=== PATIENT | male | born 1960 | race Caucasian/White ===

== ENCOUNTER 2020-12-26 07:28 | Inpatient (IN) | payer OTHER, MEDICARE, SELFPAY ==
[2020-12-26] VITALS (16 sets, daily range): BP systolic 101–150; BP diastolic 66–86; PULSE 72–196; RESP 14–20; TEMP 37; O2SAT 92–98; BMI 34.2
--- NOTE | 2020-12-26 | ECG_ITS ---
Test Reason : CHEST PAIN Blood Pressure : / mmHG Vent. Rate : 193 BPM Atrial Rate : 193 BPM P-R Int : 094 ms QRS Dur : 102 ms QT Int : 236 ms P-R-T Axes : 061 -44 217 degrees QTc Int : 423 ms Supraventricular tachycardia vs atrial flutter Left axis deviation Left ventricular hypertrophy with repolarization abnormality Marked ST abnormality, possible anterior subendocardial injury Abnormal ECG When compared with ECG of 24-FEB-2019 17:51, SVT vs atrial flutter present ischemic changes present Referred By: Generic ED Physician Electronically Signed By:Akira Tran
--- NOTE | ~2020-12-26 | XR_ITS ---
EXAMINATION: XR CHEST CLINICAL INFORMATION: Chest pain COMPARISON: 02/10/2019 TECHNIQUE: Frontal view of the chest was obtained. FINDINGS: The lungs are well expanded. There is increased patchy airspace opacity at the left lung base. No pleural effusion or pneumothorax. The cardiomediastinal silhouette is unchanged. Cervical fusion hardware noted. XR/XR chest 1V IMPRESSION: Patchy airspace opacity of the left lung base is concerning for pneumonia or aspiration. Follow-up to resolution.
--- NOTE | 2020-12-26 07:55 | PC.NURSE ---
pt in from the waiting room, alert oriented, skin pwd, respirations even and unlabored. pt reports having left sided chest pain and feeling sob, also some tingling in the left hand. hr in the 190's on the monitor, pt also feeling slightly dizzy. dr Zapata at bedside attempted the 6mg of adenosine iv no change hr still in the 190's bp stable . attempted the 12mg of adenosine still no change, second dose of 12mg of adenosine given and no change. pacer pads on the pt prior to giving the adenosine.
--- NOTE | 2020-12-26 08:11 | ECG_ITS ---
Test Reason : CHEST PAIN Blood Pressure : / mmHG Vent. Rate : 081 BPM Atrial Rate : 081 BPM P-R Int : 204 ms QRS Dur : 114 ms QT Int : 418 ms P-R-T Axes : 011 -40 024 degrees QTc Int : 485 ms Sinus rhythm with occasional Premature ventricular complexes and Premature atrial complexes Left axis deviation Minimal voltage criteria for LVH, may be normal variant Nonspecific ST abnormality Prolonged QT Abnormal ECG When compared with ECG of 26-DEC-2020 07:44, SVT vs atrial flutter not present anymore Referred By: Amado Lopez Electronically Signed By:Akira Tran
[2020-12-26] MEDS: dilTIAZem HCL 50 MG/10 ML VIAL 30 MG IVPUSH (08:13)
[2020-12-26] MEDS: 0.9 % Sodium Chloride 1,000 ML 999 ML IV (08:15)
--- NOTE | 2020-12-26 08:15 | PC.NURSE ---
Cardizem 30mg given really slow, hr started in the 190's pt continuos on being stable, alert and oriented, skin pwd, respirations even, bp stable, hr slowing down to the 130 s, and into the 90's at this time.
[2020-12-26] MEDS: dilTIAZem HCL 125 MG in 0.9 % Sodium Chloride 100 ML 10 MG IVCONT (08:31)
[2020-12-26 08:44] LABS: MANUAL DIFF FLAG NO
[2020-12-26 08:53] LABS: Prothrombin Time 11.4 SEC (10.8-13.0)
[2020-12-26 08:55] LABS: D Dimer 271 NG/ML; Partial Thromboplastin Time 32.8 SEC (24.1-38.0)
[2020-12-26 09:03] LABS: Basophils Percent Auto 0.8 % (0-2); Eosinophils Absolute Auto 0.2 X10*3/uL (0.0-0.4); Eosinophils Percent Auto 4.5 % (0-4); Hematocrit 40.8 % (42-52); Hemoglobin 14.1 g/dl (14.0-18.0); Imm Gran Abs Auto 0.01 X10*3/uL (0.00-0.03); Imm Gran Pct Auto 0.2 % (0.0-0.4); Lymphocytes Absolute Auto 2.2 X10*3/uL (1.2-4.9); Lymphocytes Percent Auto 42.8 % (20-40); Mean Corpuscular HGB Conc 34.6 g/dl (31.0-36.0); Mean Corpuscular Hemoglobin 32.9 pg (27.0-33.0); Mean Corpuscular Volume 95.3 fL (80-98); Mean Platelet Volume 10.3 fL (9.4-12.4); Monocytes Absolute Auto 0.4 X10*3/uL (0.1-1.2); Neutrophils Absolute Auto 2.3 X10*3/uL (2.0-8.3); Neutrophils Percent Auto 43.7 % (45-73); Platelet Count 119 X10*3/uL (160-400); Red Blood Count 4.28 X10*6/uL (4.60-5.80); Red Cell Distribution Width 12.6 % (11.0-16.0); White Blood Count 5.1 X10*3/uL (4.8-10.8)
[2020-12-26 09:44] LABS: COVID-19 Test Negative (Negative)
[2020-12-26 10:01] LABS: Alanine Aminotransferase 25 U/L (0-40); Albumin Level 4.3 g/dL (3.5-5.0); Alkaline Phosphatase 85 U/L (39-117); Anion Gap 16 (12-20); Aspartate Amino Transferase 36 U/L (5-37); Bilirubin Total 0.5 mg/dL (0.0-1.0); Blood Urea Nitrogen 10 mg/dL (9-16); Calcium 8.6 mg/dL (8.4-10.2); Carbon Dioxide 24 mmol/L (22-29); Chloride 104 mmol/L (96-108); Creatinine Clr Calc Pharmacy 115.7; Estimated Glomerular Filt Rate > 60; Glucose Random 147 mg/dL (60-115); Lipase 21 U/L (8-78); Potassium 3.7 mmol/L (3.3-5.1); Salicylate < 5.0 mg/dL (15-30); Sodium 140 mmol/L (135-145); Total Protein 6.7 g/dL (6.5-8.0); Troponin-I High Sensitivity 52.6 ng/L (<3.5-35.0)
[2020-12-26 10:02] LABS: TSH reflex Free T4 5.66 uIU/mL (0.32-4.0)
[2020-12-26 10:28] LABS: Ethanol < 10 mg/dL
--- NOTE | 2020-12-26 10:35 | ED.GENADULT ---
HPI - General Adult General Chief complaint: Arrhythmia/Palpitations Stated complaint: chest pain Time Seen by Provider: 12/26/20 08:08 Source: patient Mode of arrival: ambulatory Limitations: no limitations History of Present Illness HPI narrative: 60-year-old male who presents emergency department for evaluation of chest pain and shortness of breath. Patient states that he woke up at 0630 hours and felt short of breath. He also had a left-sided chest pain which he describes as sharp and he points to his left anterior chest when asked to localize the pain. He states the pain has been constant since he woke up. The pain is 6/10 at its worst. He states that his has a pulse oximeter at home and his O2 saturation was normal but his pulse was greater than 200. On presentation to the emergency department he was found to be in an SVT with a rate of 190. The patient states that he may have had a fast heart rate in the past but it has never been this prolonged. He can not remember want her to events but has never been seen for these events. He denied fever, chills, cough, nausea, vomiting, pain radiating to his neck, jaw, arms or back. He denied abdominal pain, change in bowel movements, change in his urine. Related Data Previous Rx's Medication Instructions Recorded venlafaxine 225 mg tablet,extended 225 mg PO DAILY #90 tab 08/05/20 release 24 hr hydroxyzine HCl 25 mg tablet 25 mg PO BID PRN #40 tab 08/20/20 levothyroxine 50 mcg tablet 50 mcg PO QAM #30 tab 10/01/20 rosuvastatin 5 mg tablet 5 mg PO .Every other day 90 Days 12/02/20 #45 tab Allergies Allergy/AdvReac Type Severity Reaction Status Date / Time lisinopril [Lisinopril] Allergy Mild RASH Unverified 06/13/20 14:57 Environmental Allergy Unknown UNKNOWN Uncoded 06/13/20 14:57 Review of Systems Review of Systems: Yes all other systems are reviewed and are negative [facility] Past Medical History [facility] Narrative: Patient has a history of hypertension, he denied diabetes, hyperlipidemia, coronary artery disease. The patient does not smoke cigarettes, he drinks wine 1 to 2 times a week, he denies drug use, he is and his is here in the emergency department with him. Medical History (Updated 12/26/20 @ 08:10 by Colleen Molina) HTN (hypertension) Surgical History (Updated 12/26/20 @ 08:10 by Colleen Molina) Hx of hand surgery Hx of hernia repair Social History Social History Smoking Status: Never smoker Use of substances other than those prescribed or required for medical reasons: No Advance Directives: Yes Advance Directives Information Provided: Yes Advance Directives on File: No Physical Exam Vital Signs: Vital Signs: Last Vital Signs Pulse 75 12/26/20 12:00 Resp 17 12/26/20 12:00 BP 125/66 12/26/20 12:00 Pulse Ox 97 12/26/20 12:00 Body Mass Index 34.2 Const: General: cooperative and other (Anxious) Orientation/consciousness: oriented to person and oriented to place Limitations: no limitations HENMT: Head: Yes normal to inspection, Yes normocephalic and Yes atraumatic Ears: external ears normal General nose exam: Normal external nose present Face and sinus: Yes normal facial exam Mouth: Normal oral and palatal mucosa present Throat: Yes posterior oropharynx normal Eyes: Periorbital: periorbital findings normal Eyelids: Yes eyelids normal Conjunctivae: conjunctivae normal Sclerae: sclerae normal Corneas: corneas normal Pupils: Equal, round and reactive pupils present Direct Ophthalmoscopy: normal light reflex Neck: Neck: Yes full ROM, Yes no lymphadenopathy, Yes no meningeal signs, Yes trachea midline and Yes supple Chest: Chest palpation & inspection: normal inspection of the chest and normal palpation of entire chest wall Resp: Effort & Inspection: normal respiratory effort and able to speak in complete sentences Auscultation: clear to auscultation bilaterally Cardio: Rate: tachycardic Rhythm: regular rhythm Heart sounds: S1 normal heart sound present, S2 normal heart sound present and no murmurs GI: Inspection: Yes normal to inspection Palpation (GI): Soft to palpation, nontender, no guarding, not rigid and No hepatosplenomegaly present : General: Yes no CVA tenderness Back/Spine/Pelvis: Back: no CVA tenderness Cervical Spine: normal cervical lordosis Thoracic/Lumbar Spine: thoracic and lumbar spine normal to inspection Skin: Lesions: no lesions Rashes: no rashes Wounds: no wounds Neuro: General: oriented to person, oriented to place and no meningeal signs Cranial nerves: Yes CN's II-XII intact bilaterally and Yes Equal, round and reactive pupils present Cognition (Neuro): normal cognition Motor exam (neuro): 5/5 motor strength present throughout Extrem: General: Yes normal to inspection and Yes full ROM Psych: Appearance: well kempt Mental Status: mental status grossly normal Speech and movement: Normal speech and movement present Affect: normal affect Attitude: cooperative Thought process: Normal thought process present Thought content: Normal thought content present Course Course Course Narrative: 60-year-old male who presents emergency department for evaluation of left-sided chest pain and shortness of breath which began this morning at 6:30 a.m.. A presentation to the emergency department the patient was found to have a rapid pulse and his 12 EKG revealed an SVT of 193 beats per minute with 1-[address] segment depression in leads 2, AVF, V4 through V6. The patient was initially treated with adenosine IV push. He received 3 doses (6 mg, 6 mg and 12 mg) with no change in his rhythm or rate. He was then given a diltiazem bolus 0.25 milligrams/kilogram (30 mg) IV push and started on a diltiazem drip the patient then converted to a sinus rhythm with PVCs and PACs. I did order a CBC, CMP, troponin, TSH. 1042: Patient's laboratory evaluation revealed a low platelet count of a 815090, he has had similar low platelet counts in the past. Glucose was elevated at 147. The patient's age adjusted D-dimer is not elevated at 271. TSH is elevated at 5.66, T4 is pending. The patient's high sensitivity troponin was elevated at 52. I did order repeat troponin at 11:40 a.m.. Given his chest pain is elevated troponin, I will discuss his presentation with the lace finisher for admission and further evaluation for possible coronary artery disease. He was given 4 baby aspirin to chew. 1105: I did discuss the patient's presentation with our lace finisher, Dr. Stephens. He recommended stopping the diltiazem drip and giving the patient Cardizem CD 120 mg orally. He recommended that the patient be treated with aspirin only and not be heparinized at this time. Recommended that the patient be admitted for further evaluation of his SVT and elevated troponin. I will discuss the patient's presentation with the covering hospitalist. 1346: The patient's repeat 3 hour troponin was elevated at 375.4 which is a significant elevation compared to the previous troponin. I did discuss this with the covering hospitalist and he felt that this was consistent with a type 2 myocardial injury secondary to the patient's prolonged tachycardia. His recommendations did not change and he felt that heparinization is not indicated at the patient could be hospitalized at our facility for further evaluation. I did discuss the patient's presentation with the covering hospitalist the patient will be admitted for further management. Medical Decision Making Lab Data Result diagrams: 12/26/20 08:39 12/26/20 08:39 Labs: Lab Results 12/26/20 12/26/20 12/26/20 Range/Units 08:39 08:39 08:39 WBC 5.1 (4.8-10.8) X10*3/uL RBC 4.28 L (4.60-5.80) X10*6/uL Hgb 14.1 (14.0-18.0) g/dl Hct 40.8 L (42-52) % MCV 95.3 (80-98) fL MCH 32.9 (27.0-33.0) pg MCHC 34.6 (31.0-36.0) g/dl RDW 12.6 (11.0-16.0) % Plt Count 119 L (160-400) X10*3/uL MPV 10.3 (9.4-12.4) fL Immature Gran % (Auto) 0.2 (0.0-0.4) % Neut % (Auto) 43.7 L (45-73) % Lymph % (Auto) 42.8 H (20-40) % [place] % (Auto) 8.0 (2-11) % Eos % (Auto) 4.5 H (0-4) % Baso % (Auto) 0.8 (0-2) % Lymph # (Auto) 2.2 (1.2-4.9) X10*3/uL [place] # (Auto) 0.4 (0.1-1.2) X10*3/uL Eos # (Auto) 0.2 (0.0-0.4) X10*3/uL Baso # (Auto) 0.0 (0.0-0.2) X10*3/uL Abs Immat Gran (auto) 0.01 (0.00-0.03) X10*3/uL Absolute Neuts (auto) 2.3 (2.0-8.3) X10*3/uL Absolute Nucleated RBC 0.000 (0.0-0.012) X10*3/uL Nucleated RBC % (auto) 0.0 (0.0-0.2) /100WBC PT 11.4 (10.8-13.0) SEC INR 1.0 (0.9-1.1) APTT 32.8 (24.1-38.0) SEC D-Dimer 271 NG/ML Sodium (135-145) mmol/L Potassium (3.3-5.1) mmol/L Chloride (96-108) mmol/L Carbon Dioxide (22-29) mmol/L Anion Gap (12-20) BUN (9-16) mg/dL Creatinine (0.5-1.4) mg/dL Estim Creat Clear Calc Estimated GFR Random Glucose (60-115) mg/dL Calcium (8.4-10.2) mg/dL Total Bilirubin (0.0-1.0) mg/dL AST (5-37) U/L ALT (0-40) U/L Alkaline Phosphatase (39-117) U/L Troponin I High Sens 52.6 H (<3.5-35.0) ng/L Total Protein (6.5-8.0) g/dL Albumin (3.5-5.0) g/dL Lipase (8-78) U/L TSH (0.32-4.0) uIU/mL Free T4 (0.71-1.85) ng/dL Salicylates (15-30) mg/dL Ethyl Alcohol mg/dL COVID-19 (DAVE) (Negative) COVID-19 Clin Com 12/26/20 12/26/20 12/26/20 Range/Units 08:39 09:25 09:25 WBC (4.8-10.8) X10*3/uL RBC (4.60-5.80) X10*6/uL Hgb (14.0-18.0) g/dl Hct (42-52) % MCV (80-98) fL MCH (27.0-33.0) pg MCHC (31.0-36.0) g/dl RDW (11.0-16.0) % Plt Count (160-400) X10*3/uL MPV (9.4-12.4) fL Immature Gran % (Auto) (0.0-0.4) % Neut % (Auto) (45-73) % Lymph % (Auto) (20-40) % [place] % (Auto) (2-11) % Eos % (Auto) (0-4) % Baso % (Auto) (0-2) % Lymph # (Auto) (1.2-4.9) X10*3/uL [place] # (Auto) (0.1-1.2) X10*3/uL Eos # (Auto) (0.0-0.4) X10*3/uL Baso # (Auto) (0.0-0.2) X10*3/uL Abs Immat Gran (auto) (0.00-0.03) X10*3/uL Absolute Neuts (auto) (2.0-8.3) X10*3/uL Absolute Nucleated RBC (0.0-0.012) X10*3/uL Nucleated RBC % (auto) (0.0-0.2) /100WBC PT (10.8-13.0) SEC INR (0.9-1.1) APTT (24.1-38.0) SEC D-Dimer NG/ML Sodium 140 (135-145) mmol/L Potassium 3.7 (3.3-5.1) mmol/L Chloride 104 (96-108) mmol/L Carbon Dioxide 24 (22-29) mmol/L Anion Gap 16 (12-20) BUN 10 (9-16) mg/dL Creatinine 0.95 (0.5-1.4) mg/dL Estim Creat Clear Calc 115.7 Estimated GFR > 60 Random Glucose 147 H (60-115) mg/dL Calcium 8.6 (8.4-10.2) mg/dL Total Bilirubin 0.5 (0.0-1.0) mg/dL AST 36 (5-37) U/L ALT 25 (0-40) U/L Alkaline Phosphatase 85 (39-117) U/L Troponin I High Sens (<3.5-35.0) ng/L Total Protein 6.7 (6.5-8.0) g/dL Albumin 4.3 (3.5-5.0) g/dL Lipase 21 (8-78) U/L TSH 5.66 H (0.32-4.0) uIU/mL Free T4 0.76 (0.71-1.85) ng/dL Salicylates < 5.0 L (15-30) mg/dL Ethyl Alcohol < 10 mg/dL COVID-19 (DAVE) Negative (Negative) COVID-19 Clin Com See Note 12/26/20 Range/Units 12:32 WBC (4.8-10.8) X10*3/uL RBC (4.60-5.80) X10*6/uL Hgb (14.0-18.0) g/dl Hct (42-52) % MCV (80-98) fL MCH (27.0-33.0) pg MCHC (31.0-36.0) g/dl RDW (11.0-16.0) % Plt Count (160-400) X10*3/uL MPV (9.4-12.4) fL Immature Gran % (Auto) (0.0-0.4) % Neut % (Auto) (45-73) % Lymph % (Auto) (20-40) % [place] % (Auto) (2-11) % Eos % (Auto) (0-4) % Baso % (Auto) (0-2) % Lymph # (Auto) (1.2-4.9) X10*3/uL [place] # (Auto) (0.1-1.2) X10*3/uL Eos # (Auto) (0.0-0.4) X10*3/uL Baso # (Auto) (0.0-0.2) X10*3/uL Abs Immat Gran (auto) (0.00-0.03) X10*3/uL Absolute Neuts (auto) (2.0-8.3) X10*3/uL Absolute Nucleated RBC (0.0-0.012) X10*3/uL Nucleated RBC % (auto) (0.0-0.2) /100WBC PT (10.8-13.0) SEC INR (0.9-1.1) APTT (24.1-38.0) SEC D-Dimer NG/ML Sodium (135-145) mmol/L Potassium (3.3-5.1) mmol/L Chloride (96-108) mmol/L Carbon Dioxide (22-29) mmol/L Anion Gap (12-20) BUN (9-16) mg/dL Creatinine (0.5-1.4) mg/dL Estim Creat Clear Calc Estimated GFR Random Glucose (60-115) mg/dL Calcium (8.4-10.2) mg/dL Total Bilirubin (0.0-1.0) mg/dL AST (5-37) U/L ALT (0-40) U/L Alkaline Phosphatase (39-117) U/L Troponin I High Sens 375.4 H D (<3.5-35.0) ng/L Total Protein (6.5-8.0) g/dL Albumin (3.5-5.0) g/dL Lipase (8-78) U/L TSH (0.32-4.0) uIU/mL Free T4 (0.71-1.85) ng/dL Salicylates (15-30) mg/dL Ethyl Alcohol mg/dL COVID-19 (DAVE) (Negative) COVID-19 Clin Com ECG Data Interpretation: #1) 0744: Sinus tachycardia with a rate of 193, prolonged QRS of 102, normal QTC of 423, the ST segment depression in leads 2 and AVF and V4 through V6 approximately 1-2 mL. No old EKG for comparison. #2) 0819: Sinus rhythm rate of 81, first-degree AV block with a prolonged NV of 204, prolonged QRS of 114, phone QTC of 485, frequent PVCs and occasional PAC, nonspecific conduction delay, no ST segment elevation or depression #3) 0820 sinus rhythm with a rate of 79, normal NV of 196, prolonged QRS of 144, prolonged QTC of 513, occasional PVCs noted, nonspecific interventricular conduction delay, no ST segment elevation or depression Critical Care Time Critical Care Time Critical Care Time: Yes Total Critical Care Time: 35 Attestation: Critical Care: The patient was critically ill with a high probability of imminent or life threatening deterioration. I spent greater than 30 minutes of discontinuous time evaluating the patient,delivering critical care at the bedside, discussing and evaluating pertinent data with consultants. Critical care time does not include time spent performing separately billable procedures or teaching. Total time spent performing critical care was 35 minutes. Discharge Plan Discharge Prescriptions: No Action venlafaxine 225 mg tablet extended release 24hr 225 mg PO DAILY Qty: 90 RF: 2 hydroxyzine HCl 25 mg tablet 25 mg PO BID PRN (Reason: for anxiety attack) Qty: 40 RF: 1 levothyroxine 50 mcg tablet 50 mcg PO QAM Qty: 30 RF: 5 rosuvastatin 5 mg tablet 5 mg PO .Every other day 90 Days Qty: 45 RF: 1
--- NOTE | 2020-12-26 10:38 | PC.NURSE ---
pt resting comfortably at this time, denies feeling dizzy at this time/hr is at 75 at this time.
[2020-12-26] MEDS: Aspirin 81 MG TAB.CHEW 324 MG PO (11:03)
[2020-12-26] MEDS: dilTIAZem HCL CD 120 MG CAP.ER.DEG PO (11:13)
[2020-12-26 11:45] LABS: Free T4 (Free Thyroxine) 0.76 ng/dL (0.71-1.85)
[2020-12-26 13:16] LABS: Troponin-I High Sensitivity 375.4 ng/L (<3.5-35.0)
--- NOTE | 2020-12-26 14:53 | P.HPHOSP_ITS ---
History of Present Illness Date of Service: 12/26/20 Chief Complaint: Shortness of breath, palpitation, chest pain. 60-year-old male with history of hypertension he says he has of medications for 1 year due to his blood pressure was acceptable range as per PCP. Patient says that he this morning started to have palpitation and then shortness of breath and chest tightness. He felt like his heart is racing very falls to and was very anxious, in addition he said he had left-sided chest pain intensity fung for over 10, stabbing, started at around 6 a.m. did not radiate. Not reproducible. Patient was also feeling short of breath on the same time and sweaty. Afterwards he to could baby aspirin and he said it did not help and decided to come to the hospital his drove him to the hospital. In the emergency room on presentation as per ED physician had SVT with a rate of 190 range. Patient said that he may had this episode before but was never had been this long. Initially also had abnormal EKG with question of ST segment depression in V4 to V6 and lead 2, but after he broke to EKG seems to be nsr, repeat ekg does nt show st depression. For SVT patient received an enema seen but did not respond, subsequently was given IV diltiazem which helped him to go back to NSR. In addition found to have troponin elevated. Has mild thrombocytopenia, Also slightly elevated TSH range of 5.6. ddimer 271 seems within the range. Patient says after receiving diltiazem and heart rate control is palpitations shortness of breath and chest tightness seems significantly improved. Case discussed by ED physician with cardio : Monitor patient on tele, troponin thought to be related to SVT. Recommended to switch him to p.o. Cardizem and baby aspirin. cxr shows left lower lobe opacity. Patient denies any cough or phlegm. Past medical history: htn As above in addition, anxiety/panic, asthma, hypothyroidism. ALLERGIES: She had had reactions to lisinopril. PAST SURGICAL HISTORY: Right inguinal hernia repair; left inguinal hernia repair; umbilical hernia repair. FAMILY HISTORY: Father has history of AFib, mother had history of hypertension. Colon cancer in a sister who at age 39. SOCIAL HISTORY: Denies significant alcohol or smoking. He drinks 1-2 glasses of wine every other day. Review of Systems Review of Systems: Constitutional: Not in acute distress seems slightly anxious. Respiratory: Currently not in short of breath or cough. Cardiovascular: Palpitations seems to be resolved, chest pain also improved Abdominal: No nausea or vomiting or abdominal pain . Neuro fung: No weakness or numbness No fever or chills No sweating Skin-no rash or erythema HEENT: No vision changes or any eye pain or discharge. [facility] Medical History HTN (hypertension) Hypothyroid Panic Functional capacity: independent ambulation Pertinent family history: as above in HPI. Surgical History Hx of hand surgery Hx of hernia repair Social History Household Members: Spouse Housing: House Smoking Status: Never smoker Advance Directives Date on File: 12/26/20 service: No Current occupational status: disabled Meds Allergies Allergy/AdvReac Type Severity Reaction Status Date / Time lisinopril [Lisinopril] Allergy Mild RASH Verified 12/29/20 04:52 Environmental Allergy Unknown Shortness Uncoded 12/29/20 04:52 of Breath Active Medications: Current Medications Generic Name Dose Route Start Last Admin Trade Name Freq PRN Reason Stop Dose Admin Pharmacy Consult 1 each 12/26/20 13:37 Consult Rx Perform Med Rec MISCELLANE ONCE PRN Consult order Home Medications Medication Instructions Recorded Confirmed Last Taken Type albuterol sulfate 2 puff INHALATION Q4H PRN 12/26/20 12/26/20 Unknown History levothyroxine 50 mcg PO DAILY@0630 12/26/20 12/26/20 12/25/20 History mycophenolate mofetil 1,000 mg PO BID 12/26/20 12/26/20 12/25/20 History Physical Exam 2 Vital Signs and Narrative: Vital Signs: Last Vital Signs Pulse 75 12/26/20 12:00 Resp 17 12/26/20 12:00 BP 125/66 12/26/20 12:00 Pulse Ox 97 12/26/20 12:00 Body Mass Index 34.2 Physical exam: Constitutional: Not in acute distress, somewhat anxious. HEENT: Eyes: Anicteric, no discharge Throat: Mucosa Moist. Cvs: rrr, [id number] , no murmur res: clear to auscultation ,no rhonchii or wheezing abd: no rebound or guarding ,nt, bs present. ext pulses present , no cyanosis neuro: axo3 , nonfocal. Results Labs CBC and Chem 7: 12/27/20 06:57 12/27/20 06:57 Labs: Laboratory Results - last 24 hr 12/26/20 12/26/20 12/26/20 08:39 08:39 08:39 MCV 95.3 MCH 32.9 MCHC 34.6 RDW 12.6 Plt Count 119 L MPV 10.3 Immature Gran % (Auto) 0.2 Neut % (Auto) 43.7 L Lymph % (Auto) 42.8 H Frio % (Auto) 8.0 Eos % (Auto) 4.5 H Baso % (Auto) 0.8 Lymph # (Auto) 2.2 Frio # (Auto) 0.4 Eos # (Auto) 0.2 Baso # (Auto) 0.0 Abs Immat Gran (auto) 0.01 Absolute Neuts (auto) 2.3 Absolute Nucleated RBC 0.000 Nucleated RBC % (auto) 0.0 PT 11.4 INR 1.0 APTT 32.8 D-Dimer 271 Anion Gap Estim Creat Clear Calc Estimated GFR Random Glucose Calcium Total Bilirubin AST ALT Alkaline Phosphatase Troponin I High Sens 52.6 H Total Protein Albumin Lipase TSH Free T4 Salicylates Ethyl Alcohol COVID-19 (DAVE) COVID-19 Clin Com 12/26/20 12/26/20 12/26/20 08:39 09:25 09:25 MCV MCH MCHC RDW Plt Count MPV Immature Gran % (Auto) Neut % (Auto) Lymph % (Auto) Frio % (Auto) Eos % (Auto) Baso % (Auto) Lymph # (Auto) Frio # (Auto) Eos # (Auto) Baso # (Auto) Abs Immat Gran (auto) Absolute Neuts (auto) Absolute Nucleated RBC Nucleated RBC % (auto) PT INR APTT D-Dimer Anion Gap 16 Estim Creat Clear Calc 115.7 Estimated GFR > 60 Random Glucose 147 H Calcium 8.6 Total Bilirubin 0.5 AST 36 ALT 25 Alkaline Phosphatase 85 Troponin I High Sens Total Protein 6.7 Albumin 4.3 Lipase 21 TSH 5.66 H Free T4 0.76 Salicylates < 5.0 L Ethyl Alcohol < 10 COVID-19 (DAVE) Negative COVID-19 Clin Com See Note 12/26/20 12:32 MCV MCH MCHC RDW Plt Count MPV Immature Gran % (Auto) Neut % (Auto) Lymph % (Auto) Frio % (Auto) Eos % (Auto) Baso % (Auto) Lymph # (Auto) Frio # (Auto) Eos # (Auto) Baso # (Auto) Abs Immat Gran (auto) Absolute Neuts (auto) Absolute Nucleated RBC Nucleated RBC % (auto) PT INR APTT D-Dimer Anion Gap Estim Creat Clear Calc Estimated GFR Random Glucose Calcium Total Bilirubin AST ALT Alkaline Phosphatase Troponin I High Sens 375.4 H D Total Protein Albumin Lipase TSH Free T4 Salicylates Ethyl Alcohol COVID-19 (DAVE) COVID-19 Clin Com Imaging Radiologist's Impressions: Impressions Chest X-Ray 12/26/20 08:12 IMPRESSION: Patchy airspace opacity of the left lung base is concerning for pneumonia or aspiration. Follow-up to resolution. Assessment and Plan (1) SOB (shortness of breath): Status: Acute (2) Elevated troponin: Status: Acute (3) SVT (supraventricular tachycardia): Status: Acute 1. SVt Vs arterial flutter intial ekg: Shortness and palpitations improved significantly probably related to SVT. Patient received IV diltiazem and stenosis in subsequently patient SVT broke to start sinus rhythm Will add Cardizem p.o., and baby aspirin as per cardio. chads score ?1. 2. Elevated troponin: Seems to be related to palpitations and SVT. Tele monitoring Will check 1 more time troponin Continue aspirin, statin. Echo Cardio consult. 3. Left lower lung opacity? Patient does not have any fever or leukocytosis or any cough or phlegm Will check blood procalcitonin level If new symptom develops cough or fever may need to start antibiotic 4. Hypothyroidism: Will continue home levothyroxine dose History tsh is slightly elevated but T4 recently is fine Monitor TSH outpatient in a week or so and further management as per PCP. 5. Mild thrombocytopenia : Monitor CBC closely, if continue to drop platelet fung then will consider Hematology. 6. Ezema: on mycopheolate as per patient. 6. DVT prophylaxis: SubQ Lovenox Code status as per patient and patient's - full code
[2020-12-26 15:31] LABS: Magnesium 1.7 mg/dL (1.6-2.6)
[2020-12-26 15:47] LABS: Bilirubin Direct 0.2 mg/dL (0.0-0.5)
[2020-12-26] MEDS: Enoxaparin Sodium 40 MG/0.4 ML SYRINGE SUBCUT (16:06)
[2020-12-26] MEDS: Potassium Chloride Packet 20 MEQ PACKET PO (16:06)
[2020-12-26 16:19] LABS: Procalcitonin 0.03 ng/mL
--- NOTE | 2020-12-26 21:29 | PC.NURSE ---
PT HAS BEEN OFF CARDIZEM DRIP, HR REMAINS IN 70'S.
--- NOTE | 2020-12-26 21:44 | MHC.CM.ED ---
CM met with very pleasant and alert gentleman. IMM reviewed and signed. Lives with his . Is disabled and receives no services. Has no medical equipment in home. Reviewed HCP. Completed, signed and uploaded into [employer] and placed in chart. Copies given to pt. HCP/ Migdalia Martinez ([phone]). D/C plan is home without services. to provide transportation. CM to follow for d/c needs
[2020-12-27] VITALS (8 sets, daily range): BP systolic 133–162; BP diastolic 62–83; PULSE 62–81; RESP 18–20; TEMP 35.9–36.6; O2SAT 92–97
[2020-12-27] MEDS: 0.9 % Sodium Chloride Flush 3 ML SYRINGE IVFLUSH ×3 (01:40→16:41)
--- NOTE | 2020-12-27 05:06 | PC.NURSE ---
Pt had 3 beat VTACH at 0500. pt is asymptomatic at this time. notified.
[2020-12-27] MEDS: Levothyroxine Sodium 50 MCG TABLET PO (05:52)
[2020-12-27 08:06] LABS: Imm Gran Abs Auto 0.01 X10*3/uL (0.00-0.03); Imm Gran Pct Auto 0.2 % (0.0-0.4)
[2020-12-27 08:08] LABS: Basophils Absolute Auto 0.1 X10*3/uL (0.0-0.2); Basophils Percent Auto 1.1 % (0-2); Eosinophils Absolute Auto 0.2 X10*3/uL (0.0-0.4); Hematocrit 39.2 % (42-52); Hemoglobin 13.3 g/dl (14.0-18.0); Lymphocytes Absolute Auto 1.6 X10*3/uL (1.2-4.9); Lymphocytes Percent Auto 29.5 % (20-40); Mean Corpuscular HGB Conc 33.9 g/dl (31.0-36.0); Mean Corpuscular Hemoglobin 32.7 pg (27.0-33.0); Mean Corpuscular Volume 96.3 fL (80-98); Mean Platelet Volume 10.3 fL (9.4-12.4); Monocytes Absolute Auto 0.6 X10*3/uL (0.1-1.2); Monocytes Percent Auto 10.3 % (2-11); Neutrophils Absolute Auto 3.1 X10*3/uL (2.0-8.3); Neutrophils Percent Auto 54.9 % (45-73); Red Blood Count 4.07 X10*6/uL (4.60-5.80); Red Cell Distribution Width 12.6 % (11.0-16.0)
[2020-12-27 08:10] LABS: White Blood Count 5.6 X10*3/uL (4.8-10.8)
[2020-12-27 08:11] LABS: MANUAL DIFF FLAG NO; Platelet Count 116 X10*3/uL (160-400)
[2020-12-27 08:35] LABS: Anion Gap 11 (12-20); Blood Urea Nitrogen 10 mg/dL (9-16); Calcium 9.2 mg/dL (8.4-10.2); Carbon Dioxide 30 mmol/L (22-29); Chloride 106 mmol/L (96-108); Creatinine Clr Calc Pharmacy 123.5; Estimated Glomerular Filt Rate > 60; Glucose Random 111 mg/dL (60-115); Potassium 4.1 mmol/L (3.3-5.1); Sodium 143 mmol/L (135-145)
[2020-12-27 10:14] LABS: Cholesterol 184 mg/dL; HDL Cholesterol 46 mg/dL; LDL Cholesterol Calculated 97 mg/dl; Triglycerides 209 mg/dL
[2020-12-27 10:35] LABS: Troponin-I High Sensitivity 196.8 ng/L (<3.5-35.0)
[2020-12-27] MEDS: dilTIAZem HCL 60 MG TABLET 120 MG PO (11:59)
[2020-12-27] MEDS: Venlafaxine HCl ER 75 MG CAP.ER.24H 225 MG PO (11:59)
[2020-12-27] MEDS: Atorvastatin Calcium 20 MG TABLET PO (11:59)
[2020-12-27] MEDS: Aspirin 81 MG TAB.CHEW PO (12:00)
--- NOTE | 2020-12-27 12:15 | HO.PM.IMPN ---
Subjective Subjective Date of Service: 12/28/20 Interval History: Patient resting in bed comfortably denies chest pain, no palpitation, had similar episode of palpitation last Wednesday he took left over metoprolol and should couple aspirin and symptoms improved but since yesterday symptoms of palpitations, shortness of breath and chest pain persisted he came to the emergency room, no acute issues overnight no arrhythmia on tele monitor. ROS General no headache, no dizziness no fever chills. CVS no chest pain, no palpitation. Respiratory no cough, no sob. Gastrointestinal no nausea, no vomiting, no abdominal pain Physical Exam Vital Signs: Vital Signs: Last Vital Signs Temp 96.6 F L 12/27/20 08:00 Pulse 81 12/27/20 08:00 Resp 20 12/27/20 08:00 BP 139/83 12/27/20 08:00 Pulse Ox 96 12/27/20 08:00 Body Mass Index 34.2 General no acute distress. Neck supple, no JVD. CVS regular rate rhythm Respiratory lungs clear to auscultation, no respiratory distress, no wheeze, no rhonchi. Gastrointestinal abdomen soft, nontender, bowel sounds audible, no guarding , no rigidity. Extremities no clubbing cyanosis or edema. Neuro nonfocal , speech clear. Skin no rash Objective Data Current Medications Generic Name Dose Route Start Last Admin Trade Name Freq PRN Reason Stop Dose Admin Albuterol Sulfate 1 puff 12/26/20 16:46 Albuterol Sulfate 90 Mcg 8 Gm Inhaler INHALE RQ6H PRN asthma Aspirin 81 mg 12/27/20 09:00 12/27/20 12:00 Aspirin 81 Mg Tab.Chew PO 81 mg DAILY [facility] Administration Atorvastatin Calcium 20 mg 12/27/20 10:00 12/27/20 11:59 Atorvastatin Calcium 20 Mg Tablet PO 20 mg MOWEFR@1000 [facility] Administration Diltiazem HCl 120 mg 12/27/20 09:00 12/27/20 11:59 Diltiazem Hcl 60 Mg Tablet PO 120 mg DAILY [facility] Administration Protocol Enoxaparin Sodium 40 mg 12/26/20 15:00 12/26/20 16:06 Enoxaparin Sodium 40 Mg/0.4 Ml Syringe SUBCUT 40 mg Q24H [facility] Administration Hydroxyzine HCl 25 mg 12/26/20 14:52 Hydroxyzine Hcl 25 Mg Tablet PO BID PRN for anxiety attack Levothyroxine Sodium 50 mcg 12/27/20 06:30 12/27/20 05:52 Levothyroxine Sodium 50 Mcg Tablet PO 50 mcg DAILY@0630 [facility] Administration Non-Formulary Medication 1,000 mg 12/26/20 21:00 Mycophenolate Mofetil PO BID [facility] Omeprazole 20 mg 12/27/20 12:15 Omeprazole 20 Mg Capsule. PO DAILY@0630 [facility] Pharmacy Consult 1 each 12/26/20 13:37 Consult Rx Perform Med Rec MISCELLANE ONCE PRN Consult order Sodium Chloride 3 ml 12/26/20 16:00 12/27/20 12:00 0.9 % Sodium Chloride Flush 3 Ml Syringe IVFLUSH 3 ml QSHIFT [facility] Administration Venlafaxine HCl 225 mg 12/27/20 09:00 12/27/20 11:59 Venlafaxine Hcl Er 75 Mg Cap.Er.24h PO 225 mg DAILY [facility] Administration Labs CBC & Chem 7: 12/27/20 06:57 12/27/20 06:57 Assessment and Plan (1) SVT (supraventricular tachycardia): Status: Acute (2) Elevated troponin: Status: Acute Assessment and Plan: 1. SVt Vs arterial flutter intial ekg: Shortness of breath and palpitations resolved, no recurrent symptoms overnight,Patient received IV diltiazem and adenosine subsequently SVT broke now in sinus rhythm, patient seen by Cardiology and they felt underlying rhythm was atrial flutter therefore patient started on metoprolol and Eliquis continue tele monitor and follow echocardiogram. 2. Elevated troponin: Likely related to SVT, repeat troponin is trending down, lipid profile showed an LDL less than, EKG showed ischemic change therefore will obtain echo continue asa Lipitor and Cardizem and will discuss further treatment plan with Cardiology 3. Left lower lung opacity noted on chest x-ray with no pleural effusion or pneumothorax patient asymptomatic with no fevers no leukocytosis or cough, low procalcitonin will hold antibiotics 4. Hypothyroidism: Continue levothyroxine mildly elevated TSH with normal T4 5. Mild thrombocytopenia : Seems Chronic , follow CBC 6. DVT prophylaxis: SubQ Lovenox 7. History of eczema being followed by rn baby in [place] continue CellCept Code status full code
--- NOTE | 2020-12-27 13:29 | MHC.CM.PN ---
per rounds dc plan remanins home no servceis
--- NOTE | 2020-12-27 15:18 | CA_ITS ---
Transthoracic Echocardiogram Patient (Last, First, Middle): Gustavo Martinez P Gender: Male Date of : 1960 Age: 60 Procedure Date: 12/27/2020 Procedure Type: Transthoracic Echocardiogram Location: [facility] [place] Height: 187.96 cm Weight: 120.66 kg BSA: 2.45 m2 Heart Rate: bpm BP: 148 / 62 [address] Design Engineer: Referring MD: Hany Reaves MD Symptoms: svt Study Quality: Fair, good images on Apical views ECG Rhythm: Patient has runs of supranetricular tachycardia Conclusions: - Normal left ventricular size and systolic function. - There is severely increased left ventricular wall thickness. - E/E prime ratio is <8, consistent with normal filling pressures. - Normal right ventricular cavity size and systolic function. - The left atrium is moderately dilated - There is mild aortic valve regurgitation. - There is mild dilatation of the ascending aorta. Findings Left Ventricle Normal left ventricular size and systolic function. There is severely increased left ventricular wall thickness. The visually estimated ejection fraction is between 55-60%. There is no evidence of regional wall motion abnormalities. Abnormal diastolic function is noted. Spectral Doppler is indicative of an impaired relaxation filling pattern. E/E prime ratio is <8, consistent with normal filling pressures. Right Ventricle Normal right ventricular cavity size and systolic function. Atria The left atrium is moderately dilated. Aortic Valve There is a normal trileaflet aortic valve. There is no evidence of thickening of the aortic valve. There is no aortic valve stenosis. There is mild aortic valve regurgitation. Mitral Valve Normal mitral valve structure and function. There is trace mitral valve regurgitation. There is no mitral valve stenosis. Pulmonic Valve The pulmonic valve is likely normal. Tricuspid Valve Normal tricuspid valve structure and function. There is trace tricuspid valve regurgitation. Normal right atrial pressure. There is no evidence of pulmonary hypertension. Great Vessels The pulmonary artery was not well visualized. There is mild dilatation of the ascending aorta. Venous The inferior vena cava is normal in size and collapses greater than 50% with inspiration. Pericardium/Pleural There is no evidence of pericardial effusion. Prior Study Comparison No prior study available for comparison. Measurements 2D Linear Measurements IVSd: 1.52 0.6-0.9/0.6-1.0 cm LVIDd: 5.61 3.9-5.3/4.2-5.9 cm LVIDd Index: 2.29 2.4-3.2/2.2-3.1 cm/m2 LVIDs: 3.22 2.0-3.6 cm LVPWd: 1.53 0.7-1.1 cm Ao Root: 4.10 2.1-3.5 cm LA Diam: 5.40 2.7-3.8/3.0-4.0 cm LAIDs Index: 2.20 1.5-2.3 cm/m2 LV Mass: 491.82 67-162/88-224 g LV Mass Index: 200.74 43-95/49-115 g/m2 LVOT Diam: 3.00 3.0+(-)1.3 cm 2D Systolic Function EF 4C: 51.60 >55% EF 2C: 47.00 >55% Mitral Valve MV Pk E: 0.47 MV PK A: 0.57 MV Decel Time: 197.00 E/A: 0.80 E'Lateral: 10.30 E'Medial: 5.32 E/E' Med: 8.80 E/E' Lat: 4.50 PHT: 58.00 MVA PHT: 3.79 Decel [place]: 2.36 Aortic Valve AoV Pk Oliver: 1.36 AoV Mn Oliver: 0.97 AoV VTI: 0.30 AoV Pk Grad: 7.00 Aov Mn Grad: 4.00 DUNG Cont.VTI: 5.13 LVOT LVOT Pk Oliver: 0.98 LVOT Mn Oliver: 0.73 LVOT VTI: 0.22 LVOT Pk Grad: 4.00 LVOT Mn Grad: 2.00 LVOT Diam: 3.00 LVOT Area: 7.07 Diastolic Function MV Pk E: 0.47 MV Pk A: 0.57 E/A: 0.80 E'Medial: 5.32 E/E' Med: 8.80 E' Laterial: 10.30 E/E' Lat: 4.50 Tricuspid Valve TR Pk Oliver: 2.05 TR Pk Grad: 17.00 RA Press: 3.00 RVSP: 20.00 Great Vessels Aorta Ao Root-2D: 4.10 2.0-3.7 cm Ao Asc: 4.20 2.1-3.4 cm Pulmonary Valve PV Pk Oliver: 0.86 Peak PV Grad: 3.00 Updated in Other Vendor System with Status of Final Akira Tran MD electronically signed on 12/28/2020 1:46:17 PM with status of Final
[2020-12-27] MEDS: Omeprazole 20 MG CAPSULE.DR PO (16:39)
[2020-12-27] MEDS: Enoxaparin Sodium 40 MG/0.4 ML SYRINGE SUBCUT (16:39)
--- NOTE | 2020-12-27 19:07 | PM.CNCAR ---
History of Present Illness History of Present Illness Date of Service: 12/27/20 Requesting physician: Michelet Man Chief complaint: Narrow complex tachycardia Narrative: 60-year-old gentleman with background of hypertension and palpitations for which he was on metoprolol in the past who is presenting with sudden onset palpitation, shortness of breath and left-sided chest pain. He describes the chest pain is a sharp sensation on the left side of his chest. He also noticed significant racing of his heart. With these symptoms he presented to [facility] was found to have in narrow complex tachycardia with heart rate of 190 beats per minute. This was thought to be supraventricular tachycardia and was treated accordingly with adenosine without any change in rhythm. Subsequent to that he was given IV diltiazem which reverted him to sinus rhythm. He had ischemic changes when he was in is narrow complex tachycardia. His troponin levels were mildly elevated. He since then has been doing well. Reviewing his ECG rhythm it looks like he was potentially in atrial flutter. He also has a background of transient ischemic attack few years back. He said he has been experiencing some palpitations off and on but nothing persistent has happened like this. She PMFSH Past Medical History Medical History (Updated 12/27/20 @ 19:09 by Akira Tran MD) HTN (hypertension) Hypothyroid Panic Functional capacity: independent ambulation Surgical History Surgical History Hx of hand surgery Hx of hernia repair Social History Social History Household Members: Spouse Housing: House Do you presently have visiting nurse or other home services: No Smoking Status: Never smoker Use of substances other than those prescribed or required for medical reasons: No Currently Displaying Signs/Symptoms of Drug Intoxication Withdrawal: No Have you been hit, kicked, punched, or otherwise hurt by someone within the past year? If so, by whom?: No Do you feel safe in your current relationship?: Yes Is there a partner from a previous relationship who is making you feel unsafe now?: No Are you made to feel afraid or neglected: No Advance Directives: Yes Advance Directives Information Provided: Yes Advance Directives on File: No Advance Directives Date on File: 12/26/20 Do you have thoughts of harming others: None Do you have a plan to hurt others: No Plan Recently lost weight without trying: No service: No Current occupational status: disabled Meds Allergies Allergy/AdvReac Type Severity Reaction Status Date / Time lisinopril [Lisinopril] Allergy Mild RASH Unverified 06/13/20 14:57 Environmental Allergy Unknown Shortness Uncoded 12/27/20 11:55 of Breath Active Medications: Current Medications Generic Name Dose Route Start Last Admin Trade Name Freq PRN Reason Stop Dose Admin Albuterol Sulfate 1 puff 12/26/20 16:46 Albuterol Sulfate 90 Mcg 8 Gm Inhaler INHALE RQ6H PRN asthma Apixaban 5 mg 12/27/20 21:00 Apixaban 5 Mg Tablet PO BID [facility] Aspirin 81 mg 12/27/20 09:00 12/27/20 12:00 Aspirin 81 Mg Tab.Chew PO 81 mg DAILY [facility] Administration Atorvastatin Calcium 20 mg 12/27/20 10:00 12/27/20 11:59 Atorvastatin Calcium 20 Mg Tablet PO 20 mg MOWEFR@1000 [facility] Administration Diltiazem HCl 120 mg 12/27/20 09:00 12/27/20 11:59 Diltiazem Hcl 60 Mg Tablet PO 120 mg DAILY [facility] Administration Protocol Enoxaparin Sodium 40 mg 12/26/20 15:00 12/27/20 16:39 Enoxaparin Sodium 40 Mg/0.4 Ml Syringe SUBCUT 40 mg Q24H [facility] Administration Hydroxyzine HCl 25 mg 12/26/20 14:52 Hydroxyzine Hcl 25 Mg Tablet PO BID PRN for anxiety attack Levothyroxine Sodium 50 mcg 12/27/20 06:30 12/27/20 05:52 Levothyroxine Sodium 50 Mcg Tablet PO 50 mcg DAILY@0630 [facility] Administration Metoprolol Tartrate 25 mg 12/27/20 21:00 Metoprolol Tartrate 25 Mg Tablet PO TID [facility] Protocol Mycophenolate Mofetil 1,000 mg 12/27/20 21:00 Mycophenolate Mofetil 250 Mg Capsule PO BID [facility] Omeprazole 20 mg 12/27/20 12:15 12/27/20 16:39 Omeprazole 20 Mg Capsule. PO 20 mg DAILY@0630 [facility] Administration Pharmacy Consult 1 each 12/26/20 13:37 Consult Rx Perform Med Rec MISCELLANE ONCE PRN Consult order Sodium Chloride 3 ml 12/26/20 16:00 12/27/20 16:41 0.9 % Sodium Chloride Flush 3 Ml Syringe IVFLUSH 3 ml QSHIFT [facility] Administration Venlafaxine HCl 225 mg 12/27/20 09:00 12/27/20 11:59 Venlafaxine Hcl Er 75 Mg Cap.Er.24h PO 225 mg DAILY [facility] Administration Home Medications Medication Instructions Recorded Confirmed Last Taken Type albuterol sulfate 2 puff INHALATION Q4H PRN 12/26/20 12/26/20 Unknown History levothyroxine 50 mcg PO DAILY@0630 12/26/20 12/26/20 12/25/20 History mycophenolate mofetil 1,000 mg PO BID 12/26/20 12/26/20 12/25/20 History rosuvastatin 5 mg PO MOWEFR@1000 12/26/20 12/26/20 12/25/20 History Physical Exam Vital Signs: Vital Signs: Last Vital Signs Temp 97.1 F 12/27/20 15:31 Pulse 70 12/27/20 15:31 Resp 19 12/27/20 15:31 BP 156/82 H 12/27/20 15:31 Pulse Ox 97 12/27/20 15:31 Body Mass Index 34.2 GENERAL APPEARANCE: in no acute distress, well developed, well nourished. HEENT: unremarkable. HEAD: normocephalic, atraumatic. NECK/THYROID: no carotid bruit, no jugular venous distention. SKIN: no suspicious lesions, warm and dry. HEART: no murmurs, regular rate and rhythm, S1, S2 normal. LUNGS: clear to auscultation bilaterally. ABDOMEN: normal, bowel sounds present, soft, nontender, nondistended. EXTREMITIES: no clubbing, cyanosis, or edema. PERIPHERAL PULSES: equal. NEUROLOGIC: nonfocal, alert and oriented. PSYCH: mood/affect full range. Results Labs and Meds Result diagrams: 12/27/20 06:57 12/27/20 06:57 Lab results: Laboratory Results - last 24 hr 12/27/20 12/27/20 12/27/20 06:57 06:57 09:30 WBC 5.6 RBC 4.07 L Hgb 13.3 L Hct 39.2 L MCV 96.3 MCH 32.7 MCHC 33.9 RDW 12.6 Plt Count 116 L MPV 10.3 Immature Gran % (Auto) 0.2 Neut % (Auto) 54.9 Lymph % (Auto) 29.5 [place] % (Auto) 10.3 Eos % (Auto) 4.0 Baso % (Auto) 1.1 Lymph # (Auto) 1.6 [place] # (Auto) 0.6 Eos # (Auto) 0.2 Baso # (Auto) 0.1 Abs Immat Gran (auto) 0.01 Absolute Neuts (auto) 3.1 Absolute Nucleated RBC 0.000 Nucleated RBC % (auto) 0.0 Sodium 143 Potassium 4.1 Chloride 106 Carbon Dioxide 30 H Anion Gap 11 L BUN 10 Creatinine 0.89 Estim Creat Clear Calc 123.5 Estimated GFR > 60 Random Glucose 111 Calcium 9.2 D Troponin I High Sens Triglycerides 209 Cholesterol 184 LDL Cholesterol, Calc 97 HDL Cholesterol 46 12/27/20 09:30 WBC RBC Hgb Hct MCV MCH MCHC RDW Plt Count MPV Immature Gran % (Auto) Neut % (Auto) Lymph % (Auto) [place] % (Auto) Eos % (Auto) Baso % (Auto) Lymph # (Auto) [place] # (Auto) Eos # (Auto) Baso # (Auto) Abs Immat Gran (auto) Absolute Neuts (auto) Absolute Nucleated RBC Nucleated RBC % (auto) Sodium Potassium Chloride Carbon Dioxide Anion Gap BUN Creatinine Estim Creat Clear Calc Estimated GFR Random Glucose Calcium Troponin I High Sens 196.8 H Triglycerides Cholesterol LDL Cholesterol, Calc HDL Cholesterol Assessment and Plan (1) Elevated troponin: Status: Acute (2) Atrial flutter: Status: Acute Pleasant 60-year-old gentleman who presented with shortness of breath, chest discomfort and palpitations. He was noticed to be in narrow complex tachycardia at 190 beats per minute. I think he was in atrial flutter based on the strips which are available. He since then has been doing well. He has background history of hypertension as well as palpitations. He also has history of transient ischemic attack few years back. I think he should be anticoagulated and I am starting him on Eliquis. We are also starting 25 mg 3 times a day of metoprolol tartrate. We will control his blood pressure and monitor on telemetry till tomorrow. If he does okay any can go home metoprolol and Eliquis. In terms of his troponin elevation and EKG changes during the narrow complex tachycardia, he will require stress testing which we can be arranged as outpatient. We will follow along with you. Thank you for allowing me to participate in the care of your patient. Please feel free to contact me if you have any questions.
--- NOTE | 2020-12-27 19:40 | PC.NURSE ---
Pt ablt to tollerte room air today with sats maintained in the high 90s and pt denying SOB. Lungs CTA.
[2020-12-27] MEDS: Apixaban 5 MG TABLET PO (19:52)
[2020-12-27] MEDS: Metoprolol Tartrate 25 MG TABLET PO (19:52)
[2020-12-27] MEDS: mycophenolate mofetiL 250 MG CAPSULE 1000 MG PO (19:52)
[2020-12-28] MEDS: 0.9 % Sodium Chloride Flush 3 ML SYRINGE IVFLUSH ×2 (00:16→11:01)
[2020-12-28 03:04] VITALS: BP 138/91; PULSE 72; RESP 18; TEMP 36.6; O2SAT 98
[2020-12-28] MEDS: Levothyroxine Sodium 50 MCG TABLET PO (06:17)
[2020-12-28] MEDS: Omeprazole 20 MG CAPSULE.DR PO (06:17)
[2020-12-28 07:21] VITALS: BP 145/68; PULSE 75; RESP 18; TEMP 36.8; O2SAT 98
[2020-12-28] MEDS: Aspirin 81 MG TAB.CHEW PO (10:59)
[2020-12-28] MEDS: Apixaban 5 MG TABLET PO (11:00)
[2020-12-28] MEDS: mycophenolate mofetiL 250 MG CAPSULE 1000 MG PO (11:00)
[2020-12-28] MEDS: Venlafaxine HCl ER 75 MG CAP.ER.24H 225 MG PO (11:00)
[2020-12-28 11:02] VITALS: BP 140/62; PULSE 70
[2020-12-28] MEDS: Metoprolol Tartrate 25 MG TABLET PO (11:02)
[2020-12-28] MEDS: dilTIAZem HCL 60 MG TABLET 120 MG PO (11:02)
[2020-12-28 11:53] VITALS: BP 143/88; PULSE 88; RESP 20; TEMP 36.4; O2SAT 94
--- NOTE | 2020-12-28 12:01 | P.PNCA_ITS ---
Subjective Subjective Date of Service: 12/28/20 Interval history: Feeling better No arrhythmia Review of Systems Review of Systems Yes all other systems are reviewed and are negative Physical Exam Vital Signs: Last Vital Signs Temp 97.6 F 12/28/20 11:53 Pulse 88 12/28/20 11:53 Resp 20 12/28/20 11:53 BP 143/88 H 12/28/20 11:53 Pulse Ox 94 12/28/20 11:53 Body Mass Index 34.2 GENERAL APPEARANCE: in no acute distress, well developed, well nourished. HEENT: unremarkable. HEAD: normocephalic, atraumatic. NECK/THYROID: no carotid bruit, no jugular venous distention. SKIN: no suspicious lesions, warm and dry. HEART: no murmurs, regular rate and rhythm, S1, S2 normal. LUNGS: clear to auscultation bilaterally. ABDOMEN: normal, bowel sounds present, soft, nontender, nondistended. EXTREMITIES: no clubbing, cyanosis, or edema. PERIPHERAL PULSES: equal. NEUROLOGIC: nonfocal, alert and oriented. PSYCH: mood/affect full range. Results Labs and Meds Result diagrams: 12/27/20 06:57 12/27/20 06:57 Progress Note: A&P Assessment and plan (1) Atrial flutter: Status: Acute (2) Elevated troponin: Status: Acute Assessment and Plan: 60 year old male with narrow complex tachycardia and ischemic ECG changes. I think the rhythm was atrial flutter. He had CVA before. Started on eliquis and metoprolol. Will review echo. PAYAL and stress test as outpatient. Can be discharged home once echo read. Fall Risk Details Current Medications: Current Medications Generic Name Dose Route Start Last Admin Trade Name Freq PRN Reason Stop Dose Admin Albuterol Sulfate 1 puff 12/26/20 16:46 Albuterol Sulfate 90 Mcg 8 Gm Inhaler INHALE RQ6H PRN asthma Apixaban 5 mg 12/27/20 21:00 12/28/20 11:00 Apixaban 5 Mg Tablet PO 5 mg BID [facility] Administration Aspirin 81 mg 12/27/20 09:00 12/28/20 10:59 Aspirin 81 Mg Tab.Chew PO 81 mg DAILY [facility] Administration Atorvastatin Calcium 20 mg 12/27/20 10:00 12/27/20 11:59 Atorvastatin Calcium 20 Mg Tablet PO 20 mg MOWEFR@1000 [facility] Administration Diltiazem HCl 120 mg 12/27/20 09:00 12/28/20 11:02 Diltiazem Hcl 60 Mg Tablet PO 120 mg DAILY [facility] Administration Protocol Hydroxyzine HCl 25 mg 12/26/20 14:52 Hydroxyzine Hcl 25 Mg Tablet PO BID PRN for anxiety attack Levothyroxine Sodium 50 mcg 12/27/20 06:30 12/28/20 06:17 Levothyroxine Sodium 50 Mcg Tablet PO 50 mcg DAILY@0630 [facility] Administration Metoprolol Tartrate 50 mg 12/28/20 21:00 Metoprolol Tartrate 25 Mg Tablet PO BID [facility] Protocol Mycophenolate Mofetil 1,000 mg 12/27/20 21:00 12/28/20 11:00 Mycophenolate Mofetil 250 Mg Capsule PO 1,000 mg BID [facility] Administration Omeprazole 20 mg 12/27/20 12:15 12/28/20 06:17 Omeprazole 20 Mg Capsule. PO 20 mg DAILY@0630 [facility] Administration Pharmacy Consult 1 each 12/26/20 13:37 Consult Rx Perform Med Rec MISCELLANE ONCE PRN Consult order Sodium Chloride 3 ml 12/26/20 16:00 12/28/20 11:01 0.9 % Sodium Chloride Flush 3 Ml Syringe IVFLUSH 3 ml QSHIFT [facility] Administration Venlafaxine HCl 225 mg 12/27/20 09:00 12/28/20 11:00 Venlafaxine Hcl Er 75 Mg Cap.Er.24h PO 225 mg DAILY [facility] Administration Time Spent With Patient Time: Total time spent is greater than 50% in coordination of care (as documented) at patient's floor/unit and/or counseling patient: Time with patient: less than 15 minutes
--- NOTE | 2020-12-28 14:05 | PM.DS ---
DS: Providers Provider Date of Service: 12/28/20 Date of admission: 12/26/20 14:52 Primary care physician: Yancy Giles MD Consults: 12/26/20 15:18 Consult to Cardiology Routine Consulting Provider: Akira Tran Reason for consultation: svt /chest pain, palpitation, shortness of breath. Has provider been notified: No DS: Diagnosis Discharge Diagnosis (1) SVT (supraventricular tachycardia): Status: Acute (2) Elevated troponin: Status: Acute DS: Medications Discharge Medications Home Medications: Home Medications Medication Instructions Recorded Confirmed albuterol sulfate 2 puff INHALATION Q4H PRN 12/26/20 12/26/20 levothyroxine 50 mcg PO DAILY@0630 12/26/20 12/26/20 mycophenolate mofetil 1,000 mg PO BID 12/26/20 12/26/20 rosuvastatin 5 mg PO MOWEFR@1000 12/26/20 12/26/20 Previous Rx's Medication Instructions Recorded venlafaxine 225 mg tablet,extended 225 mg PO DAILY #90 tab 08/05/20 release 24 hr hydroxyzine HCl 25 mg tablet 25 mg PO BID PRN #40 tab 08/20/20 apixaban [Eliquis] 5 mg PO BID #60 tab 12/28/20 diltiazem HCl [Cardizem CD] 180 mg PO DAILY #30 cap 12/28/20 DS: Summary Hospital Course Hospital Course: History of presenting illness Chief Complaint: Shortness of breath, palpitation, chest pain. 60-year-old male with history of hypertension he says he has of medications for 1 year due to his blood pressure was acceptable range as per PCP. Patient says that he this morning started to have palpitation and then shortness of breath and chest tightness. He felt like his heart is racing very falls to and was very anxious, in addition he said he had left-sided chest pain intensity fung for over 10, stabbing, started at around 6 a.m. did not radiate. Not reproducible. Patient was also feeling short of breath on the same time and sweaty. Afterwards he to could baby aspirin and he said it did not help and decided to come to the hospital his drove him to the hospital. In the emergency room on presentation as per ED physician had SVT with a rate of 190 range. Patient said that he may had this episode before but was never had been this long. Initially also had abnormal EKG with question of ST segment depression in V4 to V6 and lead 2, but after he broke to EKG seems to be nsr, repeat ekg does nt show st depression. For SVT patient received an enema seen but did not respond, subsequently was given IV diltiazem which helped him to go back to NSR. In addition found to have troponin elevated. Has mild thrombocytopenia, Also slightly elevated TSH range of 5.6. ddimer 271 seems within the range. Patient says after receiving diltiazem and heart rate control is palpitations shortness of breath and chest tightness seems significantly improved. Case discussed by ED physician with cardio : Monitor patient on tele, troponin thought to be related to SVT. Recommended to switch him to p.o. Cardizem and baby aspirin. cxr shows left lower lobe opacity. Patient denies any cough or phlegm. Past medical history anxiety/panic, asthma, hypothyroidism, history of TIA, hypertension. Hospital course 1. Narrow complex tachycardia patient presented with sudden onset of palpitation, shortness of breath and left-sided chest pain EKG showed narrow complex tachycardia with heart rate of 190 patient initially treated with adenosine without any change in rhythm subsequently treated with IV diltiazem and reverted back to sinus rhythm, patient noted to have ischemic changes on EKG and also noted to have elevated troponin with subsequently trended down, patient had no further bout of chest pain, he remains in normal sinus rhythm he was evaluated by Dr. Trna from Cardiology who felt that underlying rhythm was atrial flutter therefore patient has been started on Eliquis and placed on diltiazem 180 mg daily due to elevated troponin and EKG changes patient will undergo ischemic workup as outpatient an echocardiogram showed left ventricular hypertrophy likely due to uncontrolled blood pressure, EF of 55-60% no evidence of wall motion abnormality. 2. Elevated troponin and ischemic EKG changes will have outpatient workup by Cardiology, recommend to continue aspirin statins and Cardizem. 3. Left lower lung opacity noted on chest x-ray with no pleural effusion or pneumothorax patient asymptomatic with no fevers no leukocytosis or cough, low procalcitonin will hold antibiotics Recommend follow-up chest x-ray in next 1-2 months. 4. Hypothyroidism: Continue levothyroxine. 5. 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 Time Spent with Patient Time attestation: Total time spent providing and/or coordinating discharge services: Discharge coordination time: Greater than 30 minutes Physical Exam Vital Signs: Vital Signs: Last Vital Signs Temp 97.6 F 12/28/20 11:53 Pulse 88 12/28/20 11:53 Resp 20 12/28/20 11:53 BP 143/88 H 12/28/20 11:53 Pulse Ox 94 12/28/20 11:53 Body Mass Index 34.2 General no acute distress. Neck supple, no JVD. CVS regular rate rhythm Respiratory lungs clear to auscultation, no respiratory distress, no wheeze, no rhonchi. Gastrointestinal abdomen soft, nontender, bowel sounds audible, no guarding , no rigidity. Extremities no clubbing cyanosis or edema, discoloration of both feet due to chronic eczema Neuro nonfocal , speech clear. Discharge Plan Discharge Patient Disposition: Home, Self-Care Referrals: Yancy Giles MD [Primary Care Provider] - Discharge Medications: New Eliquis 5 mg Tablet 5 mg PO BID Qty: 60 RF: 0 diltiazem HCl [Cardizem CD] 180 mg capsule,extended release 24hr 180 mg PO DAILY Qty: 30 RF: 0 Continued venlafaxine 225 mg tablet extended release 24hr 225 mg PO DAILY Qty: 90 RF: 2 hydroxyzine HCl 25 mg tablet 25 mg PO BID PRN (Reason: for anxiety attack) Qty: 40 RF: 1 rosuvastatin 5 mg tablet 5 mg PO MOWEFR@1000 RF: 0 levothyroxine 50 mcg tablet 50 mcg PO DAILY@0630 RF: 0 mycophenolate mofetil 500 mg Tablet 1,000 mg PO BID RF: 0 albuterol sulfate 90 mcg/actuation Hfa Aerosol Inhaler 2 puff INHALATION Q4H PRN (Reason: Respiratory Distress) RF: 0 Discharge Orders: Discharge Order (Routine); Ordered 12/28/20 Ordered By: Michelet Man Diet: low fat, low cholesterol Activity on Discharge: As tolerated Stand Alone Forms: Patient Portal Discharge page Care Plan Goals: As above Health Concerns: Atrial flutter/hypertension outpatient follow-up with Cardiology for stress test Plan of Treatment: Outpatient follow-up with primary care physician and cardiology Dr. Tran for outpatient cardiac workup
[2020-12-28 15:04] VITALS: BP 126/73; PULSE 66; RESP 18; TEMP 36.6; O2SAT 93
--- NOTE | 2020-12-28 15:06 | MHC.CM.PN ---
Pt being discharged home today with no services. Family to transport
== END 2020-12-28 15:45 | disposition home or self-care (01) | DRG 310 ==
LOC: HO.ED 08:14 → HO.EDOVER 15:01 → HO.IMC 18:20
PROVIDERS: Admitting Provider Internal Medicine; Emergency Provider Emergency Medicine Emergency Medical Services; PCP Internal Medicine; Visit Provider Hospitalist
DX: I47.1 Supraventricular tachycardia (principal); I48.92 Unspecified atrial flutter; E03.9 Hypothyroidism, unspecified; D69.6 Thrombocytopenia, unspecified; I10 Essential (primary) hypertension; L30.9 Dermatitis, unspecified; Z86.73 Personal history of transient ischemic attack (TIA), and cerebral infarction without residual deficits; Z20.822 Contact with and (suspected) exposure to COVID-19; Z79.01 Long term (current) use of anticoagulants; Z79.890 Hormone replacement therapy; Z79.899 Other long term (current) drug therapy
CPT/HCPCS: 36415; 71045; 80048; 80053; 80061; 80076; 80179; 80320; 83690; 83735; 84145; 84439; 84443; 84484; 85025; 85379; 85610; 85730; 87635; 93005; 93306; 96374; 96375; 99285; 99291; J0153; J1650

== ENCOUNTER 2020-12-29 04:24 | Emergency (ER) | payer OTHER, MEDICARE, SELFPAY ==
--- NOTE | 2020-12-29 | ECG_ITS ---
Test Reason : SUBSTANCE USE Blood Pressure : / mmHG Vent. Rate : 191 BPM Atrial Rate : 191 BPM P-R Int : 000 ms QRS Dur : 102 ms QT Int : 238 ms P-R-T Axes : 000 -46 213 degrees QTc Int : 424 ms Supraventricular tachycardia Left anterior fascicular block Marked ST abnormality, possible lateral subendocardial injury Abnormal ECG When compared with ECG of 26-DEC-2020 08:19, Supraventricular tachycardia has replaced Normal sinus rhythm Referred By: Bob Moon Electronically Signed By:JOI MOORE MD
--- NOTE | 2020-12-29 | ECG_ITS ---
Test Reason : TCHYCARDIA Blood Pressure : / mmHG Vent. Rate : 085 BPM Atrial Rate : 085 BPM P-R Int : 190 ms QRS Dur : 112 ms QT Int : 430 ms P-R-T Axes : 025 -49 025 degrees QTc Int : 511 ms Sinus rhythm with Premature atrial complexes with Aberrant conduction Left anterior fascicular block Moderate voltage criteria for LVH, may be normal variant Nonspecific ST abnormality Prolonged QT Abnormal ECG When compared with ECG of 29-DEC-2020 04:34, Normal sinus rhythm has replaced Supraventricular tachycardia Referred By: Bob Moon Electronically Signed By:JOI MOORE MD
--- NOTE | ~2020-12-29 | XR_ITS ---
EXAMINATION: CHEST 1 VIEW CLINICAL INFORMATION: Shortness of breath. Tachycardia. COMPARISON: 12/26/2020. TECHNIQUE: An AP view of the chest is provided. FINDINGS: The cardiac silhouette is not enlarged. The mediastinal and hilar contours are unremarkable. There are neither pleural effusions nor pneumothoraces. There is persistent airspace disease within the left lung base. The osseous structures are stable. XR/XR chest 1V IMPRESSION: Persistent airspace disease within the left lung base. Recommendation is for a followup chest series to be obtained following treatment and/or resolution of symptoms to assure resolution of this appearance.
[2020-12-29 04:49] VITALS: BP 122/62; PULSE 182; RESP 18; TEMP 36.9; O2SAT 95; BMI 32.1
[2020-12-29 04:52] VITALS: BP 122/62; PULSE 184
[2020-12-29] MEDS: dilTIAZem HCL 50 MG/10 ML VIAL 20 MG IVPUSH (04:52)
--- NOTE | 2020-12-29 04:53 | ED_ITS ---
HPI - Arrhythmia/Palpitations General Chief Complaint: Arrhythmia/Palpitations Stated Complaint: Palpitations/Sob Time Seen by Provider: 12/29/20 04:39 Source: patient and family (Spouse.) Mode of arrival: ambulatory Limitations: no limitations History of Present Illness HPI narrative: 60-year-old male woke up from sleep at 04:00 with palpitation, chest pain, shortness of breath. Patient found to have a rapid heart beat of 190s, patient had similar presentation 2 nights ago that adenosine did not work for him only broke with a Cardizem. Patient was given Cardizem 20 mg IV instantly and heart rate slowed down in the 80s with relief of other symptoms of chest pain and shortness of breath. Patient was discharged today from the hospital on Eliquis/diltiazem stated that she was not able to fill up the prescription. Related Data Home Medications Medication Instructions Recorded Confirmed albuterol sulfate 2 puff INHALATION Q4H PRN 12/26/20 12/26/20 levothyroxine 50 mcg PO DAILY@0630 12/26/20 12/26/20 mycophenolate mofetil 1,000 mg PO BID 12/26/20 12/26/20 rosuvastatin 5 mg PO MOWEFR@1000 12/26/20 12/26/20 Previous Rx's Medication Instructions Recorded venlafaxine 225 mg tablet,extended 225 mg PO DAILY #90 tab 08/05/20 release 24 hr hydroxyzine HCl 25 mg tablet 25 mg PO BID PRN #40 tab 08/20/20 apixaban [Eliquis] 5 mg PO BID #60 tab 12/28/20 diltiazem HCl [Cardizem CD] 180 mg PO DAILY #30 cap 12/28/20 Allergies Allergy/AdvReac Type Severity Reaction Status Date / Time lisinopril [Lisinopril] Allergy Mild RASH Verified 12/29/20 04:52 Environmental Allergy Unknown Shortness Uncoded 12/29/20 04:52 of Breath Review of Systems Review of Systems: All other systems are reviewed and are negative Constitutional: Reports as per HPI and Reports no additional constitutional complaints Eyes: Reports as per HPI and Reports no additional eye complaints Reports system reviewed and no additional complaints, except as documented Cardiovascular: Reports as per HPI and Reports no additional cardiovascular complaints Respiratory: Reports as per HPI and Reports no additional respiratory complaints Gastrointestinal: Reports as per HPI and Reports no additional gastrointestinal complaints Genitourinary: Reports no additional female genitourinary complaints Musculoskeletal: Reports no additional musculoskeletal complaints Skin/Breast: Reports system reviewed and no additional complaints, except as docu Psychiatric: Reports no additional psychiatric complaints Endocrine: Reports no additional endocrine complaints Hematologic/Lymphatic: Reports no additional hematologic/lymphatic complaints Allergic/Immunologic: Reports no additional allergic/immunologic complaints Reports system reviewed and no additional complaints, except as documented and Reports Abnormal speech present [facility] Past Medical History Medical History HTN (hypertension) Hypothyroid Panic Surgical History Hx of hand surgery Hx of hernia repair Social History Social History Household Members: Spouse Housing: House Smoking Status: Never smoker Advance Directives: No Advance Directives Information Provided: No Advance Directives Date on File: 12/26/20 service: No Current occupational status: disabled Physical Exam Vital Signs: Vital Signs: Last Vital Signs Temp 98.4 F 12/29/20 04:49 Pulse 80 12/29/20 05:22 Resp 18 12/29/20 04:49 BP 104/77 12/29/20 05:22 Pulse Ox 95 12/29/20 04:49 Body Mass Index 32.1 Vital signs have been reviewed as appeared to be correct. Blood pressure normal. Heart rate is elevated. Respiration rate normal. Temperature normal. Oxygen saturation normal. Appearance: Alert. Oriented X3. No acute distress. Appear anxious Head: Normal external exam. Normocephalic. Atraumatic. No Bray signs noted. No raccoon eyes noted Eyes: PERRLA. EOMI. Conjunctiva and sclera normal. Eyelids normal. ENT: TM's Normal. Pharynx normal. Uvula midline. Moist mucous membranes. No trismus noted. No drooling noted. No muffled voice noted. Neck: Normal inspection. Neck supple. FROM. No adenopathy. Thyroid Normal. No meningeal signs. No neck mass noted. CVS: A rapid heartbeat above 190's. Heart sound normal. No murmurs noted. Pulses normal throughout. Respiratory: No respiratory distress. Painless inspiration. Breath sounds normal. No wheezes/rales/rhonchi noted. Chest nontender. No accessory muscle usage noted or decreased air movement noted. Abdomen: Soft and nontender. Bowel sounds normal in all 4 quadrants. No distention noted. No organomegaly noted. No visible injury noted. Back: No CVA tenderness. Full range of motion noted. Skin: Skin warm and dry. Normal skin color. Normal skin turgor. No rashe s/lesions/lacerations noted. Extremities: No lower extremity edema. Extremities exhibit normal range of motion. Extremities nontender. Neuro: Oriented X 3. No motor deficit. No sensory deficit. Reflexes normal. Course Course Course Narrative: 60-year-old male came in two days ago with similar presentation of today which is palpitation, chest pain, shortness of breath patient was in the 190 of narrow complex tachycardia, patient was given Cardizem IV in the emergency department today which slowed the heart rate into the 80s, patient was treated last time for atrial flutter was supposed to take diltiazem and Eliquis but did not fill up the prescription yesterday. Troponin is elevated but trending down from last week. Patient has been stable. 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 Tran this week. MDM - Arrhythmia/Palpitations Lab Data Attestation: I reviewed the patient's lab results. Result diagrams: 12/29/20 04:48 12/29/20 04:48 Labs: Lab Results 12/29/20 12/29/20 12/29/20 Range/Units 04:48 04:48 04:48 WBC 7.4 (4.8-10.8) X10*3/uL RBC 4.58 L (4.60-5.80) X10*6/uL Hgb 14.8 (14.0-18.0) g/dl Hct 43.6 (42-52) % MCV 95.2 (80-98) fL MCH 32.3 (27.0-33.0) pg MCHC 33.9 (31.0-36.0) g/dl RDW 12.4 (11.0-16.0) % Plt Count 124 L (160-400) X10*3/uL MPV 9.8 (9.4-12.4) fL Immature Gran % (Auto) 0.1 (0.0-0.4) % Neut % (Auto) 51.6 (45-73) % Lymph % (Auto) 36.6 (20-40) % Beauregard % (Auto) 8.3 (2-11) % Eos % (Auto) 2.7 (0-4) % Baso % (Auto) 0.7 (0-2) % Lymph # (Auto) 2.7 (1.2-4.9) X10*3/uL Beauregard # (Auto) 0.6 (0.1-1.2) X10*3/uL Eos # (Auto) 0.2 (0.0-0.4) X10*3/uL Baso # (Auto) 0.1 (0.0-0.2) X10*3/uL Abs Immat Gran (auto) 0.01 (0.00-0.03) X10*3/uL Absolute Neuts (auto) 3.8 (2.0-8.3) X10*3/uL Absolute Nucleated RBC 0.000 (0.0-0.012) X10*3/uL Nucleated RBC % (auto) 0.0 (0.0-0.2) /100WBC Sodium 141 (135-145) mmol/L Potassium 3.9 (3.3-5.1) mmol/L Chloride 105 (96-108) mmol/L Carbon Dioxide 24 (22-29) mmol/L Anion Gap 16 (12-20) BUN 12 (9-16) mg/dL Creatinine 0.87 (0.5-1.4) mg/dL Estim Creat Clear Calc 122.4 Estimated GFR > 60 Random Glucose 142 H (60-115) mg/dL Calcium 9.1 (8.4-10.2) mg/dL Total Bilirubin 1.1 H (0.0-1.0) mg/dL Direct Bilirubin 0.4 (0.0-0.5) mg/dL AST 29 (5-37) U/L ALT 21 (0-40) U/L Alkaline Phosphatase 80 (39-117) U/L Troponin I High Sens 72.5 H D (<3.5-35.0) ng/L B-Natriuretic Peptide 402 H (<100) pg/mL Total Protein 6.9 (6.5-8.0) g/dL Albumin 4.3 (3.5-5.0) g/dL Lipase 14 (8-78) U/L Imaging Data Chest x-ray: Radiologist's impression: The cardiac silhouette is not enlarged. The mediastinal and hilar contours are unremarkable. There are neither pleural effusions nor pneumothoraces. There is persistent airspace disease within the left lung base. The osseous structures are stable. ECG Data Interpretation: EKG 1. Narrow complex SVT at 190 beats p.m., left axis deviation, diffuse ST depression. EKG 2. Normal sinus rhythm at 85 beats per minutes, left axis deviation, prolongation of QRS otherwise and PT otherwise unremarkable intervals, improvement of ST depression in the 1st EKG. No changes From old EKG. Discharge Plan Discharge Clinical Impression: SVT (supraventricular tachycardia) Patient Disposition: Home, Self-Care Instructions: Heart Palpitations (ED) Additional Instructions: Make sure take your medicine and follow up with Dr. Tran (patrol man) as scheduled. Prescriptions: No Action venlafaxine 225 mg tablet extended release 24hr 225 mg PO DAILY Qty: 90 RF: 2 hydroxyzine HCl 25 mg tablet 25 mg PO BID PRN (Reason: for anxiety attack) Qty: 40 RF: 1 rosuvastatin 5 mg tablet 5 mg PO MOWEFR@1000 RF: 0 levothyroxine 50 mcg tablet 50 mcg PO DAILY@0630 RF: 0 mycophenolate mofetil 500 mg Tablet 1,000 mg PO BID RF: 0 albuterol sulfate 90 mcg/actuation Hfa Aerosol Inhaler 2 puff INHALATION Q4H PRN (Reason: Respiratory Distress) RF: 0 Eliquis 5 mg Tablet 5 mg PO BID Qty: 60 RF: 0 diltiazem HCl [Cardizem CD] 180 mg capsule,extended release 24hr 180 mg PO DAILY Qty: 30 RF: 0 Referrals: Akira Tran MD [Physician] - 2 days
[2020-12-29 04:54] LABS: MANUAL DIFF FLAG NO
[2020-12-29 04:55] LABS: Basophils Absolute Auto 0.1 X10*3/uL (0.0-0.2); Basophils Percent Auto 0.7 % (0-2); Eosinophils Absolute Auto 0.2 X10*3/uL (0.0-0.4); Eosinophils Percent Auto 2.7 % (0-4); Hematocrit 43.6 % (42-52); Hemoglobin 14.8 g/dl (14.0-18.0); Imm Gran Abs Auto 0.01 X10*3/uL (0.00-0.03); Imm Gran Pct Auto 0.1 % (0.0-0.4); Lymphocytes Absolute Auto 2.7 X10*3/uL (1.2-4.9); Lymphocytes Percent Auto 36.6 % (20-40); Mean Corpuscular HGB Conc 33.9 g/dl (31.0-36.0); Mean Corpuscular Hemoglobin 32.3 pg (27.0-33.0); Mean Corpuscular Volume 95.2 fL (80-98); Mean Platelet Volume 9.8 fL (9.4-12.4); Monocytes Absolute Auto 0.6 X10*3/uL (0.1-1.2); Monocytes Percent Auto 8.3 % (2-11); Neutrophils Absolute Auto 3.8 X10*3/uL (2.0-8.3); Neutrophils Percent Auto 51.6 % (45-73); Platelet Count 124 X10*3/uL (160-400); Red Blood Count 4.58 X10*6/uL (4.60-5.80); Red Cell Distribution Width 12.4 % (11.0-16.0); White Blood Count 7.4 X10*3/uL (4.8-10.8)
[2020-12-29 05:21] LABS: Alanine Aminotransferase 21 U/L (0-40); Albumin Level 4.3 g/dL (3.5-5.0); Alkaline Phosphatase 80 U/L (39-117); Anion Gap 16 (12-20); Aspartate Amino Transferase 29 U/L (5-37); B Type Natriuretic Peptide 402 pg/mL (<100); Bilirubin Direct 0.4 mg/dL (0.0-0.5); Bilirubin Total 1.1 mg/dL (0.0-1.0); Blood Urea Nitrogen 12 mg/dL (9-16); Calcium 9.1 mg/dL (8.4-10.2); Carbon Dioxide 24 mmol/L (22-29); Chloride 105 mmol/L (96-108); Creatinine Clr Calc Pharmacy 122.4; Estimated Glomerular Filt Rate > 60; Glucose Random 142 mg/dL (60-115); Lipase 14 U/L (8-78); Potassium 3.9 mmol/L (3.3-5.1); Sodium 141 mmol/L (135-145); Total Protein 6.9 g/dL (6.5-8.0)
[2020-12-29 05:22] VITALS: BP 104/77; PULSE 80
[2020-12-29 05:22] LABS: Troponin-I High Sensitivity 72.5 ng/L (<3.5-35.0)
[2020-12-29] MEDS: dilTIAZem HCL 30 MG TABLET PO (05:22)
== END 2020-12-29 07:10 | disposition home or self-care (01) ==
PROVIDERS: Emergency Provider Emergency Medicine; PCP Internal Medicine
DX: R00.2 Palpitations (principal); I47.1 Supraventricular tachycardia; I10 Essential (primary) hypertension
CPT/HCPCS: 36415; 71045; 80048; 80076; 83690; 83880; 84484; 85025; 93005; 96374; 99283; 99284

== ENCOUNTER → 2021-01-01 14:24 | Outpatient (BNVA) | payer OTHER, MEDICARE, SELFPAY | PROVIDERS: PCP Internal Medicine; Visit Provider Internal Medicine Cardiovascular Disease | DX: R07.9 Chest pain, unspecified (principal); I47.1 Supraventricular tachycardia; R77.8 Other specified abnormalities of plasma proteins; G47.30 Sleep apnea, unspecified; Z79.899 Other long term (current) drug therapy | CPT/HCPCS: 99212 ==

== ENCOUNTER → 2021-01-08 07:47 | Outpatient (REF) | payer MEDICARE, OTHER, SELFPAY ==
--- NOTE | ~2021-01-08 | NM_ITS ---
Lexiscan Myocardial perfusion study Indication: Abnormal EKG, chest pain, assess for coronary disease and ischemia Technique: The patient was brought in for a Lexiscan perfusion study on 01/08/2021 and was injected 0.4 mg of Lexiscan intravenously. Within a minute of this injection 40 mCi of sestamibi was given intravenously. Images were obtained using the SPECT gamma camera interlaced with the gating device. Images were obtained in supine position. Resting perfusion study was performed on 01/09/2021. Patient was administered 40 mCi of sestamibi intravenously at rest. Images were then obtained in supine position. Total DLP 83mGy-cm. Images were processed with the software and compared side to side in short axis, horizontal long axis and vertical long axis views. Findings: Raw acquisition was reviewed. There seems to be some motion artifact. The stress perfusion study showed diminished tracer uptake along the inferior wall. With CT attenuation correction there seems to be improvement suggesting diaphragmatic attenuation artifact. The gated study shows diminished LV systolic function with calculated LVEF of 40%. LV cavity is enlarged in size. The gated study shows wall thickening and contraction of segments. Resting study shows diminished tracer uptake along the inferior wall. With CT attenuation correction, this improves suggesting diaphragmatic attenuation artifact. Gating at rest with ejection fraction at 39%. The findings are consistent with fixed inferior wall defect suspected to be from diaphragmatic artifact. No reversible defects. NM/NM cardiolite stress test Impression: 1. Myocardial perfusion imaging study shows no definitive evidence of any ischemia. Fixed inferior defect suspected to be from diaphragmatic attenuation artifact. 2. Gated LVEF is 40% during stress and 39% during rest. Correlate with echocardiogram. 3. Transient ischemic dilatation ratio 1.2. EKG component of the test reported separately.
--- NOTE | 2021-01-08 08:00 | CA_ITS ---
Acquisition Time: 2021-01-08 08:06:01 Total Exercise Time: 00:02:12 Test Indications: Abnormal ECG Medications: ALBUTEROL ELIQUIS DILTIAZEM HYDROXYZINE LEVOTHYROXINE ROSUVASTATIN VENLAFAXINE Protocol: JEFF Max HR: 107 BPM 66% of Pred: 161 BPM Max BP: 136/074 mmHG Max Work Load: 4.6 METS started exercise nuclear . After 2 min 12 sec pt started feeling dizzy, test stopped, changed to Lexiscan. Pt tolerated well, denies any anginal sx. EKG with occ. PVC's, non-diagnostic for ischemia. Nuclear images to follow. Normotensive response to exercise. Test reviewed with Dr. Whiteside. Referred By: Akira Tran Overread By: Maria L Denise NP
== END ==
LOC: HO.CARD 07:47
PROVIDERS: Visit Provider Internal Medicine Cardiovascular Disease
DX: I48.92 Unspecified atrial flutter (principal)
CPT/HCPCS: 78452; 93016; 93017; 93018; A9500; J0280; J2785

== ENCOUNTER → 2021-01-08 11:01 | Outpatient (REF) | payer OTHER, MEDICARE, SELFPAY | LOC: HO.SL 11:01 | PROVIDERS: PCP Internal Medicine; Visit Provider Internal Medicine Cardiovascular Disease | DX: G47.33 Obstructive sleep apnea (adult) (pediatric) (principal) | CPT/HCPCS: 78452; 93016; 93017; 93018; 95806; A9500; J2785 ==

== ENCOUNTER → 2021-01-29 10:42 | Outpatient (BNVA) | payer OTHER, MEDICARE, SELFPAY | PROVIDERS: PCP Internal Medicine; Visit Provider Internal Medicine | DX: E66.9 Obesity, unspecified (principal); G47.30 Sleep apnea, unspecified; G47.34 Idiopathic sleep related nonobstructive alveolar hypoventilation | CPT/HCPCS: 99202 ==

== ENCOUNTER → 2021-02-11 13:37 | Outpatient (REF) | payer OTHER, MEDICARE, SELFPAY ==
--- NOTE | 2021-02-11 13:41 | HM_ITS ---
REASON FOR TEST: Unspecified atrial flutter. INTERPRETATION: The patient was hooked up to cardiac event monitor from 02/11/2021 to 03/13/2021 for a total period of 30 days. FINDINGS: Baseline rhythm was normal sinus rhythm with heart rate varying from 68 beats per minute to 103 beats per minute. There were occasional to frequent isolated PACs with small atrial runs, which were not suggestive of atrial flutter. There were also intermittent episodes of isolated PVCs noted. There were no sustained episodes of atrial fibrillation or flutter. The patient triggered multiple events about 35 with no symptoms selected. All of them correlated with underlying sinus rhythm with PVCs. CONCLUSION: 1. Event monitor is remarkable for baseline normal sinus rhythm with intermittent frequent isolated PACs and PVCs. 2. No evidence of sustained atrial flutter or atrial fibrillation. 3. The patient did not report any symptoms with the triggered events. MD GENESIS Casey/MODL / [id number]
== END ==
LOC: HO.CARD 13:37
PROVIDERS: Visit Provider Internal Medicine Cardiovascular Disease
DX: I48.92 Unspecified atrial flutter (principal)
CPT/HCPCS: 93270

== ENCOUNTER → 2021-02-26 20:09 | Outpatient (REF) | payer OTHER, MEDICARE, SELFPAY | LOC: HO.SL 20:09 | PROVIDERS: Visit Provider Internal Medicine | DX: G47.34 Idiopathic sleep related nonobstructive alveolar hypoventilation (principal) | CPT/HCPCS: 95811 ==

== ENCOUNTER → 2021-03-24 11:24 | Outpatient (BNVA) | payer OTHER, MEDICARE, SELFPAY | PROVIDERS: PCP Internal Medicine; Visit Provider Internal Medicine ==

== ENCOUNTER → 2021-04-16 10:56 | Outpatient (BNVA) | payer OTHER, MEDICARE, MEDICAID, SELFPAY | PROVIDERS: PCP Internal Medicine; Referring Provider Internal Medicine; Visit Provider Internal Medicine Cardiovascular Disease | DX: I47.1 Supraventricular tachycardia (principal); R07.9 Chest pain, unspecified; I51.7 Cardiomegaly; I10 Essential (primary) hypertension; E03.9 Hypothyroidism, unspecified; E78.2 Mixed hyperlipidemia; G47.33 Obstructive sleep apnea (adult) (pediatric); Z79.01 Long term (current) use of anticoagulants | CPT/HCPCS: 99212 ==

== ENCOUNTER 2021-06-23 10:27 | Outpatient (REF) | payer MEDICARE, MEDICAID, SELFPAY ==
[2021-06-23 11:17] LABS: MANUAL DIFF FLAG NO
[2021-06-23 11:29] LABS: Basophils Absolute Auto 0.1 X10*3/uL (0.0-0.2); Basophils Percent Auto 1.1 % (0-2); Eosinophils Absolute Auto 0.4 X10*3/uL (0.0-0.4); Eosinophils Percent Auto 6.7 % (0-4); Hematocrit 36.8 % (42-52); Hemoglobin 12.8 g/dl (14.0-18.0); Lymphocytes Percent Auto 38.2 % (20-40); Mean Corpuscular HGB Conc 34.8 g/dl (31.0-36.0); Mean Corpuscular Hemoglobin 32.9 pg (27.0-33.0); Mean Corpuscular Volume 94.6 fL (80-98); Monocytes Absolute Auto 0.4 X10*3/uL (0.1-1.2); Neutrophils Absolute Auto 2.4 X10*3/uL (2.0-8.3); Platelet Count 152 X10*3/uL (160-400); Red Blood Count 3.89 X10*6/uL (4.60-5.80); Red Cell Distribution Width 12.2 % (11.0-16.0); White Blood Count 5.2 X10*3/uL (4.8-10.8)
[2021-06-23 12:05] LABS: Alanine Aminotransferase 18 U/L (0-40); Anion Gap 15 (12-20); Aspartate Amino Transferase 25 U/L (5-37); Blood Urea Nitrogen 13 mg/dL (9-16); Calcium 9.2 mg/dL (8.4-10.2); Carbon Dioxide 25 mmol/L (22-29); Chloride 105 mmol/L (96-108); Cholesterol 194 mg/dL; Estimated Glomerular Filt Rate 45; Glucose Fasting 78 mg/dL (60-99); HDL Cholesterol 53 mg/dL; LDL Cholesterol Calculated 115 mg/dl; Potassium 4.3 mmol/L (3.3-5.1); Sodium 141 mmol/L (135-145); Triglycerides 133 mg/dL
[2021-06-23 12:10] LABS: Free T4 (Free Thyroxine) 0.92 ng/dL (0.71-1.85); Thyroid Stimulating Hormone 4.06 uIU/mL (0.32-4.0); Vitamin D 25-OH Total 23.4 ng/mL (>30)
== END 2021-06-23 10:28 | disposition home or self-care (01) ==
LOC: HO.HMGCLDS 10:27
PROVIDERS: PCP Internal Medicine; Visit Provider Internal Medicine
DX: E03.9 Hypothyroidism, unspecified (principal); E66.9 Obesity, unspecified; E78.2 Mixed hyperlipidemia; I47.1 Supraventricular tachycardia; I10 Essential (primary) hypertension; Z79.01 Long term (current) use of anticoagulants
CPT/HCPCS: 36415; 80048; 80061; 82306; 84439; 84443; 84450; 84460; 85025

== ENCOUNTER 2021-07-17 13:21 | Outpatient (REF) | payer MEDICARE, MEDICAID, SELFPAY ==
[2021-07-17 14:44] LABS: Hematocrit 34.3 % (42-52); Hemoglobin 11.6 g/dl (14.0-18.0); Mean Corpuscular HGB Conc 33.8 g/dl (31.0-36.0); Mean Corpuscular Hemoglobin 31.7 pg (27.0-33.0); Mean Corpuscular Volume 93.7 fL (80-98); Mean Platelet Volume 10.2 fL (9.4-12.4); Platelet Count 140 X10*3/uL (160-400); Red Blood Count 3.66 X10*6/uL (4.60-5.80); Red Cell Distribution Width 12.4 % (11.0-16.0)
== END 2021-07-17 13:22 | disposition home or self-care (01) ==
LOC: HO.LAB 13:21
PROVIDERS: PCP Internal Medicine; Referring Provider Internal Medicine; Visit Provider Internal Medicine Cardiovascular Disease
DX: I48.92 Unspecified atrial flutter (principal); D64.9 Anemia, unspecified; Z79.01 Long term (current) use of anticoagulants
CPT/HCPCS: 36415; 85027; 99212

== ENCOUNTER → 2021-07-18 13:23 | Outpatient (BNVA) | payer MEDICARE, MEDICAID, SELFPAY | PROVIDERS: PCP Internal Medicine; Referring Provider Internal Medicine; Visit Provider Nurse Practitioner Family | DX: D64.9 Anemia, unspecified (principal); G47.33 Obstructive sleep apnea (adult) (pediatric); I48.92 Unspecified atrial flutter | CPT/HCPCS: 99202 ==

== ENCOUNTER 2021-07-25 | Outpatient (REF) | payer MEDICARE, MEDICAID, SELFPAY ==
[2021-07-29 13:47] LABS: FIT Int Ctl YES; FIT1 NEGATIVE (NEGATIVE); FIT2 NEGATIVE (NEGATIVE)
== END 2021-07-25 00:01 | disposition home or self-care (01) ==
LOC: HO.LNP
PROVIDERS: Visit Provider Nurse Practitioner Family
DX: D64.9 Anemia, unspecified (principal)
CPT/HCPCS: 82274

== ENCOUNTER 2021-08-01 07:16 | Day surgery (SDC) | payer MEDICARE, MEDICAID, SELFPAY ==
[2021-07-25 14:47] VITALS: BMI 33.6
--- NOTE | 2021-07-31 10:11 | HO.ANESPROP2 ---
Documented by User: Jesica Merida NP 07/31/21 10:16 HPI - Anesthesia Eval Consult details Narrative: 61yo M for Upper Endoscopy and Colonoscopy Eliquis for afib on hold d/t anemia. Cards referred to GI (Intermed risk) ON LICENSE OF [facility] Active Problems Active Problems: All Active Problems (Updated 07/25/21 @ 14:52 by Kellee Shin RN) Chest pain (Acute) Sleep disorder breathing (Acute) Narrow complex tachycardia (Acute) Atrial flutter (Acute) Acute renal insufficiency (Acute) Anemia (Acute) Generalized anxiety disorder (Acute) JOSE (obstructive sleep apnea) (Acute) Chronic anticoagulation (Acute) Mixed dyslipidemia (Acute) Acquired hypothyroidism (Acute) Nocturnal hypoxemia (Acute) Obesity (Acute) Past Medical History Medical History Acquired hypothyroidism Acute renal insufficiency Anemia Atrial flutter Chronic anticoagulation Generalized anxiety disorder HTN (hypertension) Hypothyroid Mixed dyslipidemia Nocturnal hypoxemia Obesity JOSE (obstructive sleep apnea) Panic Family History Family History Father Atrial fibrillation Mother Heart attack Pacemaker Sister Thyroid disease Brother HTN (hypertension) Sister Colon cancer Surgical History Surgical History H/O colonoscopy History of esophagogastroduodenoscopy (EGD) History of neck surgery Hx of hand surgery Hx of hernia repair Social History Social History Household Members: Spouse Housing: House Do you presently have visiting nurse or other home services: No Alcohol intake: current Alcohol intake frequency: a few times a week Alcohol type: beer Patient Tobacco Use Status: Never used Tobacco e-Cigarette/Vaping Use: Never Used Use of substances other than those prescribed or required for medical reasons: No Are you DNR?: No Advance Directives: No Advance Directives Information Provided: Yes Advance Directives Date on File: 12/26/20 service: No Current occupational status: disabled Meds Allergies Allergy/AdvReac Type Severity Reaction Status Date / Time lisinopril [Lisinopril] Allergy Intermediate RASH Verified 08/01/21 07:39 Environmental Allergy Intermediate Shortness Uncoded 08/01/21 07:39 of Breath Home Medications Medication Instructions Recorded Confirmed Last Taken Type rosuvastatin 5 mg tablet 5 mg PO .mwf tab 01/29/21 07/17/21 Unknown History Exam Exam Date and Time: July 31, 2021 1011 Height,Weight and Vital Signs: Height 6 ft 2 in Weight 118.841 kg Pertinent Lab Results Pertinent Lab Results: Laboratory Tests 06/23/21 07/17/21 10:34 14:12 WBC 6.0 Hgb 11.6 L Hct 34.3 L Plt Count 140 L Sodium 141 Potassium 4.3 Chloride 105 Carbon Dioxide 25 BUN 13 Creatinine 1.58 H Narrative [place] [facility] [place] CONCLUSION:? 1. Event monitor is remarkable for baseline normal sinus rhythm with intermittent frequent isolated PACs and PVCs. 2. No evidence of sustained atrial flutter or atrial fibrillation. 3. The patient did not report any symptoms with the triggered events. ECHO Conclusions: - Normal left ventricular size and systolic function.? - There is severely increased left ventricular wall thickness. ? - E/E prime ratio is <8, consistent with normal filling? pressures. ? - Normal right ventricular cavity size and systolic function.? ? - The left atrium is moderately dilated? - There is mild aortic valve regurgitation.? - There is mild dilatation of the ascending aorta. ?? NM cardiolite stress test 12/2020 Impression: ? 1.? Myocardial perfusion imaging study shows no definitive evidence of any ischemia. Fixed inferior defect suspected to be from diaphragmatic attenuation artifact. 2.? Gated LVEF is 40% during stress and 39% during rest. Correlate with echocardiogram. 3. Transient ischemic dilatation ratio 1.2. ? EKG component of the test reported separately. (nondiagnostic) Assessment and Plan Assessment Anesthesia Assessment: Chart Reviewed Documented by User: Elidia Verdin MD 08/01/21 08:19 ON LICENSE OF [facility] Past Medical History Medical History Acquired hypothyroidism Acute renal insufficiency Anemia Atrial flutter Chronic anticoagulation Generalized anxiety disorder HTN (hypertension) Hypothyroid Mixed dyslipidemia Nocturnal hypoxemia Obesity JOSE (obstructive sleep apnea) Panic Family History Family History Father Atrial fibrillation Mother Heart attack Pacemaker Sister Thyroid disease Brother HTN (hypertension) Sister Colon cancer Surgical History Surgical History H/O colonoscopy History of esophagogastroduodenoscopy (EGD) History of neck surgery Hx of hand surgery Hx of hernia repair History of Problems with Anesthesia: No Social History Social History Household Members: Spouse Housing: House Do you presently have visiting nurse or other home services: No Alcohol intake: current Alcohol intake frequency: a few times a week Alcohol type: beer Patient Tobacco Use Status: Never used Tobacco e-Cigarette/Vaping Use: Never Used Use of substances other than those prescribed or required for medical reasons: No Are you DNR?: No Advance Directives: No Advance Directives Information Provided: Yes Advance Directives Date on File: 12/26/20 service: No Current occupational status: disabled Meds Allergies Allergy/AdvReac Type Severity Reaction Status Date / Time lisinopril [Lisinopril] Allergy Intermediate RASH Verified 08/01/21 07:39 Environmental Allergy Intermediate Shortness Uncoded 08/01/21 07:39 of Breath Home Medications Medication Instructions Recorded Confirmed Last Taken Type rosuvastatin 5 mg tablet 5 mg PO .mwf tab 01/29/21 07/17/21 Unknown History Exam Airway Mallampati Class: III TM Dist: >3cm Neck ROM: Full Loose/Missing/Broken Teeth: No (RRR) Heart: RRR Lungs: CTA Assessment and Plan Assessment Anesthesia Assessment: Anesthesia Plan Discussed Final Anesthetic Review History of Problems with Anesthesia: No NPO: Yes ASA Class: III Final Preanesthetic Review: Meds/Allgs Chart Reviewed, Consent Obtained/Reviewed and Anes Risks/Benef Reviewed Patient Risk: Intermediate Procedure Risk: Intermediate Anesthetic Plan Anesthetic Plan: MAC: Disposition: Standard PACU
[2021-08-01 07:48] VITALS: BP 133/82; PULSE 89; RESP 20; TEMP 36.1; O2SAT 96
[2021-08-01] MEDS: Lactated Ringers 1,000 ML 50 ML IVCONT (08:01)
--- NOTE | 2021-08-01 08:07 | MHC.SHP ---
Pre-Procedural Eval Section A Date of Service: 08/01/21 The patient is an INPATIENT: No Changes since office visit: Yes Patient answered all questions; No Cold of Flu in the past 2 weeks, No New Medical Problems and No Changes in Medication The History & Physical has been completed within 30 days and I have reviewed it.: Yes Section B Chief Complaint: anemia,screening Allergies: Allergies Allergy/AdvReac Type Severity Reaction Status Date / Time lisinopril [Lisinopril] Allergy Intermediate RASH Verified 08/01/21 07:39 Environmental Allergy Intermediate Shortness Uncoded 08/01/21 07:39 of Breath Plan I have reviewed the history and physical and performed a pertinent physical examination on my patient. No changes have occurred unless specified.
--- NOTE | 2021-08-01 08:08 | W.PM.OPN ---
Operative Note Operative Note Date of Service: 08/01/21 Narrative: Pre-op diagnosis:?Colon cancer screening, Iron def anemia, GERD Post-op diagnosis:?other (GERD, Hiatal hernia, Gastritis) Procedure:? FLEXIBLE TRANSORAL UPPER GASTROINTESTINAL ENDOSCOPY WITH BIOPSIES AND COLONOSCOPY TILL CECUM WITH BIOPSIES UPPER ENDOSCOPY Consent:?Indications for the procedure and potential complications of bleeding, perforation, reaction to medications and missed diagnosis were discussed with the patient and informed consent was obtained. Instrument:?Olympus GIF H 190 mid size upper endoscope Monitoring: Vital signs and clinical assessment, continuous EKG monitoring, Pulse oximetry, Carbon Dioxide monitoring and blood pressure monitoring were done throughout the procedure. Procedure:?The patient was placed in the left lateral decubitis position and pre-procedure medications were administered and a bite block was placed. The endoscope was inserted into the mouth and advanced under direct vision to the third part of duodenum. A careful inspection was made as the upper endoscope was withdrawn including a retroflexed examination of the proximal stomach; Findings and interventions are described below. Findings: Larynx:? Normal Esophagus: Tortuous esophagus with increased tertiary contractions. GE junction at 39 cms, hiatal hernia 39 to 42 cms.? A single erosion in the hiatal hernia sac No esophagitis or Jc's. Stomach: Mild gastric erythema. Biopsies were obtained. Grade 2 flap valve on retroflexed examination of the cardia. Duodenum: Normal bulb and descending duodenum.? Biopsies were obtained from 3rd part of duodenum to check for celiac sprue. Intervention: Biopsies as noted above COLONOSCOPY PROCEDURE NOTE Consent:?Indications for the procedure and potential complications of bleeding, perforation, reaction to medications and missed diagnosis were discussed with the patient and informed consent was obtained. Instrument:?Olympus PCF H 190 L variable stiffness pediatric colonoscope Monitoring:?Vital signs and clinical assessment, intermittent blood pressure monitoring, continuous EKG monitoring, Pulse oximetry and Carbon Dioxide monitoring were done throughout the procedure. Colon withdrawl time was 18 minutes. Procedure:?The patient was placed in the left lateral decubitis position and pre-procedure medications were administered. After a digital rectal examination of the ano-rectum, the video colonoscope was inserted into the rectum and advanced through the colon to the cecum. The colonoscope was slowly withdrawn in a retrograde panoramic fashion and the colon mucosa was carefully examined including a retroflexed view of the rectum. Findings and interventions are described below. Procedure Difficulty:?: Without difficulty Findings: Terminal Ileum: Not evaluated Cecum:? Normal Ascending Colon:? A 1 cms non-bleeding AVM in the proximal AC. Transverse Colon:? Normal Descending Colon:? Normal Sigmoid Colon:? A 2-3 mm diminutive appearing polyp removed with a cold bx. Moderate diverticulosis Rectum:? Normal Ano-rectum:? Moderate internal hemorrhoids Colon preparation:? Good? Impression and Post Procedure Diagnosis: Endoscopy Findings: ESOPHAGUS:? Tortuous esophagus with increased tertiary contractions. GE junction at 39 cms, hiatal hernia 39 to 42 cms.? A single erosion in the hiatal hernia sac STOMACH: Gastritis DUODENUM: Normal - bxed to check for celiac sprue Colonoscopy Findings: One tiny polyp removed A non-bleeding AVM in AC Moderate diverticulosis seen in the sigmoid colon Moderate hemorrhoids on retroflexed exam. Plan: Await pathology results Patient has an appointment on 08/12/21 in the GI Clinic with Maria L Denise FNP-BC . Pt has normocytic normochronic anemia.? He is on oral iron replacement since 05/2021. Consider further evaluation with repeat CBC, iron studies, ferritin, Vitamin B12 levels, stool occult blood x 3 on follow up. US with elastography to rule out cirrhosis given low platelet count. He will need a capsule endoscopy if stool occult blood is positive. Repeat Colonoscopy interval based on path results - in 5 years if polyps are adenomatous and due to positive family hx (Colon cancer in a sister at age 39 yrs). Above findings were reviewed with the patient and GERD, hiatal hernia, colon polyps and diverticulosis handouts were given in the discharge area Surgeon:?Alireza Lyons MD Anesthesia:?MAC (Rama Hilario CRNA) Was an Dental Floss Packer used for this Procedure?:?Yes Dental Floss Packer:?Catherine Maldonado Estimated blood loss (mL):?0 Pathology:?other ( A. small bowel biopsies, R/O sprue? B. gastric antrum, R/O H. pylori? C. sigmoid polyp) Condition:?stable Disposition:?PACU
[2021-08-01 09:20] VITALS: BP 111/64; PULSE 80; RESP 18; TEMP 36.2; O2SAT 98
[2021-08-01 09:35] VITALS: BP 103/64; PULSE 78; RESP 18; TEMP 36.2; O2SAT 99
== END 2021-08-01 10:35 | disposition home or self-care (01) ==
PROVIDERS: PCP Internal Medicine; Visit Provider Internal Medicine Gastroenterology
PROC: (CPT 45380; principal; 2021-08-01 08:30)
DX: Z12.11 Encounter for screening for malignant neoplasm of colon (principal); K63.5 Polyp of colon; K57.30 Diverticulosis of large intestine without perforation or abscess without bleeding; K64.8 Other hemorrhoids; K55.20 Angiodysplasia of colon without hemorrhage; D50.9 Iron deficiency anemia, unspecified; K21.9 Gastro-esophageal reflux disease without esophagitis; K29.50 Unspecified chronic gastritis without bleeding; K22.89 Other specified disease of esophagus; K44.9 Diaphragmatic hernia without obstruction or gangrene; N28.9 Disorder of kidney and ureter, unspecified; E03.9 Hypothyroidism, unspecified; G47.33 Obstructive sleep apnea (adult) (pediatric); I48.92 Unspecified atrial flutter; Z79.01 Long term (current) use of anticoagulants; Z79.899 Other long term (current) drug therapy; Z80.0 Family history of malignant neoplasm of digestive organs; Z88.8 Allergy status to other drugs, medicaments and biological substances
CPT/HCPCS: 45380; 43239; 88305; 88342; J2370; J2405; J2765

== ENCOUNTER → 2021-08-12 13:20 | Outpatient (BNVA) | payer MEDICARE, MEDICAID, SELFPAY | PROVIDERS: PCP Internal Medicine; Visit Provider Nurse Practitioner Family | DX: D64.9 Anemia, unspecified (principal); R19.7 Diarrhea, unspecified; R74.8 Abnormal levels of other serum enzymes; R79.89 Other specified abnormal findings of blood chemistry; I48.0 Paroxysmal atrial fibrillation; I10 Essential (primary) hypertension; E78.2 Mixed hyperlipidemia; E03.9 Hypothyroidism, unspecified; G47.33 Obstructive sleep apnea (adult) (pediatric); G47.34 Idiopathic sleep related nonobstructive alveolar hypoventilation; Z98.890 Other specified postprocedural states; Z82.49 Family history of ischemic heart disease and other diseases of the circulatory system; Z91.09 Other allergy status, other than to drugs and biological substances; Z79.01 Long term (current) use of anticoagulants; Z79.899 Other long term (current) drug therapy | CPT/HCPCS: Q3014 ==

== ENCOUNTER 2021-09-09 09:53 | Emergency (ER) | payer MEDICARE, MEDICAID, SELFPAY ==
[2021-09-09] VITALS (7 sets, daily range): BP systolic 121–172; BP diastolic 68–103; PULSE 74–98; RESP 15–18; TEMP 36.9; O2SAT 97–99; BMI 30.2
--- NOTE | 2021-09-09 10:04 | ECG_ITS ---
Test Reason : chest discomfort Blood Pressure : / mmHG Vent. Rate : 087 BPM Atrial Rate : 087 BPM P-R Int : 178 ms QRS Dur : 120 ms QT Int : 410 ms P-R-T Axes : 018 -45 036 degrees QTc Int : 493 ms Sinus rhythm with Premature atrial complexes Left anterior fascicular block Left ventricular hypertrophy with QRS widening ( R in aVL , Emir product , Romhilt-Rivera ) Nonspecific ST abnormality Abnormal ECG When compared with ECG of 29-DEC-2020 04:56, No significant change was found Referred By: Deedee Quiroz Electronically Signed By:JOI MOORE MD
--- NOTE | 2021-09-09 10:05 | ED.GENADULT ---
HPI - General Adult General Chief complaint: Abdominal Pain Stated complaint: DIZZY,NAUSE,VOMITING,ABD PAIN Time Seen by Provider: 09/09/21 09:58 Source: patient and EMS Mode of arrival: EMS Limitations: no limitations History of Present Illness HPI narrative: Patient comes emergency room complaining nausea, vomiting, generalized malaise. Patient states that yesterday he went to [employer], ordered chicken pot pie, ate some of it. Hours later patient started complaining of abdominal discomfort and started vomiting. Patient states that this morning he has had multiple episodes of vomiting, diffuse abdominal cramping, feeling dizzy. Patient denies chest pain or shortness of breath. Of note, patient is known to have history of atrial flutter, patient states his Eliquis was discontinued approximately 6 months ago due to a GI bleed Related Data Home Medications Medication Instructions Recorded Confirmed rosuvastatin 5 mg tablet 5 mg PO .mwf tab 01/29/21 07/17/21 Previous Rx's Medication Instructions Recorded albuterol sulfate 90 mcg/actuation 2 puff PO Q4H PRN #8.5 ea 06/07/21 aerosol inhaler diltiazem HCl 240 mg 240 mg PO DAILY #90 cap 06/30/21 capsule,extended release 24 hr venlafaxine 75 mg tablet 75 mg PO TID 30 Days #90 tab 07/09/21 docusate sodium 100 mg capsule 100 mg PO BEDTIME #30 cap 07/18/21 levothyroxine 50 mcg tablet 50 mcg PO DAILY@0630 #30 tab 08/12/21 buspirone 5 mg tablet 5 mg PO BID #60 tab 08/19/21 ferrous sulfate 325 mg (65 mg 325 mg PO DAILY #30 tab 08/19/21 iron) tablet diltiazem HCl 300 mg 300 mg PO DAILY #30 cap 09/09/21 capsule,extended release 24 hr ondansetron HCl 4 mg tablet 4 mg PO Q6H PRN #14 tab 09/09/21 (Zofran) Allergies Allergy/AdvReac Type Severity Reaction Status Date / Time lisinopril [Lisinopril] Allergy Intermediate RASH Verified 08/18/21 01:33 Environmental Allergy Intermediate Shortness Uncoded 08/06/21 12:01 of Breath Review of Systems Review of Systems: Constitutional : No Weight loss, No Fever, No Chills, No Night Sweats, No Fatigue, No Malaise ENT/Mouth : No Hearing loss, No Ear Pain, No Nasal Congestion, No Sinus Pain, No Hoarseness, No sore throat, No Rhinorrhea, No Swallowing Difficulty Eyes: No Eye Pain, No Swelling, No Redness, No Foreign Body, No Discharge, No Vision Changes Cardiovascular : No Chest Pain, No SOB, No Dyspnea on Exertion, No Orthopnea, No Edema, No Palpitations Respiratory : No Cough, No Sputum, No Wheezing, No Smoke Exposure, No Dyspnea Gastrointestinal : Complaining of nausea and vomiting No Diarrhea, No Constipation, complaining of diffuse abdominal cramping, No Hematochezia, No Melena Genitourinary : no irregular bleeding, No Dysuria, No Urinary Frequency, No Hematuria, No Urinary Incontinence, No Urgency, No Flank Pain, No Urinary Flow Changes, No Hesitancy Musculoskeletal : No joint pain, No Myalgias, No Joint Swelling Skin : No Skin Lesions, No rash Neuro : No Weakness, No Numbness, No Paresthesias, No Loss of Consciousness, complaining of dizziness, No Headache Psych : No Anxiety/Panic, No Depression, No SI/HI/AH/VH, No Social Issues, Heme/Lymph: No Bruising, No Bleeding,No Lymphadenopathy Endocrine : No Polyuria, No Polydipsia, No Temperature Intolerance PMFSH Past Medical History Medical History (Updated 09/09/21 @ 14:05 by Deedee Quiroz MD) Acquired hypothyroidism Acute renal insufficiency Anemia Atrial flutter Chronic anticoagulation Generalized anxiety disorder HTN (hypertension) Hypothyroid Mixed dyslipidemia Nocturnal hypoxemia Obesity JOSE (obstructive sleep apnea) Panic Surgical History H/O colonoscopy History of esophagogastroduodenoscopy (EGD) History of neck surgery Hx of hand surgery Hx of hernia repair Family History Family History Father Atrial fibrillation Mother Heart attack Pacemaker Sister Thyroid disease Brother HTN (hypertension) Sister Colon cancer Social History Social History (Updated 08/18/21 @ 01:35 by Yancy Giles MD) Household Members: Spouse Housing: House Do you presently have visiting nurse or other home services: No Alcohol intake: current Alcohol intake frequency: a few times a week Alcohol type: beer and wine Patient Tobacco Use Status: Never used Tobacco e-Cigarette/Vaping Use: Never Used Advance Directives: Yes Advance Directives on File: Yes Advance Directives Date on File: 12/26/20 service: No Current occupational status: disabled Physical Exam Vital Signs: Vital Signs: Last Vital Signs Temp 98.4 F 09/09/21 11:33 Pulse 92 09/09/21 12:30 Resp 18 09/09/21 12:30 BP 121/68 09/09/21 12:30 Pulse Ox 98 09/09/21 12:30 BMI result Body Mass Index 30.2 Const: Other: Appearance: Alert. Oriented X3. Seems uncomfortable/nauseous Eyes: Pupils equal, round and reactive to light. ENT: Pharynx normal. Neck: Normal inspection. Neck supple. No lymph nodes noted. No crepitus CVS: Normal heart rate and rhythm. Pulses normal. Normal S1 and S2 Respiratory: No respiratory distress. Breath sounds normal. No Wheezing. No rales Abdomen: Soft and nontender. No rigidity. No distention. Skin: Skin warm and dry. Normal skin color. Normal skin turgor. Extremities: No lower extremity edema. No lower extremity edema. No Lacerations. No Rash Neuro: Oriented X 3. No motor deficit. No sensory deficit. Moving all extermities. No slurred speech. Course Course Course Narrative: Given that the patient has had SVT runs even on 240 mg of Cardizem, we will go ahead and increase his dose to 300 mg of Cardizem p.o.. 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 At this time, patient has no chest pain, no shortness of breath. in the Ed, pt had a 90 second run of SVT which self resolved. Patient states that he did not take his medication today. Patient was given 1 dose p.o. here in the ED prior to discharge. Medical Decision Making Lab Data Result diagrams: 09/09/21 10:32 09/09/21 10:33 Labs: Lab Results 09/09/21 09/09/21 09/09/21 Range/Units 10:32 10:33 10:33 WBC 8.7 (4.8-10.8) X10*3/uL RBC 3.64 L (4.60-5.80) X10*6/uL Hgb 11.8 L (14.0-18.0) g/dl Hct 34.2 L (42.0-52.0) % MCV 94.0 (80.0-98.0) fL MCH 32.4 (27.0-33.0) pg MCHC 34.5 (31.0-36.0) g/dl RDW 12.6 (11.0-16.0) % Plt Count 150 L (160-400) X10*3/uL MPV 9.5 (9.4-12.4) fL Immature Gran % (Auto) 0.2 (0.0-0.4) % Neut % (Auto) 83.5 H (45-73) % Lymph % (Auto) 7.8 L (20-40) % [place] % (Auto) 7.4 (2-11) % Eos % (Auto) 0.6 (0-4) % Baso % (Auto) 0.5 (0-2) % Lymph # (Auto) 0.7 L (1.2-4.9) X10*3/uL [place] # (Auto) 0.6 (0.1-1.2) X10*3/uL Eos # (Auto) 0.1 (0.0-0.4) X10*3/uL Baso # (Auto) 0.0 (0.0-0.2) X10*3/uL Abs Immat Gran (auto) 0.02 (0.00-0.03) X10*3/uL Absolute Neuts (auto) 7.3 (2.0-8.3) x10*3/uL Absolute Nucleated RBC 0.000 (0.0-0.012) X10*3/uL Nucleated RBC % (auto) 0.0 (0.0-0.2) /100WBC Sodium 138 (135-145) mmol/L Potassium 4.1 (3.3-5.1) mmol/L Chloride 104 (96-108) mmol/L Carbon Dioxide 24 (22-29) mmol/L Anion Gap 14 (12-20) BUN 16 (9-16) mg/dL Creatinine 1.36 (0.5-1.4) mg/dL Estim Creat Clear Calc 75.2 Estimated GFR 53 Random Glucose 144 H (60-115) mg/dL Calcium 9.7 (8.4-10.2) mg/dL Total Bilirubin 1.1 H (0.0-1.0) mg/dL Direct Bilirubin 0.5 (0.0-0.5) mg/dL AST 21 (5-37) U/L ALT 18 (0-40) U/L Alkaline Phosphatase 123 H D (39-117) U/L Troponin I High Sens 18.3 (<3.5-35.0) ng/L Total Protein 6.7 (6.5-8.0) g/dL Albumin 4.3 (3.5-5.0) g/dL Lipase 12 (8-78) U/L COVID-19 (DAVE) (Negative) COVID-19 Clin Com 09/09/21 Range/Units 10:33 WBC (4.8-10.8) X10*3/uL RBC (4.60-5.80) X10*6/uL Hgb (14.0-18.0) g/dl Hct (42.0-52.0) % MCV (80.0-98.0) fL MCH (27.0-33.0) pg MCHC (31.0-36.0) g/dl RDW (11.0-16.0) % Plt Count (160-400) X10*3/uL MPV (9.4-12.4) fL Immature Gran % (Auto) (0.0-0.4) % Neut % (Auto) (45-73) % Lymph % (Auto) (20-40) % [place] % (Auto) (2-11) % Eos % (Auto) (0-4) % Baso % (Auto) (0-2) % Lymph # (Auto) (1.2-4.9) X10*3/uL [place] # (Auto) (0.1-1.2) X10*3/uL Eos # (Auto) (0.0-0.4) X10*3/uL Baso # (Auto) (0.0-0.2) X10*3/uL Abs Immat Gran (auto) (0.00-0.03) X10*3/uL Absolute Neuts (auto) (2.0-8.3) x10*3/uL Absolute Nucleated RBC (0.0-0.012) X10*3/uL Nucleated RBC % (auto) (0.0-0.2) /100WBC Sodium (135-145) mmol/L Potassium (3.3-5.1) mmol/L Chloride (96-108) mmol/L Carbon Dioxide (22-29) mmol/L Anion Gap (12-20) BUN (9-16) mg/dL Creatinine (0.5-1.4) mg/dL Estim Creat Clear Calc Estimated GFR Random Glucose (60-115) mg/dL Calcium (8.4-10.2) mg/dL Total Bilirubin (0.0-1.0) mg/dL Direct Bilirubin (0.0-0.5) mg/dL AST (5-37) U/L ALT (0-40) U/L Alkaline Phosphatase (39-117) U/L Troponin I High Sens (<3.5-35.0) ng/L Total Protein (6.5-8.0) g/dL Albumin (3.5-5.0) g/dL Lipase (8-78) U/L COVID-19 (DAVE) Negative (Negative) COVID-19 Clin Com See Note Discharge Plan Discharge Clinical Impression: Vomiting, Abdominal pain, SVT (supraventricular tachycardia) Patient Disposition: Home, Self-Care Instructions: Supraventricular Tachycardia (ED), Acute Nausea and Vomiting (ED) Additional Instructions: Please follow-up with your primary care physician tomorrow. If you have any worsening or new symptoms, please return to the emergency room or call 911 Prescriptions: New diltiazem HCl 300 mg capsule,extended release 24hr 300 mg PO DAILY Qty: 30 RF: 0 ondansetron HCl [Zofran] 4 mg tablet 4 mg PO Q6H PRN (Reason: nausea and vomiting) Qty: 14 RF: 0 No Action albuterol sulfate 90 mcg/actuation HFA aerosol inhaler 2 puff PO Q4H PRN (Reason: shortness of breath or wheezing) Qty: 8.5 RF: 6 diltiazem HCl 240 mg capsule,extended release 24hr 240 mg PO DAILY Qty: 90 RF: 1 venlafaxine 75 mg tablet 75 mg PO TID 30 Days Qty: 90 RF: 4 levothyroxine 50 mcg tablet 50 mcg PO DAILY@0630 Qty: 30 RF: 2 ferrous sulfate 325 mg (65 mg iron) tablet 325 mg PO DAILY Qty: 30 RF: 1 buspirone 5 mg tablet 5 mg PO BID Qty: 60 RF: 1 rosuvastatin 5 mg tablet 5 mg PO .mw RF: 0 docusate sodium 100 mg capsule 100 mg PO BEDTIME Qty: 30 RF: 3
[2021-09-09] MEDS: Prochlorperazine Edisylate 10 MG/2 ML VIAL IVPUSH (10:13)
[2021-09-09] MEDS: Dicyclomine HCl 10 MG CAPSULE PO (10:15)
[2021-09-09] MEDS: 0.9 % Sodium Chloride 1,000 ML 999 ML IVCONT (10:15)
[2021-09-09 10:36] LABS: MANUAL DIFF FLAG NO
[2021-09-09 10:39] LABS: Basophils Percent Auto 0.5 % (0-2); Eosinophils Absolute Auto 0.1 X10*3/uL (0.0-0.4); Eosinophils Percent Auto 0.6 % (0-4); Hematocrit 34.2 % (42.0-52.0); Hemoglobin 11.8 g/dl (14.0-18.0); Imm Gran Abs Auto 0.02 X10*3/uL (0.00-0.03); Imm Gran Pct Auto 0.2 % (0.0-0.4); Lymphocytes Absolute Auto 0.7 X10*3/uL (1.2-4.9); Lymphocytes Percent Auto 7.8 % (20-40); Mean Corpuscular HGB Conc 34.5 g/dl (31.0-36.0); Mean Corpuscular Hemoglobin 32.4 pg (27.0-33.0); Mean Platelet Volume 9.5 fL (9.4-12.4); Monocytes Absolute Auto 0.6 X10*3/uL (0.1-1.2); Monocytes Percent Auto 7.4 % (2-11); Neutrophils Absolute Auto 7.3 x10*3/uL (2.0-8.3); Neutrophils Percent Auto 83.5 % (45-73); Platelet Count 150 X10*3/uL (160-400); Red Blood Count 3.64 X10*6/uL (4.60-5.80); Red Cell Distribution Width 12.6 % (11.0-16.0); White Blood Count 8.7 X10*3/uL (4.8-10.8)
[2021-09-09 10:52] LABS: COVID-19 Test Negative (Negative); IDNOW Serial# 9DD0AD1C
[2021-09-09 10:59] LABS: Alanine Aminotransferase 18 U/L (0-40); Albumin Level 4.3 g/dL (3.5-5.0); Alkaline Phosphatase 123 U/L (39-117); Anion Gap 14 (12-20); Aspartate Amino Transferase 21 U/L (5-37); Bilirubin Direct 0.5 mg/dL (0.0-0.5); Bilirubin Total 1.1 mg/dL (0.0-1.0); Blood Urea Nitrogen 16 mg/dL (9-16); Calcium 9.7 mg/dL (8.4-10.2); Carbon Dioxide 24 mmol/L (22-29); Chloride 104 mmol/L (96-108); Creatinine Clr Calc Pharmacy 75.2; Estimated Glomerular Filt Rate 53; Glucose Random 144 mg/dL (60-115); Lipase 12 U/L (8-78); Potassium 4.1 mmol/L (3.3-5.1); Sodium 138 mmol/L (135-145); Total Protein 6.7 g/dL (6.5-8.0)
[2021-09-09 11:01] LABS: Troponin-I High Sensitivity 18.3 ng/L (<3.5-35.0)
--- NOTE | 2021-09-09 12:25 | ECG_ITS ---
Test Reason : svt Blood Pressure : / mmHG Vent. Rate : 090 BPM Atrial Rate : 090 BPM P-R Int : 190 ms QRS Dur : 118 ms QT Int : 404 ms P-R-T Axes : 030 -47 047 degrees QTc Int : 494 ms Sinus rhythm with occasional Premature ventricular complexes and Premature atrial complexes Left anterior fascicular block Left ventricular hypertrophy with QRS widening ( R in aVL , Ideal product ) Nonspecific T wave abnormality Prolonged QT Abnormal ECG When compared with ECG of 09-SEP-2021 10:17, Premature ventricular complexes are now Present Referred By: Deedee Quiroz Electronically Signed By:JOI MOORE MD
[2021-09-09] MEDS: dilTIAZem HCL CD 240 MG CAP.ER.DEG PO (14:04)
[2021-09-09 14:11] LABS: Appearance Urine CLOUDY; Color Urine YELLOW; Glucose Urine UA NEG (NEG); Leukocyte Esterase Urine 3+ (NEG); Nitrite Urine NEG (NEG); UACC Culture Trigger YES; Urine Blood 2+ (NEG); Urine Ketones NEG (NEG); Urine Protein 2+ MG/DL (NEG-TRACE)
[2021-09-09 14:29] LABS: Bacteria Urine 2+ /LPF
== END 2021-09-09 14:33 | disposition home or self-care (01) ==
PROVIDERS: Emergency Provider Emergency Medicine; PCP Internal Medicine
DX: I47.1 Supraventricular tachycardia (principal); R11.2 Nausea with vomiting, unspecified; R10.9 Unspecified abdominal pain; Z20.822 Contact with and (suspected) exposure to COVID-19
CPT/HCPCS: 36415; 80048; 80076; 81001; 83690; 84484; 85025; 87086; 87088; 87186; 87635; 93005; 96361; 96374; 99284

== ENCOUNTER 2021-09-13 04:20 | Emergency (ER) | payer MEDICARE, MEDICAID, SELFPAY ==
--- NOTE | ~2021-09-13 | CT_ITS ---
EXAMINATION: CT ABDOMEN AND PELVIS WITHOUT CONTRAST CLINICAL INFORMATION: Bloody urine and back pain. COMPARISON: None TECHNIQUE: Multidetector volumetric imaging was performed from the superior aspect of the liver through the pubic symphysis. Sagittal and coronal reformatted images were obtained on the technologist's workstation. This CT examination was performed using dose optimization techniques as appropriate, variously including the following: *Automated exposure control *Adjustment of mA and/or kV according to patient size (this includes techniques or standardized protocols for targeted exams where dose is matched to indication/reason for exam; i.e. extremities or head) *Use of iterative reconstruction technique DLP: 787 mGy-cm FINDINGS: LUNG BASES: There is dependent left basal atelectasis the heart size is normal. LIVER, GALLBLADDER, AND BILIARY TREE: The liver is normal in size, shape, and attenuation. No focal hepatic lesion or biliary ductal dilatation is present. The gallbladder is distended with no radiopaque calculi seen. There is no wall thickening. PANCREAS: Unremarkable. SPLEEN: Unremarkable. ADRENAL GLANDS: Unremarkable. KIDNEYS AND URETERS: There is moderate to significant hydroureteronephrosis extending to the bladder. No radiopaque renal calculi seen. The thickness of the kidney cortices are maintained normal. BLADDER: The bladder is significantly distended with diffuse bladder wall thickening. The bladder thickening is most prominent at the base and underlying bladder wall mass or inflammatory process is not excluded. There is mild fat stranding seen around the bladder. Relatively the prostate gland is normal size. GASTROINTESTINAL TRACT: There is scattered stool and gas seen throughout the colon without any significant distention. The small bowel loops are normal caliber. The appendix is not seen. The stomach is nondistended. ABDOMINAL WALL: No significant hernia is appreciated. LYMPH NODES: Normal. VASCULAR: Unremarkable. PELVIC VISCERA: No free air free fluid seen. There is no abnormal inguinal lymph nodes. OSSEOUS STRUCTURES: There are degenerative disc changes L4-L5 disc level with moderate ventral spondylosis throughout lumbar spine. No lytic or sclerotic process seen. CT/CT abdomen pelvis wo con IMPRESSION: Diffuse bladder enlargement with bladder wall thickening. This is most prominent in the base of the bladder. Inflammatory changes of the bladder versus bladder wall mass at the base is not excluded This results in bilateral significant and severe hydroureteronephrosis. The prostate gland is normal size with central gland calcification. Recommend a Hernández's catheter. Mild constipation
[2021-09-13 04:30] VITALS: BP 98/58; PULSE 93; RESP 16; TEMP 36.7; O2SAT 95; BMI 30.2
[2021-09-13 05:23] LABS: MANUAL DIFF FLAG NO
[2021-09-13 05:24] LABS: Basophils Absolute Auto 0.1 X10*3/uL (0.0-0.2); Basophils Percent Auto 0.8 % (0-2); Eosinophils Absolute Auto 0.2 X10*3/uL (0.0-0.4); Hematocrit 32.6 % (42.0-52.0); Hemoglobin 11.2 g/dl (14.0-18.0); Imm Gran Abs Auto 0.02 X10*3/uL (0.00-0.03); Imm Gran Pct Auto 0.3 % (0.0-0.4); Lymphocytes Percent Auto 13.2 % (20-40); Mean Corpuscular HGB Conc 34.4 g/dl (31.0-36.0); Mean Corpuscular Volume 93.1 fL (80.0-98.0); Mean Platelet Volume 9.7 fL (9.4-12.4); Monocytes Absolute Auto 0.6 X10*3/uL (0.1-1.2); Monocytes Percent Auto 7.7 % (2-11); Neutrophils Absolute Auto 5.9 x10*3/uL (2.0-8.3); Platelet Count 170 X10*3/uL (160-400); Red Cell Distribution Width 12.5 % (11.0-16.0); White Blood Count 7.9 X10*3/uL (4.8-10.8)
[2021-09-13 05:25] LABS: Appearance Urine HAZY; Color Urine STRAW; Glucose Urine UA NEG (NEG); Leukocyte Esterase Urine 3+ (NEG); Nitrite Urine NEG (NEG); UACC Culture Trigger YES; Urine Blood 3+ (NEG); Urine Ketones NEG (NEG); Urine Protein 2+ MG/DL (NEG-TRACE)
[2021-09-13 05:39] LABS: Alanine Aminotransferase 12 U/L (0-40); Albumin Level 3.9 g/dL (3.5-5.0); Alkaline Phosphatase 111 U/L (39-117); Anion Gap 14 (12-20); Aspartate Amino Transferase 14 U/L (5-37); Bilirubin Total 0.8 mg/dL (0.0-1.0); Blood Urea Nitrogen 14 mg/dL (9-16); Calcium 9.4 mg/dL (8.4-10.2); Carbon Dioxide 23 mmol/L (22-29); Chloride 104 mmol/L (96-108); Creatinine Clr Calc Pharmacy 73.1; Estimated Glomerular Filt Rate 52; Glucose Random 118 mg/dL (60-115); Potassium 3.5 mmol/L (3.3-5.1); Sodium 137 mmol/L (135-145); Total Protein 6.1 g/dL (6.5-8.0); WBC Urine TNTC /HPF (0-4)
[2021-09-13 05:40] LABS: Bacteria Urine TRACE /LPF; Mucus Urine TRACE /LPF; Squamous Epithelial Cell Urine TRACE /LPF
[2021-09-13 06:06] VITALS: BP 148/76; PULSE 63; TEMP 36.4; O2SAT 96
[2021-09-13 07:07] VITALS: BP 132/74; PULSE 68; RESP 18; TEMP 36.6; O2SAT 96
--- NOTE | 2021-09-13 07:15 | ED_ITS ---
HPI - Abdominal Pain General Chief Complaint: Abdominal Pain Stated Complaint: Flank pain, blood in urine Time Seen by Provider: 09/13/21 07:06 Source: patient and family () Mode of arrival: ambulatory Limitations: no limitations History of Present Illness HPI narrative: 61-year-old male walked into the emergency department with his for back pain, suprapubic pain, bloody urine. Patient woke up from sleep with lower abdominal pain and back pain, while urinating notice dark urine, symptoms started about 4 or 5 hours ago, as sharp pain, moderate about 7/10, localized to the suprapubic and left lower back pain, with no other radiation, pain was constant, patient has no pain now, symptoms were associated with nausea but no vomiting or diarrhea or bloody bowel movement. Patient was seen 4 days ago for food poisoning after eating [employer] but patient claimed that he recovered from this. Patient is not taking blood thinner at the moment. Related Data Home Medications Medication Instructions Recorded Confirmed rosuvastatin 5 mg tablet 5 mg PO .mwf tab 01/29/21 07/17/21 Previous Rx's Medication Instructions Recorded albuterol sulfate 90 mcg/actuation 2 puff PO Q4H PRN #8.5 ea 06/07/21 aerosol inhaler diltiazem HCl 240 mg 240 mg PO DAILY #90 cap 06/30/21 capsule,extended release 24 hr venlafaxine 75 mg tablet 75 mg PO TID 30 Days #90 tab 07/09/21 docusate sodium 100 mg capsule 100 mg PO BEDTIME #30 cap 07/18/21 levothyroxine 50 mcg tablet 50 mcg PO DAILY@0630 #30 tab 08/12/21 buspirone 5 mg tablet 5 mg PO BID #60 tab 08/19/21 ferrous sulfate 325 mg (65 mg 325 mg PO DAILY #30 tab 08/19/21 iron) tablet diltiazem HCl 300 mg 300 mg PO DAILY #30 cap 09/09/21 capsule,extended release 24 hr ondansetron HCl 4 mg tablet 4 mg PO Q6H PRN #14 tab 09/09/21 (Zofran) levofloxacin 750 mg tablet 750 mg PO DAILY #10 tab 09/13/21 Allergies Allergy/AdvReac Type Severity Reaction Status Date / Time lisinopril [Lisinopril] Allergy Intermediate RASH Verified 09/13/21 04:36 Environmental Allergy Intermediate Shortness Uncoded 09/13/21 04:36 of Breath Review of Systems Review of Systems All other systems are reviewed and are negative Constitutional: Reports as per HPI and Reports no additional constitutional complaints Eyes: Reports as per HPI and Reports no additional eye complaints Reports system reviewed and no additional complaints, except as documented Cardiovascular: Reports as per HPI and Reports no additional cardiovascular complaints Respiratory: Reports as per HPI and Reports no additional respiratory complaints Gastrointestinal: Reports as per HPI and Reports no additional gastrointestinal complaints Genitourinary: Reports no additional female genitourinary complaints Musculoskeletal: Reports no additional musculoskeletal complaints Skin/Breast: Reports system reviewed and no additional complaints, except as docu Psychiatric: Reports no additional psychiatric complaints Endocrine: Reports no additional endocrine complaints Hematologic/Lymphatic: Reports no additional hematologic/lymphatic complaints Allergic/Immunologic: Reports no additional allergic/immunologic complaints Reports system reviewed and no additional complaints, except as documented and Reports Abnormal speech present Physical Exam Vital Signs: Vital Signs: Last Vital Signs Temp 97.8 F 09/13/21 07:07 Pulse 68 09/13/21 07:07 Resp 18 09/13/21 07:07 BP 132/74 09/13/21 07:07 Pulse Ox 96 09/13/21 07:07 BMI result Body Mass Index 30.2 Vital signs have been reviewed as appeared to be correct. Blood pressure normal. Heart rate normal. Respiration rate normal. Temperature normal. O xygen saturation normal. Appearance: Alert. Oriented X3. No acute distress. Head: Normal external exam. Normocephalic. Atraumatic. No Bray signs noted. No raccoon eyes noted Eyes: PERRLA. EOMI. Conjunctiva and sclera normal. Eyelids normal. ENT: TM's Normal. Pharynx normal. Uvula midline. Moist mucous membranes. No trismus noted. No drooling noted. No muffled voice noted. Neck: Normal inspection. Neck supple. FROM. No adenopathy. Thyroid Normal. No meningeal signs. No neck mass noted. CVS: Normal heart rate and rhythm. Heart sound normal. No murmurs noted. Pulses normal throughout. Respiratory: No respiratory distress. Painless inspiration. Breath sounds normal. No wheezes/rales/rhonchi noted. Chest nontender. No accessory muscle usage noted or decreased air movement noted. Abdomen: Soft and nontender. Bowel sounds normal in all 4 quadrants. No dis tention noted. No organomegaly noted. No visible injury noted. Back: No CVA tenderness. Full range of motion noted. Skin: Skin warm and dry. Normal skin color. Normal skin turgor. No rashes/les ions/lacerations noted. Extremities: No lower extremity edema. Extremities exhibit normal range of motion. Extremities nontender. Neuro: Oriented X 3. Cranial nerve exam: II-XII are grossly intact No motor deficit. No sensory deficit. Reflexes normal. Course Course Course Narrative: Assessment and plan. 61 years old male came in with suprapubic pain, and bloody dark urine, CT of the abdomen and pelvis showed diffuse bladder enlargement and wall thickening consistent with inflammation versus a mass in the bladder. I discussed with the patient and the who work in the hospital plan is to drink plenty of fluid, antibiotic course for 10 days, and follow up with urologist for further assessment. Hernández catheter was recommended by radiologist but there is no clinical indication for Hernández catheter there is no urine retention. MDM - Abdominal Pain Medical Records Attestation: I reviewed the patient's medical records. Lab Data Attestation: I reviewed the patient's lab results. Result diagrams: 09/13/21 05:08 09/13/21 05:08 Labs: Lab Results 09/13/21 09/13/21 09/13/21 Range/Units 05:08 05:08 05:08 WBC 7.9 (4.8-10.8) X10*3/uL RBC 3.50 L (4.60-5.80) X10*6/uL Hgb 11.2 L (14.0-18.0) g/dl Hct 32.6 L (42.0-52.0) % MCV 93.1 (80.0-98.0) fL MCH 32.0 (27.0-33.0) pg MCHC 34.4 (31.0-36.0) g/dl RDW 12.5 (11.0-16.0) % Plt Count 170 (160-400) X10*3/uL MPV 9.7 (9.4-12.4) fL Immature Gran % (Auto) 0.3 (0.0-0.4) % Neut % (Auto) 75.0 H (45-73) % Lymph % (Auto) 13.2 L (20-40) % [place] % (Auto) 7.7 (2-11) % Eos % (Auto) 3.0 (0-4) % Baso % (Auto) 0.8 (0-2) % Lymph # (Auto) 1.0 L (1.2-4.9) X10*3/uL [place] # (Auto) 0.6 (0.1-1.2) X10*3/uL Eos # (Auto) 0.2 (0.0-0.4) X10*3/uL Baso # (Auto) 0.1 (0.0-0.2) X10*3/uL Abs Immat Gran (auto) 0.02 (0.00-0.03) X10*3/uL Absolute Neuts (auto) 5.9 (2.0-8.3) x10*3/uL Absolute Nucleated RBC 0.000 (0.0-0.012) X10*3/uL Nucleated RBC % (auto) 0.0 (0.0-0.2) /100WBC Sodium 137 (135-145) mmol/L Potassium 3.5 (3.3-5.1) mmol/L Chloride 104 (96-108) mmol/L Carbon Dioxide 23 (22-29) mmol/L Anion Gap 14 (12-20) BUN 14 (9-16) mg/dL Creatinine 1.40 (0.5-1.4) mg/dL Estim Creat Clear Calc 73.1 Estimated GFR 52 Random Glucose 118 H (60-115) mg/dL Calcium 9.4 (8.4-10.2) mg/dL Total Bilirubin 0.8 (0.0-1.0) mg/dL AST 14 (5-37) U/L ALT 12 (0-40) U/L Alkaline Phosphatase 111 (39-117) U/L Total Protein 6.1 L (6.5-8.0) g/dL Albumin 3.9 (3.5-5.0) g/dL Urine Color STRAW Urine Appearance HAZY Urine pH 6.0 (5.0-8.0) Ur Specific [place] 1.020 (1.005-1.025) Urine Protein 2+ H (NEG-TRACE) MG/DL Urine Glucose (UA) NEG (NEG) MG/DL Urine Ketones NEG (NEG) MG/DL Urine Blood 3+ H (NEG) Urine Nitrite NEG (NEG) Ur Leukocyte Esterase 3+ H (NEG) Urine RBC 76-150 H (0) /HPF Urine WBC TNTC H (0-4) /HPF Ur Squamous Epith Cells TRACE /LPF Urine Bacteria TRACE /LPF Urine Mucus TRACE /LPF Imaging Data CT scan - abdomen: Attestation: I personally reviewed and interpreted this imaging study as follows: Radiologist's impression: Diffuse bladder enlargement with bladder wall thickening. This is most prominent in the base of the bladder. Inflammatory changes of the bladder versus bladder wall mass at the base is not excluded This results in bilateral significant and severe hydroureteronephrosis. ? The prostate gland is normal size with central gland calcification. Recommend a Hernández's catheter. ? Discharge Plan Discharge Clinical Impression: Cystitis Patient Disposition: Home, Self-Care Instructions: Urinary Tract Infection in Men (ED) Prescriptions: New levofloxacin 750 mg tablet 750 mg PO DAILY Qty: 10 RF: 0 No Action albuterol sulfate 90 mcg/actuation HFA aerosol inhaler 2 puff PO Q4H PRN (Reason: shortness of breath or wheezing) Qty: 8.5 RF: 6 diltiazem HCl 240 mg capsule,extended release 24hr 240 mg PO DAILY Qty: 90 RF: 1 venlafaxine 75 mg tablet 75 mg PO TID 30 Days Qty: 90 RF: 4 levothyroxine 50 mcg tablet 50 mcg PO DAILY@0630 Qty: 30 RF: 2 ferrous sulfate 325 mg (65 mg iron) tablet 325 mg PO DAILY Qty: 30 RF: 1 buspirone 5 mg tablet 5 mg PO BID Qty: 60 RF: 1 diltiazem HCl 300 mg capsule,extended release 24hr 300 mg PO DAILY Qty: 30 RF: 0 ondansetron HCl [Zofran] 4 mg tablet 4 mg PO Q6H PRN (Reason: nausea and vomiting) Qty: 14 RF: 0 rosuvastatin 5 mg tablet 5 mg PO .mwf RF: 0 docusate sodium 100 mg capsule 100 mg PO BEDTIME Qty: 30 RF: 3 Referrals: Yancy Giles MD [Primary Care Provider] - 2 days Nahum Medley MD [Physician] - 2 days [facility] Past Medical History Medical History Acquired hypothyroidism Acute renal insufficiency Anemia Atrial flutter Chronic anticoagulation Generalized anxiety disorder HTN (hypertension) Hypothyroid Mixed dyslipidemia Nocturnal hypoxemia Obesity JOSE (obstructive sleep apnea) Panic Surgical History H/O colonoscopy History of esophagogastroduodenoscopy (EGD) History of neck surgery Hx of hand surgery Hx of hernia repair Family History Family History Father Atrial fibrillation Mother Heart attack Pacemaker Sister Thyroid disease Brother HTN (hypertension) Sister Colon cancer Social History Social History Household Members: Spouse Housing: House Do you presently have visiting nurse or other home services: No Alcohol intake: current Alcohol intake frequency: does not drink Alcohol type: beer and wine Patient Tobacco Use Status: Never used Tobacco e-Cigarette/Vaping Use: Never Used Use of substances other than those prescribed or required for medical reasons: No Advance Directives: Yes Advance Directives on File: Yes Advance Directives Date on File: 12/26/20 service: No Current occupational status: disabled
[2021-09-13] MEDS: levoFLOXacin/D5W 750 MG/150 ML PIGGYBACK 100 MG IV (09:06)
== END 2021-09-13 10:39 | disposition home or self-care (01) ==
PROVIDERS: Emergency Provider Emergency Medicine; PCP Internal Medicine
DX: N30.90 Cystitis, unspecified without hematuria (principal); I10 Essential (primary) hypertension; I48.92 Unspecified atrial flutter; Z79.01 Long term (current) use of anticoagulants
CPT/HCPCS: 36415; 74176; 80053; 81001; 85025; 87086; 87088; 87186; 96365; 99284; J1956

== ENCOUNTER 2021-09-30 09:47 | Outpatient (REF) | payer MEDICARE, MEDICAID, SELFPAY ==
--- NOTE | ~2021-09-30 | US_ITS ---
EXAMINATION: US COMPLETE ABDOMEN WITH LIVER ELASTOGRAPHY CLINICAL INFORMATION: Abnormal liver function tests COMPARISON: Previous CT of the abdomen and pelvis November 2020 and abdominal ultrasound August 2010 TECHNIQUE: Real-time imaging of the abdominal viscera. Noninvasive ultrasound liver fibrosis assessment is performed using Osvaldo ElastPQ point quantification shear wave elastography (pSWE) with a C5-2 MHz transducer. Multiple elastography samples are obtained. FINDINGS: PANCREAS: Not well visualized due to bowel gas ABDOMINAL AORTA: Not well visualized due to bowel gas INFERIOR VENA CAVA: Not well visualized due to bowel gas LIVER: Normal. The liver demonstrates normal size, contour and echogenicity. No focal lesion or intrahepatic biliary duct dilatation. The right lobe measures 16 cm in length. The left lobe measures 11 cm in length. Portal flow is normal/hepatopedal Shear wave liver elastography median stiffness is 1.17 m/s (reference: normal median stiffness is 1.3 m/s or less). IQR/median stiffness to assess sampling precision is 0.09 (reference: good quality data set is IQR/median stiffness of 0.15 or less). GALLBLADDER: The gallbladder is enlarged measuring 6 x 5 x 11 cm. No gallstones are seen. The gallbladder wall is normal. COMMON BILE DUCT: Normal in caliber measuring 0.2 cm in diameter. RIGHT KIDNEY: There is right hydronephrosis. The kidney measures 13 cm in maximum dimension. LEFT KIDNEY: There is left hydronephrosis. The visualized left ureter appears dilated. The kidney measures 13.7 cm in maximum dimension. SPLEEN: Normal. The spleen measures 11.7 cm in maximum dimension. FREE FLUID: None. The bladder is very distended. Prevoid bladder volume measures 158 7 mL. Post void bladder volume measures 140 8 mL. Jets are not identified. US/US abdomen comp w elastography IMPRESSION: 1. Impression: Normal-appearing liver. Dilated gallbladder. No gallstone seen. Bilateral hydronephrosis and left ureteral dilatation. This is similar to previous CT scan 09/13/2021. Very distended bladder and large post void bladder residual. Limited visualization of the pancreas, aorta and IVC. 2. Liver elastography: Adequate liver sampling. Normal. REFERENCE: Society of Radiologists in Ultrasound Liver Stiffness Thresholds (2020): LIVER STIFFNESS THRESHOLDS: *Liver Stiffness equal or less than 1.3 m/s: High probability of being normal. *Liver Stiffness less than 1.7 m/s: In the absence of other known clinical signs, rules out compensated advanced chronic liver disease. *Liver Stiffness 1.7-2.1 m/s: Suggestive of compensated advanced chronic liver disease but need further test for confirmation. *Liver Stiffness over 2.1 m/s: Rules in compensated advanced chronic liver disease. *Liver Stiffness over 2.4 m/s: Suggestive of clinically significant portal hypertension. QUALITY OF DATA SET: *IQR/Median value equal or less than 0.15 implies a quality data set. *IQR/Median value over 0.15 implies a poor quality data set. SIGNIFICANT CHANGE FROM PRIOR EXAM: Significant change if liver stiffness measurement is 10% or greater from prior exam. OTHER CONSIDERATIONS: The stage of liver fibrosis may be overestimated in the setting of acute hepatitis, liver inflammation, elevated liver function tests, hepatic vascular congestion, obstructive cholestasis, non-fasting state, and infiltrative diseases such as amyloidosis and lymphoma. In some patients with NAFLD, the liver stiffness thresholds for compensated advanced chronic liver disease may be lower. In causes other than viral hepatitis and NAFLD, liver stiffness thresholds are not well established.
== END 2021-09-30 09:48 | disposition home or self-care (01) ==
LOC: HO.US 09:47
PROVIDERS: Visit Provider Nurse Practitioner Family
DX: R79.89 Other specified abnormal findings of blood chemistry (principal)
CPT/HCPCS: 76705; 76981

== ENCOUNTER → 2021-10-01 10:15 | Outpatient (BNVA) | payer MEDICARE, MEDICAID, SELFPAY | PROVIDERS: PCP Internal Medicine; Visit Provider Urology | DX: R33.9 Retention of urine, unspecified (principal); N39.0 Urinary tract infection, site not specified | CPT/HCPCS: 51798; 99202 ==

== ENCOUNTER 2021-10-11 10:50 | Outpatient (REF) | payer MEDICARE, MEDICAID, SELFPAY ==
[2021-10-11 13:13] LABS: MANUAL DIFF FLAG NO
[2021-10-11 13:19] LABS: Basophils Percent Auto 0.7 % (0-2); Eosinophils Absolute Auto 0.4 X10*3/uL (0.0-0.4); Eosinophils Percent Auto 6.7 % (0-4); Hematocrit 37.3 % (42.0-52.0); Hemoglobin 12.3 g/dl (14.0-18.0); Imm Gran Abs Auto 0.01 X10*3/uL (0.00-0.03); Imm Gran Pct Auto 0.2 % (0.0-0.4); Lymphocytes Absolute Auto 1.5 X10*3/uL (1.2-4.9); Lymphocytes Percent Auto 27.9 % (20-40); Mean Corpuscular Hemoglobin 31.3 pg (27.0-33.0); Mean Corpuscular Volume 94.9 fL (80.0-98.0); Mean Platelet Volume 10.3 fL (9.4-12.4); Monocytes Absolute Auto 0.3 X10*3/uL (0.1-1.2); Monocytes Percent Auto 6.4 % (2-11); Neutrophils Absolute Auto 3.1 x10*3/uL (2.0-8.3); Neutrophils Percent Auto 58.1 % (45-73); Platelet Count 141 X10*3/uL (160-400); Red Blood Count 3.93 X10*6/uL (4.60-5.80); Red Cell Distribution Width 12.3 % (11.0-16.0); White Blood Count 5.4 X10*3/uL (4.8-10.8)
[2021-10-11 14:01] LABS: Alanine Aminotransferase 11 U/L (0-40); Anion Gap 11 (12-20); Aspartate Amino Transferase 12 U/L (5-37); Blood Urea Nitrogen 10 mg/dL (9-16); Calcium 9.7 mg/dL (8.4-10.2); Carbon Dioxide 27 mmol/L (22-29); Chloride 106 mmol/L (96-108); Cholesterol 208 mg/dL; Estimated Glomerular Filt Rate > 60; Glucose Fasting 101 mg/dL (60-99); HDL Cholesterol 61 mg/dL; Iron 101 mcg/dL (45-160); LDL Cholesterol Calculated 124 mg/dl; Percent Iron Saturation 35 % (15-50); Sodium 140 mmol/L (135-145); Total Iron Binding Capacity 286 mcg/dL (228-428); Triglycerides 116 mg/dL; Unsaturated Iron Binding 185 ug/dL
[2021-10-11 14:14] LABS: Free T4 (Free Thyroxine) 0.84 ng/dL (0.71-1.85)
== END 2021-10-11 10:51 | disposition home or self-care (01) ==
LOC: HO.HMGCLDS 10:50
PROVIDERS: Visit Provider Internal Medicine
DX: D64.9 Anemia, unspecified (principal); E03.9 Hypothyroidism, unspecified; E66.9 Obesity, unspecified; E78.2 Mixed hyperlipidemia; I10 Essential (primary) hypertension; Z79.01 Long term (current) use of anticoagulants
CPT/HCPCS: 36415; 80048; 80061; 83540; 84439; 84443; 84450; 84460; 85025

== ENCOUNTER → 2021-10-13 13:12 | Outpatient (BNVA) | payer MEDICARE, MEDICAID, SELFPAY | PROVIDERS: PCP Internal Medicine; Referring Provider Internal Medicine; Visit Provider Nurse Practitioner Family | DX: D64.9 Anemia, unspecified (principal); K21.9 Gastro-esophageal reflux disease without esophagitis; R74.8 Abnormal levels of other serum enzymes | CPT/HCPCS: 99212 ==

== ENCOUNTER → 2021-10-23 14:06 | Outpatient (BNVA) | payer MEDICARE, MEDICAID, SELFPAY | PROVIDERS: PCP Internal Medicine; Referring Provider Internal Medicine; Visit Provider Internal Medicine Cardiovascular Disease | DX: I48.92 Unspecified atrial flutter (principal); D64.9 Anemia, unspecified | CPT/HCPCS: 99212 ==

== ENCOUNTER → 2021-11-19 13:38 | Outpatient (BNVA) | payer MEDICARE, MEDICAID, SELFPAY | PROVIDERS: PCP Internal Medicine; Visit Provider Urology | DX: N39.0 Urinary tract infection, site not specified (principal); R33.9 Retention of urine, unspecified | CPT/HCPCS: 52000; 99212 ==

== ENCOUNTER → 2022-02-05 10:07 | Outpatient (BNVA) | payer MEDICARE, MEDICAID, SELFPAY | PROVIDERS: PCP Internal Medicine; Referring Provider Internal Medicine; Visit Provider Internal Medicine Cardiovascular Disease | DX: I47.1 Supraventricular tachycardia (principal); I48.92 Unspecified atrial flutter; D64.9 Anemia, unspecified | CPT/HCPCS: 93005; 99212 ==

== ENCOUNTER 2022-04-10 09:30 | Outpatient (REF) | payer MEDICARE, MEDICAID, SELFPAY ==
[2022-04-10 12:01] LABS: Alanine Aminotransferase 24 U/L (0-40); Anion Gap 12 (12-20); Aspartate Amino Transferase 24 U/L (5-37); Blood Urea Nitrogen 11 mg/dL (9-16); Calcium 8.7 mg/dL (8.4-10.2); Carbon Dioxide 26 mmol/L (22-29); Chloride 107 mmol/L (96-108); Cholesterol 117 mg/dL; Estimated Glomerular Filt Rate 48; Glucose Fasting 86 mg/dL (60-99); HDL Cholesterol 46 mg/dL; LDL Cholesterol Calculated 60 mg/dl; Sodium 141 mmol/L (135-145); Triglycerides 56 mg/dL
[2022-04-10 12:25] LABS: Thyroid Stimulating Hormone 9.05 uIU/mL (0.32-4.0)
== END 2022-04-10 09:31 | disposition home or self-care (01) ==
LOC: HO.HMGCLDS 09:30
PROVIDERS: Visit Provider Internal Medicine
DX: E03.9 Hypothyroidism, unspecified (principal); E78.2 Mixed hyperlipidemia
CPT/HCPCS: 36415; 80048; 80061; 84439; 84443; 84450; 84460

== ENCOUNTER → 2022-04-16 11:06 | Outpatient (BNVA) | payer MEDICARE, MEDICAID, SELFPAY | PROVIDERS: PCP Internal Medicine; Referring Provider Internal Medicine; Visit Provider Internal Medicine Cardiovascular Disease | DX: I42.9 Cardiomyopathy, unspecified (principal); I48.0 Paroxysmal atrial fibrillation | CPT/HCPCS: 36415; 80048; 83540; 85025; 86376; 93005; 99212 ==

== ENCOUNTER 2022-04-16 11:49 | Outpatient (REF) | payer MEDICARE, MEDICAID, SELFPAY ==
[2022-04-16 12:05] LABS: MANUAL DIFF FLAG NO
[2022-04-16 12:20] LABS: Basophils Absolute Auto 0.1 X10*3/uL (0.0-0.2); Eosinophils Absolute Auto 0.5 X10*3/uL (0.0-0.4); Eosinophils Percent Auto 10.2 % (0-4); Hematocrit 31.6 % (42.0-52.0); Hemoglobin 10.2 g/dl (14.0-18.0); Imm Gran Abs Auto 0.01 X10*3/uL (0.00-0.03); Imm Gran Pct Auto 0.2 % (0.0-0.4); Lymphocytes Absolute Auto 1.3 X10*3/uL (1.2-4.9); Lymphocytes Percent Auto 25.8 % (20-40); Mean Corpuscular HGB Conc 32.3 g/dl (31.0-36.0); Mean Corpuscular Hemoglobin 30.3 pg (27.0-33.0); Mean Corpuscular Volume 93.8 fL (80.0-98.0); Mean Platelet Volume 9.8 fL (9.4-12.4); Monocytes Absolute Auto 0.4 X10*3/uL (0.1-1.2); Monocytes Percent Auto 8.5 % (2-11); Neutrophils Absolute Auto 2.7 x10*3/uL (2.0-8.3); Neutrophils Percent Auto 54.3 % (45-73); Platelet Count 119 X10*3/uL (160-400); Red Blood Count 3.37 X10*6/uL (4.60-5.80); Red Cell Distribution Width 12.1 % (11.0-16.0); White Blood Count 4.9 X10*3/uL (4.8-10.8)
[2022-04-16 12:53] LABS: Anion Gap 11 (12-20); Blood Urea Nitrogen 12 mg/dL (9-16); Calcium 8.8 mg/dL (8.4-10.2); Carbon Dioxide 26 mmol/L (22-29); Chloride 109 mmol/L (96-108); Estimated Glomerular Filt Rate 45; Glucose Random 112 mg/dL (60-115); Iron 85 mcg/dL (45-160); Percent Iron Saturation 38 % (15-50); Potassium 4.4 mmol/L (3.3-5.1); Sodium 142 mmol/L (135-145); Total Iron Binding Capacity 226 mcg/dL (228-428); Unsaturated Iron Binding 141 ug/dL
[2022-04-20 11:21] LABS: Thyroid Peroxidase Antibodies 10 IU/mL (<9)
== END 2022-04-16 11:50 | disposition home or self-care (01) ==
LOC: HO.LAB 11:49
PROVIDERS: PCP Internal Medicine; Visit Provider Internal Medicine Cardiovascular Disease
DX: Z13.89 Encounter for screening for other disorder (principal)
CPT/HCPCS: 36415; 80048; 83540; 85025; 85027; 86376

== ENCOUNTER 2022-05-14 09:23 | Outpatient (REF) | payer MEDICARE, MEDICAID, SELFPAY ==
[2022-05-14 11:26] LABS: Hemoglobin 10.9 g/dl (14.0-18.0); Mean Corpuscular Hemoglobin 30.9 pg (27.0-33.0); Mean Corpuscular Volume 93.5 fL (80.0-98.0); Mean Platelet Volume 10.6 fL (9.4-12.4); Platelet Count 139 X10*3/uL (160-400); Red Blood Count 3.53 X10*6/uL (4.60-5.80); Red Cell Distribution Width 13.7 % (11.0-16.0); White Blood Count 6.7 X10*3/uL (4.8-10.8)
[2022-05-14 12:06] LABS: Ferritin 191 ng/mL (20-250)
[2022-05-14 12:14] LABS: Folate 10.5 ng/mL (> or = 4.0); Vitamin B12 257 pg/mL (200-900)
== END 2022-05-14 09:24 | disposition home or self-care (01) ==
LOC: HO.HMGCLDS 09:23
PROVIDERS: Internal Medicine Cardiovascular Disease; Nurse Practitioner Family; PCP Internal Medicine; Visit Provider Nurse Practitioner Family
DX: I48.91 Unspecified atrial fibrillation (principal); I42.9 Cardiomyopathy, unspecified; R74.8 Abnormal levels of other serum enzymes; R19.7 Diarrhea, unspecified
CPT/HCPCS: 36415; 82607; 82728; 82746; 85027

== ENCOUNTER 2022-05-21 20:32 | Emergency (ER) | payer MEDICARE, MEDICAID, SELFPAY | END 2022-05-21 21:00 | disposition left against medical advice (07) | PROVIDERS: Emergency Provider Emergency Medicine; PCP Internal Medicine | DX: R10.9 Unspecified abdominal pain (principal); I48.0 Paroxysmal atrial fibrillation ==

== ENCOUNTER → 2022-06-08 14:37 | Outpatient (BNVA) | payer MEDICARE, MEDICAID, SELFPAY | PROVIDERS: PCP Internal Medicine; Referring Provider Internal Medicine; Visit Provider Internal Medicine Cardiovascular Disease | DX: I48.91 Unspecified atrial fibrillation (principal); I42.9 Cardiomyopathy, unspecified; Z79.01 Long term (current) use of anticoagulants; Z79.899 Other long term (current) drug therapy | CPT/HCPCS: 93005; 99212 ==

== ENCOUNTER 2022-07-21 08:52 | Outpatient (REF) | payer MEDICARE, MEDICAID, SELFPAY ==
[2022-07-21 11:08] LABS: MANUAL DIFF FLAG NO
[2022-07-21 11:26] LABS: Basophils Absolute Auto 0.1 X10*3/uL (0.0-0.2); Basophils Percent Auto 1.5 % (0-2); Eosinophils Absolute Auto 0.4 X10*3/uL (0.0-0.4); Eosinophils Percent Auto 8.2 % (0-4); Hematocrit 37.2 % (37.0-47.0); Hemoglobin 12.2 g/dl (12.0-16.0); Imm Gran Abs Auto 0.01 X10*3/uL (0.00-0.03); Imm Gran Pct Auto 0.2 % (0.0-0.4); Lymphocytes Absolute Auto 1.9 X10*3/uL (1.2-4.9); Lymphocytes Percent Auto 34.9 % (20-40); Mean Corpuscular HGB Conc 32.8 g/dl (31.0-35.0); Mean Corpuscular Hemoglobin 30.2 pg (27.0-33.0); Mean Corpuscular Volume 92.1 fL (80.0-98.0); Mean Platelet Volume 10.4 fL (9.4-12.3); Monocytes Absolute Auto 0.6 X10*3/uL (0.1-1.2); Monocytes Percent Auto 10.2 % (2-11); Neutrophils Absolute Auto 2.4 x10*3/uL (2.0-8.3); Platelet Count 125 X10*3/uL (160-400); Red Blood Count 4.04 X10*6/uL (4.20-5.50); Red Cell Distribution Width 13.8 % (11.0-16.0); White Blood Count 5.4 X10*3/uL (4.8-10.8)
[2022-07-21 11:58] LABS: Alanine Aminotransferase 14 U/L (0-31); Anion Gap 14 (12-20); Aspartate Amino Transferase 22 U/L (5-31); Blood Urea Nitrogen 13 mg/dL (9-16); Calcium 9.4 mg/dL (8.4-10.2); Carbon Dioxide 26 mmol/L (22-29); Chloride 106 mmol/L (96-108); Cholesterol 218 mg/dL; Estimated Glomerular Filt Rate 49; Glucose Fasting 74 mg/dL (60-99); HDL Cholesterol 49 mg/dL; Iron 72 mcg/dL (30-160); LDL Cholesterol Calculated 140 mg/dl; Percent Iron Saturation 25 % (15-50); Potassium 4.4 mmol/L (3.3-5.1); Sodium 142 mmol/L (135-145); Total Iron Binding Capacity 289 mcg/dL (228-428); Triglycerides 145 mg/dL; Unsaturated Iron Binding 217 ug/dL
[2022-07-21 12:02] LABS: Free T4 (Free Thyroxine) 0.71 ng/dL (0.71-1.85); Thyroid Stimulating Hormone 36.84 uIU/mL (0.32-4.0); Vitamin D 25-OH Total 17.9 ng/mL (>30)
[2022-07-21 12:48] LABS: Folate 10.5 ng/mL (> or = 4.0); Vitamin B12 316 pg/mL (200-900)
== END 2022-07-21 08:53 | disposition home or self-care (01) ==
LOC: HO.HMGCLDS 08:52
PROVIDERS: PCP Internal Medicine; Visit Provider Internal Medicine
DX: E03.9 Hypothyroidism, unspecified (principal); E78.2 Mixed hyperlipidemia; I48.0 Paroxysmal atrial fibrillation; D64.9 Anemia, unspecified; E55.9 Vitamin D deficiency, unspecified
CPT/HCPCS: 36415; 80048; 80061; 82306; 82607; 82746; 83540; 84439; 84443; 84450; 84460; 85025

== ENCOUNTER → 2022-07-30 08:16 | Outpatient (REF) | payer MEDICARE, MEDICAID, SELFPAY ==
--- NOTE | 2022-07-30 08:19 | CA_ITS ---
Transthoracic Echocardiogram Patient (Last, First, Middle): Gustavo Martinez P Gender: Male Date of : 1960 Age: 62 Procedure Date: 07/30/2022 Procedure Type: Transthoracic Echocardiogram Location: OP Height: 187.96 cm Weight: 104.33 kg BSA: 2.31 m2 Heart Rate: bpm BP: 122 / 78 mmHg Sugar Cane Planter: CARL Referring MD: Akira Tran MD [facility] Supervisor: Akira Tran MD Symptoms: I42.9 - Cardiomyopathy, unspecified Study Quality: Fair Conclusions: - There is mildly increased left ventricular wall thickness. The left ventricular systolic function is borderline reduced. The visually estimated ejection fraction is between 45-50%. - Normal right ventricular cavity size and systolic function. - The left atrium is severely dilated. - There is mild aortic valve regurgitation. - There is mild dilatation of the sinuses of Valsalva measuring 4.42 cm, mild dilatation of the sino tubular ridge measuring 3.79 cm, and mild dilatation of the ascending aorta measuring 4.40 cm. Findings Left Ventricle There is mildly increased left ventricular wall thickness. The left ventricular systolic function is borderline reduced. The visually estimated ejection fraction is between 45-50%. There is no evidence of regional wall motion abnormalities. Abnormal diastolic function is noted. Spectral Doppler is indicative of a pseudonormal filling pattern. E/E prime ratio is between 8 and 15 consistent with indeterminate filling pressures. LV appears dilated. Low global longitudinal strain -11%. Right Ventricle Normal right ventricular cavity size and systolic function. Atria The left atrium is severely dilated. Aortic Valve There is a normal trileaflet aortic valve. There is no aortic valve stenosis. There is mild aortic valve regurgitation. Mitral Valve Normal mitral valve structure and function. There is no mitral valve regurgitation. There is no mitral valve stenosis. Pulmonic Valve The pulmonic valve is likely normal. Tricuspid Valve Normal tricuspid valve structure. There is no tricuspid valve regurgitation. Tricuspid regurgitation envelope is inadequate for calculation of right ventricular systolic pressure. Normal right atrial pressure. Great Vessels There is mild dilatation of the sinuses of Valsalva measuring 4.42 cm, mild dilatation of the sino tubular ridge measuring 3.79 cm, and mild dilatation of the ascending aorta measuring 4.40 cm. Venous The inferior vena cava is normal in size and collapses greater than 50% with inspiration. Pericardium/Pleural There is no evidence of pericardial effusion. Prior Study Comparison Changes noted compared to prior study dated: 12/27/2020. LVEF 45-50% Measurements 2D Linear Measurements IVSd: 1.16 0.6-0.9/0.6-1.0 cm LVIDd: 6.63 3.9-5.3/4.2-5.9 cm LVIDd Index: 2.87 2.4-3.2/2.2-3.1 cm/m2 LVIDs: 4.65 2.0-3.6 cm LVPWd: 1.17 0.7-1.1 cm LA Diam: 4.60 2.7-3.8/3.0-4.0 cm LAIDs Index: 1.99 1.5-2.3 cm/m2 LV Mass: 445.00 67-162/88-224 g LV Mass Index: 192.64 43-95/49-115 g/m2 LVOT Diam: 3.00 3.0+(-)1.3 cm 2D Systolic Function EF 4C: 48.90 >55% EF 2C: 44.00 >55% EF BiP: 44.80 >55% Mitral Valve MV Pk E: 0.48 MV PK A: 0.47 MV Decel Time: 281.00 E/A: 1.00 E'Medial: 5.44 E/E' Med: 8.80 PHT: 82.00 MVA PHT: 2.68 Decel [place]: 1.71 Aortic Valve AoV Pk Oliver: 1.02 AoV Mn Oliver: 0.76 AoV VTI: 0.26 AoV Pk Grad: 4.00 Aov Mn Grad: 3.00 DUNG Cont.VTI: 5.86 AI Pk [place]: 5.07 AI [place]: 2.37 LVOT LVOT Pk [place]: 0.95 LVOT Mn [place]: 0.58 LVOT VTI: 0.21 LVOT Pk Grad: 4.00 LVOT Mn Grad: 2.00 LVOT Diam: 3.00 LVOT Area: 7.07 Diastolic Function MV Pk E: 0.48 MV Pk A: 0.47 E/A: 1.00 E'Medial: 5.44 E/E' Med: 8.80 Right Ventricle TAPSE (mm): 24.90 TVS' [place]: 14.00 Tricuspid Valve RA Press: 3.00 Great Vessels Aorta Sinus of Valsalva: 4.42 2.0-3.[address] [place]: 3.79 1.7-3.4 cm Ao Asc: 4.40 2.1-3.4 cm Updated in Other Vendor System with Status of Final Akira Tran MD electronically signed on 07/30/2022 8:18:22 PM with status of Final
== END ==
LOC: HO.CARD 08:16
PROVIDERS: Visit Provider Internal Medicine Cardiovascular Disease
DX: I42.9 Cardiomyopathy, unspecified (principal)
CPT/HCPCS: 93306; 93356

== ENCOUNTER → 2022-08-13 10:04 | Outpatient (BNVA) | payer MEDICARE, MEDICAID, SELFPAY | PROVIDERS: PCP Internal Medicine; Referring Provider Internal Medicine; Visit Provider Internal Medicine Cardiovascular Disease | DX: I48.0 Paroxysmal atrial fibrillation (principal); I42.8 Other cardiomyopathies | CPT/HCPCS: 93005; 99212 ==

== ENCOUNTER → 2022-10-12 12:48 | Outpatient (BNVA) | payer MEDICARE, MEDICAID, SELFPAY | PROVIDERS: PCP Internal Medicine; Referring Provider Internal Medicine; Visit Provider Nurse Practitioner Family | DX: K21.9 Gastro-esophageal reflux disease without esophagitis (principal) | CPT/HCPCS: 99212 ==

== ENCOUNTER 2022-10-19 08:37 | Outpatient (REF) | payer MEDICARE, MEDICAID, SELFPAY ==
[2022-10-19 13:27] LABS: Alanine Aminotransferase 8 U/L (0-40); Anion Gap 13 (12-20); Aspartate Amino Transferase 15 U/L (5-37); Blood Urea Nitrogen 12 mg/dL (9-16); Calcium 9.3 mg/dL (8.4-10.2); Carbon Dioxide 28 mmol/L (22-29); Chloride 105 mmol/L (96-108); Cholesterol 208 mg/dL; Estimated Glomerular Filt Rate 58; Glucose Fasting 118 mg/dL (60-99); HDL Cholesterol 49 mg/dL; LDL Cholesterol Calculated 127 mg/dl; Potassium 4.8 mmol/L (3.3-5.1); Sodium 141 mmol/L (135-145); Triglycerides 161 mg/dL
[2022-10-19 13:30] LABS: Free T4 (Free Thyroxine) 0.99 ng/dL (0.71-1.85); Thyroid Stimulating Hormone 16.17 uIU/mL (0.32-4.0); Vitamin D 25-OH Total 9.7 ng/mL (>30)
== END 2022-10-19 08:38 | disposition home or self-care (01) ==
LOC: HO.HMGCLDS 08:37
PROVIDERS: PCP Internal Medicine; Visit Provider Internal Medicine
DX: I10 Essential (primary) hypertension (principal); E78.2 Mixed hyperlipidemia; E03.9 Hypothyroidism, unspecified; E66.09 Other obesity due to excess calories; E55.9 Vitamin D deficiency, unspecified; Z68.32 Body mass index [BMI] 32.0-32.9, adult
CPT/HCPCS: 36415; 80048; 80061; 82306; 84439; 84443; 84450; 84460

== ENCOUNTER 2022-10-20 10:34 | Outpatient (AMB) | payer MEDICARE, MEDICAID, SELFPAY ==
--- NOTE | 2022-10-20 11:38 | MHC.PC.OV ---
Vital Signs 10/20/22 11:39 Height 6 ft 2 in Weight 257 lb BMI 33.0 BP 124/98 H Blood Pressure Location Rt brachial Position Sitting Pulse 110 H Pulse Source Pulse Oximeter Pulse Oximetry (%) 97 Oxygen Delivery Method Room Air Intake Visit Reasons: 3 month follow up Intake Note: Pt is here today for his 3 months f/u Allergies lisinopril (Lisinopril) Allergy (Intermediate, Verified 10/05/25 07:27) RASH environmental allergies Allergy (Verified 10/05/25 07:27) Shortness of Breath prednisone Allergy (Verified 10/05/25 07:27) Unknown sulfamethoxazole (From Bactrim) Adverse Reaction (Verified 10/05/25 07:27) Hallucinations trimethoprim (From Bactrim) Adverse Reaction (Verified 10/05/25 07:) Hallucinations Medication List - Last Reconciled 10/20/22 by Yancy Giles MD albuterol sulfate 90 mcg/actuation 2 puffs PO Q4H PRN apixaban 5 mg PO BID betamethasone dipropionate 0.05% topical buspirone 10 mg PO TID cephalexin mg PO ONCE dupilumab (Dupixent) 300 mg subcut ferrous sulfate 325 mg PO DAILY levothyroxine 75 mcg PO DAILY metoprolol succinate ER 25 mg PO DAILY omeprazole 20 mg PO DAILY rosuvastatin 5 mg PO Q OTHER DAY venlafaxine 75 mg PO TID 30 days Tobacco use date assessed: 10/20/22 HPI 3 month follow up HPI Details xs HPI Comments History of Present Illness Details 62-year-old male with history of atrial fibrillation and cardiomyopathy status post cardioversion and cardiac ablation, was on amiodarone and currently on Eliquis, has benign prostatic hyperplasia with history of urinary retention status post TURP, has hypertension, chronic GERD currently controlled on PPI, here today for follow-up on his hypothyroidism, dyslipidemia, and anxiety disorder. Has cut back on his alcohol intake, just drinks on holidays and special occasions, and usually sticks to beer. He states that he has been feeling better, no longer does intermittent urinary catheterization. Had recent fasting labs done which showed electrolytes within normal limits, fasting glucose in the prediabetic range, lipids within normal limits except for slightly elevated triglycerides and low vitamin-D level. His TSH is noted to be elevated at 16 with free T4 within normal limits. COUNT INCLUDES THE [facility] Medical History GERD (gastroesophageal reflux disease) Immunization declined Atrial flutter History of alcohol use disorder Hyperuricemia Thiamine deficiency Erectile dysfunction Eczema of lower extremity History of cardioversion Vitamin D deficiency Nonischemic cardiomyopathy Acute renal insufficiency Anemia Generalized anxiety disorder JOSE (obstructive sleep apnea) Chronic anticoagulation Mixed dyslipidemia Acquired hypothyroidism Nocturnal hypoxemia Obesity Hypothyroid HTN (hypertension) Surgical History History of prostate surgery H/O cardiac radiofrequency ablation History of esophagogastroduodenoscopy (EGD) H/O colonoscopy History of neck surgery Hx of hand surgery Hx of hernia repair Family History Father Atrial fibrillation Mother Heart attack Pacemaker Sister Thyroid disease Brother HTN (hypertension) Sister Colon cancer Social History Household Members: Spouse Housing: House Do you presently have visiting nurse or other home services: No Alcohol intake: never Comment: scheduled med Patient Tobacco Use Status: Never used Tobacco e-Cigarette/Vaping Use: Never Used Advance Directives Date on File: 12/26/20 service: No Current occupational status: disabled Cognitive needs: No Hearing needs: No Vision needs: Yes Questionnaire PHQ-9 Over the last 2 weeks, how often have you been bothered by any of the following problems? 1. Little interest or pleasure in doing things: not at all 2. Feeling down, depressed, or hopeless: not at all 3. Trouble falling or staying asleep, or sleeping too much: not at all 4. Feeling tired or having little energy: not at all 5. Poor appetite or overeating: not at all 6. Feeling bad about yourself - or that you are a failure or have let yourself or your family down: not at all 7. Trouble concentrating on things, such as reading the newspaper or watching television: not at all 8. Moving or speaking so slowly that other people could have noticed. Or the opposite - being so fidgety or restless that you have been moving around a lot more than usual: not at all 9. Thoughts that you would be better off or of hurting yourself in some way: not at all Total score: 0 Depression Screening Interpretation: Negative 44169 - PHQ-9 Billing: Yes Source: Developed by Drs. Vincent Diaz, Beth Sung, Yandel Marinelli and colleagues, with an educational celena from [employer]. Thrive Questionnaire Date Thrive assessed: 10/20/22 I am a: Patient What is your living situation today?: I have a steady place to live Within the past 12 months, did the food you bought not last and you didn't have the money to get more?: Never true Within the past 12 months, did you worry whether your food would run out before you got money to buy more?: Never true Do you have trouble paying for medicines?: No Do you have trouble getting transportation to medical appointments?: No Do you have trouble paying your heating and electricity bill?: No Do you have trouble taking care of your child, family member or friend?: No Do you have trouble with day-to-day activities such as bathing, preparing meals, shopping, managing finances, etc.?: No Are you currently unemployed and looking for a job?: No Are you interested in more education?: No MARKO-7 AMB Questionnaire MARKO-7 Date MARKO - 7 assessed: 10/20/22 Feeling nervous, anxious, or on edge: 0 = Not at all Not being able to stop or control worryin = Not at all Worrying too much about different things: 0 = Not at all Trouble relaxin = Not at all Being so restless that it is hard to sit still: 0 = Not at all Becoming easily annoyed or irritable: 0 = Not at all Feeling afraid as if something awful might happen: 0 = Not at all Total MARKO-7 score (0-4 normal; 5-9 mild; 10-14 moderate; 15-21 severe): 0 Source: Developed by Drs. Vincent Diaz, Beth Sung, Yandel Marinelli and colleagues, with an educational celena from [employer]. MARKO-7 Assessment Billing MARKO-7 Assessment Tool: MARKO-7 Assessment 27764 Review of Systems Const Denies body aches, Denies chills, Denies fatigue, Denies fever(s), Denies malaise and Denies weakness Eyes Denies change in vision ENT Reports no additional complaints Card Denies chest pain, Denies chest pain with activity, Denies syncope, Denies pedal edema, Denies lightheadedness, Denies palpitations and Denies dyspnea Resp Denies cough and Denies dyspnea GI Denies abdominal pain, Denies melena, Denies bloating, Denies hematochezia, Denies change in stool character and Denies heartburn (Controlled with omeprazole) Reports as per HPI Musc Denies abnormal gait, Denies muscle cramps, Denies muscle weakness, Denies numbness, Denies radiating pain into limb and Denies tingling Neuro Denies abnormal gait, Denies syncope, Denies numbness, Denies tingling and Denies weakness Psych Reports no additional complaints Endo Denies fatigue and Denies palpitations Mansoor/Lymph Denies easy bleeding and Reports easy bruising Physical exam (Primary Care) Vital Signs: Last Vital Signs Pulse 110 H 10/20/22 11:39 BP 124/98 H 10/20/22 11:39 Pulse Ox 97 10/20/22 11:39 Oxygen Delivery Method Room Air 10/20/22 11:39 BMI result Body Mass Index 33.0 BMI Assessment/Plan discussion: High BMI High, discussed plan: lifestyle, weight reduction, dietary and physical activity Tobacco/Smoking Status: Tobacco use Status Tobacco use date assessed 10/20/22 10/20/22 11:44 Patient Tobacco Use Status Never used Tobacco 10/20/22 11:44 e-Cigarette/Vaping Use Never Used 10/20/22 11:44 PHQ-9: PHQ-9 Score PHQ-9: Total score 0 12/18/22 14:57 Depression Screening Interpretation: Negative Thrive Assessment: Date of Thrive Assessment Date Thrive assessed 10/20/22 10/20/22 11:44 Const Other: Alert oriented x3, no acute distress noted ambulatory normal gait Orientation/consciousness: patient oriented x3 HENMT Face and sinus: Yes face symmetric Mouth: Normal oral and palatal mucosa present, oropharynx normal and moist mucous membranes Eyes General: appearance normal, both eyes and all related structures Neck Other: Supple, no lymphadenopathy, thyroid gland nonpalpable and nontender to palpation Resp Effort & Inspection: normal respiratory effort and able to speak in complete sentences Auscultation: clear to auscultation bilaterally GI Other: Normal bowel sounds, soft, nontender, no mass palpated General: Yes no CVA tenderness Back/Spine/Pelvis Back: no CVA tenderness and No back tenderness Skin General skin exam: no rashes or lesions noted and dry skin Neuro General: patient oriented x3, gait normal, moves all extremities, Normal light touch and pain sensation, no focal motor deficits and CN's II-XI intact bilaterally Extrem General: Yes full ROM, Yes no joint enlargement, Yes no pedal edema, Yes no calf tenderness and Yes normal gait Psych Appearance: grossly normal and well kempt Mental Status: mental status grossly normal Speech and movement: Normal speech and movement present Affect: normal affect Attitude: cooperative Thought process: Normal thought process present Results Reviewed Results Reviewed: ENTERED: 10/19/22 SHAMIKA CAIN: ORDERED: Met Prof Fast, AST, ALT, Lipid Panel, Vitamin D 25-OH, Free T4, TSH Test Result Flag Reference Site Sodium 141 135-145 mmol/L Potassium 4.8 3.3-5.1 mmol/L CL 105 96-108 mmol/L CO2 28 22-29 mmol/L Gap 13 12-20 BUN 12 9-16 mg/dL Creat 1.27 0.5-1.4 mg/dL EGFR 58 NOTE: For -[place] Citizen individuals, multiply the result by 1.210. Chronic Kidney Disease: Estimated GFR < 60 mL/min/1.73m2 Severe Kidney Disease: Estimated GFR < 15 mL/min/1.73m2 FBS 118 H 60-99 mg/dL A fasting glucose from 100-125 mg/dl is considered impaired (pre-diabetes). CA 9.3 8.4-10.2 mg/dL AST (GOT) 15 5-37 U/L ALT (GPT) 8 0-40 U/L Triglyceride 161 mg/dL Desirable Triglyceride: less than 150 mg/dL Borderline High Triglyceride 150-199 mg/dL High Triglyceride: 200-499 mg/dL Very High Triglyceride: greater than or equal to 5OO mg/dL Chol 208 mg/dL Desirable Cholesterol: less than 200 mg/dL Borderline High Cholesterol: 200-239 mg/dL High Cholesterol: greater than 239 mg/dL LDL Calculated 127 mg/dl Desirable LDL: less than 100 mg/dL Near Optimal/Above Optimal LDL: 110-129 mg/dL Borderline High LDL: 130-159 mg/dL High LDL: 160-189 mg/dL Very High LDL: greater than or equal to 190 mg/dL HDL 49 mg/dL Desirable HDL: greater than 40 mg/dL Note: This HDL assay may give artificially low results in patients with liver disease. Vit D 25-OH Tot 9.7 >30 ng/mL Health Based Reference Values* < 20 ng/mL Deficient 20-30 ng/mL Insufficient > 30 ng/mL Sufficient *Anahy RENEE. N Engl J Med. 2007;357:266-280 Care must be taken in interpreting Vitamin D results from different laboratories and methodologies. Published data demonstrated that results from patients undergoing hemodialysis may show a negative bias when tested with various automated 25-OH vitamin D assays when compared to LC-MS/MS. When testing samples from patients whose predominant form of Vitamin D is Vitamin D2, such as patients receiving Vitamin D2 supplementation, results that are subtherapeutic should be confirmed with another method such as LC-MS/MS. Free T4 0.99 0.71-1.85 ng/dL TSH 3rd Gen. 16.17 H 0.32-4.0 uIU/mL Note: A sustained TSH level above 2.5 uIU/mL may warrant further investigation. TSH 3rd Generation ([facility]) Coding Level of Care Code Admin Sign Off/No Billing Diagnoses Vitamin D deficiency E55.9 HTN (hypertension) I10 Generalized anxiety disorder F41.1 Mixed dyslipidemia E78.2 Acquired hypothyroidism E03.9 PAF (paroxysmal atrial fibrillation) I48.0 Additional Codes MARKO-7 Assessment Billing - MARKO-7 Assessment Tool: MARKO-7 Assessment 94502 ([id number])
[2022-10-20 11:39] VITALS: BP 124/98; PULSE 110; O2SAT 97; BMI 33.0
== END 2022-10-20 12:26 | disposition home or self-care (01) ==
LOC: HO.HMGC 10:34
PROVIDERS: PCP Internal Medicine; Visit Provider Internal Medicine
DX: E55.9 Vitamin D deficiency, unspecified (principal); I10 Essential (primary) hypertension; F41.1 Generalized anxiety disorder; E78.2 Mixed hyperlipidemia; E03.9 Hypothyroidism, unspecified; I48.0 Paroxysmal atrial fibrillation
CPT/HCPCS: 99499

== ENCOUNTER 2022-12-17 11:01 | Inpatient (IN) | payer MEDICARE, MEDICAID, SELFPAY ==
--- NOTE | ~2022-12-17 | XR_ITS ---
EXAMINATION: XR CHEST CLINICAL INFORMATION: Shortness of breath COMPARISON: 12/29/2020 TECHNIQUE: Frontal view of the chest was obtained. FINDINGS: Lungs are well expanded. No airspace disease or pleural effusion. There appears to be a linear opacity of scar or atelectasis of the lingula. The bronchial drake appear to be chronically thickened. Cardiac silhouette is in the normal size range for an anteroposterior chest radiograph. The pulmonary vascular pattern is normal. Cervical spine fusion hardware is partially included in the [id number]. XR/XR chest 1V IMPRESSION: * Bronchial drake appear to be chronically, mildly thickened. Query if there is any history of obstructive pulmonary disease. * No acute cardiopulmonary findings compared to 12/29/2020.
--- NOTE | 2022-12-17 11:05 | ECG_ITS ---
Test Reason : AFIB Blood Pressure : / mmHG Vent. Rate : 113 BPM Atrial Rate : 113 BPM P-R Int : 152 ms QRS Dur : 126 ms QT Int : 366 ms P-R-T Axes : 000 -54 196 degrees QTc Int : 502 ms Atrial tachycardia / Atrial flutter with 2 to 1 block Right bundle branch block Left anterior fascicular block Bifascicular block Minimal voltage criteria for LVH, may be normal variant ( R in aVL ) T wave abnormality, consider lateral ischemia Abnormal ECG When compared with ECG of 09-SEP-2021 12:25, Atrial tachycardia / Atrial flutter with 2 to 1 block has replaced Normal sinus rhythm Right bundle branch block is now Present Referred By: Generic ED Physician Electronically Signed By:JOI MOORE MD
[2022-12-17 11:08] VITALS: BP 126/85; PULSE 110; RESP 20; TEMP 36.7; O2SAT 98; BMI 31.4
[2022-12-17 11:45] LABS: MANUAL DIFF FLAG NO
--- NOTE | 2022-12-17 11:48 | ED_ITS ---
HPI - Arrhythmia/Palpitations General Chief Complaint: Arrhythmia/Palpitations Stated Complaint: Aflutter sent by cardiology Time Seen by Provider: 12/17/22 11:09 Source: patient and other Mode of arrival: ambulatory History of Present Illness HPI narrative: 62-year-old male presents with 3 weeks of increasing shortness of breath and states that he has felt as though his heart has been racing off and on during that time. Patient also states that his amiodarone dosage was increased to 400 mg but then he became more short of breath and it has since been changed back to the original dose. Patient otherwise denies any fever or chills. Additional information obtained from Cardiology, Dr. Tran, he informs me that this patient is undergone ablation for AFib and initially felt that he may need cardioversion. Related Data Home Medications Medication Instructions Recorded Confirmed betamethasone dipropionate 0.05 % topical 02/05/22 12/17/22 topical ointment dupilumab 300 mg/2 mL subcutaneous 300 mg subcut 06/08/22 12/17/22 syringe (DupixADENTS HTI) cephalexin 250 mg capsule mg PO ONCE 10/20/22 12/17/22 amiodarone 200 mg tablet 200 mg PO DAILY 12/17/22 12/17/22 metoprolol succinate 50 mg capsule See Rx Instructions PO DAILY 12/17/22 12/17/22 sprinkle, ext. release 24 hr (Kapspargo Vikkile) Previous Rx's Medication Instructions Recorded albuterol sulfate 90 mcg/actuation 2 puff PO Q4H PRN shortness of 06/07/21 aerosol inhaler breath or wheezing #8.5 ea ferrous sulfate 325 mg (65 mg 325 mg PO DAILY #90 tabs 03/04/22 iron) tablet apixaban 5 mg tablet 5 mg PO BID #60 tabs 06/08/22 buspirone 10 mg tablet 10 mg PO TID #90 tabs 06/26/22 rosuvastatin 5 mg tablet 5 mg PO Q OTHER DAY #45 tabs 07/13/22 levothyroxine 75 mcg tablet 75 mcg PO DAILY #90 tabs 07/23/22 omeprazole 20 mg capsule,delayed 20 mg PO DAILY #90 caps 10/12/22 release cholecalciferol (vitamin D3) 1,250 1,250 mcg PO 2XW 3 months #26 caps 10/20/22 mcg (50,000 unit) capsule venlafaxine 75 mg tablet 75 mg PO TID 30 days #90 tabs 10/20/22 Allergies Allergy/AdvReac Type Severity Reaction Status Date / Time lisinopril [Lisinopril] Allergy Intermediate RASH Verified 12/17/22 10:21 sulfamethoxazole AdvReac Hallucinati Verified 12/17/22 10:21 [From Bactrim] ons trimethoprim [From Bactrim] AdvReac Hallucinati Verified 12/17/22 10:21 ons Environmental Allergy Intermediate Shortness Uncoded 12/17/22 10:21 of Breath Review of Systems Review of Systems: Pertinent positives and negatives as stated in HPI [facility] Past Medical History Source: nursing notes reviewed Medical History Acquired hypothyroidism Acute renal insufficiency Alcohol abuse Anemia Atrial flutter Chronic anticoagulation Encounter for screening Generalized anxiety disorder HTN (hypertension) Hypothyroid Mixed dyslipidemia Nocturnal hypoxemia Nonischemic cardiomyopathy Obesity JOSE (obstructive sleep apnea) Panic Vitamin D deficiency Surgical History H/O cardiac radiofrequency ablation H/O colonoscopy History of esophagogastroduodenoscopy (EGD) History of neck surgery History of prostate surgery Hx of hand surgery Hx of hernia repair Family History Family History Father Atrial fibrillation Mother Heart attack Pacemaker Sister Thyroid disease Brother HTN (hypertension) Sister Colon cancer Social History Social History Household Members: Spouse Housing: House Do you presently have visiting nurse or other home services: No Alcohol intake: current Alcohol intake frequency: holidays/special occasions only Alcohol type: beer and wine Patient Tobacco Use Status: Never used Tobacco e-Cigarette/Vaping Use: Never Used Advance Directives: Yes Advance Directives on File: Yes Advance Directives Date on File: 12/26/20 service: No Current occupational status: disabled Cognitive needs: No Hearing needs: No Vision needs: Yes Physical Exam Vital Signs: Vital Signs: Last Vital Signs Temp 98.1 F 12/17/22 12:38 Pulse 112 H 12/17/22 13:36 Resp 19 12/17/22 12:38 BP 136/94 H 12/17/22 13:36 Pulse Ox 91 L 12/17/22 12:38 O2 Del Method Room Air 12/17/22 12:38 BMI result Body Mass Index 31.4 VITAL SIGNS: Reviewed. GENERAL: Well developed, well nourished, in no acute distress. HEAD: Normocephalic/atraumatic EYES: PERRLA, EOMI LUNGS: Bibasilar rales noted with mild tachypnea, no retractions. SpO2<95> CARDIOVASCULAR: Regular rate and rhythm without noted murmurs, no JVD or lower extremity edema. ABDOMEN: Soft, non-tender, non-distended with bowel sounds. MUSCULOSKELETAL: No tenderness, deformities, or effusions noted on gross inspection. EXTREMITIES: No cyanosis, clubbing or edema. SKIN: Inspection of the skin reveals no rashes NEUROLOGIC: Alert and oriented x 4. Strength and sensation to light touch were grossly intact x 4. Medications Administered Discontinued Medications Generic Name Dose Route Start Last Admin Trade Name Freq PRN Reason Stop Dose Admin Furosemide 60 mg 12/17/22 13:16 12/17/22 13:36 Furosemide 100 Mg/10 Ml Vial IVPUSH 12/17/22 13:17 60 mg ONCE ONE Administration Protocol Medical Decision Making Medical Decision Making MDM Narrative: 62-year-old male who presents with tachycardia and complaints of shortness of breath. I reviewed the EKG which in fact shows sinus rhythm. I did discuss this further with Cardiology who feels that this is worsening cardiomyopathy and last echo demonstrated an EF 45-50%. I reviewed all investigations my interpretation is that patient is now in acute CHF exacerbation, nursing informed me that he required supplemental nasal cannula as his oxygenation dropped to 89%. He is currently on Eliquis b.i.d.. His oxygenation responded well to supplemental oxygen and he will be admitted. Differential Diagnosis Please see the discussion above Consult Healthcare Provider [id number]: I discussed the case with the inpatient hospitalist who accepts admission. Lab Data Please see the discussion above 12/17/22 11:39 12/17/22 11:39 Labs: Lab Results 12/17/22 12/17/22 12/17/22 Range/Units 11:39 11:39 11:39 WBC 5.7 (4.8-10.8) X10*3/uL RBC 4.22 L (4.60-5.80) X10*6/uL Hgb 13.6 L (14.0-18.0) g/dl Hct 39.1 L (42.0-52.0) % MCV 92.7 (80.0-98.0) fL MCH 32.2 (27.0-33.0) pg MCHC 34.8 (31.0-36.0) g/dl RDW 14.5 (11.0-16.0) % Plt Count 110 L (160-400) X10*3/uL MPV 10.4 (9.4-12.4) fL Immature Gran % (Auto) 0.2 (0.0-0.4) % Neut % (Auto) 60.3 (45-73) % Lymph % (Auto) 25.1 (20-40) % [place] % (Auto) 10.9 (2-11) % Eos % (Auto) 2.8 (0-4) % Baso % (Auto) 0.7 (0-2) % Lymph # (Auto) 1.4 (1.2-4.9) X10*3/uL [place] # (Auto) 0.6 (0.1-1.2) X10*3/uL Eos # (Auto) 0.2 (0.0-0.4) X10*3/uL Baso # (Auto) 0.0 (0.0-0.2) X10*3/uL Abs Immat Gran (auto) 0.01 (0.00-0.03) X10*3/uL Absolute Neuts (auto) 3.4 (2.0-8.3) x10*3/uL Absolute Nucleated RBC 0.000 (0.0-0.012) X10*3/uL Nucleated RBC % (auto) 0.0 (0.0-0.2) /100WBC PT 11.7 (10.0-13.1) SEC INR 1.0 (0.9-1.1) Sodium 137 (135-145) mmol/L Potassium 4.4 (3.3-5.1) mmol/L Chloride 105 (96-108) mmol/L Carbon Dioxide 24 (22-29) mmol/L Anion Gap 12 (12-20) BUN 17 H (9-16) mg/dL Creatinine 1.11 (0.5-1.4) mg/dL Estim Creat Clear Calc 92.6 Estimated GFR > 60 Random Glucose 83 (60-115) mg/dL Calcium 9.5 (8.4-10.2) mg/dL Total Bilirubin 1.3 H (0.0-1.0) mg/dL AST 15 (5-37) U/L ALT 9 (0-40) U/L Alkaline Phosphatase 95 (39-117) U/L Troponin I High Sens (<3.5-35.0) ng/L B-Natriuretic Peptide (<100) pg/mL Total Protein 6.5 (6.5-8.0) g/dL Albumin 4.3 (3.5-5.0) g/dL COVID-19 (DAVE) (Negative) COVID-19 Clin Com 12/17/22 12/17/22 12/17/22 Range/Units 11:39 11:40 12:37 WBC (4.8-10.8) X10*3/uL RBC (4.60-5.80) X10*6/uL Hgb (14.0-18.0) g/dl Hct (42.0-52.0) % MCV (80.0-98.0) fL MCH (27.0-33.0) pg MCHC (31.0-36.0) g/dl RDW (11.0-16.0) % Plt Count (160-400) X10*3/uL MPV (9.4-12.4) fL Immature Gran % (Auto) (0.0-0.4) % Neut % (Auto) (45-73) % Lymph % (Auto) (20-40) % [place] % (Auto) (2-11) % Eos % (Auto) (0-4) % Baso % (Auto) (0-2) % Lymph # (Auto) (1.2-4.9) X10*3/uL [place] # (Auto) (0.1-1.2) X10*3/uL Eos # (Auto) (0.0-0.4) X10*3/uL Baso # (Auto) (0.0-0.2) X10*3/uL Abs Immat Gran (auto) (0.00-0.03) X10*3/uL Absolute Neuts (auto) (2.0-8.3) x10*3/uL Absolute Nucleated RBC (0.0-0.012) X10*3/uL Nucleated RBC % (auto) (0.0-0.2) /100WBC PT (10.0-13.1) SEC INR (0.9-1.1) Sodium (135-145) mmol/L Potassium (3.3-5.1) mmol/L Chloride (96-108) mmol/L Carbon Dioxide (22-29) mmol/L Anion Gap (12-20) BUN (9-16) mg/dL Creatinine (0.5-1.4) mg/dL Estim Creat Clear Calc Estimated GFR Random Glucose (60-115) mg/dL Calcium (8.4-10.2) mg/dL Total Bilirubin (0.0-1.0) mg/dL AST (5-37) U/L ALT (0-40) U/L Alkaline Phosphatase (39-117) U/L Troponin I High Sens 16.5 (<3.5-35.0) ng/L B-Natriuretic Peptide 555 H (<100) pg/mL Total Protein (6.5-8.0) g/dL Albumin (3.5-5.0) g/dL COVID-19 (DAVE) Negative (Negative) COVID-19 Clin Com See Note Independent Interpretation I performed an independent interpretation of an: EKG Interpretation: Sinus tachycardia, RBBB, ST-T abnormalities in lateral leads which I do not appreciate on prior EKG from 09/09/2021. Radiology Impression Radiologist Impression: My interpretation is in agreement with radiology's impression of the imaging study. External Record Review External record reviewed: Outpatient record and Prior outpatient labs Critical Care Time Critical Care Time Critical Care Time: Yes Total Critical Care Time: 30 Attestation: I personally attest to this time spent taking care of the patient. Discharge Plan Discharge Clinical Impression: CHF exacerbation, Hypoxic Patient Disposition: Admitted As Inpatient Prescriptions: No Action albuterol sulfate 90 mcg/actuation HFA aerosol inhaler 2 puff PO Q4H PRN (Reason: shortness of breath or wheezing) Qty: 8.5 6RF ferrous sulfate 325 mg (65 mg iron) tablet 325 mg PO DAILY Qty: 90 1RF buspirone 10 mg tablet 10 mg PO TID Qty: 90 1RF rosuvastatin 5 mg tablet 5 mg PO Q OTHER DAY Qty: 45 1RF levothyroxine 75 mcg tablet 75 mcg PO DAILY Qty: 90 1RF cephalexin 250 mg capsule PO ONCE cholecalciferol (vitamin D3) 1,250 mcg (50,000 unit) capsule 1,250 mcg PO 2XW 90 Days Qty: 26 0RF venlafaxine 75 mg tablet 75 mg PO TID 30 Days Qty: 90 4RF nitrofurantoin monohyd/m-cryst [Macrobid] 100 mg capsule 100 mg PO ONCE Qty: 1 0RF omeprazole 20 mg capsule,delayed release(DR/EC) 20 mg PO DAILY Qty: 90 2RF betamethasone dipropionate 0.05 % ointment topical Dupixent Syringe 300 mg/2 mL syringe 300 mg subcut apixaban 5 mg tablet 5 mg PO BID Qty: 60 4RF amiodarone 200 mg tablet 200 mg PO DAILY Kapspargo Sprinkle 50 mg capsule,sprinkle,ER 24hr See Rx Instructions PO DAILY Rx Instructions: 50 mg AM, 25mg PM orally daily;
[2022-12-17 11:49] LABS: Basophils Percent Auto 0.7 % (0-2); Eosinophils Absolute Auto 0.2 X10*3/uL (0.0-0.4); Eosinophils Percent Auto 2.8 % (0-4); Hematocrit 39.1 % (42.0-52.0); Hemoglobin 13.6 g/dl (14.0-18.0); Imm Gran Abs Auto 0.01 X10*3/uL (0.00-0.03); Imm Gran Pct Auto 0.2 % (0.0-0.4); Lymphocytes Absolute Auto 1.4 X10*3/uL (1.2-4.9); Lymphocytes Percent Auto 25.1 % (20-40); Mean Corpuscular HGB Conc 34.8 g/dl (31.0-36.0); Mean Corpuscular Hemoglobin 32.2 pg (27.0-33.0); Mean Corpuscular Volume 92.7 fL (80.0-98.0); Mean Platelet Volume 10.4 fL (9.4-12.4); Monocytes Absolute Auto 0.6 X10*3/uL (0.1-1.2); Monocytes Percent Auto 10.9 % (2-11); Neutrophils Absolute Auto 3.4 x10*3/uL (2.0-8.3); Neutrophils Percent Auto 60.3 % (45-73); Platelet Count 110 X10*3/uL (160-400); Red Blood Count 4.22 X10*6/uL (4.60-5.80); Red Cell Distribution Width 14.5 % (11.0-16.0); White Blood Count 5.7 X10*3/uL (4.8-10.8)
[2022-12-17 11:52] LABS: Prothrombin Time 11.7 SEC (10.0-13.1)
[2022-12-17 12:10] LABS: Alanine Aminotransferase 9 U/L (0-40); Albumin Level 4.3 g/dL (3.5-5.0); Alkaline Phosphatase 95 U/L (39-117); Anion Gap 12 (12-20); Aspartate Amino Transferase 15 U/L (5-37); Bilirubin Total 1.3 mg/dL (0.0-1.0); Blood Urea Nitrogen 17 mg/dL (9-16); Calcium 9.5 mg/dL (8.4-10.2); Carbon Dioxide 24 mmol/L (22-29); Chloride 105 mmol/L (96-108); Creatinine Clr Calc Pharmacy 92.6; Estimated Glomerular Filt Rate > 60; Glucose Random 83 mg/dL (60-115); Potassium 4.4 mmol/L (3.3-5.1); Sodium 137 mmol/L (135-145); Total Protein 6.5 g/dL (6.5-8.0)
[2022-12-17 12:15] LABS: Troponin-I High Sensitivity 16.5 ng/L (<3.5-35.0)
[2022-12-17 12:38] VITALS: BP 133/92; PULSE 112; RESP 19; TEMP 36.7; O2SAT 91
[2022-12-17 13:04] LABS: B Type Natriuretic Peptide 555 pg/mL (<100)
[2022-12-17 13:04] LABS: COVID-19 Test Negative (Negative); IDNOW Serial# 08D9AD1C
--- NOTE | 2022-12-17 13:06 | PC.NURSE ---
PT REPORTS SOB AND DIZZINESS. 94% ON RA. PLACED ON 2L NC FOR COMFORT. PT NOW SINUS TACH 110. MD AWARE. PT APPEARS ANXIOUS.
[2022-12-17 13:36] VITALS: BP 136/94; PULSE 112
[2022-12-17] MEDS: Furosemide 100 MG/10 ML VIAL 60 MG IVPUSH (13:36)
--- NOTE | 2022-12-17 13:37 | PC.NURSE ---
MEDICATED PER EMAR. A FLUTTER AT THIS TIME 112
[2022-12-17 14:55] LABS: Thyroid Stimulating Hormone 17.61 uIU/mL (0.32-4.0)
[2022-12-17 14:56] VITALS: BP 135/100; PULSE 115; RESP 18; TEMP 36.6; O2SAT 95
--- NOTE | 2022-12-17 15:56 | P.HPHOSP_ITS ---
History of Present Illness Date of Service: 12/17/22 Attending physician on admission: Hany Reaves Chief Complaint: Tachycardia and SOB Pt is a 62-year-old male with a PMH significant for?HTN, HLD, asthma, CVA in 2021, VA in 2021, hx of cardiomyopathy, hx of atrial fibrillation and SVT on Eliquis and s/p ablation in 04/2022 at [facility] who presents to the ED with increased shortness of breath and palpitations. Patient states that he was at a follow-up appointment with his seaman Dr. Tran where his EKG shoed atrial tachycardia with 2-1 block versus atrial flutter and sent to the ED for further evaluation and workup. Pt says symptoms began around a month ago when he noticed increasing SOB and that he kept having to gasp for air . Endorses orthopnea, now having to sleep on the couch with pillows behind his back. Claims symptoms came on gradually, slowly worsening. Now has SOB with exertion and at rest. Also has had fatigue and chest tightness/pressure associated with inspiration. Patient is also followed at [facility] cardiology where he had his ablation. Patient notes that he has had persistent tachycardia and occasional palpitations for over a month. [facility] has apparently been tweaking his metoprolol and amiodarone dosages to little effect. Patient denies swelling in his lower extremities lower notes that he has gained approximately 5-7 lb of weight this past month. Denies fever, chills. Some nausea, but no vomiting. Denies abdominal pain. Pt not on home supplemental O2 or diuretics. In the ED patient was tachycardic at up to 116, slightly hypertensive at 135/100, and satting at 89% oxygen on RA. Labs were significant for elevated BNP of 555. CXR showed apparent chronic mild thickening bronchial drake with no acute cardiopulmonary findings. Last echo on 07/30/2022 showed LVEF between 45 and 50%. EKG demonstrated sinus tachycardia with right bundle branch block, left anterior fascicular block, and diffuse T-wave inversions with a prolonged QTc of 502. At seaman's office today EKG demonstrated atrial tachycardia versus atrial flutter. Pt was treated with Lasix 60mg IV. Pt will be admitted to the hospital for treatment and further evaluation of acute exacerbation of HFrEF. Review of Systems Review of Systems: Shortness of breath Orthopnea Palpitations Fatigue Chest tightness/pressure associated with inspiration Nausea, no vomiting Yes all other systems are reviewed and are negative [facility] Medical History Acquired hypothyroidism Acute renal insufficiency Alcohol abuse Anemia Atrial flutter Chronic anticoagulation Encounter for screening Generalized anxiety disorder HTN (hypertension) Hypothyroid Mixed dyslipidemia Nocturnal hypoxemia Nonischemic cardiomyopathy Obesity JOSE (obstructive sleep apnea) Panic Vitamin D deficiency Family History Father Atrial fibrillation Mother Heart attack Pacemaker Sister Thyroid disease Brother HTN (hypertension) Sister Colon cancer Surgical History H/O cardiac radiofrequency ablation H/O colonoscopy History of esophagogastroduodenoscopy (EGD) History of neck surgery History of prostate surgery Hx of hand surgery Hx of hernia repair Social History Household Members: Spouse Housing: House Do you presently have visiting nurse or other home services: No Alcohol intake: current Alcohol intake frequency: holidays/special occasions only Alcohol type: beer and wine Patient Tobacco Use Status: Never used Tobacco e-Cigarette/Vaping Use: Never Used Advance Directives: Yes Advance Directives on File: Yes Advance Directives Date on File: 12/26/20 service: No Current occupational status: disabled Cognitive needs: No Hearing needs: No Vision needs: Yes Meds Allergies Allergy/AdvReac Type Severity Reaction Status Date / Time lisinopril [Lisinopril] Allergy Intermediate RASH Verified 12/17/22 10:21 sulfamethoxazole AdvReac Hallucinati Verified 12/17/22 10:21 [From Bactrim] ons trimethoprim [From Bactrim] AdvReac Hallucinati Verified 12/17/22 10:21 ons Environmental Allergy Intermediate Shortness Uncoded 12/17/22 10:21 of Breath Active Medications: Current Medications Pharmacy Consult (Consult Rx Perform Med Rec) 1 each MISCELLANE ONCE PRN PRN Reason: Consult order Home Medications Medication Instructions Recorded Confirmed Last Taken Type betamethasone dipropionate 0.05 % 1 appl topical DAILY PRN Rash 02/05/22 12/17/22 Unknown History topical ointment dupilumab 300 mg/2 mL subcutaneous 300 mg subcut WE 06/08/22 12/17/22 12/16/22 History syringe ([employer]) amiodarone 200 mg tablet 200 mg PO DAILY 12/17/22 12/17/22 12/17/22 History cholecalciferol (vitamin D3) 1,250 1,250 mcg PO MOFR 12/17/22 12/17/22 12/14/22 History mcg (50,000 unit) capsule levothyroxine 75 mcg tablet 75 mcg PO DAILY@0600 12/17/22 12/17/22 12/17/22 History metoprolol succinate 25 mg 25 mg PO BEDTIME 12/17/22 12/17/22 12/16/22 History tablet,extended release 24 hr metoprolol succinate 25 mg 50 mg PO DAILY 12/17/22 12/17/22 12/17/22 History tablet,extended release 24 hr omeprazole 20 mg capsule,delayed 20 mg PO DAILY@0630 12/17/22 12/17/22 12/17/22 History release Physical Exam Vital Signs and Narrative: Vital Signs: Last Vital Signs Temp 97.8 F 12/17/22 14:56 Pulse 115 H 12/17/22 14:56 Resp 18 12/17/22 14:56 BP 135/100 H 12/17/22 14:56 Pulse Ox 95 12/17/22 14:56 O2 Del Method Nasal Cannula 12/17/22 14:56 O2 Flow Rate 2 12/17/22 14:56 BMI result Body Mass Index 31.4 Constitutional: Alert, in no acute distress. Mental Status: Oriented to person, place and time. Eyes: Pupils are equal, round, and reactive to light. Ear, Nose, and Throat: Oropharynx clear, mucous membranes moist. Ears and nose without deformities. Trachea midline. Respiratory: Clear to auscultation bilaterally. No wheezing, rales, or rhonchi. Cardiovascular: S1, S2 regular. No murmurs, rubs, or gallops. Gastrointestinal: Abdomen soft, non-tender, non-distended. Normal bowel sounds. Neurologic: Cranial nerves II-XII are grossly intact bilaterally. No focal neurological deficits. Moves all extremities spontaneously. Skin: No rashes or lesions noted. Musculoskeletal: No cyanosis or clubbing. Extremities: No edema. Psychiatric: Normal mood and affect. Results Labs 12/17/22 11:39 12/17/22 11:39 Labs: Laboratory Results - last 24 hr 12/17/22 12/17/22 12/17/22 11:39 11:39 11:39 MCV 92.7 MCH 32.2 MCHC 34.8 RDW 14.5 Plt Count 110 L MPV 10.4 Immature Gran % (Auto) 0.2 Neut % (Auto) 60.3 Lymph % (Auto) 25.1 Kay % (Auto) 10.9 Eos % (Auto) 2.8 Baso % (Auto) 0.7 Lymph # (Auto) 1.4 Kay # (Auto) 0.6 Eos # (Auto) 0.2 Baso # (Auto) 0.0 Abs Immat Gran (auto) 0.01 Absolute Neuts (auto) 3.4 Absolute Nucleated RBC 0.000 Nucleated RBC % (auto) 0.0 PT 11.7 INR 1.0 Anion Gap 12 Estim Creat Clear Calc 92.6 Estimated GFR > 60 Random Glucose 83 Calcium 9.5 Total Bilirubin 1.3 H AST 15 ALT 9 Alkaline Phosphatase 95 Troponin I High Sens B-Natriuretic Peptide Total Protein 6.5 Albumin 4.3 TSH 17.61 H COVID-19 (DAVE) COVID-[facility] 12/17/22 12/17/22 12/17/22 11:39 11:40 12:37 MCV MCH MCHC RDW Plt Count MPV Immature Gran % (Auto) Neut % (Auto) Lymph % (Auto) Kay % (Auto) Eos % (Auto) Baso % (Auto) Lymph # (Auto) Kay # (Auto) Eos # (Auto) Baso # (Auto) Abs Immat Gran (auto) Absolute Neuts (auto) Absolute Nucleated RBC Nucleated RBC % (auto) PT INR Anion Gap Estim Creat Clear Calc Estimated GFR Random Glucose Calcium Total Bilirubin AST ALT Alkaline Phosphatase Troponin I High Sens 16.5 B-Natriuretic Peptide 555 H Total Protein Albumin TSH COVID-19 (DAVE) Negative COVID-19 Clin Com See Note Imaging Radiologist's Impressions: Impressions Chest X-Ray 12/17/22 13:15 IMPRESSION: * Bronchial drake appear to be chronically, mildly thickened. Query if there is any history of obstructive pulmonary disease. * No acute cardiopulmonary findings compared to 12/29/2020. Assessment and Plan (1) CHF exacerbation: Status: Acute Plan Pt is a 62-year-old male with a PMH significant for?HTN, HLD, asthma, CVA in 2021, [place] in 2021, hx of cardiomyopathy, hx of atrial fibrillation and SVT on Eliquis and s/p ablation in 04/2022 at [facility] who presents to the ED with increased shortness of breath and palpitations. Patient states that he was at a follow-up appointment with his seaman Dr. Tran where his EKG shoed atrial tachycardia with 2-1 block versus atrial flutter and sent to the ED for further evaluation and workup. Pt will be admitted to the hospital for treatment and further evaluation of acute exacerbation of HFrEF. Acute hypoxic respiratory failure in the setting of acute HFrEF exacerbation Patient satting at 89% O2 on RA, placed on nasal cannula Patient with weight gain, orthopnea, increasing shortness of breath for past month, elevated BNP Furosemide 40 mg IV b.i.d. Follow lytes, mg, I/O Daily weights, cardiac and low-salt diet Echocardiogram Cardiology consult Titrate supplemental O2>90, wean as tolerated Admitted to telemetry Palpitations, tachycardia Patient with persistent tachycardia for past month Followed by Dr. Tran and [facility] cardiology Continue home meds Cardiology consult Monitor on telemetry Prolonged QTc EKG showed QTc of 502 Avoid QT-prolonging agents Hypothyroidism Continue levothyroxine Asthma Known acute exacerbation Continue home inhalers HLD Continue statin GERD Continue omeprazole Full Code Attending:?Dr. Reaves DVT Prophylaxis: On Eliquis Pt will require a hospitalization of at least two nights for treatment of acute heart failure exacerbation with IV diuretics. Time Spent With Patient Time: Total time managing care of this patient today ____ minutes. Quality Stroke Does the patient have a stroke diagnosis?: No VTE Prior VTE?: No VTE Risk Level:: Medical - moderate - high VTE Device Contraindication: Treatment Not Indicated VTE Drug Contraindication: N/A - Med Ordered
--- NOTE | 2022-12-17 16:36 | PHA.MEDREC ---
Pharmacy Consult ? Medication Reconciliation Pharmacy has completed the medication reconciliation. Was able to confirm last doses/correct dosing for most meds but the patient was a little unsure about the rosuvastatin dosing. He is last shown to be dosing 5 mg every other day per claim history and per Dr. Giles physical in September but he thought he had his dose changed. He is unsure however what that dose may be and thought maybe it really is 5 mg every other day so that is what was entered in med rec.
--- NOTE | 2022-12-17 17:35 | PM.EVENT ---
Event Note Date of Service: 12/18/22 Event Note: This patient is seen and examined with APC. Patient came to the hospital because of shortness of breath almost a month duration slowly progressing has orthopnea denies any chest pain. Lab imaging, EKG reviewed. But him CBC seems fine, BMP seems fine, cxr grosslly seem clear bnp elevated ekg nsr ,sinus tachy tropx1 neg ,another set trop added Physical exam and assessment and plan coordinated in APCs note, Agree with the plan in addition: Acute hypoxic respiratory failure in the setting of?acute HFrEF exacerbation- Will start IV Lasix, monitor INR, BMP. Sinus tachycardia: Persistence is last month Check TSH , currently hr 110's range: continue metoprolol obesity: advised to lose weight. istory of atrial fibrillation and cardiomyopathy who is status post cardioversion and ablation with improvement in ejection fraction to 45-50%?. added cardiology eval Time Spent With Patient Time: Total time managing care of this patient today ____ minutes.
[2022-12-17 17:58] VITALS: BP 128/81; PULSE 116; RESP 20; TEMP 37; O2SAT 98
[2022-12-17 20:09] LABS: Troponin-I High Sensitivity 21.3 ng/L (<3.5-35.0)
[2022-12-17] MEDS: busPIRone HCl 10 MG TABLET PO (20:45)
[2022-12-17] MEDS: Apixaban 5 MG TABLET PO (20:45)
[2022-12-17] MEDS: Metoprolol Succinate ER 25 MG TAB.ER.24H PO (20:45)
--- NOTE | 2022-12-17 20:50 | PC.NURSE ---
pt a&o, no sign of distress, medicated per mar. Notified CIARRA Ferreira, Effector coming down from Pharmacy. pt Rn aware.
[2022-12-17] MEDS: Venlafaxine HCL 25 MG TABLET 75 MG PO (21:23)
--- NOTE | 2022-12-17 21:40 | PC.NURSE ---
Pt aox3 resting at the bedside. Reports no pain or discomfort at this time. Medicated as ordered. Pt tolerated well. [place] text sent to the nurse as pt will be transferring to bed 476 and aware of plan of care.
[2022-12-17 23:10] VITALS: BP 128/89; PULSE 114; RESP 19; TEMP 36.3; O2SAT 96
[2022-12-17] MEDS: 0.9 % Sodium Chloride Flush 3 ML SYRINGE IVFLUSH (23:24)
[2022-12-18 03:36] VITALS: BP 124/74; PULSE 114; RESP 20; TEMP 36.3; O2SAT 95
[2022-12-18] MEDS: Levothyroxine Sodium 75 MCG TABLET PO (05:29)
[2022-12-18] MEDS: Omeprazole 20 MG CAPSULE.DR PO (05:29)
--- NOTE | 2022-12-18 07:00 | CA_ITS ---
Transthoracic Echocardiogram Patient (Last, First, Middle): Gustavo Martinez P Gender: Male Date of : 1960 Age: 62 Procedure Date: 12/18/2022 Procedure Type: Transthoracic Echocardiogram Location: [facility] [place] Height: 187.96 cm Weight: 111.13 kg BSA: 2.37 m2 Heart Rate: 114 bpm BP: 124 / 74 mmHg Electrogalvanizing Machine Operator: ADRIANA Referring MD: Luis Enrique MANDUJANO Symptoms: CHF Study Quality: Fair/Contrast ECG Rhythm: Tachycardia Conclusions: - 1. Moderately dilated left ventricle with moderate to severe LV systolic dysfunction with LVEF of 30 35% 2. Mildly dilated right ventricle with moderately reduced RV systolic function 3. Mildly dilated left atrium 4. Mild aortic regurgitation 5. Normal RV systolic pressure 6. Mild to moderate enlargement of ascending aorta 7. No gross pericardial effusion Findings Procedure Information Contrast agent, definity, is being given per protocol without apparent complications. Left Ventricle Moderately increased left ventricular cavity size. There is mildly increased left ventricular wall thickness. The left ventricular systolic function is moderate to severely decreased. The visually estimated ejection fraction is between 30-35%. Diastolic function is indeterminate on the basis of available data. Right Ventricle Mildly increased right ventricular cavity size. There is moderately decreased right ventricular systolic function. Atria The left atrium is mildly dilated. Interatrial shunt cannot be excluded. The right atrium was not well visualized. Aortic Valve There is mild thickening of the aortic valve. There is no aortic valve stenosis. There is mild aortic valve regurgitation. Mitral Valve There is mild anterior and posterior mitral leaflet thickening. There is trace mitral valve regurgitation. There is no mitral valve stenosis. Pulmonic Valve The pulmonic valve was not well visualized. Tricuspid Valve Likely normal tricuspid valve structure and function. There is trace tricuspid valve regurgitation. Normal right atrial pressure. There is no evidence of pulmonary hypertension. Great Vessels The pulmonary artery was not well visualized. There is mild dilatation of the ascending aorta measuring 4.40 cm. Venous The inferior vena cava is normal in size and collapses greater than 50% with inspiration. Pericardium/Pleural There is no evidence of pericardial effusion. Prior Study Comparison Changes noted compared to prior study dated: 07/30/2022. LV systolic function is depressed Measurements 2D Linear Measurements IVSd: 1.45 0.6-0.9/0.6-1.0 cm LVIDd: 6.44 3.9-5.3/4.2-5.9 cm LVIDd Index: 2.72 2.4-3.2/2.2-3.1 cm/m2 LVIDs: 5.40 2.0-3.6 cm LVPWd: 1.20 0.7-1.1 cm Ao Root: 0.00 2.1-3.5 cm LA Diam: 4.70 2.7-3.8/3.0-4.0 cm LAIDs Index: 1.98 1.5-2.3 cm/m2 LV Mass: 503.36 67-162/88-224 g LV Mass Index: 212.39 43-95/49-115 g/m2 LVOT Diam: 2.60 3.0+(-)1.3 cm 2D Systolic Function EF 4C: 32.90 >55% EF 2C: 32.80 >55% EF BiP: 30.00 >55% Mitral Valve MV Pk E: 0.65 MV Decel Time: 201.00 E'Lateral: 5.51 E'Medial: 6.73 E/E' Med: 9.60 E/E' Lat: 11.80 PHT: 59.00 MVA PHT: 3.73 Decel [place]: 3.22 Aortic Valve AoV Pk Oliver: 0.88 AoV Mn Oliver: 0.70 AoV VTI: 0.14 AoV Pk Grad: 3.00 Aov Mn Grad: 2.00 DUNG Cont.VTI: 3.72 LVOT LVOT Pk Oliver: 0.62 LVOT Mn Oliver: 0.49 LVOT VTI: 0.10 LVOT Pk Grad: 2.00 LVOT Mn Grad: 1.00 LVOT Diam: 2.60 LVOT Area: 5.31 Diastolic Function MV Pk E: 0.65 E'Medial: 6.73 E/E' Med: 9.60 E' Laterial: 5.51 E/E' Lat: 11.80 Right Ventricle TAPSE (mm): 14.20 TVS' Oliver: 9.97 Tricuspid Valve TR Pk Oliver: 1.26 TR Pk Grad: 6.00 RA Press: 3.00 RVSP: 9.00 Great Vessels Aorta Ao Root-2D: 0.00 2.0-3.7 cm Sinus of Valsalva: 4.50 2.0-3.5 cm Ao Asc: 4.40 2.1-3.4 cm Pulmonary Valve PV Pk Oliver: 0.63 Peak PV Grad: 2.00 Updated in Other Vendor System with Status of Final Leopoldo Gonzales MD electronically signed on 12/18/2022 2:48:01 PM with status of Final
[2022-12-18 07:09] LABS: Anion Gap 14 (12-20); Blood Urea Nitrogen 19 mg/dL (9-16); Calcium 9.5 mg/dL (8.4-10.2); Carbon Dioxide 28 mmol/L (22-29); Chloride 103 mmol/L (96-108); Estimated Glomerular Filt Rate 52; Glucose Random 101 mg/dL (60-115); Magnesium 1.8 mg/dL (1.6-2.6); Potassium 4.9 mmol/L (3.3-5.1); Sodium 140 mmol/L (135-145)
[2022-12-18 08:00] VITALS: BP 122/85; PULSE 113; RESP 20; TEMP 36; O2SAT 96
[2022-12-18] MEDS: Amiodarone HCL 200 MG TABLET PO (09:14)
[2022-12-18] MEDS: Metoprolol Succinate ER 50 MG TAB.ER.24H PO (09:14)
[2022-12-18] MEDS: Furosemide 40 MG/4 ML VIAL IVPUSH (09:14)
[2022-12-18] MEDS: Atorvastatin Calcium 20 MG TABLET PO (09:14)
[2022-12-18] MEDS: Ferrous Sulfate 324 MG TABLET.DR PO (09:14)
[2022-12-18] MEDS: 0.9 % Sodium Chloride Flush 3 ML SYRINGE IVFLUSH ×3 (09:15→20:02)
[2022-12-18] MEDS: busPIRone HCl 10 MG TABLET PO ×3 (09:15→20:02)
[2022-12-18] MEDS: Apixaban 5 MG TABLET PO ×2 (09:15→20:02)
--- NOTE | 2022-12-18 09:30 | MHC.CM.PN ---
IMM DELIVERED PT LIVES WITH SPOUSE IN A [facility]. NO SERVICES OR DME. INDEPENDENT AT BASELINE. +HCP ON FILE + COVID X [address] SARGENT AT [facility] DP: HOME, NO SERVICES ANTICIPATED. SP[facility]SE WILL TRANSPORT HOME. CM WILL CONTINUE TO FOLLOW
[2022-12-18] MEDS: Venlafaxine HCL 25 MG TABLET 75 MG PO ×3 (10:32→20:01)
--- NOTE | 2022-12-18 11:24 | P.CONCA_ITS ---
History of Present Illness History of Present Illness Date of Service: 12/18/22 Requesting physician: Hany Reaves Consult reason: congestive heart failure and other (Atrial tachycardia) Chief complaint: SOB, palpitations Narrative: I was consulted to see Gustavo in cardiology consultation today for congestive heart failure persistent atrial tachycardia. He is a pleasant 62-year-old male with prior history of atrial fibrillation which has been difficult control with ablation and was taken of amiodarone. Soon after that he started noticing rapid heart rate and has had persistent atrial tachycardia for last few months. Over the last few weeks he has been getting increasingly short of breath in the last week or so he has been getting even short of breath with shortness of breath at nighttime when he had to get up and sit up and reclined in a semi reclining position. Patient came to the office yesterday and saw Dr Tran and was noted to be tachycardia with persistent atrial tachycardia/flutter at 120 beats per minute and heart failure. He was therefore admitted. Since yesterday he has received IV diuresis and he has diuresis well and this morning when I saw him he said he feels extremely well. However remains in persistent atrial tachycardia/flutter with rapid ventricular response despite being on amiodarone. He has been taking amiodarone for few months now. He has also been taking uninterrupted oral anticoagulation with Eliquis. Echocardiogram done today, reported by data acquisition technician preliminary shows further reduced LV ejection fraction compared to prior LV ejection fraction. Review of Systems Constitutional: Constitutional: Reports no additional constitutional complaints Cardiovascular: Cardiovascular: Denies chest pain, Reports rapid heart rate, Denies leg edema, Reports lightheadedness, Denies Loss of Consciousness, Reports dyspnea on exertion, Reports orthopnea and Reports paroxysmal nocturnal dyspnea Respiratory: Respiratory: Reports no additional respiratory complaints and Reports dyspnea on exertion Gastrointestinal: Gastrointestinal: Reports no additional gastrointestinal complaints Genitourinary: Genitourinary: Reports no additional male genitourinary complaints Musculoskeletal: Musculoskeletal: Reports no additional musculoskeletal complaints Integumentary/Breasts: Skin/Breast: Reports system reviewed and no additional complaints, except as docu Neurologic: Reports system reviewed and no additional complaints, except as documented Psychiatric: Psychiatric: Reports no additional psychiatric complaints Endocrine: Endocrine: Reports no additional endocrine complaints Hematologic/Lymphatic: Hematologic/Lymphatic: Reports no additional hematologic/lymphatic complaints Allergic/Immunologic: Allergic/Immunologic: Reports no additional allergic/immunologic complaints PMFSH Past Medical History Medical History Acquired hypothyroidism Acute renal insufficiency Alcohol abuse Anemia Atrial flutter Chronic anticoagulation Encounter for screening Generalized anxiety disorder HTN (hypertension) Hypothyroid Mixed dyslipidemia Nocturnal hypoxemia Nonischemic cardiomyopathy Obesity JOSE (obstructive sleep apnea) Panic Vitamin D deficiency Family History Family History Father Atrial fibrillation Mother Heart attack Pacemaker Sister Thyroid disease Brother HTN (hypertension) Sister Colon cancer Surgical History Surgical History H/O cardiac radiofrequency ablation H/O colonoscopy History of esophagogastroduodenoscopy (EGD) History of neck surgery History of prostate surgery Hx of hand surgery Hx of hernia repair Social History Social History Household Members: Spouse Housing: House Do you presently have visiting nurse or other home services: No Alcohol intake: current Alcohol intake frequency: holidays/special occasions only Alcohol type: beer and wine Patient Tobacco Use Status: Never used Tobacco e-Cigarette/Vaping Use: Never Used Advance Directives Date on File: 12/26/20 service: No Current occupational status: disabled Cognitive needs: No Hearing needs: No Vision needs: Yes Meds Allergies Allergy/AdvReac Type Severity Reaction Status Date / Time lisinopril [Lisinopril] Allergy Intermediate RASH Verified 12/17/22 10:21 sulfamethoxazole AdvReac Hallucinati Verified 12/17/22 10:21 [From Bactrim] ons trimethoprim [From Bactrim] AdvReac Hallucinati Verified 12/17/22 10:21 ons Environmental Allergy Intermediate Shortness Uncoded 12/17/22 10:21 of Breath Active Medications: Current Medications Acetaminophen (Acetaminophen 325 Mg Tablet) 650 mg PO Q6H PRN PRN Reason: Pain, Mild (Pain Scale 1-3) Albuterol Sulfate (Albuterol Sulfate 90 Mcg 8 Gm Inhaler) 2 puff INHALE Q4H PRN PRN Reason: shortness of breath or wheezing Amiodarone HCl (Amiodarone Hcl 200 Mg Tablet) 200 mg PO DAILY [facility] Last Admin: 12/18/22 09:14 Dose: 200 mg Apixaban (Apixaban 5 Mg Tablet) 5 mg PO BID [facility] Last Admin: 12/18/22 09:15 Dose: 5 mg Atorvastatin Calcium (Atorvastatin Calcium 20 Mg Tablet) 20 mg PO Q48H [facility] Last Admin: 12/18/22 09:14 Dose: 20 mg Buspirone HCl (Buspirone Hcl 10 Mg Tablet) 10 mg PO TID [facility] Last Admin: 12/18/22 09:15 Dose: 10 mg Ferrous Sulfate (Ferrous Sulfate 324 Mg Tablet.) 324 mg PO DAILY [facility] Last Admin: 12/18/22 09:14 Dose: 324 mg Furosemide (Furosemide 40 Mg/4 Ml Vial) 40 mg IVPUSH BID@0900,1800 [facility]; Protocol Last Admin: 12/18/22 09:14 Dose: 40 mg Levothyroxine Sodium (Levothyroxine Sodium 75 Mcg Tablet) 75 mcg PO DAILY@0600 [facility] Last Admin: 12/18/22 05:29 Dose: 75 mcg Metoprolol Succinate (Metoprolol Succinate Er 25 Mg Tab.Er.24h) 25 mg PO BE DTIME [facility]; Protocol Last Admin: 12/17/22 20:45 Dose: 25 mg Metoprolol Succinate (Metoprolol Succinate Er 50 Mg Tab.Er.24h) 50 mg PO DAILY [facility]; Protocol Last Admin: 12/18/22 09:14 Dose: 50 mg Non-Formulary Medication (Cholecalciferol (Vitamin D3)) 1,250 mcg PO MOFR [facility] Omeprazole (Omeprazole 20 Mg Capsule.) 20 mg PO DAILY@0630 [facility] Last Admin: 12/18/22 05:29 Dose: 20 mg Pharmacy Consult (Consult Rx Perform Med Rec) 1 each MISCELLANE ONCE PRN PRN Reason: Consult order Sodium Chloride (0.9 % Sodium Chloride Flush 3 Ml Syringe) 3 ml IVFLUSH QSHIFT [facility] Last Admin: 12/18/22 09:15 Dose: 3 ml Venlafaxine HCl (Venlafaxine Hcl 25 Mg Tablet) 75 mg PO TID [facility] Last Admin: 12/18/22 10:32 Dose: 75 mg Home Medications Medication Instructions Recorded Confirmed Last Taken Type betamethasone dipropionate 0.05 % 1 appl topical DAILY PRN Rash 02/05/22 12/17/22 Unknown History topical ointment dupilumab 300 mg/2 mL subcutaneous 300 mg subcut WE 06/08/22 12/17/22 12/16/22 History syringe (Dupixent) amiodarone 200 mg tablet 200 mg PO DAILY 12/17/22 12/17/22 12/17/22 History cholecalciferol (vitamin D3) 1,250 1,250 mcg PO MOFR 12/17/22 12/17/22 12/14/22 History mcg (50,000 unit) capsule levothyroxine 75 mcg tablet 75 mcg PO DAILY@0600 12/17/22 12/17/22 12/17/22 History metoprolol succinate 25 mg 25 mg PO BEDTIME 12/17/22 12/17/22 12/16/22 History tablet,extended release 24 hr metoprolol succinate 25 mg 50 mg PO DAILY 12/17/22 12/17/22 12/17/22 History tablet,extended release 24 hr omeprazole 20 mg capsule,delayed 20 mg PO DAILY@0630 12/17/22 12/17/22 12/17/22 History release Physical Exam Vital Signs: Vital Signs: Last Vital Signs Temp 96.8 F 12/18/22 08:00 Pulse 113 H 12/18/22 08:00 Resp 20 12/18/22 08:00 BP 122/85 12/18/22 08:00 Pulse Ox 96 12/18/22 08:00 O2 Del Method Nasal Cannula 12/18/22 08:00 O2 Flow Rate 2 12/18/22 08:00 BMI result Body Mass Index 31.4 Const: General: cooperative, comfortable, no acute distress, alert and awake Nutritional Appearance: overweight Orientation/consciousness: patient oriented x3 Limitations: no limitations HEENT: Head: Yes normocephalic and Yes atraumatic Neck: Neck: Yes trachea midline, Yes supple and Yes no JVD Resp: Effort & Inspection: normal respiratory effort Auscultation: clear to auscultation bilaterally Cardio: Jugular venous distension: no JVD Palpation: normal PMI Rate: tachycardic Heart sounds: S1 normal heart sound present, S2 normal heart sound present, no click, no gallops and no murmurs GI: Auscultation: normal bowel sounds Skin: General skin exam: no rashes or lesions noted Neuro: General: patient oriented x3 and no focal motor deficits Extrem: General: Yes no clubbing, cyanosis or edema Psych: Appearance: grossly normal Objective Labs and Meds 12/17/22 11:39 12/18/22 06:23 Lab results: Laboratory Results - last 24 hr 12/17/22 12/17/22 12/17/22 11:39 11:39 11:39 WBC 5.7 RBC 4.22 L Hgb 13.6 L Hct 39.1 L MCV 92.7 MCH 32.2 MCHC 34.8 RDW 14.5 Plt Count 110 L MPV 10.4 Immature Gran % (Auto) 0.2 Neut % (Auto) 60.3 Lymph % (Auto) 25.1 [place] % (Auto) 10.9 Eos % (Auto) 2.8 Baso % (Auto) 0.7 Lymph # (Auto) 1.4 [place] # (Auto) 0.6 Eos # (Auto) 0.2 Baso # (Auto) 0.0 Abs Immat Gran (auto) 0.01 Absolute Neuts (auto) 3.4 Absolute Nucleated RBC 0.000 Nucleated RBC % (auto) 0.0 PT 11.7 INR 1.0 Sodium 137 Potassium 4.4 Chloride 105 Carbon Dioxide 24 Anion Gap 12 BUN 17 H Creatinine 1.11 Estim Creat Clear Calc 92.6 Estimated GFR > 60 Random Glucose 83 Calcium 9.5 Magnesium Total Bilirubin 1.3 H AST 15 ALT 9 Alkaline Phosphatase 95 Troponin I High Sens B-Natriuretic Peptide Total Protein 6.5 Albumin 4.3 TSH 17.61 H COVID-19 (DAVE) COVID-[facility] Clin Com 12/17/22 12/17/22 12/17/22 11:39 11:40 12:37 WBC RBC Hgb Hct MCV MCH MCHC RDW Plt Count MPV Immature Gran % (Auto) Neut % (Auto) Lymph % (Auto) [place] % (Auto) Eos % (Auto) Baso % (Auto) Lymph # (Auto) [place] # (Auto) Eos # (Auto) Baso # (Auto) Abs Immat Gran (auto) Absolute Neuts (auto) Absolute Nucleated RBC Nucleated RBC % (auto) PT INR Sodium Potassium Chloride Carbon Dioxide Anion Gap BUN Creatinine Estim Creat Clear Calc Estimated GFR Random Glucose Calcium Magnesium Total Bilirubin AST ALT Alkaline Phosphatase Troponin I High Sens 16.5 B-Natriuretic Peptide 555 H Total Protein Albumin TSH COVID-19 (DAVE) Negative COVID-19 Clin Com See Note 12/17/22 12/18/22 19:09 06:23 WBC RBC Hgb Hct MCV MCH MCHC RDW Plt Count MPV Immature Gran % (Auto) Neut % (Auto) Lymph % (Auto) [place] % (Auto) Eos % (Auto) Baso % (Auto) Lymph # (Auto) [place] # (Auto) Eos # (Auto) Baso # (Auto) Abs Immat Gran (auto) Absolute Neuts (auto) Absolute Nucleated RBC Nucleated RBC % (auto) PT INR Sodium 140 Potassium 4.9 Chloride 103 Carbon Dioxide 28 Anion Gap 14 BUN 19 H Creatinine 1.39 Estim Creat Clear Calc 74.0 Estimated GFR 52 Random Glucose 101 Calcium 9.5 Magnesium 1.8 Total Bilirubin AST ALT Alkaline Phosphatase Troponin I High Sens 21.3 B-Natriuretic Peptide Total Protein Albumin TSH COVID-19 (DAVE) COVID-19 Clin Com EKG shows atrial tachycardia/flutter, left-sided with 2 is to 1 condition Imaging Radiologist's impression: Impressions Chest X-Ray 12/17/22 13:15 IMPRESSION: * Bronchial drake appear to be chronically, mildly thickened. Query if there is any history of obstructive pulmonary disease. * No acute cardiopulmonary findings compared to 12/29/2020. Assessment and Plan (1) CHF exacerbation: Status: Acute Patient presents with classic symptoms of heart failure with exacerbation with systolic dysfunction most likely related to tachycardia mediated cardiomyopathy. Clinically has improved significantly with IV Lasix. Switch to IV Lasix 40 mg once a day. Add Aldactone 12.5 mg to his regimen. Continue metoprolol therapy. Also add valsartan 20 mg b.i.d.. Strict intake and output chart needs to be pursued. Follow-up BMP and BNP tomorrow. Will require rhythm control approach, see below. Continue to maintain a hospitalization for a day or 2 more. (2) Atrial tachycardia: Status: Acute Persistent incessant atrial tachycardia appears to be left-sided atrial tachycardia/flutter related to prior ablation. These are very difficult to maintain rate. We discussed management of this. Given that he has been on amiodarone will pursue rhythm control approach with synchronized cardioversion 1 more time hopefully maintain rhythm in the long run. This should help with tachycardia mediated cardiomyopathy and heart failure syndrome. This was discussed with him details. Given that he is not an. Today will pursue this tomorrow morning. Please keep him NPO past midnight. Continue amiodarone therapy. Continue full oral anticoagulation Eliquis. Risks, benefits, alternatives 2nd open to cardioversion were discussed. Understand agree. Will continue to follow with you Time Spent With Patient Time: Total time managing care of this patient today ____ minutes. Procedures Date of Service Date of Service: 12/18/22
[2022-12-18 11:29] VITALS: BP 99/59; PULSE 114; RESP 20; TEMP 36.3; O2SAT 95
[2022-12-18 15:24] VITALS: BP 115/81; PULSE 107; RESP 18; TEMP 37.1; O2SAT 96
--- NOTE | 2022-12-18 16:33 | P.PNIM_ITS ---
Subjective Subjective Date of Service: 12/19/22 Interval History: chf Review of Systems sob seems improving denies any chest pain Physical Exam Vital Signs: Vital Signs: Last Vital Signs Temp 98.7 F 12/18/22 15:24 Pulse 107 H 12/18/22 15:24 Resp 18 12/18/22 15:24 BP 115/81 12/18/22 15:24 Pulse Ox 96 12/18/22 15:24 O2 Del Method Nasal Cannula 12/18/22 15:24 O2 Flow Rate 3 12/18/22 15:24 BMI result Body Mass Index 31.4 Appearance: Alert.? Oriented X3.? not in distress.? cvs: rrr, [id number]. res: clear to auscultation ,no rhonchii or wheezing abd: no rebound or guarding ,nt, bs present,leg edems seems to be improving significantly. ext pulses present , no cyanosis . neuro: axo3 , nonfocal. Objective Data Active Medications Acetaminophen (Acetaminophen 325 Mg Tablet) 650 mg PO Q6H PRN PRN Reason: Pain, Mild (Pain Scale 1-3) Albuterol Sulfate (Albuterol Sulfate 90 Mcg 8 Gm Inhaler) 2 puff INHALE Q4H PRN PRN Reason: shortness of breath or wheezing Amiodarone HCl (Amiodarone Hcl 200 Mg Tablet) 200 mg PO DAILY [facility] Last Admin: 12/18/22 09:14 Dose: 200 mg Documented By: BESSY Apixaban (Apixaban 5 Mg Tablet) 5 mg PO BID [facility] Last Admin: 12/18/22 09:15 Dose: 5 mg Documented By: BESSY Atorvastatin Calcium (Atorvastatin Calcium 20 Mg Tablet) 20 mg PO Q48H [facility] Last Admin: 12/18/22 09:14 Dose: 20 mg Documented By: BESSY Buspirone HCl (Buspirone Hcl 10 Mg Tablet) 10 mg PO TID [facility] Last Admin: 12/18/22 09:15 Dose: 10 mg Documented By: BESSY Ferrous Sulfate (Ferrous Sulfate 324 Mg Tablet.) 324 mg PO DAILY [facility] Last Admin: 12/18/22 09:14 Dose: 324 mg Documented By: BESSY Furosemide (Furosemide 40 Mg/4 Ml Vial) 40 mg IVPUSH BID@0900,1800 [facility]; Protocol Last Admin: 12/18/22 09:14 Dose: 40 mg Documented By: BESSY Furosemide (Furosemide 40 Mg Tablet) 40 mg PO DAILY [facility]; Protocol Levothyroxine Sodium (Levothyroxine Sodium 75 Mcg Tablet) 75 mcg PO DAILY@0600 [facility] Last Admin: 12/18/22 05:29 Dose: 75 mcg Documented By: SHERINE Metoprolol Succinate (Metoprolol Succinate Er 25 Mg Tab.Er.24h) 25 mg PO BEDTIME [facility]; Protocol Last Admin: 12/17/22 20:45 Dose: 25 mg Documented By: KATE Metoprolol Succinate (Metoprolol Succinate Er 50 Mg Tab.Er.24h) 50 mg PO DAILY [facility]; Protocol Last Admin: 12/18/22 09:14 Dose: 50 mg Documented By: BESSY Non-Formulary Medication (Cholecalciferol (Vitamin D3)) 1,250 mcg PO [facility] Omeprazole (Omeprazole 20 Mg Capsule.Dr) 20 mg PO DAILY@0630 [facility] Last Admin: 12/18/22 05:29 Dose: 20 mg Documented By: SHERINE Pharmacy Consult (Consult Rx Perform Med Rec) 1 each MISCELLANE ONCE PRN PRN Reason: Consult order Sodium Chloride (0.9 % Sodium Chloride Flush 3 Ml Syringe) 3 ml IVFLUSH QSHIFT [facility] Last Admin: 12/18/22 09:15 Dose: 3 ml Documented By: BESSY Valsartan (Valsartan 40 Mg Tablet) 20 mg PO DAILY [facility]; Protocol Venlafaxine HCl (Venlafaxine Hcl 25 Mg Tablet) 75 mg PO TID [facility] Last Admin: 12/18/22 10:32 Dose: 75 mg Documented By: BESSY Labs 12/17/22 11:39 12/18/22 06:23 Labs: Laboratory Results - last 24 hr 12/17/22 12/18/22 19:09 06:23 Anion Gap 14 Estim Creat Clear Calc 74.0 Estimated GFR 52 Random Glucose 101 Calcium 9.5 Magnesium 1.8 Troponin I High Sens 21.3 Assessment and Plan (1) CHF exacerbation: Status: Acute (2) ROJELIO (acute kidney injury): Status: Acute Plan 62-year-old male with a PMH significant for?HTN, HLD, asthma, CVA in 2021, [place] in 2021, hx of cardiomyopathy, hx of atrial fibrillation and SVT on Eliquis and s/p ablation in 04/2022 at [facility] who presents to the ED with increased shortness of breath and palpitations.? Patient states that he was at a follow-up appointment with his environmental economist Dr. Tran where his EKG shoed atrial tachycardia with 2-1 block versus atrial flutter and sent to the ED for further evaluation and workup. Pt will be admitted to the hospital for treatment and further evaluation of acute exacerbation of HFrEF. Acute hypoxic respiratory failure in the setting of?acute HFrEF exacerbation Patient satting at 89% O2 on RA, placed on nasal cannula Patient with weight gain, orthopnea, increasing shortness of breath for past month, elevated BNP Furosemide 40 mg IV b.i.d. Follow lytes, mg, I/O Daily weights, cardiac and low-salt diet Echocardiogram Cardiology consult Titrate supplemental O2>90, wean as tolerated Admitted to telemetry Palpitations, tachycardia Patient with persistent tachycardia for past month Followed by Dr. Tran and [facility] cardiology Continue home meds,,may need cardioversion in am Cardiology consult Monitor on telemetry Prolonged QTc EKG showed QTc of 502, qtc today 320 ms on tele Avoid QT-prolonging agents Hypothyroidism Continue levothyroxine Asthma Known acute exacerbation Continue home inhalers HLD Continue statin GERD Continue omeprazole Full Code Attending:?Dr. Reaves DVT Prophylaxis: On Eliquis inpatient need: acute heart failure exacerbation with IV diuretics.may need cardioversion in am Time Spent With Patient Time: Total time managing care of this patient today ____ minutes. Quality Stroke Does the patient have a stroke diagnosis?: No VTE Prior VTE?: No VTE Risk Level:: Medical - moderate - high VTE Device Contraindication: Treatment Not Indicated VTE Drug Contraindication: N/A - Med Ordered
[2022-12-18] MEDS: Magnesium Oxide 400 MG TABLET PO (16:46)
[2022-12-18 19:39] VITALS: BP 127/89; PULSE 98; RESP 18; TEMP 36.6; O2SAT 95
[2022-12-18] MEDS: Metoprolol Succinate ER 25 MG TAB.ER.24H PO (20:02)
[2022-12-18 23:48] VITALS: BP 112/70; PULSE 110; RESP 18; TEMP 37.1; O2SAT 93
[2022-12-19] VITALS (9 sets, daily range): BP systolic 90–151; BP diastolic 56–75; PULSE 69–117; RESP 16–20; TEMP 36.3–37; O2SAT 96–99
--- NOTE | 2022-12-19 | ECG_ITS ---
Test Reason : check rythem Blood Pressure : / mmHG Vent. Rate : 072 BPM Atrial Rate : 072 BPM P-R Int : 218 ms QRS Dur : 132 ms QT Int : 472 ms P-R-T Axes : 074 -55 179 degrees QTc Int : 516 ms Sinus rhythm with 1st degree A-V block Left anterior fascicular block Left ventricular hypertrophy with QRS widening and repolarization abnormality ( R in aVL , [place] product ) Abnormal ECG When compared with ECG of 17-DEC-2022 11:22, Sinus rhythm has replaced Ectopic atrial rhythm Vent. rate has decreased BY 41 BPM Right bundle branch block is no longer Present Referred By: Hany Reaves Electronically Signed By:JOI MOORE MD
[2022-12-19] MEDS: Levothyroxine Sodium 75 MCG TABLET PO (05:21)
[2022-12-19] MEDS: Omeprazole 20 MG CAPSULE.DR PO (05:21)
[2022-12-19] MEDS: 0.9 % Sodium Chloride Flush 3 ML SYRINGE IVFLUSH ×2 (07:44→15:21)
[2022-12-19] MEDS: Amiodarone HCL 200 MG TABLET PO (07:46)
[2022-12-19] MEDS: Apixaban 5 MG TABLET PO (07:46)
[2022-12-19] MEDS: Ferrous Sulfate 324 MG TABLET.DR PO (07:47)
[2022-12-19] MEDS: Venlafaxine HCL 25 MG TABLET 75 MG PO ×2 (07:47→15:21)
[2022-12-19] MEDS: Magnesium Oxide 400 MG TABLET PO (07:47)
[2022-12-19] MEDS: busPIRone HCl 10 MG TABLET PO ×2 (07:47→15:20)
[2022-12-19 08:17] LABS: Anion Gap 17 (12-20); B Type Natriuretic Peptide 421 pg/mL (<100); Blood Urea Nitrogen 23 mg/dL (9-16); Calcium 9.6 mg/dL (8.4-10.2); Carbon Dioxide 27 mmol/L (22-29); Chloride 103 mmol/L (96-108); Creatinine Clr Calc Pharmacy 72.9; Estimated Glomerular Filt Rate 51; Glucose Random 108 mg/dL (60-115); Potassium 4.6 mmol/L (3.3-5.1); Sodium 142 mmol/L (135-145)
--- NOTE | 2022-12-19 08:51 | MHC.SHP ---
Pre-Procedural Eval Section A Date of Service: 12/19/22 The patient is an INPATIENT: Yes Changes since office visit: Yes Patient answered all questions; No Cold of Flu in the past 2 weeks, No New Medical Problems and No Changes in Medication The History & Physical has been completed within 30 days and I have reviewed it.: Yes Section B Chief Complaint: SOB, palpitations Allergies: Allergies Allergy/AdvReac Type Severity Reaction Status Date / Time lisinopril [Lisinopril] Allergy Intermediate RASH Verified 12/17/22 10:21 sulfamethoxazole AdvReac Hallucinati Verified 12/17/22 10:21 [From Bactrim] ons trimethoprim [From Bactrim] AdvReac Hallucinati Verified 12/17/22 10:21 ons Environmental Allergy Intermediate Shortness Uncoded 12/17/22 10:21 of Breath Plan I have reviewed the history and physical and performed a pertinent physical examination on my patient. No changes have occurred unless specified. Time Spent With Patient Time: Total time managing care of this patient today ____ minutes.
--- NOTE | 2022-12-19 08:59 | P.CONAN_ITS ---
[facility] Active Problems Active Problems: All Active Problems (Updated 12/18/22 @ 14:50 by Yancy Giles MD) CHF exacerbation (Acute) Hypoxic (Acute) AMEZCUA (dyspnea on exertion) (Acute) Atrial tachycardia (Acute) Vitamin D deficiency (Acute) HTN (hypertension) (Acute) PAF (paroxysmal atrial fibrillation) (Acute) Nonischemic cardiomyopathy (Acute) Urinary retention with incomplete bladder emptying (Acute) Complicated urinary tract infection (Acute) Generalized anxiety disorder (Acute) JOSE (obstructive sleep apnea) (Acute) Mixed dyslipidemia (Acute) Acquired hypothyroidism (Acute) Nocturnal hypoxemia (Acute) Obesity (Acute) Past Medical History Medical History Acquired hypothyroidism Acute renal insufficiency Alcohol abuse Anemia Atrial flutter Chronic anticoagulation Generalized anxiety disorder HTN (hypertension) Hypothyroid Mixed dyslipidemia Nocturnal hypoxemia Nonischemic cardiomyopathy Obesity JOSE (obstructive sleep apnea) Vitamin D deficiency Family History Family History Father Atrial fibrillation Mother Heart attack Pacemaker Sister Thyroid disease Brother HTN (hypertension) Sister Colon cancer Surgical History Surgical History H/O cardiac radiofrequency ablation H/O colonoscopy History of esophagogastroduodenoscopy (EGD) History of neck surgery History of prostate surgery Hx of hand surgery Hx of hernia repair History of Problems with Anesthesia: No Social History Social History Household Members: Spouse Housing: House Do you presently have visiting nurse or other home services: No Alcohol intake: current Alcohol intake frequency: holidays/special occasions only Alcohol type: beer and wine Patient Tobacco Use Status: Never used Tobacco e-Cigarette/Vaping Use: Never Used Advance Directives Date on File: 12/26/20 service: No Current occupational status: disabled Cognitive needs: No Hearing needs: No Vision needs: Yes Meds Allergies Allergy/AdvReac Type Severity Reaction Status Date / Time lisinopril [Lisinopril] Allergy Intermediate RASH Verified 12/17/22 10:21 sulfamethoxazole AdvReac Hallucinati Verified 12/17/22 10:21 [From Bactrim] ons trimethoprim [From Bactrim] AdvReac Hallucinati Verified 12/17/22 10:21 ons Environmental Allergy Intermediate Shortness Uncoded 12/17/22 10:21 of Breath Active Medications: Current Medications Acetaminophen (Acetaminophen 325 Mg Tablet) 650 mg PO Q6H PRN PRN Reason: Pain, Mild (Pain Scale 1-3) Albuterol Sulfate (Albuterol Sulfate 90 Mcg 8 Gm Inhaler) 2 puff INHALE Q4H PRN PRN Reason: shortness of breath or wheezing Amiodarone HCl (Amiodarone Hcl 200 Mg Tablet) 200 mg PO DAILY [facility] Last Admin: 12/19/22 07:46 Dose: 200 mg Apixaban (Apixaban 5 Mg Tablet) 5 mg PO BID [facility] Last Admin: 12/19/22 07:46 Dose: 5 mg Atorvastatin Calcium (Atorvastatin Calcium 20 Mg Tablet) 20 mg PO Q48H [facility] Last Admin: 12/18/22 09:14 Dose: 20 mg Buspirone HCl (Buspirone Hcl 10 Mg Tablet) 10 mg PO TID [facility] Last Admin: 12/19/22 07:47 Dose: 10 mg Ferrous Sulfate (Ferrous Sulfate 324 Mg Tablet.Dr) 324 mg PO DAILY [facility] Last Admin: 12/19/22 07:47 Dose: 324 mg Furosemide (Furosemide 40 Mg/4 Ml Vial) 40 mg IVPUSH BID@0900,1800 [facility]; Protocol Last Admin: 12/18/22 09:14 Dose: 40 mg Furosemide (Furosemide 40 Mg Tablet) 40 mg PO DAILY [facility]; Protocol Last Admin: 12/19/22 07:49 Dose: Not Given Levothyroxine Sodium (Levothyroxine Sodium 75 Mcg Tablet) 75 mcg PO DAILY@0600 [facility] Last Admin: 12/19/22 05:21 Dose: 75 mcg Magnesium Oxide (Magnesium Oxide 400 Mg Tablet) 400 mg PO BIDPC [facility] Last Admin: 12/19/22 07:47 Dose: 400 mg Metoprolol Succinate (Metoprolol Succinate Er 25 Mg Tab.Er.24h) 25 mg PO BEDTIME [facility]; Protocol Last Admin: 12/18/22 20:02 Dose: 25 mg Metoprolol Succinate (Metoprolol Succinate Er 50 Mg Tab.Er.24h) 50 mg PO DAILY [facility]; Protocol Last Admin: 12/19/22 07:50 Dose: Not Given Metoprolol Tartrate (Metoprolol Tartrate 12.5 Mg Halftab) 12.5 mg PO QID [facility]; Protocol Last Admin: 12/19/22 08:51 Dose: Not Given Non-Formulary Medication (Cholecalciferol (Vitamin D3)) 1,250 mcg PO MOFR [facility] Omeprazole (Omeprazole 20 Mg Capsule.) 20 mg PO DAILY@0630 [facility] Last Admin: 12/19/22 05:21 Dose: 20 mg Pharmacy Consult (Consult Rx Perform Med Rec) 1 each MISCELLANE ONCE PRN PRN Reason: Consult order Sodium Chloride (0.9 % Sodium Chloride Flush 3 Ml Syringe) 3 ml IVFLUSH QSHIFT [facility] Last Admin: 12/19/22 07:44 Dose: 3 ml Valsartan (Valsartan 40 Mg Tablet) 20 mg PO DAILY [facility]; Protocol Last Admin: 12/19/22 07:50 Dose: Not Given Venlafaxine HCl (Venlafaxine Hcl 25 Mg Tablet) 75 mg PO TID [facility] Last Admin: 12/19/22 07:47 Dose: 75 mg Home Medications Medication Instructions Recorded Confirmed Last Taken Type betamethasone dipropionate 0.05 % 1 appl topical DAILY PRN Rash 02/05/22 12/17/22 Unknown History topical ointment dupilumab 300 mg/2 mL subcutaneous 300 mg subcut WE 06/08/22 12/17/22 12/16/22 History syringe (Dupixent) amiodarone 200 mg tablet 200 mg PO DAILY 12/17/22 12/17/22 12/17/22 History cholecalciferol (vitamin D3) 1,250 1,250 mcg PO MOFR 12/17/22 12/17/22 12/14/22 History mcg (50,000 unit) capsule levothyroxine 75 mcg tablet 75 mcg PO DAILY@0600 12/17/22 12/17/22 12/17/22 History metoprolol succinate 25 mg 25 mg PO BEDTIME 12/17/22 12/17/22 12/16/22 History tablet,extended release 24 hr metoprolol succinate 25 mg 50 mg PO DAILY 12/17/22 12/17/22 12/17/22 History tablet,extended release 24 hr omeprazole 20 mg capsule,delayed 20 mg PO DAILY@0630 12/17/22 12/17/22 12/17/22 History release Exam Exam Date and Time: December 19, 2022 0859 Height,Weight and Vital Signs: Height 6 ft 2 in Weight 111.13 kg Last Vital Signs Temp 97.3 F 12/19/22 07:42 Pulse 117 H 12/19/22 07:42 Resp 20 12/19/22 07:42 BP 90/60 12/19/22 07:42 Pulse Ox 96 12/19/22 07:42 O2 Del Method Nasal Cannula 12/19/22 07:42 O2 Flow Rate 2 12/19/22 07:42 Pertinent Lab Results Pertinent Lab Results: Laboratory Tests 12/17/22 12/17/22 12/17/22 11:39 11:39 11:39 WBC 5.7 RBC 4.22 L Hgb 13.6 L Hct 39.1 L MCV 92.7 MCH 32.2 MCHC 34.8 RDW 14.5 Plt Count 110 L MPV 10.4 Immature Gran % (Auto) 0.2 Neut % (Auto) 60.3 Lymph % (Auto) 25.1 [place] % (Auto) 10.9 Eos % (Auto) 2.8 Baso % (Auto) 0.7 Lymph # (Auto) 1.4 [place] # (Auto) 0.6 Eos # (Auto) 0.2 Baso # (Auto) 0.0 Abs Immat Gran (auto) 0.01 Absolute Neuts (auto) 3.4 Absolute Nucleated RBC 0.000 Nucleated RBC % (auto) 0.0 PT 11.7 INR 1.0 Sodium 137 Potassium 4.4 Chloride 105 Carbon Dioxide 24 Anion Gap 12 BUN 17 H Creatinine 1.11 Estim Creat Clear Calc 92.6 Estimated GFR > 60 Random Glucose 83 Calcium 9.5 Magnesium Total Bilirubin 1.3 H AST 15 ALT 9 Alkaline Phosphatase 95 Troponin I High Sens B-Natriuretic Peptide Total Protein 6.5 Albumin 4.3 TSH 17.61 H COVID-19 (DAVE) COVID-19 Clin Com 12/17/22 12/17/22 12/17/22 11:39 11:40 12:37 WBC RBC Hgb Hct MCV MCH MCHC RDW Plt Count MPV Immature Gran % (Auto) Neut % (Auto) Lymph % (Auto) [place] % (Auto) Eos % (Auto) Baso % (Auto) Lymph # (Auto) [place] # (Auto) Eos # (Auto) Baso # (Auto) Abs Immat Gran (auto) Absolute Neuts (auto) Absolute Nucleated RBC Nucleated RBC % (auto) PT INR Sodium Potassium Chloride Carbon Dioxide Anion Gap BUN Creatinine Estim Creat Clear Calc Estimated GFR Random Glucose Calcium Magnesium Total Bilirubin AST ALT Alkaline Phosphatase Troponin I High Sens 16.5 B-Natriuretic Peptide 555 H Total Protein Albumin TSH COVID-19 (DAVE) Negative COVID-19 Clin Com See Note 12/17/22 12/18/22 12/19/22 19:09 06:23 07:25 WBC RBC Hgb Hct MCV MCH MCHC RDW Plt Count MPV Immature Gran % (Auto) Neut % (Auto) Lymph % (Auto) [place] % (Auto) Eos % (Auto) Baso % (Auto) Lymph # (Auto) [place] # (Auto) Eos # (Auto) Baso # (Auto) Abs Immat Gran (auto) Absolute Neuts (auto) Absolute Nucleated RBC Nucleated RBC % (auto) PT INR Sodium 140 142 Potassium 4.9 4.6 Chloride 103 103 Carbon Dioxide 28 27 Anion Gap 14 17 BUN 19 H 23 H Creatinine 1.39 1.41 H Estim Creat Clear Calc 74.0 72.9 Estimated GFR 52 51 Random Glucose 101 108 Calcium 9.5 9.6 Magnesium 1.8 Total Bilirubin AST ALT Alkaline Phosphatase Troponin I High Sens 21.3 B-Natriuretic Peptide Total Protein Albumin TSH COVID-19 (DAVE) COVID-19 Clin Com 12/19/22 07:25 WBC RBC Hgb Hct MCV MCH MCHC RDW Plt Count MPV Immature Gran % (Auto) Neut % (Auto) Lymph % (Auto) [place] % (Auto) Eos % (Auto) Baso % (Auto) Lymph # (Auto) [place] # (Auto) Eos # (Auto) Baso # (Auto) Abs Immat Gran (auto) Absolute Neuts (auto) Absolute Nucleated RBC Nucleated RBC % (auto) PT INR Sodium Potassium Chloride Carbon Dioxide Anion Gap BUN Creatinine Estim Creat Clear Calc Estimated GFR Random Glucose Calcium Magnesium Total Bilirubin AST ALT Alkaline Phosphatase Troponin I High Sens B-Natriuretic Peptide 421 H Total Protein Albumin TSH COVID-19 (DAVE) COVID-19 Clin Com Airway Mallampati Class: III TM Dist: >3cm Neck ROM: Full Heart: Tachycardiac Lungs: CTA Assessment and Plan Final Anesthetic Review History of Problems with Anesthesia: No ASA Class: III and Emergency Final Preanesthetic Review: Meds/Allgs Chart Reviewed, Consent Obtained/Reviewed and Anes Risks/Benef Reviewed Patient Risk: Intermediate Procedure Risk: Low Anesthetic Plan Anesthetic Plan: GA Disposition: Standard PACU
--- NOTE | 2022-12-19 09:29 | HO.POSTANES ---
Post Anesthesia Evaluation Post Anesthesia Evaluation Vital Signs: Vital Signs Temp Pulse Resp BP Pulse Ox O2 Del Method O2 Flow Rate 12/19/22 09:24 97.7 F 69 16 111/73 97 Nasal Cannula 4 12/19/22 07:42 97.3 F 117 H 20 90/60 96 Nasal Cannula 2 12/19/22 03:37 98.6 F 76 20 151/75 H 97 Nasal Cannula 2 12/18/22 23:48 98.7 F 110 H 18 112/70 93 Nasal Cannula 2 Anesthesia: General Mental Status: Awake Pain Control: Satisfactory Nausea/Vomiting: None Hydration: Adequate Anesthesia-Related Issues: No Anes. Related Issues
--- NOTE | 2022-12-19 10:17 | HO.CARDIVERS ---
Cardioversion Procedure Note Cardioversion Date of Procedure: Today Ordering Provider: Myself Performing Provider: Myself Indication for Procedure: Incessant atrial tachycardia/flutter with worsening LV ejection fraction heart failure Pre-Op Diagnosis: Same Post-Op Diagnosis: Sinus rhythm Performed with Transesophageal Echo: No Consent: Verbal and Written consent was obtained from the patient before starting the procedure and confirming oral anticoagulation use. The patient was made aware of the risk of synchronized cardioversion including benefits and alternatives Procedure: After consent obtained, cardioversion pads were attached anteroposterior configuration and the patient was sedated by the anesthesia team. Once adequate sedation achieved, patient was delivered 150 joules of biphasic synchronized energy in anteroposterior configuration Complications: None Impression: Successful conversion to sinus rhythm Recommendations: 1. 12 lead EKG 2. Continue amiodarone 3. Continue full oral anticoagulation
--- NOTE | 2022-12-19 10:19 | PM.PNCARD ---
Subjective Subjective Date of Service: 12/19/22 Principal diagnosis: Incessant atrial tachycardia, CHF Interval history: Echocardiogram shows further worsening of LV ejection fraction which appears to be tachycardia mediated cardiomyopathy. Status post cardioversion. Heart failure syndrome has significantly improved. Creatinine is similar. Pressure is on the lower side. Review of Systems Constitutional: Reports no additional constitutional complaints Cardiovascular: Reports no additional cardiovascular complaints Respiratory: Reports no additional respiratory complaints Gastrointestinal: Reports no additional gastrointestinal complaints Genitourinary: Reports no additional male genitourinary complaints Musculoskeletal: Reports no additional musculoskeletal complaints Skin/Breast: Reports system reviewed and no additional complaints, except as docu Physical Exam Vital Signs: Last Vital Signs Temp 97.3 F 12/19/22 09:39 Pulse 70 12/19/22 09:39 Resp 18 12/19/22 09:39 BP 101/61 12/19/22 09:39 Pulse Ox 97 12/19/22 09:39 O2 Del Method Nasal Cannula 12/19/22 09:39 O2 Flow Rate 2 12/19/22 09:39 BMI result Body Mass Index 31.4 Const General: cooperative, comfortable, no acute distress, alert and awake Nutritional Appearance: overweight Orientation/consciousness: patient oriented x3 Limitations: no limitations HEENT Head: Yes normocephalic and Yes atraumatic Neck Neck: Yes trachea midline, Yes supple and Yes no JVD Resp Effort & Inspection: normal respiratory effort Auscultation: clear to auscultation bilaterally Cardio Jugular venous distension: no JVD Palpation: normal PMI Rate: regular rate Rhythm: regular rhythm Heart sounds: S1 normal heart sound present, S2 normal heart sound present, no click, no gallops and no murmurs GI Auscultation: normal bowel sounds Skin General skin exam: no rashes or lesions noted Neuro General: patient oriented x3 and no focal motor deficits Extrem General: Yes no clubbing, cyanosis or edema Psych Appearance: grossly normal Objective Labs and Meds 12/17/22 11:39 12/19/22 07:25 Lab results: Laboratory Results - last 24 hr 12/19/22 12/19/22 07:25 07:25 Sodium 142 Potassium 4.6 Chloride 103 Carbon Dioxide 27 Anion Gap 17 BUN 23 H Creatinine 1.41 H Estim Creat Clear Calc 72.9 Estimated GFR 51 Random Glucose 108 Calcium 9.6 B-Natriuretic Peptide 421 H Progress Note: A&P Assessment and plan (1) CHF exacerbation: Status: Acute Assessment and Plan: Heart failure with reduced ejection fraction worsening LV ejection fraction most likely due to incessant tachycardia with tachycardia mediated cardiomyopathy. Clinically heart failure syndrome has resolved. Creatinine is about similar. Can hold Lasix for 1 day and resume a 20 mg starting Wednesday. Heart failure education should be provided. Currently due to soft blood pressure will hold off on adding additional renin angiotensin aldosterone blockade. Continue metoprolol therapy. Continue rhythm control approach, see below (2) Atrial tachycardia: Status: Acute Assessment and Plan: Patient with incessant atrial tachycardia/flutter requiring cardioversion again. Currently on amiodarone therapy. Continue the same. Appears to be left-sided atrial tachycardia/flutter and may require repeat ablation. Will follow-up as outpatient after Holter monitor. Continue full oral anticoagulation with Eliquis. Will follow up as outpatient. Will sign of the case. Patient may be discharged later home today if stable Time Spent With Patient Time: Total time managing care of this patient today ____ minutes. Progress Note: Quality Stroke Does the patient have a stroke diagnosis?: No Procedures Date of Service Date of Service: 12/19/22
[2022-12-19 10:33] LABS: Free T4 (Free Thyroxine) 0.99 ng/dL (0.71-1.85)
--- NOTE | 2022-12-19 14:31 | PM.DS ---
DS: Providers Provider Date of Service: 12/19/22 Date of admission: 12/17/22 17:30 Date of discharge: 12/19/22 Primary care physician: Yancy Giles MD Consults: 12/17/22 17:36 Consult to Cardiology Routine Consulting Provider: [facility] Cardiovascular Services Reason for consultation: CHF, palpitations DS: Diagnosis Discharge Diagnosis (1) CHF exacerbation: Status: Acute (2) Atrial tachycardia: Status: Acute DS: Summary Hospital Course Hospital Course: 62-year-old male with a PMH significant for?HTN, HLD, asthma, CVA in 2021, MS in 2021, hx of cardiomyopathy, hx of atrial fibrillation and SVT on Eliquis and s/p ablation in 04/2022 at [facility] who presents to the ED with increased shortness of breath and palpitations.? 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 Pt says symptoms began around a month ago when he noticed increasing SOB and that he kept having to gasp for air . Endorses orthopnea, now having to sleep on the couch with pillows behind his back. Claims symptoms came on gradually, slowly worsening. Now has SOB with exertion and at rest.? Also has had fatigue and chest tightness/pressure associated with inspiration.? Patient is also followed at [facility] cardiology where he had his ablation.? Patient notes that he has had persistent tachycardia and occasional palpitations for over a month. [facility] has apparently been tweaking his metoprolol and amiodarone dosages to little effect.? Patient denies swelling in his lower extremities lower notes that he has gained approximately 5-7 lb of weight this past month. Denies fever, chills. Some nausea, but no vomiting. Denies abdominal pain. Pt not on home supplemental O2 or diuretics. In the ED patient was tachycardic at up to 116, slightly hypertensive at 135/100, and satting at 89% oxygen on RA. Labs were significant for elevated BNP of 555. CXR showed apparent chronic mild thickening bronchial drake with no acute cardiopulmonary findings.? Last echo on 07/30/2022 showed LVEF between 45 and 50%. EKG demonstrated sinus tachycardia with right bundle branch block, left anterior fascicular block, and diffuse T-wave inversions with a prolonged QTc of 502.? At freight team associate's office today EKG demonstrated atrial tachycardia versus atrial flutter.? Pt was treated with Lasix 60mg IV. Pt will be admitted to the hospital for treatment and further evaluation of acute exacerbation of HFrEF. Hospital course: Patient was admitted for shortness of breath found to have Acute hypoxic respiratory failure in the setting of?acute HFrEF exacerbation: In addition patient had weight gain, orthopnea and elevated BNP. Patient was started on IV Lasix 40 mg IV b.i.d. as well as started on daily weight monitoring as well as I /o. Patient diuresed very well with IV diuretics: Patient is 2.2 L negative, off oxygen. Seems to be improved significantly: Upon discharge patient was switched to p.o. Lasix which needs to be started on12/20/22 since patient has mild ROJELIO due to diuresis. intially question of prolong qt -afterwards QTC was checked on telemetry seems to be improved. Patient had palpitations/tachycardia: Possibly related to added tachycardia, seen by Cardiology-needed cardioversion,ekg patient is NSR. Echo seems low EF 30-35%(please see below imaging section for detail report). Currently cardiology recommended-continue Lasix, and valsartan on as above. Monitor electrolytes, weights at home, CHF education given in detail. Patient has hypothyroidism: TSH is elevated range of 17 seems similar as before, free T4 is normal will continue current levothyroxine dose please recheck TSH level out patiently with PCP in a week . plan: Lasix start on12/20/22 Monitor renal function and electrolytes. Start valsartan as renal function allows Also check TSH level out patiently Follow-up with Cardiology, cardiology may arrange their own appointment,follow-up as outpatient after Holter monitor.? Continue full oral anticoagulation with Eliquis. Above management discussed with the patient in detail length she understand and in agreement with the above plan, time spent 50 minutes and 50% time spent on counseling. Time Spent with Patient Time attestation: Total time managing care of this patient today ____ minutes. Discharge coordination time: Greater than 30 minutes Quality: Safe Use of Opioids Does Pt have an Active Cancer Diagnosis on the Problem List?: No Quality: Stroke Does the patient have a stroke diagnosis?: No Physical Exam Vital Signs: Vital Signs: Last Vital Signs Temp 97.5 F 12/19/22 12:13 Pulse 73 12/19/22 12:13 Resp 20 12/19/22 12:13 BP 111/66 12/19/22 12:13 Pulse Ox 99 12/19/22 12:13 O2 Del Method Nasal Cannula 12/19/22 12:13 O2 Flow Rate 2 12/19/22 12:13 Oxygen Flow Rate 2 12/19/22 09:01 BMI result Body Mass Index 31.4 ?Appearance: Alert.? Oriented X3.? not in distress.? cvs: rrr, [id number]. res: clear to auscultation ,no rhonchii or wheezing abd: no rebound or guarding ,nt, bs present,leg edems seems to be improving significantly. ext pulses present , no cyanosis . neuro: axo3 , nonfocal. DS: Data Data Completed and Pending Labs on day of discharge: Laboratory Results - last 24 hr 12/19/22 12/19/22 07:25 07:25 Sodium 142 Potassium 4.6 Chloride 103 Carbon Dioxide 27 Anion Gap 17 BUN 23 H Creatinine 1.41 H Estim Creat Clear Calc 72.9 Estimated GFR 51 Random Glucose 108 Calcium 9.6 B-Natriuretic Peptide 421 H Free T4 0.99 Imaging Chest x-ray: Radiologist's impression: ITS Impressions Chest X-Ray 12/17/22 13:15 IMPRESSION: * Bronchial drake appear to be chronically, mildly thickened. Query if there is any history of obstructive pulmonary disease. * No acute cardiopulmonary findings compared to 12/29/2020. echo: Conclusions: - 1. Moderately dilated left ventricle with moderate to severe LV systolic dysfunction with LVEF of 30 35% ? 2. Mildly dilated right ventricle with moderately reduced RV ? ? systolic function? 3. Mildly dilated left atrium? 4. Mild aortic regurgitation ? 5. Normal RV systolic pressure ? 6. Mild to moderate enlargement of ascending aorta ? 7. No gross pericardial effusion ? Findings Procedure Information Contrast agent, definity, is being given per protocol without apparent complications. Left Ventricle Moderately increased left ventricular cavity size.? There is mildly increased left ventricular wall thickness.? The left ventricular systolic function is moderate to severely decreased.? The visually estimated ejection fraction is between 30-35%.? Diastolic function is indeterminate on the basis of available data. Right Ventricle Mildly increased right ventricular cavity size.? There is moderately decreased right ventricular systolic function. Atria The left atrium is mildly dilated.? Interatrial shunt cannot be excluded. The right atrium was not well visualized. Aortic Valve There is mild thickening of the aortic valve.? There is no aortic valve stenosis.? There is mild aortic valve regurgitation. Mitral Valve There is mild anterior and posterior mitral leaflet thickening. There is trace mitral valve regurgitation.? There is no mitral valve stenosis. Pulmonic Valve The pulmonic valve was not well visualized. Tricuspid Valve Likely normal tricuspid valve structure and function.? There is trace tricuspid valve regurgitation.? Normal right atrial pressure.? There is no evidence of pulmonary hypertension. Great Vessels The pulmonary artery was not well visualized.? There is mild dilatation of the ascending aorta measuring 4.40 cm. Venous The inferior vena cava is normal in size and collapses greater than 50% with inspiration. Pericardium/Pleural There is no evidence of pericardial effusion. Prior Study Comparison Changes noted compared to prior study dated:? 07/30/2022.? LV systolic function is depressed ?? Discharge Plan Discharge Anticipated Discharge Date/Time: 12/19/22 14:21 Patient Disposition: Home, Self-Care Discharge Diagnosis: CHF, Rojelio Referrals: Yancy Giles MD [Primary Care Provider] - 1 Week Discharge Medications: New furosemide [Lasix] 20 mg tablet 20 mg PO DAILY Qty: 30 0RF Rx Instructions: start on 12/21/22 valsartan 40 mg tablet 20 mg PO BID Qty: 30 0RF Rx Instructions: start on 12/22/22 magnesium 200 mg tablet 200 mg PO BID Qty: 10 0RF Continued albuterol sulfate 90 mcg/actuation HFA aerosol inhaler 2 puff PO Q4H PRN (Reason: shortness of breath or wheezing) Qty: 8.5 6RF ferrous sulfate 325 mg (65 mg iron) tablet 325 mg PO DAILY Qty: 90 1RF buspirone 10 mg tablet 10 mg PO TID Qty: 90 1RF rosuvastatin 5 mg tablet 5 mg PO Q OTHER DAY Qty: 45 1RF metoprolol succinate 25 mg tablet extended release 24 hr 50 mg PO DAILY metoprolol succinate 25 mg Tablet Extended Release 24 Hr 25 mg PO BEDTIME levothyroxine 75 mcg tablet 75 mcg PO DAILY@0600 omeprazole 20 mg capsule,delayed release(DR/EC) 20 mg PO DAILY@0630 cholecalciferol (vitamin D3) 1,250 mcg (50,000 unit) capsule 1,250 mcg PO MOFR venlafaxine 75 mg tablet 75 mg PO TID 30 Days Qty: 90 4RF betamethasone dipropionate 0.05 % ointment 1 appl topical DAILY PRN (Reason: Rash) Protocol: Apply to: Apply to: legs Dupixent Syringe 300 mg/2 mL syringe 300 mg subcut WE apixaban 5 mg tablet 5 mg PO BID Qty: 60 4RF amiodarone 200 mg tablet 200 mg PO DAILY Discharge Orders: Discharge Order (Routine); Ordered 12/19/22 Ordered By: Hany Reaves Diet: Advance to usual diet Activity on Discharge: As tolerated Stand Alone Forms: Patient Portal Discharge page Other Ambulatory Orders: Basic Metabolic Panel (Routine) Timeframe: 3 Days Facility: [facility] - Location: Laboratory Ordered By: Hany Reaves Magnesium (Routine) Timeframe: 3 Days Facility: [facility] - Location: Laboratory Ordered By: Hany Reaves Care Plan Goals: Patient was admitted because of CHF exacerbation: Started on IV diuretics: Diuresed well, currently denies any shortness of breath and feeling much better. Patient had mild Rojelio possible related to diuresis. Will hold Lasix for today and start on Wednesday12/20/22. In addition cardiology advised to start valsartan-please repeat BMP in next 2-3 days before starting valsartan(as kidney function allows). CHF education given, monitor daily weights-please call PCP if weight gain 2 lb or more weak, may need diuretic adjustment. Patient is to follow up outpatient with Cardiology and PCP. Health Concerns: As above. Plan of Treatment: As above. Assessment: As above.
--- NOTE | 2022-12-19 15:16 | MHC.CM.PN ---
Patient has been medically cleared for dc to home today, self care. Last IMM was addressed yesterday.
[2022-12-19] MEDS: Metoprolol Tartrate 12.5 MG HALFTAB PO (15:20)
== END 2022-12-19 17:08 | disposition home or self-care (01) | DRG 291 ==
LOC: HO.ED 14:01 → HO.EDOVER 17:47 → HO.IMC 21:08
PROVIDERS: Internal Medicine Cardiovascular Disease; Admitting Provider Student in an Organized Health Care Education/Training Program; Emergency Provider Student in an Organized Health Care Education/Training Program; PCP Internal Medicine; Visit Provider Internal Medicine
PROC: 5A2204Z Restoration of Cardiac Rhythm, Single (ICD-10-PCS; principal; 2022-12-19 09:00)
DX: I11.0 Hypertensive heart disease with heart failure (principal); I50.23 Acute on chronic systolic (congestive) heart failure; J96.01 Acute respiratory failure with hypoxia; I47.1 Supraventricular tachycardia; J45.901 Unspecified asthma with (acute) exacerbation; N17.9 Acute kidney failure, unspecified; I42.8 Other cardiomyopathies; E78.2 Mixed hyperlipidemia; R94.31 Abnormal electrocardiogram [ECG] [EKG]; E03.9 Hypothyroidism, unspecified; G47.33 Obstructive sleep apnea (adult) (pediatric); K21.9 Gastro-esophageal reflux disease without esophagitis; Z20.822 Contact with and (suspected) exposure to COVID-19; I25.2 Old myocardial infarction; Z86.73 Personal history of transient ischemic attack (TIA), and cerebral infarction without residual deficits; Z88.2 Allergy status to sulfonamides; Z88.8 Allergy status to other drugs, medicaments and biological substances; Z79.01 Long term (current) use of anticoagulants; Z79.890 Hormone replacement therapy; Z79.899 Other long term (current) drug therapy
CPT/HCPCS: 36415; 71045; 80048; 80053; 83735; 83880; 84439; 84443; 84484; 85025; 85610; 87635; 92960; 93005; 93306; 99212; 99285; J1940; Q9957

== ENCOUNTER 2022-12-21 10:13 | Outpatient (REF) | payer MEDICARE, MEDICAID, SELFPAY ==
[2022-12-21 12:19] LABS: B Type Natriuretic Peptide 475 pg/mL (<100)
[2022-12-21 12:36] LABS: Alanine Aminotransferase 12 U/L (0-40); Anion Gap 13 (12-20); Aspartate Amino Transferase 18 U/L (5-37); Blood Urea Nitrogen 24 mg/dL (9-16); Calcium 9.4 mg/dL (8.4-10.2); Carbon Dioxide 28 mmol/L (22-29); Chloride 104 mmol/L (96-108); Estimated Glomerular Filt Rate 51; Glucose Fasting 103 mg/dL (60-99); Potassium 4.6 mmol/L (3.3-5.1); Sodium 140 mmol/L (135-145)
[2022-12-21 12:56] LABS: Free T4 (Free Thyroxine) 1.02 ng/dL (0.71-1.85); Thyroid Stimulating Hormone 12.97 uIU/mL (0.32-4.0)
== END 2022-12-21 10:14 | disposition home or self-care (01) ==
LOC: HO.HMGCLDS 10:13
PROVIDERS: PCP Internal Medicine; Visit Provider Internal Medicine
DX: N17.9 Acute kidney failure, unspecified (principal); I10 Essential (primary) hypertension; I42.8 Other cardiomyopathies; E03.9 Hypothyroidism, unspecified; I47.1 Supraventricular tachycardia
CPT/HCPCS: 36415; 80048; 83880; 84439; 84443; 84450; 84460

== ENCOUNTER → 2022-12-23 09:12 | Outpatient (REF) | payer MEDICARE, MEDICAID, SELFPAY ==
--- NOTE | 2022-12-23 09:15 | HM_ITS ---
Conclusion: 1. Patient was monitored for total period of 2 days and 20 hours 2. Baseline was normal sinus rhythm with average heart rate 65 beats per minute 3. No significant pauses noted 4. Total of 1088 PVCs accounting for 0.42% of total beats accounting for occasional PVCs 5. Seven episodes of wide complex rhythm consistent with excellent idioventricular rhythm, longest lasting 6 beats and the fastest at 113 beats per minute 6. No patient reported events MTDD
== END ==
LOC: HO.CARD 09:12
PROVIDERS: PCP Internal Medicine; Visit Provider Internal Medicine Cardiovascular Disease
DX: I47.1 Supraventricular tachycardia (principal)
CPT/HCPCS: 93242

== ENCOUNTER → 2023-01-18 08:42 | Outpatient (REF) | payer MEDICARE, MEDICAID, SELFPAY ==
--- NOTE | 2023-01-18 08:45 | CA_ITS ---
Transthoracic Echocardiogram Patient (Last, First, Middle): Gustavo Martinez P Gender: Male Date of : 1960 Age: 62 Procedure Date: 01/18/2023 Procedure Type: Transthoracic Echocardiogram Location: OP Height: 187.96 cm Weight: 111.13 kg BSA: 2.37 m2 Heart Rate: 66 bpm BP: 112 / 70 mmHg Senior Application Security Consultant: RADHA Referring MD: Akira Tran MD Lumber Sorter Machine: Akira Tran MD Symptoms: I47.1 - Supraventricular tachycardia Study Quality: Technically Difficult ECG Rhythm: Sinus Conclusions: - Mildly increased left ventricular cavity size. There is mildly increased left ventricular wall thickness. The left ventricular systolic function is mildly decreased. The visually estimated ejection fraction is between 40-45%. - Normal right ventricular cavity size and systolic function. Findings Procedure Information Contrast agent, definity, is being given per protocol without apparent complications. The quality of the study was despite the use of contrast and endocardial definition remains poor. The study quality is limited by patients body habitus. Left Ventricle Mildly increased left ventricular cavity size. There is mildly increased left ventricular wall thickness. The left ventricular systolic function is mildly decreased. The visually estimated ejection fraction is between 40 45%. Right Ventricle Normal right ventricular cavity size and systolic function. Tricuspid Valve Normal right atrial pressure. Venous The inferior vena cava is normal in size and collapses greater than 50% with inspiration. Pericardium/Pleural There is no evidence of pericardial effusion. Prior Study Comparison Changes noted compared to prior study. Normal RV function. LVEF improving to 40-45% Measurements 2D Linear Measurements IVSd: 1.11 0.6-0.9/0.6-1.0 cm LVIDd: 6.64 3.9-5.3/4.2-5.9 cm LVIDd Index: 2.80 2.4-3.2/2.2-3.1 cm/m2 LVIDs: 4.63 2.0-3.6 cm LVPWd: 0.81 0.7-1.1 cm LV Mass: 347.62 67-162/88-224 g LV Mass Index: 146.67 43-95/49-115 g/m2 LVOT Diam: 3.00 3.0+(-)1.3 cm 2D Systolic Function EF 4C: 34.90 >55% EF 2C: 44.90 >55% EF BiP: 40.20 >55% Mitral Valve MV Pk E: 0.42 MV PK A: 0.38 MV Decel Time: 192.00 E/A: 1.10 E'Medial: 4.57 E/E' Med: 9.30 PHT: 56.00 MVA PHT: 3.93 Decel Jennings: 2.21 LVOT LVOT Diam: 3.00 LVOT Area: 7.07 Diastolic Function MV Pk E: 0.42 MV Pk A: 0.38 E/A: 1.10 E'Medial: 4.57 E/E' Med: 9.30 Updated in Other Vendor System with Status of Final Akira Tran MD electronically signed on 01/19/2023 5:24:28 PM with status of Final
== END ==
LOC: HO.CARD 08:42
PROVIDERS: PCP Internal Medicine; Visit Provider Internal Medicine Cardiovascular Disease
DX: I47.1 Supraventricular tachycardia (principal)
CPT/HCPCS: 93308; Q9957

== ENCOUNTER → 2023-01-25 15:00 | Outpatient (BNVA) | payer MEDICARE, MEDICAID, SELFPAY | PROVIDERS: PCP Internal Medicine; Referring Provider Internal Medicine; Visit Provider Nurse Practitioner Family | DX: I47.1 Supraventricular tachycardia (principal); I48.0 Paroxysmal atrial fibrillation; I42.8 Other cardiomyopathies; I11.0 Hypertensive heart disease with heart failure; I50.20 Unspecified systolic (congestive) heart failure; Z98.890 Other specified postprocedural states; Z79.01 Long term (current) use of anticoagulants; Z79.899 Other long term (current) drug therapy | CPT/HCPCS: 99212 ==

== ENCOUNTER 2023-01-27 09:53 | Outpatient (REF) | payer MEDICARE, MEDICAID, SELFPAY ==
[2023-01-27 11:14] LABS: MANUAL DIFF FLAG NO
[2023-01-27 11:33] LABS: Basophils Absolute Auto 0.1 X10*3/uL (0.0-0.2); Basophils Percent Auto 0.8 % (0-2); Eosinophils Absolute Auto 0.2 X10*3/uL (0.0-0.4); Eosinophils Percent Auto 2.7 % (0-4); Hematocrit 44.8 % (42.0-52.0); Hemoglobin 15.2 g/dl (14.0-18.0); Imm Gran Abs Auto 0.02 X10*3/uL (0.00-0.03); Imm Gran Pct Auto 0.3 % (0.0-0.4); Lymphocytes Absolute Auto 1.5 X10*3/uL (1.2-4.9); Mean Corpuscular HGB Conc 33.9 g/dl (31.0-36.0); Mean Corpuscular Hemoglobin 31.9 pg (27.0-33.0); Mean Corpuscular Volume 93.9 fL (80.0-98.0); Mean Platelet Volume 9.8 fL (9.4-12.4); Monocytes Absolute Auto 0.5 X10*3/uL (0.1-1.2); Monocytes Percent Auto 8.3 % (2-11); Neutrophils Absolute Auto 4.1 x10*3/uL (2.0-8.3); Neutrophils Percent Auto 64.9 % (45-73); Platelet Count 144 X10*3/uL (160-400); Red Blood Count 4.77 X10*6/uL (4.60-5.80); Red Cell Distribution Width 12.5 % (11.0-16.0); White Blood Count 6.4 X10*3/uL (4.8-10.8)
[2023-01-27 12:12] LABS: Alanine Aminotransferase 35 U/L (0-40); Albumin Level 4.4 g/dL (3.5-5.0); Alkaline Phosphatase 140 U/L (39-117); Anion Gap 13 (12-20); Aspartate Amino Transferase 23 U/L (5-37); Bilirubin Direct 0.3 mg/dL (0.0-0.5); Bilirubin Total 1.3 mg/dL (0.0-1.0); Blood Urea Nitrogen 17 mg/dL (9-16); Calcium 9.9 mg/dL (8.4-10.2); Carbon Dioxide 27 mmol/L (22-29); Chloride 103 mmol/L (96-108); Estimated Glomerular Filt Rate 50; Glucose Fasting 122 mg/dL (60-99); Potassium 4.6 mmol/L (3.3-5.1); Sodium 138 mmol/L (135-145); Total Protein 7.1 g/dL (6.5-8.0)
[2023-01-27 12:16] LABS: Free T4 (Free Thyroxine) 0.73 ng/dL (0.71-1.85); Thyroid Stimulating Hormone 53.67 uIU/mL (0.32-4.0)
== END 2023-01-27 09:54 | disposition home or self-care (01) ==
LOC: HO.HMGCLDS 09:53
PROVIDERS: PCP Internal Medicine; Visit Provider Internal Medicine
DX: E03.9 Hypothyroidism, unspecified (principal); E55.9 Vitamin D deficiency, unspecified; E66.9 Obesity, unspecified; E78.2 Mixed hyperlipidemia; F41.1 Generalized anxiety disorder; I10 Essential (primary) hypertension
CPT/HCPCS: 36415; 80048; 80076; 82306; 84439; 84443; 85025

== ENCOUNTER 2023-06-07 10:38 | Outpatient (AMB) | payer MEDICARE, MEDICAID, SELFPAY ==
--- NOTE | 2023-06-07 10:40 | MHC.OFFVIS ---
Intake Vital Signs 06/07/23 10:41 Height 6 ft 2 in Weight 258 lb 6.108 oz BMI 33.2 BP 110/68 Blood Pressure Location Lt brachial Position Sitting Pulse 74 Pulse Source Monitor Intake Visit Reasons: 3- 4 MON FUP Intake Note: 3 to 4 month follow up with EKG. 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 Accompanied by: Self / Same As Patient Allergies lisinopril [Lisinopril] Allergy (Intermediate, Verified 06/07/23 10:43) RASH sulfamethoxazole [From Bactrim] Adverse Reaction (Verified 06/07/23 10:43) Hallucinations trimethoprim [From Bactrim] Adverse Reaction (Verified 06/07/23 10:43) Hallucinations Environmental Allergy (Intermediate, Uncoded 06/07/23 10:43) Shortness of Breath Medication List - Last Reconciled 06/07/23 by Akira Tran MD albuterol sulfate 90 mcg/actuation 2 puffs PO Q4H PRN amiodarone 200 mg PO DAILY apixaban 5 mg PO BID betamethasone dipropionate 0.05% 1 appl See Protocol topical DAILY PRN cholecalciferol (vitamin D3) 1,250 mcg PO QWEEK 3 months dupilumab (Dupixent) 300 mg subcut WE ferrous sulfate 325 mg PO DAILY furosemide (Lasix) 20 mg PO DAILY levothyroxine 75 mcg PO DAILY@0600 magnesium 200 mg PO BID metoprolol succinate ER 25 mg PO DAILY metoprolol succinate ER 50 mg PO QPM 90 days omeprazole 20 mg PO DAILY@0630 rosuvastatin 5 mg PO Q OTHER DAY sildenafil 100 mg PO DAILY PRN valsartan 20 mg (1/2 x 40 mg) PO BID HPI HPI Comments History of Present Illness Details 63 male with Afib and cardiomyopathy. s/p cardioversion and ablation. Was on amidoarone and Eliquis. Previously was doing well. It appears she started noticing some palpitations and dyspnea over the last 4 weeks. He discuss this with [facility] electrophysiology and it appears he was advised to increase the amiodarone to 400 mg daily. As for her as I remember he was supposed to get off the amiodarone in 3 months after ablation. In any case he was informed on amiodarone which he decreased to 200 on his own because he was not feeling well and and was getting shortness of breath specially orthopnea at night. He also had this event where he walked out of a restaurant and had syncope falling on his face. He said that he had bruising on the side of his face and this was couple of weeks ago. His EKG showing atrial tachycardia with 2-1 block. He said his heart rate has been in 120s for weeks. Taking Eliquis regularly without any interruption. 06/07/23: He returns for follow-up. In November 2022 he was seen for atrial tachycardia/flutter. He was sent to emergency department and was admitted and underwent cardioversion. Subsequent to that he has been doing well. Lost echocardiography was in December 2022 which showed EF of 40 45%. Clinically has been improving and denying any chest discomfort shortness of breath at this stage. Blood pressure control is good. He is in sinus rhythm. His TSH during admission to hospital was 53. He is on levothyroxine 75 mcg daily. He is saying that he has been gaining weight. ON LICENSE OF [facility] Medical History (Updated 06/07/23 @ 10:59 by Akira Tran MD) Erectile dysfunction Eczema of lower extremity History of cardioversion Vitamin D deficiency Alcohol abuse Nonischemic cardiomyopathy Atrial flutter Acute renal insufficiency Anemia Generalized anxiety disorder JOSE (obstructive sleep apnea) Chronic anticoagulation Mixed dyslipidemia Acquired hypothyroidism Nocturnal hypoxemia Obesity Hypothyroid HTN (hypertension) Surgical History History of prostate surgery H/O cardiac radiofrequency ablation History of esophagogastroduodenoscopy (EGD) H/O colonoscopy History of neck surgery Hx of hand surgery Hx of hernia repair Family History Father Atrial fibrillation Mother Heart attack Pacemaker Sister Thyroid disease Brother HTN (hypertension) Sister Colon cancer Social History Household Members: Spouse Housing: House Do you presently have visiting nurse or other home services: No Alcohol intake: current Alcohol intake frequency: holidays/special occasions only Alcohol type: beer and wine Patient Tobacco Use Status: Never used Tobacco e-Cigarette/Vaping Use: Never Used Advance Directives Date on File: 12/26/20 service: No Current occupational status: disabled Cognitive needs: No Hearing needs: No Vision needs: Yes Review of Systems Const Denies weakness ENT Denies dizziness Card Denies chest pain, Denies chest pain with activity, Denies syncope, Denies rapid heart rate, Denies pedal edema, Denies edema, Denies leg edema, Denies lightheadedness, Denies palpitations, Denies dyspnea, Denies dyspnea on exertion and Denies orthopnea Resp Denies cough, Denies dyspnea and Denies dyspnea on exertion GI Denies hematochezia and Denies change in stool character Musc Denies abnormal gait, Denies muscle cramps, Denies muscle weakness, Denies numbness, Denies radiating pain into limb and Denies tingling Neuro Denies abnormal gait, Denies dizziness, Denies syncope, Denies numbness, Denies tingling and Denies weakness Endo Denies palpitations Physical Exam Vital Signs: BMI result Body Mass Index 33.2 GENERAL APPEARANCE: in no acute distress, pleasant. NECK: no carotid bruit, no jugular venous distention. SKIN: no suspicious lesions, warm and dry. HEART: no murmurs, regular rate and rhythm. LUNGS: clear to auscultation bilaterally. ABDOMEN: soft, nontender. EXTREMITIES: no edema. PERIPHERAL PULSES: equal. NEUROLOGIC: No gross deficits, AAO X 3 Office Procedures EKG Details: Sinus rhythm 74 beats per minute, left axis deviation, left ventricular hypertrophy, right bundle-branch block, QTC 470 milliseconds. [id number], Complete Assessment & Plan Assessment & Plan (1) HTN (hypertension): Code(s): I10 - Essential (primary) hypertension (2) Mixed dyslipidemia: Code(s): E78.2 - Mixed hyperlipidemia (3) Nonischemic cardiomyopathy: Comment: EF 40 45%. Code(s): I42.8 - Other cardiomyopathies Plan 61-year-old gentleman who is here for follow-up. He has background of nonischemic cardiomyopathy due to tachycardia. He has been doing well after cardioversion and has been on amiodarone 200 mg daily. Blood pressure control is good. Overall doing well and clinically stable. He had elevated TSH during admission. He is on amiodarone and has been on levothyroxine 75 mcg daily. He is telling me that he is due to get blood workup through Dr. Giles. Please request liver function test, thyroid profile and a fasting lipid panel whenever he gets his yearly blood workup. Thank you for allowing me to participate in the care of your patient. Please feel free to contact me if you have any questions. Coding Level of Care Code Est Pt Level 4 (59257) Diagnoses HTN (hypertension) I10 Mixed dyslipidemia E78.2 Nonischemic cardiomyopathy I42.8 CPT Codes EKG - CPT: [id number], Complete ([id number])
[2023-06-07 10:41] VITALS: BP 110/68; PULSE 74; BMI 33.2
== END 2023-06-07 10:59 | disposition home or self-care (01) ==
PROVIDERS: PCP Internal Medicine; Referring Provider Internal Medicine; Visit Provider Internal Medicine Cardiovascular Disease
DX: I10 Essential (primary) hypertension (principal); E78.2 Mixed hyperlipidemia; I42.8 Other cardiomyopathies
CPT/HCPCS: 93010; 99214

== ENCOUNTER → 2023-06-07 10:38 | Outpatient (BNVA) | payer MEDICARE, MEDICAID, SELFPAY | PROVIDERS: PCP Internal Medicine; Referring Provider Internal Medicine; Visit Provider Internal Medicine Cardiovascular Disease | DX: I10 Essential (primary) hypertension (principal); E78.2 Mixed hyperlipidemia; I42.8 Other cardiomyopathies; Z79.899 Other long term (current) drug therapy | CPT/HCPCS: 93005; 99212 ==

== ENCOUNTER 2023-06-30 09:44 | Outpatient (AMB) | payer MEDICARE, MEDICAID, SELFPAY ==
[2023-06-30 12:26] VITALS: BP 130/82; PULSE 124; TEMP 36.7; O2SAT 97
--- NOTE | 2023-06-30 12:26 | MHC.OFFWIV ---
Intake Vital Signs 06/30/23 12:26 Height 6 ft 2 in BP 130/82 Blood Pressure Location Lt brachial Position Sitting Pulse 124 H Pulse Source Pulse Oximeter Temp 98.0 F Temp Source Temporal Artery Scan Pulse Oximetry (%) 97 Oxygen Delivery Method Room Air Intake Visit Reasons: EP, UTI? [phone] Intake Note: pt is here for c/o uti Patient Tobacco Use Status: Never used Tobacco Allergies lisinopril [Lisinopril] Allergy (Intermediate, Verified 06/30/23 12:27) RASH sulfamethoxazole [From Bactrim] Adverse Reaction (Verified 06/30/23 12:27) Hallucinations trimethoprim [From Bactrim] Adverse Reaction (Verified 06/30/23 12:27) Hallucinations Environmental Allergy (Intermediate, Uncoded 06/07/23 10:43) Shortness of Breath Do you need a note to return to daycare/school/sports/work: Yes HPI HPI Comments History of Present Illness Details 1253 63-year-old male history of anxiety, ROJELIO eye, eczema, rectal dysfunction, dyspnea on exertion, hypertension, nonischemic cardiomyopathy, dyslipidemia presents with fatigue, malaise, bilateral flank pain, myalgias, palpitations, anxiety, urinary frequency, urgency and dysuria for the past 4 days worsening. History of UTIs this feels similar. Patient on Eliquis. Denies chest pain, shortness of breath, nausea, vomiting, abdominal pain, headache, vision changes, dizziness and weakness. Patient reports recently had a medication change was taken off of amiodarone. Due to inability to tolerate this med. On exam a rapid irregularly irregular rhythm is noted. Breath sounds clear. No CVA tenderness. History and physical exam concerning for UTI versus cystitis versus upper urinary infection/pyelonephritis. Also concern for atrial fibrillation or irregular rhythm. Low suspicion for ACS or PE. UA with positive leukocyte esterases 3+, blood in urine. Concerning for UTI versus cystitis EKG done which is showing atrial fibrillation with rapid ventricular response patient's heart rate fluctuating between 120s and 140s, go irregular. Patient with history of flutter he is not sure if he has ever been in AFib before. I explained to him due to his presentation he should go to the emergency department for further evaluation treatment. Patient signed out against medical advice, verbalizes risks associated with this including , heart attack, worsening symptoms. 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 I tried to explain the urgency of this. I explained to him this could be triggered by an infection. Patient would like to go home he tells me he is anxious and would like to think about it. Signed out against medical advice. Rod certified public accountant as witness. [facility] Medical History Erectile dysfunction Eczema of lower extremity History of cardioversion Vitamin D deficiency Alcohol abuse Nonischemic cardiomyopathy Atrial flutter Acute renal insufficiency Anemia Generalized anxiety disorder JOSE (obstructive sleep apnea) Chronic anticoagulation Mixed dyslipidemia Acquired hypothyroidism Nocturnal hypoxemia Obesity Hypothyroid HTN (hypertension) Surgical History History of prostate surgery H/O cardiac radiofrequency ablation History of esophagogastroduodenoscopy (EGD) H/O colonoscopy History of neck surgery Hx of hand surgery Hx of hernia repair Family History Father Atrial fibrillation Mother Heart attack Pacemaker Sister Thyroid disease Brother HTN (hypertension) Sister Colon cancer Social History Household Members: Spouse Housing: House Do you presently have visiting nurse or other home services: No Alcohol intake: current Alcohol intake frequency: holidays/special occasions only Alcohol type: beer and wine Patient Tobacco Use Status: Never used Tobacco e-Cigarette/Vaping Use: Never Used Advance Directives Date on File: 12/26/20 service: No Current occupational status: disabled Cognitive needs: No Hearing needs: No Vision needs: Yes Review of Systems Const Details: Constitutional : No Weight loss, No Fever, No Chills, No Fatigue, No Malaise ENT/Mouth : No sore throat, No Rhinorrhea Eyes: No Eye Pain, No Swelling, No Redness Cardiovascular : No Chest Pain, No SOB, No Dyspnea on Exertion, No Orthopnea, No Edema, No Palpitations Respiratory : No Cough, No Sputum, No Wheezing Gastrointestinal : No Nausea, No Vomiting, No Diarrhea, No Constipation, No abdominal Pain, No Hematochezia, No Melena Genitourinary : + Dysuria, + Urinary Frequency, No Hematuria, Musculoskeletal : No joint pain, No Myalgias, No Joint Swelling Skin : No Skin Lesions, No rash Neuro : No Weakness, No Numbness, No Dizziness, No Headache Psych : No Anxiety/Panic, No Depression All other systems reviewed and are negative All systems reviewed & are unremarkable except as noted in HPI and below Physical Exam Vital Signs: Last Vital Signs Temp 98.0 F 06/30/23 12:26 Pulse 124 H 06/30/23 12:26 BP 130/82 06/30/23 12:26 Pulse Ox 97 06/30/23 12:26 Oxygen Delivery Method Room Air 06/30/23 12:26 vss Appearance: Alert.? Oriented X3.? No acute distress.?Patients face flushed. Anxious appearing Head: Normocephalic, atraumatic, no step-offs or deformities Eyes: Pupils equal, round and reactive to light.? CVS: rapid irregularly irregular rhythm is noted. Breath sounds clear.? Pulses normal.? Respiratory: No respiratory distress.? Breath sounds normal.? Abdomen: Soft and nontender.? Skin: Skin warm and dry.? Normal skin color.? Normal skin turgor.? Extremities: No lower extremity edema.? No calf ttp. 5/5 strength to bilateral upper and lower extremities Back: No CVA tenderness bilaterally Neuro: Oriented X 3.? No motor deficit.? No sensory deficit. CN 2-12 intact Assessment & Plan Assessment & Plan (1) UTI symptoms: Code(s): R39.9 - Unspecified symptoms and signs involving the genitourinary system (2) Atrial fibrillation with RVR: Code(s): I48.91 - Unspecified atrial fibrillation Plan Take your medications as prescribed. If you were prescribed antibiotics today, it is important that you take your medication to their entirety, do not skip any doses, do not finish them early. Follow-up with your primary care provider this week. Return to the emergency department with new or worsening symptoms. Such as fevers, chills, chest pain, shortness of breath, nausea, vomiting, dizziness, headache, vision changes, lethargy In case of emergency call 911 Orders: Orders AMB Urinalysis Automated Today Z13.9 - Encounter for screening, unspecified Medications: New levofloxacin 750 mg PO DAILY 7 days 7 tabs 0RF Coding Level of Care Code Est Pt Level 3 (42991) Diagnoses UTI symptoms R39.9 Atrial fibrillation with RVR I48.91
== END 2023-06-30 13:07 | disposition home or self-care (01) ==
PROVIDERS: PCP Internal Medicine; Visit Provider Physician Assistant
DX: R39.9 Unspecified symptoms and signs involving the genitourinary system (principal); I48.91 Unspecified atrial fibrillation
CPT/HCPCS: 81003; 99213

== ENCOUNTER 2023-07-05 10:55 | Outpatient (AMB) | payer MEDICARE, MEDICAID, SELFPAY ==
--- NOTE | 2023-07-05 11:29 | A.OFFPC_ITS ---
<Statement entered by Yancy Giles MD - 10/28/25 23:55> This note has been administratively?closed. Vital Signs 07/05/23 11:36 Height 6 ft 2 in Weight 261 lb BMI 33.5 BP 102/60 Blood Pressure Location Rt brachial Position Sitting Pulse 64 Pulse Source Pulse Oximeter Pulse Oximetry (%) 96 Oxygen Delivery Method Room Air Intake Visit Reasons: [facility] Sepsis Intake Note: Pt is here today for his HDF sepsis [facility] Allergies lisinopril (Lisinopril) Allergy (Intermediate, Verified 10/05/25 07:27) RASH environmental allergies Allergy (Verified 10/05/25 07:27) Shortness of Breath prednisone Allergy (Verified 10/05/25 07:27) Unknown sulfamethoxazole (From Bactrim) Adverse Reaction (Verified 10/05/25 07:27) Hallucinations trimethoprim (From Bactrim) Adverse Reaction (Verified 10/05/25 07:27) Hallucinations Medication List - Last Reconciled 07/05/23 by Yancy Giles MD albuterol sulfate 90 mcg/actuation 2 puffs PO Q4H PRN apixaban 5 mg PO BID betamethasone dipropionate 0.05% 1 appl See Protocol topical DAILY PRN ferrous sulfate 325 mg PO DAILY levothyroxine 75 mcg PO DAILY@0600 magnesium 200 mg PO BID metoprolol succinate ER 100 mg PO QPM omeprazole 20 mg PO DAILY@0630 rosuvastatin 5 mg PO Q OTHER DAY sildenafil 100 mg PO DAILY PRN valsartan 20 mg (1/2 x 40 mg) PO BID Tobacco use date assessed: 07/05/23 Dental Screening Dental Screen Date: 07/05/23 Did you have a dental visit in the last 12 months?: No Was dental information given to patient?: Patient has dentist HPI HPI Comments History of Present Illness Details 63-year-old male with history of alcohol dependence, nonischemic cardiomyopathy, hypothyroidism, paroxysmal atrial fibrillation on Eliquis, history of urinary retention status post her, here today for follow-up after recent ER visit. He was sent to the ER from the walk-in clinic as he was noted to be hypotensive and tachycardic diagnosed with a urinary tract infection. At the ER he was noted to be in atrial fibrillation with rapid ventricular response, which most likely was causing his hypotension. He was placed on Augmentin, metoprolol was increased to 100 mg XL taken daily and continue on the rest of his home medications. At present patient states that he has been feeling better, heart rate is within normal limits, no complaints of any fever, no headache no dizziness [facility] Medical History GERD (gastroesophageal reflux disease) Immunization declined Atrial flutter History of alcohol use disorder Hyperuricemia Thiamine deficiency Erectile dysfunction Eczema of lower extremity History of cardioversion Vitamin D deficiency Nonischemic cardiomyopathy Acute renal insufficiency Anemia Generalized anxiety disorder JOSE (obstructive sleep apnea) Chronic anticoagulation Mixed dyslipidemia Acquired hypothyroidism Nocturnal hypoxemia Obesity Hypothyroid HTN (hypertension) Surgical History History of prostate surgery H/O cardiac radiofrequency ablation History of esophagogastroduodenoscopy (EGD) H/O colonoscopy History of neck surgery Hx of hand surgery Hx of hernia repair Family History Father Atrial fibrillation Mother Heart attack Pacemaker Sister Thyroid disease Brother HTN (hypertension) Sister Colon cancer Social History Household Members: Spouse Housing: House Do you presently have visiting nurse or other home services: No Alcohol intake: never Comment: scheduled med Patient Tobacco Use Status: Never used Tobacco e-Cigarette/Vaping Use: Never Used Advance Directives Date on File: 12/26/20 service: No Current occupational status: disabled Cognitive needs: No Hearing needs: No Vision needs: Yes Questionnaire Thrive Questionnaire Date Thrive assessed: 01/29/23 MARKO-7 AMB Questionnaire MARKO-7 Date MARKO - 7 assessed: 01/29/23 Source: Developed by Drs. Vincent Diaz, Beth Sung, Yandel Marinelli and colleagues, with an educational celena from [employer]. Physical exam (Primary Care) Vital Signs: Last Vital Signs Pulse 64 07/05/23 11:36 BP 102/60 07/05/23 11:36 Pulse Ox 96 07/05/23 11:36 Oxygen Delivery Method Room Air 07/05/23 11:36 BMI result Body Mass Index 33.5 Tobacco/Smoking Status: Tobacco use Status Tobacco use date assessed 07/05/23 07/05/23 11:31 Patient Tobacco Use Status Never used Tobacco 07/05/23 11:31 e-Cigarette/Vaping Use Never Used 07/05/23 11:31 Thrive Assessment: Date of Thrive Assessment Date Thrive assessed 01/29/23 07/05/23 11:31 Coding Level of Care Code Admin Sign Off/No Billing Diagnoses Mixed dyslipidemia E78.2 Acquired hypothyroidism E03.9
[2023-07-05 11:36] VITALS: BP 102/60; PULSE 64; O2SAT 96; BMI 33.5
== END 2023-07-05 12:39 | disposition home or self-care (01) ==
PROVIDERS: PCP Internal Medicine; Visit Provider Internal Medicine
DX: E78.2 Mixed hyperlipidemia (principal); E03.9 Hypothyroidism, unspecified
CPT/HCPCS: 99499

== ENCOUNTER 2023-07-05 12:18 | Outpatient (REF) | payer MEDICARE, MEDICAID, SELFPAY ==
[2023-07-10 08:03] LABS: Vitamin B1 <6 nmol/L (8-30)
== END 2023-07-05 12:19 | disposition home or self-care (01) ==
LOC: HO.HMGCLDS 12:18
PROVIDERS: PCP Internal Medicine; Visit Provider Internal Medicine
DX: E03.9 Hypothyroidism, unspecified (principal); R53.83 Other fatigue; F10.10 Alcohol abuse, uncomplicated; E78.2 Mixed hyperlipidemia; I11.0 Hypertensive heart disease with heart failure; I50.9 Heart failure, unspecified; N17.9 Acute kidney failure, unspecified; E55.9 Vitamin D deficiency, unspecified; I48.0 Paroxysmal atrial fibrillation; I42.8 Other cardiomyopathies; F41.1 Generalized anxiety disorder; G47.33 Obstructive sleep apnea (adult) (pediatric); E66.9 Obesity, unspecified; R73.01 Impaired fasting glucose; Z87.440 Personal history of urinary (tract) infections
CPT/HCPCS: 36415; 81003; 82306; 82607; 82746; 83880; 84425; 84439; 84443

== ENCOUNTER 2023-12-13 09:06 | Outpatient (AMB) | payer MEDICARE, MEDICAID, SELFPAY ==
[2023-12-13 09:29] VITALS: BP 140/80; PULSE 108; BMI 32.9
--- NOTE | 2023-12-13 09:29 | A.OFFVIS_ITS ---
Intake Vital Signs 12/13/23 09:29 Height 6 ft 2 in Weight 256 lb 9.889 oz BMI 32.9 BP 140/80 H Blood Pressure Location Lt brachial Position Sitting Pulse 108 H Intake Visit Reasons: 6 mth fu Intake Note: pt its here for his 6mth f/up/ pt states that his palpitations for the pass week, mostly feeling tired when feeling the palpitations. Manager Shop Required: No Accompanied by: Self / Same As Patient Allergies lisinopril [Lisinopril] Allergy (Intermediate, Verified 07/05/23 11:43) RASH sulfamethoxazole [From Bactrim] Adverse Reaction (Verified 07/05/23 11:43) Hallucinations trimethoprim [From Bactrim] Adverse Reaction (Verified 07/05/23 11:43) Hallucinations Environmental Allergy (Intermediate, Uncoded 07/05/23 11:43) Shortness of Breath Medication List - Last Reconciled 12/13/23 by Akira Tran MD albuterol sulfate 90 mcg/actuation 2 puffs PO Q4H PRN apixaban 5 mg PO BID betamethasone dipropionate 0.05% 1 appl See Protocol topical DAILY PRN ferrous sulfate 325 mg PO DAILY levothyroxine 75 mcg PO DAILY@0600 magnesium 200 mg PO BID metoprolol succinate ER 100 mg PO QPM omeprazole 20 mg PO DAILY rosuvastatin 5 mg PO Q OTHER DAY valsartan 20 mg (1/2 x 40 mg) PO BID HPI HPI Comments History of Present Illness Details 63 male with Afib and cardiomyopathy. s/p cardioversion and ablation. Was on amidoarone and Eliquis. Previously was doing well. It appears she started noticing some palpitations and dyspnea over the last 4 weeks. He discuss this with [facility] electrophysiology and it appears he was advised to increase the amiodarone to 400 mg daily. As for her as I remember he was supposed to get off the amiodarone in 3 months after ablation. In any case he was informed on amiodaro ne which he decreased to 200 on his own because he was not feeling well and and was getting shortness of breath specially orthopnea at night. He also had this event where he walked out of a restaurant and had syncope falling on his face. He said that he had bruising on the side of his face and this was couple of weeks ago. His EKG showing atrial tachycardia with 2-1 block. He said his heart rate has been in 120s for weeks. Taking Eliquis regularly without any interruption. 06/07/23: He returns for follow-up. In November 2022 he was seen for atrial tachycardia/flutter. He was sent to emergency department and was admitted and underwent cardioversion. Subsequent to that he has been doing well. Lost echocardiography was in December 2022 which showed EF of 40 45%. Clinically has been improving and denying any chest discomfort shortness of breath at this stage. Blood pressure control is good. He is in sinus rhythm. His TSH during admission to hospital was 53. He is on levothyroxine 75 mcg daily. He is saying that he has been gaining weight. 12/13/2023: He returns for follow-up. Henry saucedo has been experiencing some palpitations as well as fatigue over the last 2 weeks. He is noticed to be in atrial flutter with variable block with heart rate of 108 beats per minute. He is denying any significant dyspnea. No orthopnea or PND. No chest discomfort. He has been taking medications regularly and has been on apixaban 5 mg twice a day without any interruption over the last month. Blood pressure is mildly elevated. [facility] Medical History (Updated 12/13/23 @ 11:28 by Akira Tran MD) Thiamine deficiency Erectile dysfunction Eczema of lower extremity History of cardioversion Vitamin D deficiency Alcohol abuse Nonischemic cardiomyopathy Atrial flutter Acute renal insufficiency Anemia Generalized anxiety disorder JOSE (obstructive sleep apnea) Chronic anticoagulation Mixed dyslipidemia Acquired hypothyroidism Nocturnal hypoxemia Obesity Hypothyroid HTN (hypertension) Surgical History History of prostate surgery H/O cardiac radiofrequency ablation History of esophagogastroduodenoscopy (EGD) H/O colonoscopy History of neck surgery Hx of hand surgery Hx of hernia repair Family History Father Atrial fibrillation Mother Heart attack Pacemaker Sister Thyroid disease Brother HTN (hypertension) Sister Colon cancer Social History Household Members: Spouse Housing: House Do you presently have visiting nurse or other home services: No Alcohol intake: current Alcohol intake frequency: holidays/special occasions only Alcohol type: beer and wine Comment: scheduled med Patient Tobacco Use Status: Never used Tobacco e-Cigarette/Vaping Use: Never Used Advance Directives Date on File: 12/26/20 service: No Current occupational status: disabled Cognitive needs: No Hearing needs: No Vision needs: Yes Review of Systems Const Denies chills, Reports fatigue, Denies fever(s), Denies frequent falls, Denies weakness, Denies weight gain and Denies weight loss ENT Denies dizziness Card Denies chest pain, Denies leg edema, Denies lightheadedness, Reports palpitations, Denies dyspnea and Denies dyspnea on exertion Resp Denies cough, Denies dyspnea and Denies dyspnea on exertion GI Denies hematochezia Musc Denies abnormal gait, Denies muscle weakness, Denies numbness, Denies radiating pain into limb and Denies tingling Neuro Denies abnormal gait, Denies dizziness, Denies frequent falls, Denies numbness, Denies tingling and Denies weakness Endo Reports fatigue and Reports palpitations Physical Exam Vital Signs: Last Vital Signs Pulse 108 H 12/13/23 09:29 BP 140/80 H 12/13/23 09:29 BMI result Body Mass Index 32.9 GENERAL APPEARANCE: in no acute distress, pleasant. NECK: no carotid bruit, no jugular venous distention. SKIN: no suspicious lesions, warm and dry. HEART: no murmurs, regular rate and rhythm. Tachycardic. LUNGS: clear to auscultation bilaterally. ABDOMEN: soft, nontender. EXTREMITIES: no edema. PERIPHERAL PULSES: equal. NEUROLOGIC: No gross deficits, AAO X 3 Office Procedures EKG Details: Atrial flutter with variable block 108 beats per minute, left anterior fascicular block, right bundle-branch block, QTC 533 milliseconds. 15053-[id number], Complete Assessment & Plan Assessment & Plan (1) Nonischemic cardiomyopathy: Comment: EF 40 45%. Code(s): I42.8 - Other cardiomyopathies (2) HTN (hypertension): Code(s): I10 - Essential (primary) hypertension (3) Atrial flutter: Code(s): I48.92 - Unspecified atrial flutter Plan 63 year gentleman who is here for follow-up. He has background history of nonischemic cardiomyopathy which was felt to be due to tachycardia. He previously had atrial fibrillation for which she underwent cardioversion and was on amiodarone. He also has atrial flutter for which she was admitted in June 2023 underwent cardioversion and at that time was on amiodarone. In April 2022 he underwent AFib ablation and also SVT ablation was attempted but no SVT could could be induced. He previously had an episode of supraventricular tachycardia. Atrial flutter ablation was not done because it was not diagnosed at that time. He was supposed to stay on amiodarone but it appears he had episodes of atrial flutter and amiodarone was continued. In June 2023 he was cardioverted for atrial flutter and was on amiodarone. It appears he has been off amiodarone and he has been taken off the amiodarone by the EP team. He is back in atrial flutter at this point. He is feeling fatigued and tired. He previously had worsening myopathy due to tachycardia. We discussed in detail about options. Saying he has not been drinking alcohol. I have given him the option to be admitted to the hospital today to get cardioversion and see if we can start him on sotalol after that. Other option will be to give him amiodarone and cardiovert him next week but I have explained to him that given his young age I am reluctant to leave him on long-term amiodarone. He is more in favor of coming for cardioversion next week and then get admitted to the hospital. We will arrange this for him. In the meantime I have advised him to increase the metoprolol succinate to 150 mg from 100 mg. I have advised him that if he develops any shortness of breath or orthopnea he should go to the emergency department. Thank you for allowing me to participate in the care of your patient. Please feel free to contact me if you have any questions. Orders: Orders Cardioversion Today I48.92 - Unspecified atrial flutter Medications: New metoprolol succinate ER (Toprol XL) Total dose 150 mg, already taking 100 mg once daily. 50 mg PO DAILY 90 tabs 3RF I48.92 - Unspecified atrial flutter Coding Level of Care Code Est Pt Level 5 (99997) Diagnoses Nonischemic cardiomyopathy I42.8 HTN (hypertension) I10 Atrial flutter I48.92 CPT Codes EKG - CPT: 14150-[id number], Complete ([id number])
== END 2023-12-13 10:22 | disposition home or self-care (01) ==
PROVIDERS: PCP Internal Medicine; Visit Provider Internal Medicine Cardiovascular Disease
DX: I42.8 Other cardiomyopathies (principal); I10 Essential (primary) hypertension; I48.92 Unspecified atrial flutter
CPT/HCPCS: 93010; 99214

== ENCOUNTER → 2023-12-13 09:06 | Outpatient (BNVA) | payer MEDICARE, MEDICAID, SELFPAY | PROVIDERS: PCP Internal Medicine; Visit Provider Internal Medicine Cardiovascular Disease | DX: R00.2 Palpitations (principal); I48.91 Unspecified atrial fibrillation; Z79.01 Long term (current) use of anticoagulants; I42.8 Other cardiomyopathies; I10 Essential (primary) hypertension; I48.92 Unspecified atrial flutter | CPT/HCPCS: 93005; 99212 ==

== ENCOUNTER → 2023-12-20 12:47 | Outpatient (BNV) | payer MEDICARE, MEDICAID, SELFPAY | PROVIDERS: PCP Internal Medicine; Visit Provider Internal Medicine Cardiovascular Disease | DX: I48.92 Unspecified atrial flutter (principal); Z51.81 Encounter for therapeutic drug level monitoring; Z79.899 Other long term (current) drug therapy | CPT/HCPCS: 93010; 99223; 99233 ==

== ENCOUNTER 2023-12-20 15:11 | Outpatient (BNV) | payer MEDICARE, MEDICAID, SELFPAY | END 2023-12-21 07:52 | PROVIDERS: Admitting Provider Internal Medicine Cardiovascular Disease; PCP Internal Medicine; Visit Provider Internal Medicine Cardiovascular Disease | DX: R94.31 Abnormal electrocardiogram [ECG] [EKG] (principal) | CPT/HCPCS: 93010 ==

== ENCOUNTER 2023-12-20 15:11 | Outpatient (BNV) | payer MEDICARE, MEDICAID, SELFPAY | END 2023-12-22 07:55 | PROVIDERS: Admitting Provider Internal Medicine Cardiovascular Disease; PCP Internal Medicine; Visit Provider Internal Medicine Cardiovascular Disease | DX: R94.31 Abnormal electrocardiogram [ECG] [EKG] (principal) | CPT/HCPCS: 93010 ==

== ENCOUNTER 2023-12-20 15:11 | Inpatient (IN) | payer MEDICARE, MEDICAID, SELFPAY ==
--- NOTE | 2023-12-17 09:04 | P.CONAN_ITS ---
Documented by User: Jesica Merida NP 12/17/23 09:05 HPI - Anesthesia Eval Consult details Narrative: 63yo M for Cardioversion [facility] Active Problems Active Problems: All Active Problems (Updated 12/13/23 @ 11:28 by Akira Tran MD) Atrial flutter (Acute) Thiamine deficiency (Acute) Alcohol abuse (Acute) Erectile dysfunction (Acute) Eczema of lower extremity (Acute) History of cardioversion (Acute) ROJELIO (acute kidney injury) (Acute) CHF exacerbation (Acute) Hypoxic (Acute) AMEZCUA (dyspnea on exertion) (Acute) Atrial tachycardia (Acute) Vitamin D deficiency (Acute) HTN (hypertension) (Acute) PAF (paroxysmal atrial fibrillation) (Acute) Nonischemic cardiomyopathy (Acute) Urinary retention with incomplete bladder emptying (Acute) Generalized anxiety disorder (Acute) JOSE (obstructive sleep apnea) (Acute) Mixed dyslipidemia (Acute) Acquired hypothyroidism (Acute) Obesity (Acute) Past Medical History Medical History (Updated 12/20/23 @ 14:32 by Sirisha Zendejas MD) Hypoxic Thiamine deficiency Erectile dysfunction Eczema of lower extremity History of cardioversion Vitamin D deficiency Alcohol abuse Nonischemic cardiomyopathy Atrial flutter Acute renal insufficiency Anemia Generalized anxiety disorder JOSE (obstructive sleep apnea) Chronic anticoagulation Mixed dyslipidemia Acquired hypothyroidism Nocturnal hypoxemia Obesity Hypothyroid HTN (hypertension) Family History Family History Father Atrial fibrillation Mother Heart attack Pacemaker Sister Thyroid disease Brother HTN (hypertension) Sister Colon cancer Surgical History Surgical History History of prostate surgery H/O cardiac radiofrequency ablation History of esophagogastroduodenoscopy (EGD) H/O colonoscopy History of neck surgery Hx of hand surgery Hx of hernia repair History of Problems with Anesthesia: No Social History Social History Household Members: Spouse Housing: House Do you presently have visiting nurse or other home services: No Alcohol intake: current Alcohol intake frequency: holidays/special occasions only Alcohol type: beer and wine Comment: scheduled med Patient Tobacco Use Status: Never used Tobacco e-Cigarette/Vaping Use: Never Used Use of substances other than those prescribed or required for medical reasons: No Are you DNR?: No Advance Directives: No Advance Directives Information Provided: Yes Advance Directives Date on File: 12/26/20 service: No Current occupational status: disabled Cognitive needs: No Hearing needs: No Vision needs: Yes Meds Allergies Allergy/AdvReac Type Severity Reaction Status Date / Time lisinopril [Lisinopril] Allergy Intermediate RASH Verified 07/05/23 11:43 sulfamethoxazole AdvReac Hallucinati Verified 07/05/23 11:43 [From Bactrim] ons trimethoprim [From Bactrim] AdvReac Hallucinati Verified 07/05/23 11:43 ons Environmental Allergy Intermediate Shortness Uncoded 07/05/23 11:43 of Breath Home Medications Medication Instructions Recorded Confirmed Last Taken Type betamethasone dipropionate 0.05 % 1 appl topical DAILY PRN Rash 02/05/22 12/20/23 Unknown History topical ointment metoprolol succinate 50 mg 150 mg PO DAILY 07/05/23 12/20/23 12/20/23 History tablet,extended release 24 hr Exam Narrative Narrative: EKG 11/2023 Details: Atrial flutter with variable block 108 beats per minute, left anterior fascicular block, right bundle-branch block, QTC 533 milliseconds. ECHO 2022 Conclusions: - Mildly increased left ventricular cavity size. There is mildly increased left ventricular wall thickness. The left ventricular systolic function is mildly decreased. The visually estimated ejection fraction is between 40-45%. - Normal right ventricular cavity size and systolic function. Assessment and Plan Assessment Anesthesia Assessment: Chart Reviewed Final Anesthetic Review History of Problems with Anesthesia: No Documented by User: Sirisha Zendejas MD 12/20/23 14:34 HPI - Anesthesia Eval Consult details Narrative: 63yo M for Cardioversion Eliquis. Took eliquis and metoprolol today Anesthesia Pre-Procedure Meds If Yes to any meds - educate patient: Pt education - increased risk of aspiration PMFSH Active Problems Active Problems: All Active Problems (Updated 12/20/23 @ 13:41 by Sirisha Zendejas MD) Atrial flutter (Acute) Thiamine deficiency (Acute) Alcohol abuse (Acute)- Patient states only very occasional alcohol in last 2 years Erectile dysfunction (Acute) Eczema of lower extremity (Acute) History of cardioversion (Acute) ROJELIO (acute kidney injury) (Acute) CHF exacerbation (Acute) AMEZCUA (dyspnea on exertion) (Acute) Atrial tachycardia (Acute) Vitamin D deficiency (Acute) HTN (hypertension) (Acute) PAF (paroxysmal atrial fibrillation) (Acute) Nonischemic cardiomyopathy (Acute) Urinary retention with incomplete bladder emptying (Acute) Generalized anxiety disorder (Acute) JOSE (obstructive sleep apnea) (Acute)- not using CPAP. Unable to tolerate. States better since losing weight and sleeping reclined Mixed dyslipidemia (Acute) Acquired hypothyroidism (Acute) Obesity BMI 32.5 Past Medical History Medical History (Updated 12/20/23 @ 14:32 by Sirisha Zendejas MD) Hypoxic Thiamine deficiency Erectile dysfunction Eczema of lower extremity History of cardioversion Vitamin D deficiency Alcohol abuse Nonischemic cardiomyopathy Atrial flutter Acute renal insufficiency Anemia Generalized anxiety disorder JOSE (obstructive sleep apnea) Chronic anticoagulation Mixed dyslipidemia Acquired hypothyroidism Nocturnal hypoxemia Obesity Hypothyroid HTN (hypertension) Family History Family History Father Atrial fibrillation Mother Heart attack Pacemaker Sister Thyroid disease Brother HTN (hypertension) Sister Colon cancer Family history of problems with anesthesia: No Surgical History Surgical History History of prostate surgery H/O cardiac radiofrequency ablation History of esophagogastroduodenoscopy (EGD) H/O colonoscopy History of neck surgery Hx of hand surgery Hx of hernia repair History of Problems with Anesthesia: No Social History Social History Household Members: Spouse Housing: House Do you presently have visiting nurse or other home services: No Alcohol intake: current Alcohol intake frequency: holidays/special occasions only Alcohol type: beer and wine Comment: scheduled med Patient Tobacco Use Status: Never used Tobacco e-Cigarette/Vaping Use: Never Used Use of substances other than those prescribed or required for medical reasons: No Are you DNR?: No Advance Directives: No Advance Directives Information Provided: Yes Advance Directives Date on File: 12/26/20 service: No Current occupational status: disabled Cognitive needs: No Hearing needs: No Vision needs: Yes Meds Allergies Allergy/AdvReac Type Severity Reaction Status Date / Time lisinopril [Lisinopril] Allergy Intermediate RASH Verified 07/05/23 11:43 sulfamethoxazole AdvReac Hallucinati Verified 07/05/23 11:43 [From Bactrim] ons trimethoprim [From Bactrim] AdvReac Hallucinati Verified 07/05/23 11:43 ons Environmental Allergy Intermediate Shortness Uncoded 07/05/23 11:43 of Breath Home Medications Medication Instructions Recorded Confirmed Last Taken Type betamethasone dipropionate 0.05 % 1 appl topical DAILY PRN Rash 02/05/22 12/20/23 Unknown History topical ointment metoprolol succinate 50 mg 150 mg PO DAILY 07/05/23 12/20/23 12/20/23 History tablet,extended release 24 hr Exam Height,Weight and Vital Signs: Height 6 ft 2 in Weight 114.759 kg Vital Signs Temp Pulse Resp BP Pulse Ox O2 Del Method 12/20/23 13:40 98.3 F 107 H 18 107/61 97 Room Air 12/20/23 13:27 98.3 F 77 18 107/61 97 Room Air Airway Mallampati Class: III TM Dist: >3cm Neck ROM: Full Loose/Missing/Broken Teeth: Yes (Missing tooth top right back) Heart: Irregular Lungs: CTAB Assessment and Plan Assessment Anesthesia Assessment: Anesthesia Plan Discussed and Chart Reviewed Final Anesthetic Review Family History of Problems with Anesthesia: No History of Problems with Anesthesia: No NPO: Yes ASA Class: III Final Preanesthetic Review: No Changes in Pt Med Stat, Meds/Allgs Chart Reviewed, Consent Obtained/Reviewed and Anes Risks/Benef Reviewed Patient Risk: Intermediate Procedure Risk: Intermediate Assessment/Block/Sedation in SS: Assess/Block/Sedation-SS Anesthetic Plan Anesthetic Plan: GA Disposition: Standard PACU
[2023-12-20] VITALS (13 sets, daily range): BP systolic 103–137; BP diastolic 61–77; PULSE 63–107; RESP 15–22; TEMP 35.9–36.8; O2SAT 95–100; BMI 32.5
--- NOTE | 2023-12-20 | ECG_ITS ---
Test Reason : s/p cardioversion Blood Pressure : / mmHG Vent. Rate : 084 BPM Atrial Rate : 084 BPM P-R Int : 198 ms QRS Dur : 146 ms QT Int : 406 ms P-R-T Axes : 046 -46 -16 degrees QTc Int : 479 ms Normal sinus rhythm Right bundle branch block Left anterior fascicular block Bifascicular block Abnormal ECG When compared with ECG of 19-DEC-2022 09:53, (RBBB and left anterior fascicular block) is now Present Referred By: Akira Tran Electronically Signed By:Akira Tran
--- NOTE | 2023-12-20 13:40 | PC.NURSE ---
NOTIFIED DR. CARRERA FOR AFIB BBB RVR, 110'S-130, SLIGHT LIGHTHEADEDNESS. NO CHEST PAIN OR SOB. PINK WARM AND DRY NO ACUTE DISTRESS.
[2023-12-20] MEDS: Lactated Ringers 1,000 ML 100 ML IVCONT ×2 (13:46→20:45)
--- NOTE | 2023-12-20 13:46 | PC.NURSE ---
PT REORTS HE USUALLY DRINKS 1 GALLON WATER DAILY. FEELS DEHYDRATED. ADDENDUM: INITIALLY REPORTED AFIB RVR TO DR. REDDY (FLOOR ANESTHESIOLOGIST) DUE TO SCHEDULE STATING ANESTHESIA tbd (TO BE DETERMINED).
--- NOTE | 2023-12-20 14:42 | MHC.SHP ---
Pre-Procedural Eval Section A - 24 Hr Update-Section A only Date of Service: 12/20/23 The patient is an INPATIENT: No Section B - Complete if H&P > 30 days Chief Complaint: Unspecified atrial flutter Allergies: Allergies Allergy/AdvReac Type Severity Reaction Status Date / Time lisinopril [Lisinopril] Allergy Intermediate RASH Verified 07/05/23 11:43 sulfamethoxazole AdvReac Hallucinati Verified 07/05/23 11:43 [From Bactrim] ons trimethoprim [From Bactrim] AdvReac Hallucinati Verified 07/05/23 11:43 ons Environmental Allergy Intermediate Shortness Uncoded 07/05/23 11:43 of Breath Plan Diagnosis/Plan: Unchanged I have reviewed the history and physical and performed a pertinent physical examination on my patient. No changes have occurred unless specified. Time Spent With Patient Time: Total time managing care of this patient today ____ minutes.
[2023-12-20 14:45] LABS: Anion Gap 10 (12-20); Blood Urea Nitrogen 17 mg/dL (9-16); Calcium 9.5 mg/dL (8.4-10.2); Carbon Dioxide 26 mmol/L (22-29); Chloride 108 mmol/L (96-108); Creatinine Clr Calc Pharmacy 90.4; Estimated Glomerular Filt Rate > 60; Glucose Random 87 mg/dL (60-115); Potassium 4.3 mmol/L (3.3-5.1); Sodium 140 mmol/L (135-145)
--- NOTE | 2023-12-20 14:49 | HO.CARDIVERS ---
Cardioversion Procedure Note Cardioversion Date of Procedure: 12/20/23 Ordering Provider: Akira Tran Performing Provider: Akira Tran Indication for Procedure: Atrial flutter. CHF Performed with Transesophageal Echo: No History: 63 male with atrial flutter and CHF. Consent: Verbal and Written consent was obtained from the patient before starting. The patient was made aware of the risk of stroke, failure, skin irritation and arrhythmia. Procedure: After consent obtained, defib pads were attached and the patient was sedated by the anesthesia team. Once adequate sedation achieved, initial shock of 200 J synchronized was given but was unsuccessful. We synced again and gave a 200 J shock which converted him to sinus rhythm. Impression: Successful cardioversion Recommendations: c/w apixaban. We will review EKG post cardioversion and BMP (Serum creatinine) to decide about Sotalol vs Amiodarone.
--- NOTE | 2023-12-20 15:16 | P.CONCA_ITS ---
History of Present Illness History of Present Illness Date of Service: 12/20/23 Chief complaint: Unspecified atrial flutter Narrative: [age] year gentleman who has history of cardiomyopathy in the setting of alcohol use and atrial fibrillation in the past. He underwent ablation with improvement in ejection fraction significantly. Recently came to the office and was complaining of fatigue and palpitations and was noticed to be in atrial flutter. Discussion was done and he was brought in today for cardioversion. He underwent successful cardioversion at this stage. He has been on apixaban. His metoprolol succinate dose was increased from 100-150 mg in the clinic. His post cardioversion EKGs showing bifascicular block with QT interval of 479 milliseconds. This is in the setting of right bundle-branch block. I have discussed the case with electrophysiology and we have decided to to sotalol load and will admit him to the hospital for that purpose. He had labs done today which is showing significantly better kidney function compared to before with creatinine clear history more than 60. [facility] Past Medical History Medical History (Updated 12/20/23 @ 15:18 by Akira Tran MD) Hypoxic Thiamine deficiency Erectile dysfunction Eczema of lower extremity History of cardioversion Vitamin D deficiency Alcohol abuse Nonischemic cardiomyopathy Atrial flutter Acute renal insufficiency Anemia Generalized anxiety disorder JOSE (obstructive sleep apnea) Chronic anticoagulation Mixed dyslipidemia Acquired hypothyroidism Nocturnal hypoxemia Obesity Hypothyroid HTN (hypertension) Family History Family History Father Atrial fibrillation Mother Heart attack Pacemaker Sister Thyroid disease Brother HTN (hypertension) Sister Colon cancer Surgical History Surgical History History of prostate surgery H/O cardiac radiofrequency ablation History of esophagogastroduodenoscopy (EGD) H/O colonoscopy History of neck surgery Hx of hand surgery Hx of hernia repair Social History Social History Household Members: Spouse Housing: House Do you presently have visiting nurse or other home services: No Alcohol intake: current Alcohol intake frequency: holidays/special occasions only Alcohol type: beer and wine Comment: scheduled med Patient Tobacco Use Status: Never used Tobacco e-Cigarette/Vaping Use: Never Used Use of substances other than those prescribed or required for medical reasons: No Are you DNR?: No Advance Directives: No Advance Directives Information Provided: Yes Advance Directives Date on File: 12/26/20 service: No Current occupational status: disabled Cognitive needs: No Hearing needs: No Vision needs: Yes Meds Allergies Allergy/AdvReac Type Severity Reaction Status Date / Time lisinopril [Lisinopril] Allergy Intermediate RASH Verified 07/05/23 11:43 sulfamethoxazole AdvReac Hallucinati Verified 07/05/23 11:43 [From Bactrim] ons trimethoprim [From Bactrim] AdvReac Hallucinati Verified 07/05/23 11:43 ons Environmental Allergy Intermediate Shortness Uncoded 07/05/23 11:43 of Breath Active Medications: Current Medications Lactated Ringer's (Lr) 1,000 mls @ 100 mls/hr IVCONT .Q10H JUSTINA Last Admin: 12/20/23 13:46 Dose: 100 mls/hr Magnesium Sulfate/Dextrose (Magnesium Sulfate/D5w) 1 gm in 100 mls @ 100 mls/hr IV ONCE ONE Stop: 12/20/23 16:10 Metoprolol Succinate (Metoprolol Succinate Er 25 Mg Tab.Er.24h) 75 mg PO DAILY [facility]; Protocol Sotalol HCl (Sotalol Hcl 80 Mg Tablet) 80 mg PO BID [facility] Home Medications Medication Instructions Recorded Confirmed Last Taken Type betamethasone dipropionate 0.05 % 1 appl topical DAILY PRN Rash 02/05/22 12/20/23 Unknown History topical ointment metoprolol succinate 50 mg 150 mg PO DAILY 07/05/23 12/20/23 12/20/23 History tablet,extended release 24 hr Physical Exam 2 Vital Signs: Vital Signs: Last Vital Signs Temp 97.0 F 12/20/23 14:53 Pulse 71 12/20/23 15:08 Resp 18 12/20/23 15:08 BP 104/74 12/20/23 15:08 Pulse Ox 97 12/20/23 15:08 O2 Del Method Nasal Cannula wit h Capnography 12/20/23 15:08 O2 Flow Rate 2 12/20/23 15:08 BMI result Body Mass Index 32.5 GENERAL APPEARANCE: in no acute distress, pleasant. NECK: no carotid bruit, no jugular venous distention. SKIN: no suspicious lesions, warm and dry. HEART: no murmurs, regular rate and rhythm. LUNGS: clear to auscultation bilaterally. ABDOMEN: soft, nontender. EXTREMITIES: no edema. PERIPHERAL PULSES: equal. NEUROLOGIC: No gross deficits, AAO X 3 Objective Labs and Meds 12/20/23 14:21 Lab results: Laboratory Results - last 24 hr 12/20/23 14:21 Sodium 140 Potassium 4.3 Chloride 108 Carbon Dioxide 26 Anion Gap 10 L BUN 17 H Creatinine 1.14 Estim Creat Clear Calc 90.4 Estimated GFR > 60 Random Glucose 87 Calcium 9.5 Assessment and Plan (1) Atrial flutter: Status: Acute (2) Encounter for monitoring sotalol therapy: Status: Acute Plan Pleasant 63 year gentleman with nonischemic cardiomyopathy in the setting of alcohol use in the past as well as atrial fibrillation who is presenting for cardioversion for atrial flutter. He previously had atrial fibrillation ablation procedure which was successful and he has not had any further atrial fibrillation. He was on amiodarone in the past which has been stopped by electrophysiology. We have successfully cardioverted him. His creatinine clearance is more than 60 currently and he can tolerate b.i.d. dosing. Would start him on 80 mg p.o. b.i.d.. Monitor electrolytes closely. Potassium should be more than 4 magnesium more than 2. I am giving him 1 g of magnesium today. His QTC is 479 but he has right bundle-branch block. We will monitor QTC closely and as long as it does not cross 550 I think sotalol can be continued. We will monitor to our post sotalol EKGs. He has been informed that he was stay in the hospital for 3 days. Continue Eliquis without interruption. Thank you for allowing me to participate in the care of your patient. Please feel free to contact me if you have any questions. Procedures Date of Service Date of Service: 12/20/23
--- NOTE | 2023-12-20 16:08 | PM.IMHP ---
History of Present Illness Date of Service: 12/20/23 Attending physician on admission: Hany Reaves Chief Complaint: A flutter aflutter 63-year-old male with history of a flutter, cardiomyopathy, JOSE, hypertension, hypothyroidism, obesity, patient also says that has history of asthma mild intermittent.: Patient came to the hospital for possible aflutter for [id number] also has background history of nonischemic cardiomyopathy, atrial fibrillation for which he underwent cardioversion and was on amiodarone, he also has RA aflutter for which he was admitted in and underwent cardioversion that time was on amiodarone . In : Patient also had ablation procedure for AFib and also SVT ablation was attempted but no SVT could be induced. Afterwards patient was taken off amiodarone by EP. 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 Patient will be started on sotalol today evening, GFR seems fine, patient took his Eliquis this morning around 08:00 o'clock. EKG reviewed: QTC is around 479 but has right bundle branch block. Patient is status post cardioversion, currently patient is NSR, started on sotalol Chest x-ray seems fine except mild chronic bronchial thickening. Denies any new complaint of chest pain or shortness of breath or abdominal pain or fever or chills or nausea or vomiting or cough or weakness or numbness. [facility] Medical History (Updated 12/20/23 @ 15:18 by Akira Tran MD) Hypoxic Thiamine deficiency Erectile dysfunction Eczema of lower extremity History of cardioversion Vitamin D deficiency Alcohol abuse Nonischemic cardiomyopathy Atrial flutter Acute renal insufficiency Anemia Generalized anxiety disorder JOSE (obstructive sleep apnea) Chronic anticoagulation Mixed dyslipidemia Acquired hypothyroidism Nocturnal hypoxemia Obesity Hypothyroid HTN (hypertension) Family History Father Atrial fibrillation Mother Heart attack Pacemaker Sister Thyroid disease Brother HTN (hypertension) Sister Colon cancer Surgical History History of prostate surgery H/O cardiac radiofrequency ablation History of esophagogastroduodenoscopy (EGD) H/O colonoscopy History of neck surgery Hx of hand surgery Hx of hernia repair Social History Household Members: Spouse Housing: House Do you presently have visiting nurse or other home services: No Alcohol intake: current Alcohol intake frequency: holidays/special occasions only Alcohol type: beer and wine Comment: scheduled med Patient Tobacco Use Status: Never used Tobacco e-Cigarette/Vaping Use: Never Used Use of substances other than those prescribed or required for medical reasons: No Are you DNR?: No Advance Directives: No Advance Directives Information Provided: Yes Advance Directives Date on File: 12/26/20 service: No Current occupational status: disabled Cognitive needs: No Hearing needs: No Vision needs: Yes Meds Allergies Allergy/AdvReac Type Severity Reaction Status Date / Time lisinopril [Lisinopril] Allergy Intermediate RASH Verified 07/05/23 11:43 sulfamethoxazole AdvReac Hallucinati Verified 07/05/23 11:43 [From Bactrim] ons trimethoprim [From Bactrim] AdvReac Hallucinati Verified 07/05/23 11:43 ons Environmental Allergy Intermediate Shortness Uncoded 07/05/23 11:43 of Breath Active Medications: Current Medications Acetaminophen (Acetaminophen 325 Mg Tablet) 650 mg PO ONCE PRN PRN Reason: Pain, Mild (Pain Scale 1-3) Stop: 12/20/23 21:15 Apixaban (Apixaban 5 Mg Tablet) 5 mg PO BID JUSTINA Lactated Ringer's (Lr) 1,000 mls @ 100 mls/hr IVCONT .Q10H [facility] Last Admin: 12/20/23 13:46 Dose: 100 mls/hr Magnesium Sulfate/Dextrose (Magnesium Sulfate/D5w) 1 gm in 100 mls @ 100 mls/hr IV ONCE ONE Stop: 12/20/23 16:10 Levothyroxine Sodium (Levothyroxine Sodium 75 Mcg Tablet) 75 mcg PO DAILY@0600 [facility] Metoprolol Succinate (Metoprolol Succinate Er 25 Mg Tab.Er.24h) 75 mg PO DAILY JUSTINA; Protocol Non-Formulary Medication (Betamethasone Dipropionate) 1 appl TOPICAL DAILY PRN PRN Reason: Rash Non-Formulary Medication (Ferrous Sulfate) 325 mg PO DAILY [facility] Non-Formulary Medication (Magnesium) 200 mg PO BID JUST[facility] Non-Formulary Medication (Rosuvastatin) 5 mg PO Q OTHER DAY [facility] Omeprazole (Omeprazole 20 Mg Capsule.Dr) 20 mg PO DAILY [facility] Sotalol HCl (Sotalol Hcl 80 Mg Tablet) 80 mg PO BID@0800,2000 [facility] Valsartan (Valsartan 40 Mg Tablet) 20 mg PO BID JUSTINA; Protocol Home Medications Medication Instructions Recorded Confirmed Last Taken Type betamethasone dipropionate 0.05 % 1 appl topical DAILY PRN Rash 02/05/22 12/20/23 Unknown History topical ointment metoprolol succinate 50 mg 150 mg PO DAILY 07/05/23 12/20/23 12/20/23 History tablet,extended release 24 hr Physical Exam Vital Signs and Narrative: Vital Signs: Last Vital Signs Temp 97.0 F 12/20/23 14:53 Pulse 73 12/20/23 15:53 Resp 16 12/20/23 15:53 BP 127/72 12/20/23 15:53 Pulse Ox 98 12/20/23 15:53 O2 Del Method Room Air 12/20/23 15:53 O2 Flow Rate 2 12/20/23 15:08 BMI result Body Mass Index 32.5 Appearance: Alert.? Oriented X3.? cvs: rrr, [id number] , no murmur res: clear to auscultation ,no rhonchii or wheezing abd: no rebound or guarding ,nt, bs present. ext pulses present , no cyanosis. neuro: axo3 , nonfocal. Results Labs 12/20/23 14:21 Labs: Laboratory Results - last 24 hr 12/20/23 14:21 Anion Gap 10 L Estim Creat Clear Calc 90.4 Estimated GFR > 60 Random Glucose 87 Calcium 9.5 Assessment and Plan (1) Atrial flutter: Status: Acute Plan 63-year-old male with history of a flutter, cardiomyopathy, JOSE, hypertension, hypothyroidism, obesity, patient also says that has history of asthma mild intermittent.: Patient came with a flutter: Status post cardioversion, started on sotalol loading. A flutter: Status post cardioversion Now on sotalol loading Please repeat EKG 2 hours after sotalol loading which is already ordered-please call Cardiology if QTC is 500 and above. Continue Eliquis uninterrupted Monitor on tele, Cardiology following. Hypertension: Continue metoprolol which is cut down to 75 mg daily since patient is started on sotalol. Continue valsartan. hlp: Continue statin. Asthma mild intermittent: Stable Continue albuterol DVT prophylaxis: With Eliquis Above management discussed with the patient in detail length and Cardiology-will continue to monitor on tele, continue sotalol loading, EKG after 2 hours of sotalol dosing. Continue Eliquis in interrupted\ Patient will benefit from 48-72 hour hospital stay for sotalol loading. Above management discussed with the patient in detail length he understand and in agreement with the above plan, time spent 70 minute, patient is full code. Quality Stroke Does the patient have a stroke diagnosis?: No VTE Prior VTE?: No VTE Risk Level:: Medical - moderate - high VTE Device Contraindication: N/A - Device Ordered VTE Drug Contraindication: N/A - Med Ordered
[2023-12-20 17:26] LABS: Magnesium 1.6 mg/dL (1.6-2.6)
[2023-12-20] MEDS: Magnesium Sulfate/D5W 1 GM/100 ML PIGGYBACK IV (18:44)
[2023-12-20] MEDS: Atorvastatin Calcium 20 MG TABLET PO (18:44)
[2023-12-20] MEDS: Magnesium Oxide 400 MG TABLET 200 MG PO (20:43)
[2023-12-20] MEDS: Valsartan 40 MG TABLET 20 MG PO (20:43)
[2023-12-20] MEDS: Apixaban 5 MG TABLET PO (20:44)
[2023-12-20] MEDS: Sotalol HCL 80 MG TABLET PO (21:21)
--- NOTE | 2023-12-20 23:00 | ECG_ITS ---
Test Reason : 2 hours after sotalol dose x 5 doses Blood Pressure : / mmHG Vent. Rate : 064 BPM Atrial Rate : 064 BPM P-R Int : 218 ms QRS Dur : 150 ms QT Int : 466 ms P-R-T Axes : 080 -50 -19 degrees QTc Int : 480 ms Sinus rhythm with 1st degree A-V block Right bundle branch block Left anterior fascicular block Bifascicular block Abnormal ECG When compared with ECG of 20-DEC-2023 14:55, Nonspecific T wave abnormality has replaced inverted T waves in Anterior leads Referred By: Akira Tran Electronically Signed By:Akira Tran
[2023-12-21 03:25] VITALS: BP 125/61; PULSE 70; RESP 20; TEMP 36.2; O2SAT 93
--- NOTE | 2023-12-21 03:25 | PC.NURSE ---
Went over full sotalol protocol and cardiology note, contacted DR Campbell about QTc and Mag level. Adrian stated okay to go ahead. Med given when available from pharmacy as noted in NOV. EKG taken 2 hours later, aware. pt remains unchanged on the monitor. care of patinent transferred to CIARRA Taylor at aprox 23:30
--- NOTE | 2023-12-21 05:04 | PC.NURSE ---
QTC OVERNIGHT,453 AT 2400 AND 427 AT 0400.
[2023-12-21] MEDS: Omeprazole 20 MG CAPSULE.DR PO (05:54)
[2023-12-21] MEDS: Levothyroxine Sodium 75 MCG TABLET PO (05:54)
[2023-12-21] MEDS: Lactated Ringers 1,000 ML 100 ML IVCONT (06:23)
[2023-12-21 07:03] VITALS: BP 123/75; PULSE 63; RESP 18; TEMP 36.3; O2SAT 95
[2023-12-21 07:37] LABS: Anion Gap 13 (12-20); Blood Urea Nitrogen 15 mg/dL (9-16); Calcium 9.2 mg/dL (8.4-10.2); Carbon Dioxide 26 mmol/L (22-29); Chloride 106 mmol/L (96-108); Creatinine Clr Calc Pharmacy 107.5; Estimated Glomerular Filt Rate > 60; Glucose Random 88 mg/dL (60-115); Magnesium 1.8 mg/dL (1.6-2.6); Potassium 4.2 mmol/L (3.3-5.1); Sodium 141 mmol/L (135-145)
--- NOTE | 2023-12-21 07:52 | ECG_ITS ---
Test Reason : sotolol protocol Blood Pressure : / mmHG Vent. Rate : 065 BPM Atrial Rate : 065 BPM P-R Int : 218 ms QRS Dur : 150 ms QT Int : 472 ms P-R-T Axes : 081 -50 -09 degrees QTc Int : 490 ms Sinus rhythm with 1st degree A-V block Right bundle branch block Left anterior fascicular block Bifascicular block Abnormal ECG When compared with ECG of 20-DEC-2023 23:01, Nonspecific T wave abnormality, improved in Anterior leads Referred By: Akira Tran Electronically Signed By:Akira Tran
[2023-12-21] MEDS: Ferrous Sulfate 324 MG TABLET.DR PO (08:07)
[2023-12-21] MEDS: Magnesium Oxide 400 MG TABLET 200 MG PO ×2 (08:07→21:07)
[2023-12-21] MEDS: Apixaban 5 MG TABLET PO ×2 (08:07→21:07)
[2023-12-21] MEDS: Sotalol HCL 80 MG TABLET PO ×2 (08:07→21:07)
[2023-12-21] MEDS: Metoprolol Succinate ER 25 MG TAB.ER.24H 75 MG PO (08:08)
[2023-12-21] MEDS: Valsartan 40 MG TABLET 20 MG PO ×2 (08:08→21:07)
[2023-12-21] MEDS: Magnesium Sulfate/D5W 1 GM/100 ML PIGGYBACK IV (09:07)
--- NOTE | 2023-12-21 10:00 | ECG_ITS ---
Test Reason : sotolol protocol Blood Pressure : / mmHG Vent. Rate : 068 BPM Atrial Rate : 068 BPM P-R Int : 240 ms QRS Dur : 146 ms QT Int : 482 ms P-R-T Axes : 077 -56 -14 degrees QTc Int : 512 ms Sinus rhythm with 1st degree A-V block with Premature atrial complexes Right bundle branch block Left anterior fascicular block Bifascicular block Abnormal ECG When compared with ECG of 21-DEC-2023 07:45, Premature atrial complexes are now Present Referred By: Akira Tran Electronically Signed By:Akira Tran
[2023-12-21 10:47] VITALS: BP 114/61; PULSE 66; RESP 20; TEMP 37.2; O2SAT 96
--- NOTE | 2023-12-21 11:21 | PM.PNCARD ---
Subjective Subjective Date of Service: 12/21/23 Interval history: Seen and examined at bedside. Status post cardioversion for atrial flutter and is currently on sotalol loading. He has right bundle-branch block with starting QTC of 479 milliseconds. Physical Exam Vital Signs: Last Vital Signs Temp 98.9 F 12/21/23 10:47 Pulse 66 12/21/23 10:47 Resp 20 12/21/23 10:47 BP 114/61 12/21/23 10:47 Pulse Ox 96 12/21/23 10:47 O2 Del Method Room Air 12/21/23 10:47 O2 Flow Rate 2 12/20/23 15:08 BMI result Body Mass Index 32.5 GENERAL APPEARANCE: in no acute distress, pleasant. NECK: no carotid bruit, no jugular venous distention. SKIN: no suspicious lesions, warm and dry. HEART: no murmurs, regular rate and rhythm. LUNGS: clear to auscultation bilaterally. ABDOMEN: soft, nontender. EXTREMITIES: no edema. PERIPHERAL PULSES: equal. NEUROLOGIC: No gross deficits, AAO X 3 Objective Labs and Meds 12/21/23 06:03 Lab results: Laboratory Results - last 24 hr 12/20/23 12/20/23 12/21/23 14:21 17:07 06:03 Hold Purple Top SEE NOTE Sodium 140 141 Potassium 4.3 4.2 Chloride 108 106 Carbon Dioxide 26 26 Anion Gap 10 L 13 BUN 17 H 15 Creatinine 1.14 0.96 Estim Creat Clear Calc 90.4 107.5 Estimated GFR > 60 > 60 Random Glucose 87 88 Calcium 9.5 9.2 Magnesium 1.6 1.8 Progress Note: A&P Assessment and plan (1) Encounter for monitoring sotalol therapy: Status: Acute (2) Atrial flutter: Status: Acute Plan Pleasant 63 year gentleman background of cardiomyopathy, atrial fibrillation status post ablation who presented with atrial flutter and heart failure. He was brought in for outpatient cardioversion and then admitted for sotalol loading. He has right bundle-branch block and left anterior fascicular block at baseline and his baseline QTC was 479 milliseconds. Magnesium has been repleted. His QT interval is 512 after 2 doses of sotalol at this point. As long as his QT interval does not cross 550 milliseconds I think we should continue sotalol. Magnesium level should be monitor closely and repleted. He has some background of alcohol use in the past. Would favor giving him oral magnesium supplementation on discharge 2. Avoid any QT prolonging medications. I have advised him to avoid Z-Leonid and levofloxacin in particular. Clinically euvolemic. Toprol-XL dose has been decreased to 75 mg daily. Thank you for allowing me to participate in the care of your patient. Please feel free to contact me if you have any questions. Time Spent With Patient Time: Total time managing care of this patient today ____ minutes. Progress Note: Quality Stroke Does the patient have a stroke diagnosis?: No Procedures Date of Service Date of Service: 12/21/23
--- NOTE | 2023-12-21 12:28 | PHA.MEDREC ---
Pharmacy Consult ? Medication Reconciliation Pharmacy has reviewed the medication reconciliation.
--- NOTE | 2023-12-21 12:58 | HO.POSTANES ---
Post Anesthesia Evaluation Post Anesthesia Evaluation Date of Service: 12/21/23 Vital Signs: Vital Signs Temp Pulse Resp BP Pulse Ox O2 Del Method 12/21/23 10:47 98.9 F 66 20 114/61 96 Room Air 12/21/23 07:03 97.3 F 63 18 123/75 95 Room Air 12/21/23 03:25 97.2 F 70 20 125/61 93 Room Air Anesthesia: General Mental Status: Awake Pain Control: Satisfactory Nausea/Vomiting: None Hydration: Adequate Anesthesia-Related Issues: No Anes. Related Issues
--- NOTE | 2023-12-21 13:00 | ECG_ITS ---
Test Reason : repeat ekg Blood Pressure : / mmHG Vent. Rate : 067 BPM Atrial Rate : 067 BPM P-R Int : 216 ms QRS Dur : 132 ms QT Int : 452 ms P-R-T Axes : 071 -50 -32 degrees QTc Int : 477 ms Sinus rhythm with 1st degree A-V block with occasional Premature ventricular complexes Left axis deviation Right bundle branch block Inferior infarct , age undetermined Abnormal ECG When compared with ECG of 21-DEC-2023 10:03, Premature ventricular complexes are now Present Premature atrial complexes are no longer Present Inferior infarct is now Present T wave inversion more evident in Inferior leads Referred By: Akira Tran Electronically Signed By:Akira Tran
--- NOTE | 2023-12-21 13:01 | P.PNIM_ITS ---
Subjective Subjective Date of Service: 12/21/23 Interval History: Seen and evaluated this morning in regular sinus rhythm QTc prolonged to 510 no reported events Review of Systems Review of Systems: Yes all other systems are reviewed and are negative Physical Exam 2 Vital Signs: Vital Signs: Last Vital Signs Temp 98.9 F 12/21/23 10:47 Pulse 66 12/21/23 10:47 Resp 20 12/21/23 10:47 BP 114/61 12/21/23 10:47 Pulse Ox 96 12/21/23 10:47 O2 Del Method Room Air 12/21/23 10:47 O2 Flow Rate 2 12/20/23 15:08 BMI result Body Mass Index 32.5 Const: Other: Constitutional : Awake, interactive, not in distress Neck : Normal inspection, Supple Cardiovascular : RRR, no JVP, no lower extremity edema Respiratory : good bilateral air entry, no crackles, wheezes or rhonchi Gastrointestinal: soft, lax, Normal bowel sounds, Non tender Skin : Warm, Dry Neurological : Alert & oriented x3, No focal deficit Objective Data Active Medications Albuterol Sulfate (Albuterol Sulfate (0.083%) 2.5 Mg/3 Ml Vial.Neb) 2.5 mg INHALE Q4H PRN PRN Reason: Wheezing Apixaban (Apixaban 5 Mg Tablet) 5 mg PO BID [facility] Last Admin: 12/21/23 08:07 Dose: 5 mg Documented By: STEWART Atorvastatin Calcium (Atorvastatin Calcium 20 Mg Tablet) 20 mg PO Q48H [facility] Last Admin: 12/20/23 18:44 Dose: 20 mg Documented By: STEWART Ferrous Sulfate (Ferrous Sulfate 324 Mg Tablet.) 324 mg PO DAILY [facility] Last Admin: 12/21/23 08:07 Dose: 324 mg Documented By: STEWART Lactic Acid (Ammonium Lactate 12 % Lotion 226 Gm Bottle) 1 appl TOPICAL BID [facility]; Protocol Levothyroxine Sodium (Levothyroxine Sodium 75 Mcg Tablet) 75 mcg PO DAILY@0600 [facility] Last Admin: 12/21/23 05:54 Dose: 75 mcg Documented By: RHONDA Magnesium Oxide (Magnesium Oxide 400 Mg Tablet) 200 mg PO BID [facility] Last Admin: 12/21/23 08:07 Dose: 200 mg Documented By: STEWART Metoprolol Succinate (Metoprolol Succinate Er 25 Mg Tab.Er.24h) 75 mg PO DAILY [facility]; Protocol Last Admin: 12/21/23 08:08 Dose: 75 mg Documented By: STEWART Omeprazole (Omeprazole 20 Mg Capsule.) 20 mg PO DAILY@0630 [facility] Last Admin: 12/21/23 05:54 Dose: 20 mg Documented By: RHONDA Sotalol HCl (Sotalol Hcl 80 Mg Tablet) 80 mg PO BID@0800,1999 [facility] Last Admin: 12/21/23 08:07 Dose: 80 mg Documented By: STEWART Triamcinolone Acetonide (Triamcinolone Acet 0.5 % Cream 15 Gm Tube) 1 appl TOPICAL DAILY PRN PRN Reason: Rash Valsartan (Valsartan 40 Mg Tablet) 20 mg PO BID [facility]; Protocol Last Admin: 12/21/23 08:08 Dose: 20 mg Documented By: STEWART Labs 12/21/23 06:03 Labs: Laboratory Results - last 24 hr 12/20/23 12/20/23 12/21/23 14:21 17:07 06:03 Hold Purple Top SEE NOTE Anion Gap 10 L 13 Estim Creat Clear Calc 90.4 107.5 Estimated GFR > 60 > 60 Random Glucose 87 88 Calcium 9.5 9.2 Magnesium 1.6 1.8 Assessment and Plan (1) Encounter for monitoring sotalol therapy: Status: Acute Plan 63-year-old male with history of a flutter, cardiomyopathy, JOSE, hypertension, hypothyroidism, obesity, patient also says that has history of asthma mild intermittent.: Patient came with a flutter: Status post cardioversion, started on sotalol loading. Persistent A flutter S\P cardioversion for Sotalol therapy on sotalol loading Last QTc 510, discussed with Cardiology; ok up to 550 given he has RBBB repeat EKG 2 hours after sotalol Continue Eliquis uninterrupted Decrease Metoprolol XL to 75 mg Monitor on tele Cardiology following. Hypertension Continue valsartan. HLD Continue statin. Asthma mild intermittent Stable, Continue albuterol DVT prophylaxis: Eliquis Patient will benefit from 48-72 hour hospital stay for sotalol loading as it can not be done in any less acute facility. Quality Stroke Does the patient have a stroke diagnosis?: No VTE Prior VTE?: No VTE Risk Level:: Medical - moderate - high VTE Device Contraindication: N/A - Device Ordered VTE Drug Contraindication: N/A - Med Ordered
--- NOTE | 2023-12-21 13:17 | MHC.CM.PN ---
IMM 12/21/23 Male 63 DX A-flutter He lives with his . He is independent with all functional mobility. DP home self care. Patient will provide transportation home.
[2023-12-21 15:19] VITALS: BP 125/70; PULSE 65; RESP 20; TEMP 36.2; O2SAT 98
[2023-12-21] MEDS: Ammonium Lactate 12 % Lotion 226 GM BOTTLE 1 APPL TOPICAL (15:37)
[2023-12-21] MEDS: Triamcinolone Acet 0.5 % Cream 15 GM TUBE 1 APPL TOPICAL (15:39)
[2023-12-21 19:44] VITALS: BP 117/66; PULSE 69; RESP 20; TEMP 36.6; O2SAT 97
--- NOTE | 2023-12-21 20:18 | ECG_ITS ---
Test Reason : med protocol Blood Pressure : / mmHG Vent. Rate : 068 BPM Atrial Rate : 068 BPM P-R Int : 236 ms QRS Dur : 130 ms QT Int : 475 ms P-R-T Axes : 082 -56 -39 degrees QTc Int : 506 ms Sinus rhythm with 1st degree A-V block with Premature atrial complexes Left axis deviation Right bundle branch block Abnormal ECG When compared with ECG of 21-DEC-2023 13:03, Premature ventricular complexes are no longer Present Premature atrial complexes are now Present Referred By: Kirsten Campbell Electronically Signed By:Akira Tran
[2023-12-21] MEDS: Acetaminophen 325 MG TABLET 650 MG PO (21:11)
--- NOTE | 2023-12-21 23:03 | ECG_ITS ---
Test Reason : med protocal Blood Pressure : / mmHG Vent. Rate : 067 BPM Atrial Rate : 067 BPM P-R Int : 222 ms QRS Dur : 150 ms QT Int : 480 ms P-R-T Axes : 069 -53 -10 degrees QTc Int : 507 ms Sinus rhythm with 1st degree A-V block with Premature atrial complexes Right bundle branch block Left anterior fascicular block Bifascicular block Abnormal ECG When compared with ECG of 21-DEC-2023 20:18, No significant change was found Referred By: Kirsten Campbell Electronically Signed By:Akira Tran
[2023-12-21 23:11] VITALS: BP 116/71; PULSE 60; RESP 20; TEMP 36.4; O2SAT 94
--- NOTE | 2023-12-22 | ECG_ITS ---
Test Reason : qtc check Blood Pressure : / mmHG Vent. Rate : 059 BPM Atrial Rate : 059 BPM P-R Int : 224 ms QRS Dur : 148 ms QT Int : 512 ms P-R-T Axes : 056 -53 -18 degrees QTc Int : 506 ms Sinus bradycardia with 1st degree A-V block Right bundle branch block Left anterior fascicular block Bifascicular block Abnormal ECG When compared with ECG of 21-DEC-2023 23:03, Premature atrial complexes are no longer Present Referred By: Kirsten Campbell Electronically Signed By:Akira Tran
[2023-12-22 03:29] VITALS: BP 115/71; PULSE 61; RESP 20; TEMP 36.4; O2SAT 95
[2023-12-22] MEDS: Levothyroxine Sodium 75 MCG TABLET PO (06:19)
[2023-12-22] MEDS: Omeprazole 20 MG CAPSULE.DR PO (06:19)
[2023-12-22 07:06] VITALS: BP 110/74; PULSE 62; RESP 18; TEMP 36.1; O2SAT 96
[2023-12-22 07:15] LABS: Anion Gap 11 (12-20); Blood Urea Nitrogen 12 mg/dL (9-16); Calcium 9.3 mg/dL (8.4-10.2); Carbon Dioxide 23 mmol/L (22-29); Chloride 107 mmol/L (96-108); Creatinine Clr Calc Pharmacy 108.6; Estimated Glomerular Filt Rate > 60; Glucose Random 91 mg/dL (60-115); Magnesium 1.9 mg/dL (1.6-2.6); Potassium 4.2 mmol/L (3.3-5.1); Sodium 137 mmol/L (135-145)
[2023-12-22 07:26] LABS: Hematocrit 39.7 % (42.0-52.0); Hemoglobin 13.7 g/dl (14.0-18.0); Mean Corpuscular HGB Conc 34.5 g/dl (31.0-36.0); Mean Corpuscular Hemoglobin 32.2 pg (27.0-33.0); Mean Corpuscular Volume 93.4 fL (80.0-98.0); Platelet Count 105 X10*3/uL (160-400); Red Blood Count 4.25 X10*6/uL (4.60-5.80); Red Cell Distribution Width 12.4 % (11.0-16.0); White Blood Count 5.1 X10*3/uL (4.8-10.8)
--- NOTE | 2023-12-22 09:20 | PM.PNCARD ---
Subjective Subjective Date of Service: 12/22/23 Interval history: Seen examined at bedside. Tolerating sotalol okay so far. Asymptomatic. Physical Exam Vital Signs: Last Vital Signs Temp 96.9 F 12/22/23 07:06 Pulse 62 12/22/23 07:06 Resp 18 12/22/23 07:06 BP 110/74 12/22/23 07:06 Pulse Ox 96 12/22/23 07:06 O2 Del Method Room Air 12/22/23 07:06 O2 Flow Rate 2 12/20/23 15:08 BMI result Body Mass Index 32.5 GENERAL APPEARANCE: in no acute distress, pleasant. NECK: no carotid bruit, no jugular venous distention. SKIN: no suspicious lesions, warm and dry. HEART: no murmurs, regular rate and rhythm. LUNGS: clear to auscultation bilaterally. ABDOMEN: soft, nontender. EXTREMITIES: no edema. PERIPHERAL PULSES: equal. NEUROLOGIC: No gross deficits, AAO X 3 Objective Labs and Meds 12/22/23 06:27 12/22/23 06:27 Lab results: Laboratory Results - last 24 hr 12/22/23 06:27 WBC 5.1 RBC 4.25 L Hgb 13.7 L Hct 39.7 L MCV 93.4 MCH 32.2 MCHC 34.5 RDW 12.4 Plt Count 105 L D MPV 10.0 Absolute Nucleated RBC 0.000 Nucleated RBC % (auto) 0.0 Sodium 137 Potassium 4.2 Chloride 107 Carbon Dioxide 23 Anion Gap 11 L BUN 12 Creatinine 0.95 Estim Creat Clear Calc 108.6 Estimated GFR > 60 Random Glucose 91 Calcium 9.3 Magnesium 1.9 Progress Note: A&P Assessment and plan (1) Encounter for monitoring sotalol therapy: Status: Acute (2) Atrial flutter: Status: Acute Plan [age] year gentleman with atrial flutter and congestive heart failure. He underwent cardioversion successfully. He has been started on sotalol. He has right bundle-branch block. QTC so far has not cross 550. Last EKG showing QTC of 532. I think he can continue sotalol for now. Recommend rechecking the QT interval before the next dose and 2 hours after the next dose. Monitor potassium closely. Keep magnesium close to 2. He should be started on magnesium oxide oral supplements. If stable by tomorrow then home in the morning. Thank you for allowing me to participate in the care of your patient. Please feel free to contact me if you have any questions. Time Spent With Patient Time: Total time managing care of this patient today ____ minutes. Progress Note: Quality Stroke Does the patient have a stroke diagnosis?: No Procedures Date of Service Date of Service: 12/22/23
[2023-12-22] MEDS: Magnesium Oxide 400 MG TABLET 200 MG PO ×2 (09:37→20:26)
[2023-12-22] MEDS: Ammonium Lactate 12 % Lotion 226 GM BOTTLE 1 APPL TOPICAL (09:37)
[2023-12-22] MEDS: Apixaban 5 MG TABLET PO ×2 (09:37→20:26)
[2023-12-22] MEDS: Ferrous Sulfate 324 MG TABLET.DR PO (09:37)
[2023-12-22] MEDS: Valsartan 40 MG TABLET 20 MG PO ×2 (09:38→20:26)
[2023-12-22] MEDS: Metoprolol Succinate ER 25 MG TAB.ER.24H 75 MG PO (09:38)
[2023-12-22] MEDS: Sotalol HCL 80 MG TABLET PO ×2 (09:39→20:26)
[2023-12-22 10:59] VITALS: BP 104/60; PULSE 69; RESP 20; TEMP 36.2; O2SAT 95
--- NOTE | 2023-12-22 11:46 | HO.PM.IMPN ---
Subjective Subjective Date of Service: 12/22/23 Interval History: no complaints Physical Exam Vital Signs: Vital Signs: Last Vital Signs Temp 97.2 F 12/22/23 10:59 Pulse 69 12/22/23 10:59 Resp 20 12/22/23 10:59 BP 104/60 12/22/23 10:59 Pulse Ox 95 12/22/23 10:59 O2 Del Method Room Air 12/22/23 10:59 O2 Flow Rate 2 12/20/23 15:08 BMI result Body Mass Index 32.5 General: AO X 3, no acute distress Resp: CTA bilateral, no accessory muscles used CVS: S1,S2,RRR GI: soft, non tender, non distended Neuro: motor grossly intact, alert Psych: appropriate affect, appropriate insight Objective Data Active Medications Acetaminophen (Acetaminophen 325 Mg Tablet) 650 mg PO Q4H PRN PRN Reason: Pain, Mild (Pain Scale 1-3) Last Admin: 12/21/23 21:11 Dose: 650 mg Documented By: ASYA Albuterol Sulfate (Albuterol Sulfate (0.083%) 2.5 Mg/3 Ml Vial.Neb) 2.5 mg INHALE Q4H PRN PRN Reason: Wheezing Apixaban (Apixaban 5 Mg Tablet) 5 mg PO BID [facility] Last Admin: 12/22/23 09:37 Dose: 5 mg Documented By: LE Atorvastatin Calcium (Atorvastatin Calcium 20 Mg Tablet) 20 mg PO Q48H [facility] Last Admin: 12/20/23 18:44 Dose: 20 mg Documented By: STEWART Ferrous Sulfate (Ferrous Sulfate 324 Mg Tablet.) 324 mg PO DAILY [facility] Last Admin: 12/22/23 09:37 Dose: 324 mg Documented By: LE Lactic Acid (Ammonium Lactate 12 % Lotion 226 Gm Bottle) 1 appl TOPICAL BID [facility]; Protocol Last Admin: 12/22/23 09:37 Dose: 1 appl Documented By: LE Levothyroxine Sodium (Levothyroxine Sodium 75 Mcg Tablet) 75 mcg PO DAILY@0600 [facility] Last Admin: 12/22/23 06:19 Dose: 75 mcg Documented By: ASYA Magnesium Oxide (Magnesium Oxide 400 Mg Tablet) 200 mg PO BID [facility] Last Admin: 12/22/23 09:37 Dose: 200 mg Documented By: LE Metoprolol Succinate (Metoprolol Succinate Er 25 Mg Tab.Er.24h) 75 mg PO DAILY [facility]; Protocol Last Admin: 12/22/23 09:38 Dose: 75 mg Documented By: LE Omeprazole (Omeprazole 20 Mg Capsule.) 20 mg PO DAILY@0630 [facility] Last Admin: 12/22/23 06:19 Dose: 20 mg Documented By: ASYA Sotalol HCl (Sotalol Hcl 80 Mg Tablet) 80 mg PO BID@0800,1999 [facility] Last Admin: 12/22/23 09:39 Dose: 80 mg Documented By: LE Triamcinolone Acetonide (Triamcinolone Acet 0.5 % Cream 15 Gm Tube) 1 appl TOPICAL DAILY PRN PRN Reason: Rash Last Admin: 12/21/23 15:39 Dose: 1 appl Documented By: STEWART Valsartan (Valsartan 40 Mg Tablet) 20 mg PO BID [facility]; Protocol Last Admin: 12/22/23 09:38 Dose: 20 mg Documented By: LE Labs 12/22/23 06:27 12/22/23 06:27 Labs: Laboratory Results - last 24 hr 12/22/23 06:27 MCV 93.4 MCH 32.2 MCHC 34.5 RDW 12.4 Plt Count 105 L D MPV 10.0 Absolute Nucleated RBC 0.000 Nucleated RBC % (auto) 0.0 Anion Gap 11 L Estim Creat Clear Calc 108.6 Estimated GFR > 60 Random Glucose 91 Calcium 9.3 Magnesium 1.9 Assessment and Plan (1) Encounter for monitoring sotalol therapy: Status: Acute Plan 63-year-old male with history of a flutter, cardiomyopathy, JOSE, hypertension, hypothyroidism, obesity, patient also says that has history of asthma mild intermittent.: Patient came with a flutter: Status post cardioversion, started on sotalol loading. Persistent A flutter S\P cardioversion for Sotalol therapy on sotalol loading Last QTc 506, discussed with Cardiology; ok up to 550 given he has RBBB repeat EKG 2 hours after sotalol Continue Eliquis uninterrupted Decreased Metoprolol XL to 75 mg Monitor on tele Cardiology following. Hypertension Continue valsartan. HLD Continue statin. Asthma mild intermittent Stable, Continue albuterol DVT prophylaxis: Eliquis Patient will benefit from 48-72 hour hospital stay for sotalol loading as it can not be done in any less acute facility. Quality Stroke Does the patient have a stroke diagnosis?: No VTE Prior VTE?: No VTE Risk Level:: Medical - moderate - high VTE Device Contraindication: N/A - Device Ordered VTE Drug Contraindication: N/A - Med Ordered
--- NOTE | 2023-12-22 11:51 | ECG_ITS ---
Test Reason : Sotalol Blood Pressure : / mmHG Vent. Rate : 067 BPM Atrial Rate : 067 BPM P-R Int : 224 ms QRS Dur : 142 ms QT Int : 488 ms P-R-T Axes : 063 -50 -36 degrees QTc Int : 516 ms Sinus rhythm with 1st degree A-V block with Premature atrial complexes Right bundle branch block Left anterior fascicular block Bifascicular block Abnormal ECG When compared with ECG of 22-DEC-2023 07:55, Premature atrial complexes are now Present Referred By: Bj Briggs Electronically Signed By:Akira Tran
[2023-12-22 15:28] VITALS: BP 113/65; PULSE 60; RESP 18; TEMP 36.2; O2SAT 95
[2023-12-22] MEDS: Atorvastatin Calcium 20 MG TABLET PO (16:21)
[2023-12-22] MEDS: Acetaminophen 325 MG TABLET 650 MG PO (16:21)
--- NOTE | 2023-12-22 19:27 | ECG_ITS ---
Test Reason : started on Sotalol Blood Pressure : / mmHG Vent. Rate : 062 BPM Atrial Rate : 062 BPM P-R Int : 228 ms QRS Dur : 144 ms QT Int : 508 ms P-R-T Axes : 068 -52 -32 degrees QTc Int : 516 ms Sinus rhythm with 1st degree A-V block with Premature atrial complexes Right bundle branch block Left anterior fascicular block Bifascicular block Abnormal ECG When compared with ECG of 22-DEC-2023 12:03, No significant change was found Referred By: Bj Briggs Electronically Signed By:Akira Tran
[2023-12-22 19:35] VITALS: BP 112/61; PULSE 64; RESP 18; TEMP 36.9; O2SAT 94
--- NOTE | 2023-12-22 20:29 | PC.NURSE ---
QTc 521 before night time dose of Sotalol , DR Campbell was notified and gave okay to administer the medication.
--- NOTE | 2023-12-22 22:30 | ECG_ITS ---
Test Reason : Sotalol protocol Blood Pressure : / mmHG Vent. Rate : 059 BPM Atrial Rate : 059 BPM P-R Int : 220 ms QRS Dur : 148 ms QT Int : 506 ms P-R-T Axes : 069 -56 -23 degrees QTc Int : 500 ms Sinus bradycardia with 1st degree A-V block Right bundle branch block Left anterior fascicular block Bifascicular block Abnormal ECG When compared with ECG of 22-DEC-2023 19:30, Premature atrial complexes are no longer Present Referred By: Bj Briggs Electronically Signed By:Akira Tran
[2023-12-22 23:48] VITALS: BP 122/71; PULSE 62; RESP 18; TEMP 36.4; O2SAT 97
[2023-12-23 04:00] VITALS: BP 111/55; PULSE 70; RESP 18; TEMP 36.9; O2SAT 95
[2023-12-23] MEDS: Omeprazole 20 MG CAPSULE.DR PO (06:16)
[2023-12-23] MEDS: Levothyroxine Sodium 75 MCG TABLET PO (06:16)
[2023-12-23 07:34] VITALS: BP 107/63; PULSE 56; RESP 20; TEMP 36.3; O2SAT 93
--- NOTE | 2023-12-23 08:00 | ECG_ITS ---
Test Reason : sotolol Blood Pressure : / mmHG Vent. Rate : 064 BPM Atrial Rate : 064 BPM P-R Int : 228 ms QRS Dur : 144 ms QT Int : 504 ms P-R-T Axes : 048 -54 -30 degrees QTc Int : 519 ms Sinus rhythm with 1st degree A-V block with Premature atrial complexes Right bundle branch block Left anterior fascicular block Bifascicular block Abnormal ECG When compared with ECG of 22-DEC-2023 22:14, Premature atrial complexes are now Present Referred By: Bj Briggs Electronically Signed By:Akira Tran
--- NOTE | 2023-12-23 08:30 | PC.NURSE ---
EKG shows QTC is 519 prior to sotalol administration. Cardiology note states okay to give as long as under 550.
[2023-12-23] MEDS: Valsartan 40 MG TABLET 20 MG PO (08:39)
[2023-12-23] MEDS: Apixaban 5 MG TABLET PO (08:39)
[2023-12-23] MEDS: Ferrous Sulfate 324 MG TABLET.DR PO (08:40)
[2023-12-23] MEDS: Sotalol HCL 80 MG TABLET PO (08:40)
[2023-12-23] MEDS: Magnesium Oxide 400 MG TABLET 200 MG PO (08:40)
--- NOTE | 2023-12-23 08:40 | PM.DS ---
DS: Providers Provider Date of Service: 12/23/23 Date of admission: 12/20/23 15:11 Primary care physician: Yancy Giles MD DS: Diagnosis Discharge Diagnosis (1) Encounter for monitoring sotalol therapy: Status: Acute (2) Atrial flutter: Status: Acute DS: Summary Hospital Course Hospital Course: from initial hpi: 63-year-old male with history of a flutter, cardiomyopathy, JOSE, hypertension, hypothyroidism, obesity, patient also says that has history of asthma mild intermittent.: Patient came to the hospital for possible aflutter for [id number] also has background history of nonischemic cardiomyopathy, atrial fibrillation for which he underwent cardioversion and was on amiodarone, he also has RA aflutter for which he was admitted in and underwent cardioversion that time was on amiodarone . In : Patient also had ablation procedure for AFib and also SVT ablation was attempted but no SVT could be induced. Afterwards patient was taken off amiodarone by EP. 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 Patient will be started on sotalol today evening, GFR seems fine, patient took his Eliquis this morning around 08:00 o'clock. EKG reviewed: QTC is around 479 but has right bundle branch block. Patient is status post cardioversion, currently patient is NSR, started on sotalol Chest x-ray seems fine except mild chronic bronchial thickening. hospital course: Patient was admitted for persistent atrial flutter status post cardioversion for sotalol therapy. Sotalol was initiated. EKGs had QTcs in low 500s. Tolerated well. Patient advised to avoid QT prolonging meds such as fluoroquinolones. Metoprolol was decreased to 75 mg. For hypertension was continued on losartan. For hyperlipidemia was continue on statin. For mild intermittent asthma was stable and continued on albuterol. For obesity weight loss recommended. Patient is stable and will be discharged home. Time Attestation Discharge Coordination Time (in mins): 35 Quality: Safe Use of Opioids Does Pt have an Active Cancer Diagnosis on the Problem List?: No Quality: Stroke Does the patient have a stroke diagnosis?: No Physical Exam Vital Signs: Vital Signs: Last Vital Signs Temp 97.3 F 12/23/23 07:34 Pulse 56 12/23/23 07:34 Resp 20 12/23/23 07:34 BP 107/63 12/23/23 07:34 Pulse Ox 93 12/23/23 07:34 O2 Del Method Room Air 12/23/23 07:34 O2 Flow Rate 2 12/20/23 15:08 BMI result Body Mass Index 32.5 General: AO X 3, no acute distress Resp: CTA bilateral, no accessory muscles used CVS: S1,S2,RRR GI: soft, non tender, non distended Neuro: motor grossly intact, alert Psych: appropriate affect, appropriate insight DS: Data Data Completed and Pending Completed studies during hospitalization [Text1]: Procedures Christian of Cardiac Rhythm, Single (12/17/22) Discharge Plan Discharge Anticipated Discharge Date/Time: 12/23/23 08:38 Patient Disposition: Home, Self-Care Discharge Diagnosis: sotalol initiation Referrals: Yancy Giles MD [Primary Care Provider] - 1 Week Discharge Medications: New sotalol 80 mg Tablet 80 mg PO BID@0800,2000 Qty: 180 0RF metoprolol succinate 25 mg Tablet Extended Release 24 Hr 75 mg PO DAILY Qty: 90 0RF Protocol: Hold for SBP/HR < HOLD for SBP < : 90 HOLD for HR < : 60 Continued ferrous sulfate 325 mg (65 mg iron) tablet 325 mg PO DAILY Qty: 90 1RF rosuvastatin 5 mg tablet 5 mg PO Q OTHER DAY Qty: 45 1RF levothyroxine 75 mcg tablet 75 mcg PO DAILY@0600 Qty: 90 3RF valsartan 40 mg tablet 20 mg PO BID Qty: 90 3RF omeprazole 20 mg capsule,delayed release(DR/EC) 20 mg PO DAILY Qty: 90 2RF albuterol sulfate 90 mcg/actuation HFA aerosol inhaler 2 puff PO Q4H PRN (Reason: shortness of breath or wheezing) Qty: 8.5 4RF magnesium 200 mg tablet 200 mg PO BID Qty: 10 0RF betamethasone dipropionate 0.05 % ointment 1 appl topical DAILY PRN (Reason: Rash) Protocol: Apply to: Apply to: legs apixaban 5 mg tablet 5 mg PO BID Qty: 60 4RF Discontinued metoprolol succinate 50 mg tablet extended release 24 hr 150 mg PO DAILY Rx Instructions: Per , no pm metoprolol Discharge Orders: Discharge Order (Routine); Ordered 12/23/23 Ordered By: Bj Briggs Diet: Advance to usual diet Activity on Discharge: As tolerated Stand Alone Forms: Patient Portal Discharge page Other Ambulatory Orders: Basic Metabolic Panel (Routine) Timeframe: 20231220 Location: Determined by Patient Ordered By: Akira Tran Care Plan Goals: manage aflutter Health Concerns: aflutter Plan of Treatment: decrease toprol to 75mg, continue sotalol, follow up with cardiology Assessment: see above Patient Instructions: Sotalol (By mouth)
[2023-12-23] MEDS: Metoprolol Succinate ER 25 MG TAB.ER.24H 75 MG PO (08:41)
[2023-12-23] MEDS: Ammonium Lactate 12 % Lotion 226 GM BOTTLE 1 APPL TOPICAL (08:42)
--- NOTE | 2023-12-23 09:30 | MHC.CM.PN ---
Pt has been medically cleared for DC, he will go home via family transport, self care.
== END 2023-12-23 09:29 | disposition home or self-care (01) | DRG 310 ==
LOC: HO.SSSA 16:22 → HO.IMC 16:38
PROVIDERS: Internal Medicine; Student in an Organized Health Care Education/Training Program; Admitting Provider Internal Medicine Cardiovascular Disease; PCP Internal Medicine; Visit Provider Internal Medicine
PROC: 5A2204Z Restoration of Cardiac Rhythm, Single (ICD-10-PCS; principal; 2023-12-20 14:30)
DX: I48.92 Unspecified atrial flutter (principal); E03.9 Hypothyroidism, unspecified; J45.20 Mild intermittent asthma, uncomplicated; E78.2 Mixed hyperlipidemia; I45.10 Unspecified right bundle-branch block; G47.33 Obstructive sleep apnea (adult) (pediatric); Z79.01 Long term (current) use of anticoagulants; Z79.890 Hormone replacement therapy; Z79.899 Other long term (current) drug therapy
CPT/HCPCS: 36415; 80048; 83735; 85027; 92960; 93005; J2704; J3475; J7120

== ENCOUNTER 2023-12-20 15:11 | Outpatient (BNV) | payer MEDICARE, MEDICAID, SELFPAY | END 2023-12-23 08:00 | PROVIDERS: Admitting Provider Internal Medicine Cardiovascular Disease; PCP Internal Medicine; Visit Provider Internal Medicine Cardiovascular Disease | DX: I48.92 Unspecified atrial flutter (principal) | CPT/HCPCS: 93010 ==

== ENCOUNTER → 2023-12-20 15:11 | Outpatient (BNV) | payer MEDICARE, MEDICAID, SELFPAY | PROVIDERS: Admitting Provider Internal Medicine Cardiovascular Disease; PCP Internal Medicine; Visit Provider Internal Medicine | DX: Z51.81 Encounter for therapeutic drug level monitoring (principal); Z79.899 Other long term (current) drug therapy; I48.92 Unspecified atrial flutter | CPT/HCPCS: 99222; 99232; 99239 ==

== ENCOUNTER 2023-12-29 09:50 | Outpatient (AMB) | payer MEDICARE, MEDICAID, SELFPAY ==
--- NOTE | 2023-12-29 09:58 | A.OFFPC_ITS ---
Vital Signs 12/29/23 10:07 Height 6 ft 2 in Weight 253 lb BMI 32.5 BP 90/50 L Blood Pressure Location Rt brachial Position Sitting Pulse 70 Pulse Source Pulse Oximeter Pulse Oximetry (%) 96 Oxygen Delivery Method Room Air Intake Visit Reasons: [facility] f/u Intake Note: Pt is here for hi [facility] atrial flutter Allergies lisinopril [Lisinopril] Allergy (Intermediate, Verified 12/29/23 10:46) RASH sulfamethoxazole [From Bactrim] Adverse Reaction (Verified 12/29/23 10:46) Hallucinations trimethoprim [From Bactrim] Adverse Reaction (Verified 12/29/23 10:46) Hallucinations Environmental Allergy (Intermediate, Uncoded 12/29/23 10:46) Shortness of Breath Medication List - Last Reconciled 12/29/23 by Yancy Giles MD albuterol sulfate 90 mcg/actuation 2 puffs PO Q4H PRN apixaban 5 mg PO BID betamethasone dipropionate 0.05% 1 appl See Protocol topical DAILY PRN ferrous sulfate 325 mg PO DAILY levothyroxine 75 mcg PO DAILY@0600 magnesium oxide 250 mg PO DAILY metoprolol succinate ER 50 mg See Protocol PO DAILY omeprazole 20 mg PO DAILY rosuvastatin 5 mg PO Q OTHER DAY sotalol 80 mg PO BID@0800,2000 valsartan 20 mg (1/2 x 40 mg) PO BID Tobacco use date assessed: 12/29/23 Dental Screening Dental Screen Date: 12/29/23 Did you have a dental visit in the last 12 months?: No Was dental information given to patient?: Patient has dentist HPI [facility] f/u HPI Details 63-year-old male with past medical histo ry of cardiomyopathy, checked sleep apnea, hypertension, hypothyroidism, obesity, and history of atrial fibrillation, here today for follow-up after recent admission for atrial flutter. He has history of cardioversion in the past due to atrial fibrillation and was placed on amiodarone. Had cardiac ablation last 05/18/2023 for his atrial fibrillation, taken of amiodarone. However he started having intermittent episodes of palpitation and shortness of breath accompanied by fatigue and lightheadedness, had cardioversion on latest admission and was started on sotalol , and continued on Eliquis, and is now back on sinus rhythm. Patient advised to avoid QT prolonging meds such as fluoroquinolones. Me toprolol was decreased to 75 mg. Losartan for hypertension was continued and on rosuvastatin for treatment of hyperlipidemia. Patient however states that he had difficulty initiating urination upon discharge, and self catheterized with improvement in urine flow reported. He did see some bright red blood mixed in with his urine after procedure done. Up-to-date on that he has been feeling better, with no complaints of chest pain, no palpitation or lightheadedness or shortness of breath. [facility] Medical History (Updated 01/03/24 @ 00:25 by Yancy Giles MD) Hypoxic Thiamine deficiency Erectile dysfunction Eczema of lower extremity History of cardioversion Vitamin D deficiency Alcohol abuse Nonischemic cardiomyopathy Atrial flutter Acute renal insufficiency Anemia Generalized anxiety disorder JOSE (obstructive sleep apnea) Chronic anticoagulation Mixed dyslipidemia Acquired hypothyroidism Nocturnal hypoxemia Obesity Hypothyroid HTN (hypertension) Surgical History History of prostate surgery H/O cardiac radiofrequency ablation History of esophagogastroduodenoscopy (EGD) H/O colonoscopy History of neck surgery Hx of hand surgery Hx of hernia repair Family History Father Atrial fibrillation Mother Heart attack Pacemaker Sister Thyroid disease Brother HTN (hypertension) Sister Colon cancer Social History Household Members: Spouse Housing: House Do you presently have visiting nurse or other home services: No Alcohol intake: current Alcohol intake frequency: holidays/special occasions only Alcohol type: beer and wine Comment: scheduled med Patient Tobacco Use Status: Never used Tobacco e-Cigarette/Vaping Use: Never Used Advance Directives Date on File: 12/26/20 service: No Current occupational status: disabled Cognitive needs: No Hearing needs: No Vision needs: Yes Questionnaire PHQ-9 Over the last 2 weeks, how often have you been bothered by any of the following problems? 1. Little interest or pleasure in doing things: not at all 2. Feeling down, depressed, or hopeless: not at all 3. Trouble falling or staying asleep, or sleeping too much: not at all 4. Feeling tired or having little energy: not at all 5. Poor appetite or overeating: not at all 6. Feeling bad about yourself - or that you are a failure or have let yourself or your family down: not at all 7. Trouble concentrating on things, such as reading the newspaper or watching television: not at all 8. Moving or speaking so slowly that other people could have noticed. Or the opposite - being so fidgety or restless that you have been moving around a lot more than usual: not at all 9. Thoughts that you would be better off or of hurting yourself in some way: not at all Total score: 0 Depression Screening Interpretation: Negative Depression Screening Done: Yes Source: Developed by Drs. Vincent Diaz, Beth Sung, Yandel stevenson nd colleagues, with an educational celena from [employer]. Thrive Questionnaire Date Thrive assessed: 12/29/23 I am a: Patient What is your living situation today?: I have a steady place to live Within the past 12 months, did the food you bought not last and you didn't have the money to get more?: Never true Within the past 12 months, did you worry whether your food would run out before you got money to buy more?: Never true Do you have trouble paying for medicines?: No Do you have trouble getting transportation to medical appointments?: No Do you have trouble paying your heating and electricity bill?: No Do you have trouble taking care of your child, family member or friend?: No Do you have trouble with day-to-day activities such as bathing, preparing meals, shopping, managing finances, etc.?: No Are you currently unemployed and looking for a job?: No Are you interested in more education?: No THRIVE Score: 0 AUDIT C Alcohol Use Questionnaire (AUDIT-C) 1. How often do you have a drink containing alcohol?: Never Total Score: 0 MARKO-7 AMB Questionnaire MARKO-7 Date MARKO - 7 assessed: 12/29/23 Feeling nervous, anxious, or on edge: 0 = Not at all Not being able to stop or control worryin = Not at all Worrying too much about different things: 0 = Not at all Trouble relaxin = Not at all Being so restless that it is hard to sit still: 0 = Not at all Becoming easily annoyed or irritable: 0 = Not at all Feeling afraid as if something awful might happen: 0 = Not at all Total MARKO-7 score (0-4 normal; 5-9 mild; 10-14 moderate; 15-21 severe): 0 Source: Developed by Drs. Vincent Diaz, Beth Sung, Yandel Marinelli and colleagues, with an educational celena from [employer]. Review of Systems Const Denies chills, Reports fatigue, Denies fever(s), Denies frequent falls, Denies weakness, Denies weight gain and Denies weight loss ENT Denies dizziness Card Denies chest pain, Denies leg edema, Denies lightheadedness, Denies dyspnea and Denies dyspnea on exertion Resp Denies cough, Denies dyspnea and Denies dyspnea on exertion GI Denies hematochezia Reports as per HPI, Denies difficulty urinating and Denies dysuria Musc Denies abnormal gait, Denies muscle weakness, Denies numbness, Denies radiating pain into limb and Denies tingling Neuro Denies abnormal gait, Denies dizziness, Denies frequent falls, Denies numbness, Denies tingling and Denies weakness Psych Reports no additional complaints Endo Reports fatigue Mansoor/Lymph Reports no additional complaints Physical exam (Primary Care) Vital Signs: Last Vital Signs Pulse 70 12/29/23 10:07 BP 90/50 L 12/29/23 10:07 Pulse Ox 96 12/29/23 10:07 Oxygen Delivery Method Room Air 12/29/23 10:07 BMI result Body Mass Index 32.5 BMI Assessment/Plan discussion: High BMI High, discussed plan: lifestyle, weight reduction, dietary and physical activity Tobacco/Smoking Status: Tobacco use Status Tobacco use date assessed 12/29/23 12/29/23 10:10 Patient Tobacco Use Status Never used Tobacco 12/29/23 09:59 e-Cigarette/Vaping Use Never Used 12/29/23 09:59 PHQ-9: PHQ-9 Score PHQ-9: Total score 0 12/29/23 23:50 Depression Screening Interpretation: Negative Thrive Assessment: Date of Thrive Assessment Date Thrive assessed 12/29/23 12/29/23 10:44 Const Other: Alert oriented x3, no acute distress noted ambulatory normal gait Orientation/consciousness: patient oriented x3 [facility] Face and sinus: Yes face symmetric Mouth: Normal oral and palatal mucosa present, oropharynx normal and moist mucous membranes Eyes General: appearance normal, both eyes and all related structures Neck Other: Supple, no lymphadenopathy, thyroid gland nonpalpable and nontender to palpation Resp Effort & Inspection: normal respiratory effort and able to speak in complete sentences Auscultation: clear to auscultation bilaterally GI Other: Normal bowel sounds, soft, nontender, no mass palpated General: Yes no CVA tenderness Back/Spine/Pelvis Back: no CVA tenderness and No back tenderness Skin General skin exam: no rashes or lesions noted Neuro General: patient oriented x3, gait normal, moves all extremities, Normal light touch and pain sensation, no focal motor deficits and CN's II-XI intact bilaterally Extrem General: Yes full ROM, Yes no joint enlargement, Yes no pedal edema, Yes no calf tenderness and Yes normal gait Psych Appearance: grossly normal and well kempt Mental Status: mental status grossly normal Speech and movement: Normal speech and movement present Affect: normal affect Assessment and Plan Assessment & Plan (1) PAF (paroxysmal atrial fibrillation): Code(s): I48.0 - Paroxysmal atrial fibrillation Plan: Currently on sotalol 80 mg 1 tablet twice a day, and apixaban 5 mg 1 tablet twice a day. Patient states that he was was given a appointment with cardiology this week but it was canceled, would like a referral to cardiology is in [facility] instead (2) HTN (hypertension): Code(s): I10 - Essential (primary) hypertension Plan: Blood pressure on the low side during this visit. Will continue to monitor, continue 10 U with valsartan 20 mg 1 tablet twice a day and metoprolol succinate ER 50 mg once daily (3) Vitamin D deficiency: Code(s): E55.9 - Vitamin D deficiency, unspecified Plan: Labs ordered to check vitamin-D level. (4) Mixed dyslipidemia: Code(s): E78.2 - Mixed hyperlipidemia Plan: Continue with rosuvastatin 5 mg taken every other day. Continue with adherence to healthy eating habits and get regular exercise. Repeat another fasting lipid panel, liver enzymes next month (5) Acquired hypothyroidism: Code(s): E03.9 - Hypothyroidism, unspecified Plan: Continue with levothyroxine 75 mcg taken once a day in a.m. an hour before breakfast. Ordered TSH and free T4 to be drawn next month (6) Obesity: Comment: BMI 32, MODERATELY OBESE. HE IS ALREADY ON A DIET PROGRAM AND STARTING TO LOSE WEIGHT. Code(s): E66.9 - Obesity, unspecified Qualifiers: Body mass index: BMI 32.0-32.9 Obesity classification: adult class 1 (BMI 30 - 34.9) Obesity type: due to excess calories Serious obesity comorbidity presence: with serious comorbidity Qualified Code(s): E66.09 - Other obesity due to excess calories; Z68.32 - Body mass index [BMI] 32.0-32.9, adult Plan: Reinforced importance of following a healthy diet and getting regular exercise. (7) Anemia: Code(s): D64.9 - Anemia, unspecified Qualifiers: Anemia type: unspecified type Qualified Code(s): D64.9 - Anemia, unspecified Plan: Continue taking ferrous sulfate 325 mg 1 tablet once a day (8) Urinary retention with incomplete bladder emptying: Code(s): R33.9 - Retention of urine, unspecified Plan: Patient states that his urinary flow is starting to hurt back to normal after he self catheterized. No further issues of bleeding noted at this time. Orders: Orders Thyroid Stimulating Hormone 01/26/24 D64.9 - Anemia, unspecified, E03.9 - Hypothyroidism, unspecified, E55.9 - Vitamin D deficiency, unspecified, E66.9 - Obesity, unspecified, E78.2 - Mixed hyperlipidemia, I10 - Essential (primary) hypertension, I42.8 - Other cardiomyopathies, I48.0 - Paroxysmal atrial fibrillation, I48.92 - Unspecified atrial flutter Free T4 (Free Thyroxine) 01/26/24 D64.9 - Anemia, unspecified, E03.9 - Hypothyroidism, unspecified, E55.9 - Vitamin D deficiency, unspecified, E66.9 - Obesity, unspecified, E78.2 - Mixed hyperlipidemia, I10 - Essential (primary) hypertension, I42.8 - Other cardiomyopathies, I48.0 - Paroxysmal atrial fibrillation, I48.92 - Unspecified atrial flutter Comprehensive [place]. Panel Fast 01/26/24 D64.9 - Anemia, unspecified, E03.9 - Hypothyroidism, unspecified, E55.9 - Vitamin D deficiency, unspecified, E66.9 - Obesity, unspecified, E78.2 - Mixed hyperlipidemia, I10 - Essential (primary) hypertension, I42.8 - Other cardiomyopathies, I48.0 - Paroxysmal atrial fibrillation, I48.92 - Unspecified atrial flutter Lipid Panel 01/26/24 D64.9 - Anemia, unspecified, E03.9 - Hypothyroidism, unspecified, E55.9 - Vitamin D deficiency, unspecified, E66.9 - Obesity, un specified, E78.2 - Mixed hyperlipidemia, I10 - Essential (primary) hypertension, I42.8 - Other cardiomyopathies, I48.0 - Paroxysmal atrial fibrillation, I48.92 - Unspecified atrial flutter IRON PROFILE 01/26/24 D64.9 - Anemia, unspecified, E03.9 - Hypothyroidism, unspecified, E55.9 - Vitamin D deficiency, unspecified, E66.9 - Obesity, unspecified, E78.2 - Mixed hyperlipidemia, I10 - Essential (primary) hypertension, I42.8 - Other cardiomyopathies, I48.0 - Paroxysmal atrial fibrillation, I48.92 - Unspecified atrial flutter Complete Blood Count Auto Diff 01/26/24 D64.9 - Anemia, unspecified, E03.9 - Hypothyroidism, unspecified, E55.9 - Vitamin D deficiency, unspecified, E66.9 - Obesity, unspecified, E78.2 - Mixed hyperlipidemia, I10 - Essential (primary) hypertension, I42.8 - Other cardiomyopathies, I48.0 - Paroxysmal atrial fibrillation, I48.92 - Unspecified atrial flutter Vitamin D 25-OH Total 01/26/24 D64.9 - Anemia, unspecified, E03.9 - Hypothyroidism, unspecified, E55.9 - Vitamin D deficiency, unspecified, E66.9 - Obesity, unspecified, E78.2 - Mixed hyperlipidemia, I10 - Essential (primary) hypertension, I42.8 - Other cardiomyopathies, I48.0 - Paroxysmal atrial fibrillation, I48.92 - Unspecified atrial flutter Magnesium 01/26/24 D64.9 - Anemia, unspecified, E03.9 - Hypothyroidism, unspecified, E55.9 - Vitamin D deficiency, unspecified, E66.9 - Obesity, unspecified, E78.2 - Mixed hyperlipidemia, I10 - Essential (primary) hypertension, I42.8 - Other cardiomyopathies, I48.0 - Paroxysmal atrial fibrillation, I48.92 - Unspecified atrial flutter Vitamin B1 01/26/24 E51.9 - Thiamine deficiency, unspecified Referrals Cardiology Referral I42.8 - Other cardiomyopathies, I48.0 - Paroxysmal atrial fibrillation, I48.92 - Unspecified atrial flutter Coding Level of Care Code Est Pt Level 4 (14744) Diagnoses PAF (paroxysmal atrial fibrillation) I48.0 HTN (hypertension) I10 Vitamin D deficiency E55.9 Mixed dyslipidemia E78.2 Acquired hypothyroidism E03.9 Class 1 obesity due to excess calories with serious comorbidity and body mass index (BMI) of 32.0 to 32.9 in adult E66.09; Z68.32 Body mass index: BMI 32.0-32.9 Obesity classification: adult class 1 (BMI 30 - 34.9) Obesity type: due to excess calories Serious obesity comorbidity presence: with serious comorbidity Anemia, unspecified type D64.9 Anemia type: unspecified type Urinary retention with incomplete bladder emptying R33.9
[2023-12-29 10:07] VITALS: BP 90/50; PULSE 70; O2SAT 96; BMI 32.5
== END 2023-12-29 12:43 | disposition home or self-care (01) ==
PROVIDERS: PCP Internal Medicine; Visit Provider Internal Medicine
DX: I48.0 Paroxysmal atrial fibrillation (principal); E66.09 Other obesity due to excess calories; Z68.32 Body mass index [BMI] 32.0-32.9, adult; I10 Essential (primary) hypertension; E55.9 Vitamin D deficiency, unspecified; E78.2 Mixed hyperlipidemia; E03.9 Hypothyroidism, unspecified; D64.9 Anemia, unspecified; R33.9 Retention of urine, unspecified
CPT/HCPCS: 99214

== ENCOUNTER 2024-01-04 14:03 | Outpatient (REF) | payer MEDICARE, MEDICAID, SELFPAY ==
[2024-01-04 15:07] LABS: MANUAL DIFF FLAG NO
[2024-01-04 15:38] LABS: Basophils Absolute Auto 0.1 X10*3/uL (0.0-0.2); Basophils Percent Auto 0.8 % (0-2); Eosinophils Absolute Auto 0.2 X10*3/uL (0.0-0.4); Eosinophils Percent Auto 3.3 % (0-4); Hemoglobin 13.9 g/dl (14.0-18.0); Imm Gran Abs Auto 0.01 X10*3/uL (0.00-0.03); Imm Gran Pct Auto 0.2 % (0.0-0.4); Lymphocytes Absolute Auto 1.8 X10*3/uL (1.2-4.9); Lymphocytes Percent Auto 28.7 % (20-40); Mean Corpuscular HGB Conc 33.9 g/dl (31.0-36.0); Mean Corpuscular Hemoglobin 31.4 pg (27.0-33.0); Mean Corpuscular Volume 92.8 fL (80.0-98.0); Mean Platelet Volume 9.8 fL (9.4-12.4); Monocytes Absolute Auto 0.5 X10*3/uL (0.1-1.2); Monocytes Percent Auto 8.7 % (2-11); Neutrophils Absolute Auto 3.6 x10*3/uL (2.0-8.3); Neutrophils Percent Auto 58.3 % (45-73); Platelet Count 122 X10*3/uL (160-400); Red Blood Count 4.42 X10*6/uL (4.60-5.80); White Blood Count 6.1 X10*3/uL (4.8-10.8)
[2024-01-04 16:08] LABS: Alanine Aminotransferase 21 U/L (0-40); Albumin Level 4.2 g/dL (3.5-5.0); Alkaline Phosphatase 98 U/L (39-117); Anion Gap 12 (12-20); Aspartate Amino Transferase 22 U/L (5-37); Bilirubin Total 0.9 mg/dL (0.0-1.0); Blood Urea Nitrogen 15 mg/dL (9-16); Calcium 9.6 mg/dL (8.4-10.2); Carbon Dioxide 29 mmol/L (22-29); Chloride 104 mmol/L (96-108); Cholesterol 172 mg/dL (<200); Estimated Glomerular Filt Rate > 60; Glucose Fasting 109 mg/dL (60-99); HDL Cholesterol 42 mg/dL (>40); Iron 89 mcg/dL (45-160); LDL Cholesterol Calculated 99 mg/dL (<100); Magnesium 1.8 mg/dL (1.6-2.6); Percent Iron Saturation 38 % (15-50); Potassium 4.5 mmol/L (3.3-5.1); Sodium 140 mmol/L (135-145); Total Iron Binding Capacity 233 mcg/dL (228-428); Total Protein 7.2 g/dL (6.5-8.0); Triglycerides 159 mg/dL (<150); Unsaturated Iron Binding 144 ug/dL
[2024-01-04 16:27] LABS: Free T4 (Free Thyroxine) 0.84 ng/dL (0.71-1.85); Thyroid Stimulating Hormone 12.37 uIU/mL (0.32-4.0); Vitamin D 25-OH Total 32.6 ng/mL (>30)
[2024-01-08 13:43] LABS: Vitamin B1 18 nmol/L (8-30)
== END 2024-01-04 14:04 | disposition home or self-care (01) ==
LOC: HO.LAB 14:03
PROVIDERS: PCP Internal Medicine; Visit Provider Internal Medicine Cardiovascular Disease
DX: Z13.89 Encounter for screening for other disorder (principal)
CPT/HCPCS: 36415; 80053; 80061; 82306; 83540; 83735; 84425; 84439; 84443; 85025

== ENCOUNTER 2024-01-04 14:03 | Outpatient (AMB) | payer MEDICARE, MEDICAID, SELFPAY ==
--- NOTE | 2024-01-04 14:05 | A.OFFVIS_ITS ---
Intake Vital Signs 01/04/24 14:07 Height 6 ft 2 in Weight 253 lb 8.505 oz BMI 32.5 BP 100/62 Blood Pressure Location Lt brachial Position Sitting Pulse 68 Intake Visit Reasons: fu per Dr Tran Intake Note: Follow-up with ekg c/o feet swelling since being on Sotalol Executive Compensation [employer]st Required: No Allergies lisinopril [Lisinopril] Allergy (Intermediate, Verified 12/29/23 10:46) RASH sulfamethoxazole [From Bactrim] Adverse Reaction (Verified 12/29/23 10:46) Hallucinations trimethoprim [From Bactrim] Adverse Reaction (Verified 12/29/23 10:46) Hallucinations Environmental Allergy (Intermediate, Uncoded 12/29/23 10:46) Shortness of Breath Medication List - Last Reconciled 01/04/24 by Akira Tran MD albuterol sulfate 90 mcg/actuation 2 puffs PO Q4H PRN apixaban 5 mg PO BID betamethasone dipropionate 0.05% 1 appl See Protocol topical DAILY PRN ferrous sulfate 325 mg PO DAILY levothyroxine 75 mcg PO DAILY@0600 magnesium oxide 250 mg PO DAILY metoprolol succinate ER 50 mg See Protocol PO DAILY omeprazole 20 mg PO DAILY rosuvastatin 5 mg PO Q OTHER DAY sotalol 80 mg PO BID@0800,2000 valsartan 20 mg (1/2 x 40 mg) PO BID HPI HPI Comments History of Present Illness Details 63 male with Afib and cardiomyopathy. s/p cardioversion and ablation. Was on amidoarone and Eliquis. Previously was doing well. It appears she started noticing some palpitations and dyspnea over the last 4 weeks. He discuss this with [facility] electrophysiology and it appears he was advised to increase the amiodarone to 400 mg daily. As for her as I remember he was supposed to get off the amiodarone in 3 months after ablation. In any case he was informed on amiodarone which he decreased to 200 on his own because he was not feeling well and and was getting shortness of breath specially orthopnea at night. He also had this event where he walked out of a restaurant and had syncope falling on his face. He said that he had bruising on the side of his face and this was couple of weeks ago. His EKG showing atrial tachycardia with 2-1 block. He said his heart rate has been in 120s for weeks. Taking Eliquis regularly without any interruption. 06/07/23: He returns for follow-up. In November 2022 he was seen for atrial tachycardia/flutter. He was sent to emergency department and was admitted and underwent cardioversion. Subsequent to that he has been doing well. Lost echocardiography was in December 2022 which showed EF of 40 45%. Clinically has been improving and denying any chest discomfort shortness of breath at this stage. Blood pressure control is good. He is in sinus rhythm. His TSH during admission to hospital was 53. He is on levothyroxine 75 mcg daily. He is saying that he has been gaining weight. 12/13/2023: He returns for follow-up. Henry saucedo has been experiencing some palpitations as well as fatigue over the last 2 weeks. He is noticed to be in atrial flutter with variable block with heart rate of 108 beats per minute. He is denying any significant dyspnea. No orthopnea or PND. No chest discomfort. He has been taking medications regularly and has been on apixaban 5 mg twice a day without any interruption over the last month. Blood pressure is mildly elevated. 01/04/24: He is here for follow-up. He w as admitted to hospital after cardioversion and was loaded with sotalol and discharged home with sotalol 80 mg twice a day. His metoprolol succinate dose was decreased to 75 mg daily and eventually was also decreased to 50 mg daily. He is currently taking metoprolol succinate 25 mg daily. He is complaining of right foot swelling and pain with ambulation. This started since he left the hospital. He thought that this is related sotalol and is urgently here to discuss this. The left foot is normal. He has eczema and skin breakdown. Denying any other issues. He is saying that when he walks it hurts significantly in the right foot. [facility] Medical History (Updated 01/04/24 @ 14:31 by Akira Tran MD) Hypoxic Thiamine deficiency Erectile dysfunction Eczema of lower extremity History of cardioversion Vitamin D deficiency Alcohol abuse Nonischemic cardiomyopathy Atrial flutter Acute renal insufficiency Anemia Generalized anxiety disorder JOSE (obstructive sleep apnea) Chronic anticoagulation Mixed dyslipidemia Acquired hypothyroidism Nocturnal hypoxemia Obesity Hypothyroid HTN (hypertension) Surgical History History of prostate surgery H/O cardiac radiofrequency ablation History of esophagogastroduodenoscopy (EGD) H/O colonoscopy History of neck surgery Hx of hand surgery Hx of hernia repair Family History Father Atrial fibrillation Mother Heart attack Pacemaker Sister Thyroid disease Brother HTN (hypertension) Sister Colon cancer Social History Household Members: Spouse Housing: House Do you presently have visiting nurse or other home services: No Alcohol intake: current Alcohol intake frequency: holidays/special occasions only Alcohol type: beer and wine Comment: scheduled med Patient Tobacco Use Status: Never used Tobacco e-Cigarette/Vaping Use: Never Used Advance Directives Date on File: 12/26/20 service: No Current occupational status: disabled Cognitive needs: No Hearing needs: No Vision needs: Yes Review of Systems Const Denies chills, Denies fatigue, Denies fever(s), Denies frequent falls, Denies weakness, Denies weight gain and Denies weight loss ENT Denies dizziness Card Denies chest pain, Denies leg edema, Denies lightheadedness, Denies palpitations, Denies dyspnea, Denies dyspnea on exertion, Denies orthopnea and Denies other (loss of consciousness) Resp Denies cough, Denies dyspnea and Denies dyspnea on exertion GI Denies hematochezia and Denies change in stool character Musc Denies abnormal gait, Denies muscle weakness, Denies numbness, Denies radiating pain into limb and Denies tingling Neuro Denies abnormal gait, Denies dizziness, Denies frequent falls, Denies numbness, Denies tingling and Denies weakness Endo Denies fatigue and Denies palpitations Physical Exam Vital Signs: Last Vital Signs Pulse 68 01/04/24 14:07 BP 100/62 01/04/24 14:07 BMI result Body Mass Index 32.5 GENERAL APPEARANCE: in no acute distress, pleasant. NECK: no carotid bruit, no jugular venous distention. SKIN: Bilateral lower extremity eczema. Erythema right foot. HEART: no murmurs, regular rate and rhythm. LUNGS: clear to auscultation bilaterally. ABDOMEN: soft, nontender. EXTREMITIES: Right leg has mild pretibial edema, right foot is swollen compared to left. Areas of skin breakdown on both legs due to eczema. PERIPHERAL PULSES: equal. NEUROLOGIC: No gross deficits, AAO X 3 Office Procedures EKG Details: Sinus rhythm 68 beats per minute, left anterior fascicular block, right bundle- branch block, first-degree AV block with RI interval 214 milliseconds. QTC 461 milliseconds. [id number], Complete Assessment & Plan Assessment & Plan (1) Nonischemic cardiomyopathy: Comment: EF 40 45%. Code(s): I42.8 - Other cardiomyopathies (2) Foot swelling: Code(s): M79.89 - Other specified soft tissue disorders Plan [age] year gentleman who is here for follow-up. He has background history of nonischemic cardiomyopathy. He was previously cardioverted and was on amiodarone and eventually underwent AFib ablation. Recently was seen in the office for follow-up and was complaining of shortness of breath and was noticed to be in atrial flutter. He was brought in as outpatient for cardioversion and after cardioversion was admitted for sotalol load and was discharged home on sotalol. He has noticed that his right foot is swollen since he left the hospital. There is swelling of the right foot compared to left and there is erythema present. There is mild pretibial edema on the right leg. He has been on Eliquis consistently and the risk of DVT is low but we will do an ultrasound to make sure there is no blood clot. I am also sending him for uric acid level, CRP and CBC with differentials to make sure there is no infective process. Given skin breakdown due to eczema, chances of infection are high and I will consider starting him on doxycycline 100 mg twice a day for 10 days. Any antibiotic given to him must be checked for interaction with sotalol. Blood pressure is low and I am stopping his metoprolol succinate for now. If it continues to be low in future I think valsartan has to be decreased to once a day. I have reassured him that sotalol is not the cause for the right foot swelling. I have cautioned him that he should not be drinking alcohol. He is saying that he has not been drinking for 2 months. There is interaction between alcohol and sotalol and combination may lead to increased beta-barbie effects of sotalol with hypotension and bradycardia. Thank you for allowing me to participate in the care of your patient. Please feel free to contact me if you have any questions. Orders: Orders US venous duplex LE RT Today M79.89 - Other specified soft tissue disorders Complete Blood Count Auto Diff Today M79.89 - Other specified soft tissue disorders CRP High Sensitivity Today M79.89 - Other specified soft tissue disorders Uric Acid Today M79.89 - Other specified soft tissue disorders Medications: New doxycycline hyclate 100 mg PO BID 20 caps 0RF Coding Level of Care Code Est Pt Level 5 (42499) Diagnoses Nonischemic cardiomyopathy I42.8 Foot swelling M79.89 CPT Codes EKG - CPT: 05669-[id number], Complete ([id number])
[2024-01-04 14:07] VITALS: BP 100/62; PULSE 68; BMI 32.5
== END 2024-01-04 14:33 | disposition home or self-care (01) ==
PROVIDERS: PCP Internal Medicine; Visit Provider Internal Medicine Cardiovascular Disease
DX: I42.8 Other cardiomyopathies (principal); Z98.890 Other specified postprocedural states; R22.41 Localized swelling, mass and lump, right lower limb; I44.0 Atrioventricular block, first degree
CPT/HCPCS: 93010; 99214

== ENCOUNTER 2024-01-04 15:06 | Outpatient (REF) | payer MEDICARE, MEDICAID, SELFPAY ==
--- NOTE | ~2024-01-04 | US_ITS ---
EXAMINATION: US VENOUS ULTRASOUND WITH DOPPLER LOWER EXTREMITY, RIGHT CLINICAL INFORMATION: Right foot swelling COMPARISON: Previous exam from 2017 TECHNIQUE: Ultrasound of the deep veins is performed from the hip to the calf with compression sonography and color and pulse Doppler assessment. Spectral analysis with color-flow imaging is performed. FINDINGS: There is normal venous compression and respiratory variation and augmented flow. The visualized common femoral vein, superficial femoral vein, profunda femoral vein, popliteal vein, and the trifurcation region shows no evidence of deep venous thrombosis. There is a 7.6 x 1.6 x 3.2 cm popliteal fossa cyst. US/US venous duplex LE RT IMPRESSION: No DVT demonstrated in the right lower extremity. Sharif's cyst.
== END 2024-01-04 15:07 | disposition home or self-care (01) ==
LOC: HO.US 15:06
PROVIDERS: PCP Internal Medicine; Visit Provider Internal Medicine Cardiovascular Disease
DX: M79.89 Other specified soft tissue disorders (principal); I48.92 Unspecified atrial flutter; E55.9 Vitamin D deficiency, unspecified; I10 Essential (primary) hypertension; I48.0 Paroxysmal atrial fibrillation; I42.8 Other cardiomyopathies; E78.2 Mixed hyperlipidemia; E03.9 Hypothyroidism, unspecified; E66.9 Obesity, unspecified; D64.9 Anemia, unspecified; E51.9 Thiamine deficiency, unspecified
CPT/HCPCS: 36415; 80053; 80061; 82306; 83540; 83735; 84425; 84439; 84443; 85025; 93005; 93971; 99212

== ENCOUNTER 2024-01-26 20:21 | Emergency (ER) | payer MEDICARE, MEDICAID, SELFPAY ==
--- NOTE | 2024-01-26 21:07 | ED.GENADULT ---
HPI - General Adult General Stated complaint: foot swelling, redness + pain Related Data Home Medications ?Medication ?Instructions ?Recorded ?Confirmed betamethasone dipropionate 0.05 % 1 appl topical DAILY PRN Rash 02/05/22 01/04/24 topical ointment magnesium oxide 250 mg PO DAILY 12/29/23 01/04/24 Previous Rx's ?Medication ?Instructions ?Recorded ferrous sulfate 325 mg (65 mg 325 mg PO DAILY #90 tabs 03/04/22 iron) tablet apixaban 5 mg tablet 5 mg PO BID #60 tabs 06/08/22 valsartan 40 mg tablet 20 mg (1/2 x 40 mg) PO BID #90 tabs 07/30/23 omeprazole 20 mg capsule,delayed 20 mg PO DAILY #90 caps 09/02/23 release albuterol sulfate 90 mcg/actuation 2 puff PO Q4H PRN shortness of 12/07/23 aerosol inhaler breath or wheezing #8.5 grams sotalol 80 mg tablet 80 mg PO BID@0800,1999 #180 tabs 12/23/23 doxycycline hyclate 100 mg capsule 100 mg PO BID #20 caps 01/04/24 levothyroxine 88 mcg tablet 88 mcg PO DAILY #90 tabs 01/09/24 rosuvastatin 5 mg tablet 5 mg PO Q OTHER DAY #45 tabs 01/17/24 Allergies Allergy/AdvReac Type Severity Reaction Status Date / Time lisinopril [Lisinopril] Allergy Intermediate RASH Verified 01/26/24 21:12 prednisone Allergy Unknown Verified 01/26/24 21:12 sulfamethoxazole AdvReac Hallucinati Verified 01/26/24 21:12 [From Bactrim] ons trimethoprim [From Bactrim] AdvReac Hallucinati Verified 01/26/24 21:12 ons Environmental Allergy Intermediate Shortness Uncoded 12/29/23 10:46 of Breath PMFSH Past Medical History Medical History (Updated 01/04/24 @ 14:31 by Akira Tran MD) Hypoxic Thiamine deficiency Erectile dysfunction Eczema of lower extremity History of cardioversion Vitamin D deficiency Alcohol abuse Nonischemic cardiomyopathy Atrial flutter Acute renal insufficiency Anemia Generalized anxiety disorder JOSE (obstructive sleep apnea) Chronic anticoagulation Mixed dyslipidemia Acquired hypothyroidism Nocturnal hypoxemia Obesity Hypothyroid HTN (hypertension) Surgical History History of prostate surgery H/O cardiac radiofrequency ablation History of esophagogastroduodenoscopy (EGD) H/O colonoscopy History of neck surgery Hx of hand surgery Hx of hernia repair Family History Family History Father Atrial fibrillation Mother Heart attack Pacemaker Sister Thyroid disease Brother HTN (hypertension) Sister Colon cancer Social History Social History Household Members: Spouse Housing: House Do you presently have visiting nurse or other home services: No Alcohol intake: current Alcohol intake frequency: holidays/special occasions only Alcohol type: beer and wine Comment: scheduled med Patient Tobacco Use Status: Never used Tobacco e-Cigarette/Vaping Use: Never Used Advance Directives Date on File: 12/26/20 service: No Current occupational status: disabled Cognitive needs: No Hearing needs: No Vision needs: Yes Course Course Course Narrative: RME- 63-year-old male presents evaluation of foot pain and swelling extending up his right leg. He is concerned for cellulitis. He is on Eliquis twice daily. He follows with Dr. Tran for Cardiology, he was recently started on sotalol. Plan for labs Discharge Plan Discharge Prescriptions: No Action ferrous sulfate 325 mg (65 mg iron) tablet 325 mg PO DAILY Qty: 90 1RF valsartan 40 mg tablet 20 mg PO BID Qty: 90 3RF omeprazole 20 mg capsule,delayed release(DR/EC) 20 mg PO DAILY Qty: 90 2RF albuterol sulfate 90 mcg/actuation HFA aerosol inhaler 2 puff PO Q4H PRN (Reason: shortness of breath or wheezing) Qty: 8.5 4RF levothyroxine 88 mcg tablet 88 mcg PO DAILY Qty: 90 1RF rosuvastatin 5 mg tablet 5 mg PO Q OTHER DAY Qty: 45 1RF sotalol 80 mg Tablet 80 mg PO BID@0800,2000 Qty: 180 0RF magnesium oxide 250 mg magnesium tablet 250 mg PO DAILY betamethasone dipropionate 0.05 % ointment 1 appl topical DAILY PRN (Reason: Rash) Protocol: Apply to: Apply to: legs apixaban 5 mg tablet 5 mg PO BID Qty: 60 4RF doxycycline hyclate 100 mg capsule 100 mg PO BID Qty: 20 0RF Print Language: [place] Citizen
[2024-01-26 21:13] VITALS: BP 114/65; PULSE 72; RESP 18; TEMP 36.4; O2SAT 97; BMI 27.5
[2024-01-26 21:35] LABS: MANUAL DIFF FLAG NO
[2024-01-26 21:51] LABS: Alanine Aminotransferase 20 U/L (0-40); Albumin Level 4.1 g/dL (3.5-5.0); Alkaline Phosphatase 99 U/L (39-117); Anion Gap 13 (12-20); Aspartate Amino Transferase 26 U/L (5-37); Bilirubin Total 1.1 mg/dL (0.0-1.0); Blood Urea Nitrogen 19 mg/dL (9-16); Calcium 9.8 mg/dL (8.4-10.2); Carbon Dioxide 26 mmol/L (22-29); Chloride 102 mmol/L (96-108); Creatinine Clr Calc Pharmacy 67.3; Estimated Glomerular Filt Rate 53; Glucose Random 160 mg/dL (60-115); Lipase 25 U/L (8-78); Potassium 4.3 mmol/L (3.3-5.1); Sodium 137 mmol/L (135-145); Total Protein 7.2 g/dL (6.5-8.0)
[2024-01-26 21:55] LABS: Basophils Percent Auto 0.6 % (0-2); Eosinophils Absolute Auto 0.2 X10*3/uL (0.0-0.4); Eosinophils Percent Auto 2.8 % (0-4); Hematocrit 38.9 % (42.0-52.0); Hemoglobin 13.5 g/dl (14.0-18.0); Imm Gran Abs Auto 0.01 X10*3/uL (0.00-0.03); Imm Gran Pct Auto 0.1 % (0.0-0.4); Lymphocytes Percent Auto 27.5 % (20-40); Mean Corpuscular HGB Conc 34.7 g/dl (31.0-36.0); Mean Corpuscular Hemoglobin 31.9 pg (27.0-33.0); Mean Platelet Volume 9.7 fL (9.4-12.4); Monocytes Absolute Auto 0.7 X10*3/uL (0.1-1.2); Monocytes Percent Auto 10.2 % (2-11); Neutrophils Absolute Auto 4.3 x10*3/uL (2.0-8.3); Neutrophils Percent Auto 58.8 % (45-73); Platelet Count 114 X10*3/uL (160-400); Red Blood Count 4.23 X10*6/uL (4.60-5.80); Red Cell Distribution Width 12.1 % (11.0-16.0); White Blood Count 7.3 X10*3/uL (4.8-10.8)
[2024-01-26 22:40] LABS: Erythrocyte Sedimentation Rate 16 MM/HR (0-15)
== END 2024-01-27 02:47 | disposition left against medical advice (07) ==
PROVIDERS: Physician Assistant; Emergency Provider Emergency Medicine; PCP Internal Medicine
DX: R60.0 Localized edema (principal); M79.604 Pain in right leg; Z79.899 Other long term (current) drug therapy
CPT/HCPCS: 36415; 80053; 83690; 85025; 85652; 86140; 99281

== ENCOUNTER 2024-01-27 09:51 | Emergency (ER) | payer MEDICARE, MEDICAID, SELFPAY ==
--- NOTE | ~2024-01-27 | XR_ITS ---
EXAMINATION: XR FOOT, RIGHT CLINICAL INFORMATION: Right foot swelling. COMPARISON: None available. TECHNIQUE: AP, lateral, and oblique views of the right foot. FINDINGS: Severe first metatarsophalangeal and hallux sesamoid joint space narrowing with bony remodeling, subchondral cystic change, and prominent marginal osteophytes. More mild joint space narrowing with small marginal osteophytes at the first interphalangeal joint. Cortical irregularity and bony remodeling of the third metatarsal head with periarticular erosions and fragmentation laterally measuring up to 0.6 cm. Findings may be posttraumatic or represent the sequela of a chronic inflammatory arthropathy. No abnormal soft tissue calcification. Circumferential forefoot soft tissue swelling. XR/XR foot RT min 3V IMPRESSION: 1. Circumferential forefoot soft tissue swelling. 2. Severe first metatarsophalangeal and hallux sesamoid as well as more mild first interphalangeal joint degenerative arthritis. 3. Cortical irregularity and bony remodeling of the third metatarsal head with periarticular erosions and fragmentation laterally. Findings may be posttraumatic or represent the sequela of a chronic inflammatory arthropathy. No abnormal soft tissue calcification.
--- NOTE | ~2024-01-27 | US_ITS ---
EXAMINATION: US VENOUS ULTRASOUND WITH DOPPLER LOWER EXTREMITY, RIGHT CLINICAL INFORMATION: Right foot swelling and erythema COMPARISON: None available. TECHNIQUE: Ultrasound of the deep veins is performed from the hip to the calf with compression sonography and color and pulse Doppler assessment. Spectral analysis with color-flow imaging is performed. FINDINGS: There is normal venous compression and respiratory variation and augmented flow. The visualized common femoral vein, superficial femoral vein, profunda femoral vein, popliteal vein, and the trifurcation region shows no evidence of deep venous thrombosis. The contralateral common femoral vein demonstrates normal respiratory variation and color flow. 7.6 x 1.8 x 4.6 cm Sharif's cyst is seen in the right popliteal fossa. Enlarged lymph node with a large fatty center and thin cortex is seen in the right groin, measures 3.4 x 1.1 x 2.6 cm. US/US venous duplex LE RT IMPRESSION: 1. No DVT demonstrated in the right lower extremity. 2. 7.6 cm Sharif's cyst in the right popliteal fossa. 3. Enlarged benign-appearing lymph node in the right groin.
[2024-01-27 10:12] VITALS: BP 102/53; PULSE 67; RESP 16; TEMP 36.6; O2SAT 97; BMI 32.6
--- NOTE | 2024-01-27 10:40 | ED.GENADULT ---
HPI - General Adult General Chief complaint: Extremity Injury, Lower Stated complaint: wants test results from last night Time Seen by Provider: 01/27/24 10:39 Source: patient Mode of arrival: ambulatory Limitations: no limitations History of Present Illness HPI narrative: Patient is a 63-year-old male with history of CHF, proximal atrial fibrillation with recent ablation on Eliquis, HTN, nonischemic cardiomyopathy, eczema presenting to the emergency department with complaint of right foot pain, redness and swelling for the past month. He saw Dr. Tran on 01/03 for the same symptoms. He had an ultrasound which was negative for DVT and was placed on a 10 day course of doxycycline at that time. Patient reports little improvement with antibiotics. He presented to the emergency department last night and had labs drawn but left due to wait time. He complains of pain with standing to balls of bilateral feet. Denies fevers. Denies any discharge or drainage. MD complaint: foot pain and swelling Onset (ago): month(s) Location: right and lower extremity Severity: severe Quality: aching Pain Consistency: colicky Associated symptoms: denies other symptoms Treatments prior to arrival: other Related Data Home Medications ?Medication ?Instructions ?Recorded ?Confirmed betamethasone dipropionate 0.05 % 1 appl topical DAILY PRN Rash 02/05/22 01/04/24 topical ointment magnesium oxide 250 mg PO DAILY 12/29/23 01/04/24 Previous Rx's ?Medication ?Instructions ?Recorded ferrous sulfate 325 mg (65 mg 325 mg PO DAILY #90 tabs 03/04/22 iron) tablet apixaban 5 mg tablet 5 mg PO BID #60 tabs 06/08/22 valsartan 40 mg tablet 20 mg (1/2 x 40 mg) PO BID #90 tabs 07/30/23 omeprazole 20 mg capsule,delayed 20 mg PO DAILY #90 caps 09/02/23 release albuterol sulfate 90 mcg/actuation 2 puff PO Q4H PRN shortness of 12/07/23 aerosol inhaler breath or wheezing #8.5 grams sotalol 80 mg tablet 80 mg PO BID@0800,1999 #180 tabs 12/23/23 doxycycline hyclate 100 mg capsule 100 mg PO BID #20 caps 01/04/24 levothyroxine 88 mcg tablet 88 mcg PO DAILY #90 tabs 01/09/24 rosuvastatin 5 mg tablet 5 mg PO Q OTHER DAY #45 tabs 01/17/24 cephalexin 500 mg capsule 500 mg PO QID 7 days #28 caps 01/27/24 Allergies Allergy/AdvReac Type Severity Reaction Status Date / Time lisinopril [Lisinopril] Allergy Intermediate RASH Verified 01/27/24 10:19 prednisone Allergy Unknown Verified 01/27/24 10:19 sulfamethoxazole AdvReac Hallucinati Verified 01/27/24 10:19 [From Bactrim] ons trimethoprim [From Bactrim] AdvReac Hallucinati Verified 01/27/24 10:19 ons Environmental Allergy Intermediate Shortness Uncoded 12/29/23 10:46 of Breath Review of Systems Review of Systems: As per HPI. Yes all other systems are reviewed and are negative Constitutional: Constitutional: Reports as per HPI [facility] Past Medical History Medical History (Updated 01/27/24 @ 14:11 by Dianne Sherman NP) Hypoxic Thiamine deficiency Erectile dysfunction Eczema of lower extremity History of cardioversion Vitamin D deficiency Alcohol abuse Nonischemic cardiomyopathy Atrial flutter Acute renal insufficiency Anemia Generalized anxiety disorder JOSE (obstructive sleep apnea) Chronic anticoagulation Mixed dyslipidemia Acquired hypothyroidism Nocturnal hypoxemia Obesity Hypothyroid HTN (hypertension) Surgical History History of prostate surgery H/O cardiac radiofrequency ablation History of esophagogastroduodenoscopy (EGD) H/O colonoscopy History of neck surgery Hx of hand surgery Hx of hernia repair Family History Family History Father Atrial fibrillation Mother Heart attack Pacemaker Sister Thyroid disease Brother HTN (hypertension) Sister Colon cancer Social History Social History Household Members: Spouse Housing: House Do you presently have visiting nurse or other home services: No Alcohol intake: current Alcohol intake frequency: holidays/special occasions only Alcohol type: beer and wine Comment: scheduled med Patient Tobacco Use Status: Never used Tobacco e-Cigarette/Vaping Use: Never Used Advance Directives: Yes Advance Directives on File: Yes Advance Directives Date on File: 12/26/20 service: No Current occupational status: disabled Cognitive needs: No Hearing needs: No Vision needs: Yes Physical Exam ED Vital Signs: Vital Signs - 24 hr 01/27/24 10:12 Temperature 97.8 F Pulse Rate 67 Respiratory Rate 16 Blood Pressure 102/53 L Pulse Oximetry 97 Oxygen Delivery Method Room Air BMI result Body Mass Index 32.6 Vital signs have been reviewed and appear to be correct. Blood pressure low. Heart rate normal. Respiratory rate normal. Temperature normal. Oxygen saturation normal. Const General: cooperative, healthy appearing and no acute distress Orientation/consciousness: oriented to person, oriented to place, oriented to time and patient oriented x3 Limitations: no limitations HENMT Head: Yes normocephalic and Yes atraumatic Ears: external ears normal General nose exam: Normal external nose present Face and sinus: Yes face symmetric Mouth: oropharynx normal and moist mucous membranes Throat: Yes uvula midline Eyes Pupils: Equal, round and reactive pupils present Neck Neck: Yes normal visual inspection and Yes supple Resp Effort & Inspection: normal respiratory effort and able to speak in complete sentences Auscultation: clear to auscultation bilaterally Cardio Rate: regular rate Rhythm: regular rhythm Heart sounds: S1 normal heart sound present and S2 normal heart sound present GI Palpation (GI): Soft to palpation and nontender Auscultation: normoactive bowel sounds General: Yes no CVA tenderness Back/Spine/Pelvis Back: no CVA tenderness Skin General skin exam: elasticity normal and turgor normal Neuro General: oriented to person, oriented to place, oriented to time, patient oriented x3, moves all extremities, no focal motor deficits and CN's II-XI intact bilaterally Cranial nerves: Yes Equal, round and reactive pupils present Cognition (Neuro): normal cognition Extrem Other: General: Yes full ROM, Yes no pedal edema and Yes no calf tenderness Right lower extremity: foot Details: normal capillary refill, tenderness Location: of the great toe Location: at the MTP joint, toes with normal ROM, edema Location: of the dorsal foot, vascular exam Details: dorsalis pedis pulse present and posterior tibial pulse present and other (scaly rash to dorsal foot); no unusual warmth Left lower extremity: foot Details: normal capillary refill, toes with normal ROM, no edema and other (scaly rash to dorsal foot); no unusual warmth Psych Mental Status: mental status grossly normal Affect: normal affect Thought process: Normal thought process present Medical Decision Making Medical Decision Making [facility] Narrative: Patient is a 63-year-old male with history of CHF, proximal atrial fibrillation with recent ablation on Eliquis, HTN, nonischemic cardiomyopathy, eczema presenting to the emergency department with complaint of right foot pain, redness and swelling for the past month. On exam patient is awake, A+Ox3, VS WNL, afebrile, normal neurological exam without focal deficits, physical exam findings as above. Given reported symptoms and physical exam findings, initial differential includes cellulitis, DVT, gout. Labs notable for no leukocytosis, mildly elevated uric acid. X-ray notable for soft tissue swelling of right foot with severe arthritis. Ultrasound shows no evidence of DVT, 7.6cm Sharif's cyst. My interpretation is in agreement with the radiologist's interpretation. Results discussed with patient and all questions answered. Feel symptoms are most likely due to pseudothrombophlebitis from cyst. Will provide Juan wrap to right knee and refer patient to ortho for further management. Advised patient to keep leg elevated while at rest and use Tylenol. Will also prescribe course of cephalexin to cover for cellulitis which will not interfere with patient's sotalol. Instructed patient to follow-up with his primary care provider. Return precautions discussed at bedside. Patient verbalized understanding of and agreement with plan. Differential Diagnosis Differential Diagnoses: The differential diagnosis associated with the presentation includes As per MDM. Admission/Observation Consideration of admission/observation: Escalation of care including admission/observation considered Patient would have been admitted to the hospital had their work up had any findings where hospital admission was appropriate and their clinical presentation warranted hospital admission. Lab Data [facility] Lab Attestation statement: I reviewed the patient's lab results. As per MDM. 01/27/24 11:37 01/27/24 11:37 Labs: Lab Results 01/27/24 Range/Units 11:37 WBC 5.6 (4.8-10.8) X10*3/uL RBC 4.26 L (4.60-5.80) X10*6/uL Hgb 13.6 L (14.0-18.0) g/dl Hct 38.7 L (42.0-52.0) % MCV 90.8 (80.0-98.0) fL MCH 31.9 (27.0-33.0) pg MCHC 35.1 (31.0-36.0) g/dl RDW 12.1 (11.0-16.0) % Plt Count 98 L (160-400) X10*3/uL MPV 9.5 (9.4-12.4) fL Immature Gran % (Auto) 0.2 (0.0-0.4) % Neut % (Auto) 61.6 (45-73) % Lymph % (Auto) 25.1 (20-40) % Nash % (Auto) 10.1 (2-11) % Eos % (Auto) 2.5 (0-4) % Baso % (Auto) 0.5 (0-2) % Lymph # (Auto) 1.4 (1.2-4.9) X10*3/uL Nash # (Auto) 0.6 (0.1-1.2) X10*3/uL Eos # (Auto) 0.1 (0.0-0.4) X10*3/uL Baso # (Auto) 0.0 (0.0-0.2) X10*3/uL Abs Immat Gran (auto) 0.01 (0.00-0.03) X10*3/uL Absolute Neuts (auto) 3.5 (2.0-8.3) x10*3/uL Absolute Nucleated RBC 0.000 (0.0-0.012) X10*3/uL Nucleated RBC % (auto) 0.0 (0.0-0.2) /100WBC Sodium 136 (135-145) mmol/L Potassium 3.9 (3.3-5.1) mmol/L Chloride 102 (96-108) mmol/L Carbon Dioxide 26 (22-29) mmol/L Anion Gap 12 (12-20) BUN 15 (9-16) mg/dL Creatinine 1.10 (0.5-1.4) mg/dL Estim Creat Clear Calc 93.9 Estimated GFR > 60 Random Glucose 131 H (60-115) mg/dL Uric Acid 7.7 H (3.4-7.0) mg/dL Calcium 10.0 (8.4-10.2) mg/dL Independent Interpretation I performed an independent interpretation of an: Plain X-Ray and Ultrasound Interpretation: Soft tissue swelling and severe arthritis noted on right foot x-ray. Ultrasound of right lower extremity shows no evidence of DVT, 7.6 cm sharif cyst Radiology Impression Discussion of test interpretation with radiology: I have reviewed the radiologist's reading. Radiologist Impression: XR/XR foot RT min 3V IMPRESSION: 1. Circumferential forefoot soft tissue swelling. 2. Severe first metatarsophalangeal and hallux sesamoid as well as more mild first interphalangeal joint degenerative arthritis. 3. Cortical irregularity and bony remodeling of the third metatarsal head with periarticular erosions and fragmentation laterally. Findings may be posttraumatic or represent the sequela of a chronic inflammatory arthropathy. No abnormal soft tissue calcification. US/US venous duplex LE RT IMPRESSION: 1. No DVT demonstrated in the right lower extremity. 2. 7.6 cm Sharif's cyst in the right popliteal fossa. 3. Enlarged benign-appearing lymph node in the right groin. External Record Review External record reviewed: Inpatient record, Office record and Outpatient record Prescription Management I considered prescription management with: Antibiotic and Other Discharge Plan Discharge Clinical Impression: Synovial cyst of popliteal space [Sharif], right knee, Cellulitis of foot, right Patient Disposition: Home, Self-Care Instructions: Cellulitis (DC), Bakers Cyst (ED) Additional Instructions: You were evaluated in the emergency department today for right foot pain, redness and swelling. Your ultrasound did not show evidence of a DVT, also known as a blood clot, in your right leg. Your ultrasound did show a 7.6 cm Sharif's cyst behind your right knee. You were provided with an Juan wrap in the emergency department today to apply compression to right knee. You should also keep your right leg elevated while at rest. We recommend the use Tylenol every 6 hours as needed for discomfort. You are being treated with a course of cephalexin which is an antibiotic to cover for cellulitis, skin infection. Please take this medication as prescribed. Follow-up with your primary care provider within 2 days. You are also being referred to orthopedics for further management of your Sharif's cyst. Return to the emergency department if you develop increased pain, swelling, redness, fever or any other concerning symptoms. Prescriptions: New cephalexin 500 mg capsule 500 mg PO QID 7 Days Qty: 28 0RF No Action ferrous sulfate 325 mg (65 mg iron) tablet 325 mg PO DAILY Qty: 90 1RF valsartan 40 mg tablet 20 mg PO BID Qty: 90 3RF omeprazole 20 mg capsule,delayed release(DR/EC) 20 mg PO DAILY Qty: 90 2RF albuterol sulfate 90 mcg/actuation HFA aerosol inhaler 2 puff PO Q4H PRN (Reason: shortness of breath or wheezing) Qty: 8.5 4RF levothyroxine 88 mcg tablet 88 mcg PO DAILY Qty: 90 1RF rosuvastatin 5 mg tablet 5 mg PO Q OTHER DAY Qty: 45 1RF sotalol 80 mg Tablet 80 mg PO BID@0800,1999 Qty: 180 0RF magnesium oxide 250 mg magnesium tablet 250 mg PO DAILY betamethasone dipropionate 0.05 % ointment 1 appl topical DAILY PRN (Reason: Rash) Protocol: Apply to: Apply to: legs apixaban 5 mg tablet 5 mg PO BID Qty: 60 4RF doxycycline hyclate 100 mg capsule 100 mg PO BID Qty: 20 0RF Referrals: [facility] [place] Orthopedic Surgeons [Provider Group] Print Language: Slovenian
[2024-01-27 11:42] LABS: MANUAL DIFF FLAG NO
--- NOTE | 2024-01-27 11:43 | PC.NURSE ---
lab work obtained and sent. awaiting ultrasound and results from xray.
[2024-01-27 11:44] LABS: Basophils Percent Auto 0.5 % (0-2); Eosinophils Absolute Auto 0.1 X10*3/uL (0.0-0.4); Eosinophils Percent Auto 2.5 % (0-4); Hematocrit 38.7 % (42.0-52.0); Hemoglobin 13.6 g/dl (14.0-18.0); Imm Gran Abs Auto 0.01 X10*3/uL (0.00-0.03); Imm Gran Pct Auto 0.2 % (0.0-0.4); Lymphocytes Absolute Auto 1.4 X10*3/uL (1.2-4.9); Lymphocytes Percent Auto 25.1 % (20-40); Mean Corpuscular HGB Conc 35.1 g/dl (31.0-36.0); Mean Corpuscular Hemoglobin 31.9 pg (27.0-33.0); Mean Corpuscular Volume 90.8 fL (80.0-98.0); Mean Platelet Volume 9.5 fL (9.4-12.4); Monocytes Absolute Auto 0.6 X10*3/uL (0.1-1.2); Monocytes Percent Auto 10.1 % (2-11); Neutrophils Absolute Auto 3.5 x10*3/uL (2.0-8.3); Neutrophils Percent Auto 61.6 % (45-73); Platelet Count 98 X10*3/uL (160-400); Red Blood Count 4.26 X10*6/uL (4.60-5.80); Red Cell Distribution Width 12.1 % (11.0-16.0); White Blood Count 5.6 X10*3/uL (4.8-10.8)
[2024-01-27 11:59] LABS: Anion Gap 12 (12-20); Blood Urea Nitrogen 15 mg/dL (9-16); Carbon Dioxide 26 mmol/L (22-29); Chloride 102 mmol/L (96-108); Creatinine Clr Calc Pharmacy 93.9; Estimated Glomerular Filt Rate > 60; Glucose Random 131 mg/dL (60-115); Potassium 3.9 mmol/L (3.3-5.1); Sodium 136 mmol/L (135-145); Uric Acid 7.7 mg/dL (3.4-7.0)
[2024-01-27 14:25] VITALS: BP 116/70; PULSE 64; RESP 18; TEMP 36.6; O2SAT 98
[2024-01-27 14:39] VITALS: BP 116/70; PULSE 64; RESP 18; TEMP 36.7; O2SAT 98
== END 2024-01-27 14:40 | disposition home or self-care (01) ==
PROVIDERS: Registered Nurse Emergency; Emergency Provider Emergency Medicine; PCP Internal Medicine
DX: M71.21 Synovial cyst of popliteal space [Baker], right knee (principal); L03.115 Cellulitis of right lower limb; R60.0 Localized edema; Z79.899 Other long term (current) drug therapy
CPT/HCPCS: 36415; 73630; 80048; 80053; 83690; 84550; 85025; 85652; 86140; 93971; 99281; 99282; 99283; 99284

== ENCOUNTER 2024-02-02 09:25 | Outpatient (AMB) | payer MEDICARE, MEDICAID, SELFPAY ==
[2024-02-02 09:43] VITALS: BP 118/70; PULSE 72; O2SAT 96; BMI 32.6
--- NOTE | 2024-02-02 09:43 | A.OFFPC_ITS ---
Vital Signs 02/02/24 09:43 Height 6 ft 2 in Weight 254 lb BMI 32.6 BP 118/70 Blood Pressure Location Rt brachial Position Sitting Pulse 72 Pulse Source Pulse Oximeter Pulse Oximetry (%) 96 Oxygen Delivery Method Room Air Intake Visit Reasons: Annual PE Intake Note: Pt is here for annual exam Medical Clerical Assistant Required: No Accompanied by: Self / Same As Patient Allergies lisinopril [Lisinopril] Allergy (Intermediate, Verified 05/04/24 15:19) RASH prednisone Allergy (Verified 05/04/24 15:19) Unknown sulfamethoxazole [From Bactrim] Adverse Reaction (Verified 05/04/24 15:19) Hallucinations trimethoprim [From Bactrim] Adverse Reaction (Verified 05/04/24 15:19) Hallucinations Environmental Allergy (Intermediate, Uncoded 05/04/24 15:19) Shortness of Breath Medication List - Last Reconciled 02/02/24 by Yancy Giles MD albuterol sulfate 90 mcg/actuation 2 puffs PO Q4H PRN apixaban 5 mg PO BID ferrous sulfate 325 mg PO DAILY levothyroxine 88 mcg PO DAILY magnesium oxide 250 mg PO DAILY omeprazole 20 mg PO DAILY rosuvastatin 5 mg PO Q OTHER DAY sotalol 80 mg PO BID@0800,1999 valsartan 20 mg PO QPM Tobacco use date assessed: 12/29/23 Dental Screening Dental Screen Date: 12/29/23 HPI Annual PE HPI Details 63 year old male with Afib and cardiomyo melyssa.s/p cardioversion and ablation, has generalized anxiety disorder, obstructive sleep apnea, mixed dyslipidemia acquired hypothyroidism, here today for his physical exam.. He is up-to-date with her screening colonoscopy done by Dr. Lyons in 2020 with removal of hyperplastic polyp due again for recheck in 2025. Has been feeling well, with no complaints at present time. [facility] Medical History Hyperuricemia Hypoxic Thiamine deficiency Erectile dysfunction Eczema of lower extremity History of cardioversion Vitamin D deficiency Alcohol abuse Nonischemic cardiomyopathy Atrial flutter Acute renal insufficiency Anemia Generalized anxiety disorder JOSE (obstructive sleep apnea) Chronic anticoagulation Mixed dyslipidemia Acquired hypothyroidism Nocturnal hypoxemia Obesity Hypothyroid HTN (hypertension) Surgical History History of prostate surgery H/O cardiac radiofrequency ablation History of esophagogastroduodenoscopy (EGD) H/O colonoscopy History of neck surgery Hx of hand surgery Hx of hernia repair Family History Father Atrial fibrillation Mother Heart attack Pacemaker Sister Thyroid disease Brother HTN (hypertension) Sister Colon cancer Social History Household Members: Spouse Housing: House Do you presently have visiting nurse or other home services: No Alcohol intake: never Comment: scheduled med Patient Tobacco Use Status: Never used Tobacco Smoked in Last 30 Days: No e-Cigarette/Vaping Use: Never Used Use of substances other than those prescribed or required for medical reasons: No Any prior treatment program specific to substance use: No Advance Directives: Yes Advance Directives on File: Yes Advance Directives Date on File: 12/26/20 Do you have a plan to hurt others: No Plan service: No Current occupational status: disabled Cognitive needs: No Hearing needs: No Vision needs: Yes Questionnaire PHQ-9 Over the last 2 weeks, how often have you been bothered by any of the following problems? Depression Screening Interpretation: Negative Depression Screening Done: Yes Source: Developed by Drs. Vincent Diaz, Yandel Tamayo and colleagues, with an educational celena from [employer]. Thrive Questionnaire Date Thrive assessed: 12/29/23 MARKO-7 AMB Questionnaire MARKO-7 Date MARKO - 7 assessed: 12/29/23 Source: Developed by Beth Cheng Kurt Kroenke and colleagues, with an educational celena from [employer]. Review of Systems Const Denies chills, Denies fatigue, Denies fever(s), Denies frequent falls and Denies weakness Eyes Denies change in vision ENT Denies dizziness Card Denies chest pain, Denies leg edema, Denies lightheadedness, Denies palpitations, Denies dyspnea and Denies dyspnea on exertion Resp Denies cough, Denies dyspnea and Denies dyspnea on exertion GI Denies hematochezia Reports no additional complaints Musc Denies abnormal gait, Denies muscle weakness, Denies numbness, Denies radiating pain into limb and Denies tingling Skin/Breast Denies dry skin and Denies rash Neuro Denies abnormal gait, Denies dizziness, Denies frequent falls, Denies numbness, Denies tingling and Denies weakness Psych Reports no additional complaints Endo Denies fatigue and Denies palpitations Mansoor/Lymph Reports no additional complaints Aller/Immun Reports no additional complaints Physical exam (Primary Care) Vital Signs: Last Vital Signs Pulse 72 02/02/24 09:43 BP 118/70 02/02/24 09:43 Pulse Ox 96 02/02/24 09:43 Oxygen Delivery Method Room Air 02/02/24 09:43 BMI result Body Mass Index 32.6 BMI Assessment/Plan discussion: High BMI High, discussed plan: lifestyle, weight reduction, dietary and physical activity Tobacco/Smoking Status: Tobacco use Status Tobacco use date assessed 12/29/23 02/02/24 09:44 Patient Tobacco Use Status Never used Tobacco 02/02/24 09:44 e-Cigarette/Vaping Use Never Used 02/02/24 09:44 Depression Screening Interpretation: Negative Thrive Assessment: Date of Thrive Assessment Date Thrive assessed 12/29/23 02/02/24 09:44 Const Other: Alert oriented x3, no acute distress noted ambulatory normal gait Orientation/consciousness: patient oriented x3 HENMT Face and sinus: Yes face symmetric Mouth: Normal oral and palatal mucosa present, oropharynx normal and moist mucous membranes Eyes General: appearance normal, both eyes and all related structures Neck Other: Supple, no lymphadenopathy, thyroid gland nonpalpable and nontender to palpation Chest Chest palpation & inspection: normal inspection of the chest Resp Effort & Inspection: normal respiratory effort and able to speak in complete sentences Auscultation: clear to auscultation bilaterally Cardio Other: S1-S2 present regular rate and rhythm GI Other: Normal bowel sounds, soft, nontender, no mass palpated General: Yes no CVA tenderness Back/Spine/Pelvis Back: no CVA tenderness and No back tenderness Skin General skin exam: no rashes or lesions noted Neuro General: patient oriented x3, gait normal, moves all extremities, Normal light touch and pain sensation, no focal motor deficits and CN's II-XI intact bilaterally Extrem General: Yes full ROM, Yes no joint enlargement, Yes no pedal edema, Yes no calf tenderness and Yes normal gait Psych Appearance: grossly normal and well kempt Mental Status: mental status grossly normal Speech and movement: Normal speech and movement present Affect: normal affect Results Reviewed Results Reviewed: Name: Gustavo Martinez Age/Sex: 63/M : 1960 Unit#: [id number] Attend Dr: Ami Desai DO Re01/27/24 Status: [facility]P [facility]: SPEC : [id number] ELVIS: 01/27/24 STATUS: COMP REQ : [id number] RECD: 01/27/[address]: Dianne Sherman NP COMP: 01/27/24 ENTERED: 01/27/[address]: Yancy Giles MD ORDERED: CBC Auto Diff Test Result Flag Reference WBC 5.6 4.8-10.8 X10*3/uL RBC 4.26 L 4.60-5.80 X10*6/uL HGB 13.6 L 14.0-18.0 g/dl HCT 38.7 L 42.0-52.0 % MCV 90.8 80.0-98.0 fL MCH 31.9 27.0-33.0 pg MCHC 35.1 31.0-36.0 g/dl RDW 12.1 11.0-16.0 % PLT 98 L 160-400 X10*3/uL MPV 9.5 9.4-12.4 fL Neut Pct Auto 61.6 45-73 % ImGran Pct Auto 0.2 0.0-0.4 % Lymp Pct Auto 25.1 20-40 % Sterling Pct Auto 10.1 2-11 % Eos Pct Auto 2.5 0-4 % Baso Pct Auto 0.5 0-2 % NRBC Pct Auto 0.0 0.0-0.2 /100WBC ANC Neut Abs # 3.5 2.0-8.3 x10*3/uL ImGran Abs Auto 0.01 0.00-0.03 X10*3/uL Lymph Abs Auto 1.4 1.2-4.9 X10*3/uL Sterling Abs Auto 0.6 0.1-1.2 X10*3/uL Eos Abs Auto 0.1 0.0-0.4 X10*3/uL Baso Abs Auto 0.0 0.0-0.2 X10*3/uL NRBC Abs Auto 0.000 0.0-0.012 X10*3/uL Name: Gustavo Martinez Age/Sex: 63/M : 1960 Unit#: [id number] Attend Dr: Ami Desai DO Re01/27/24 Status: DEP [facility] Disch: SPEC : [id number] ELVIS: 01/27/24-1136 STATUS: COMP REQ : [id number] RECD: 01/27/24-[address]: Dianne Sherman NP COMP: 01/27/24-1158 ENTERED: 01/27/24-[address]: Yancy Giles MD ORDERED: BMP, Uric Test Result Flag Reference Sodium 136 135-145 mmol/L Potassium 3.9 3.3-5.1 mmol/L CL 102 96-108 mmol/L CO2 26 22-29 mmol/L Gap 12 12-20 BUN 15 9-16 mg/dL Creat 1.10 0.5-1.4 mg/dL Estimated CrCl 93.9 eGFR (calculated from the MDRD study equation) and eCrCl (calculated from the Cockcroft-Gault equation) are based on different parameters and may not yield comparable results. If eCrCl result is absurd, please check patient's height/weight. EGFR > 60 NOTE: For -Martiniquais individuals, multiply the result by 1.210. Chronic Kidney Disease: Estimated GFR < 60 mL/min/1.73m2 Severe Kidney Disease: Estimated GFR < 15 mL/min/1.73m2 Glucose, Random 131 H 60-115 mg/dL Uric Acid 7.7 H 3.4-7.0 mg/dL CA 10.0 8.4-10.2 mg/dL Assessment and Plan Assessment & Plan (1) Annual visit for general adult medical examination with abnormal findings: Code(s): Z00.01 - Encounter for general adult medical examination with abnormal findings Plan: Will check appropriate labs. Recommended dental visit every 6 months and regular eye exams, at least every 2 years. Take adequate calcium in diet and vitamin-D 3 at 2000 IU per cap once a day, in addition to weight-bearing exercises to help maintain good muscle tone and weight control. Instructed to do self- testicular exam check for any mass. Reminded to get his COVID vaccine booster and yearly flu shot, recommended pneumonia vaccination and getting Shingrix vaccine for prevention of herpes zoster. Up-to-date with his screening colonoscopy (2) Mixed dyslipidemia: Code(s): E78.2 - Mixed hyperlipidemia Plan: Continue rosuvastatin 5 mg taken 1 tablet every other day, fasting lipid panel ordered (3) Hyperuricemia: Code(s): E79.0 - Hyperuricemia without signs of inflammatory arthritis and tophaceous disease Plan: Check uric acid level (4) JOSE (obstructive sleep apnea): Comment: no CPAP at this time Code(s): G47.33 - Obstructive sleep apnea (adult) (pediatric) Plan: Does not want to use CPAP (5) Acquired hypothyroidism: Code(s): E03.9 - Hypothyroidism, unspecified Plan: Will check TSH and free T4, lab already ordered currently on levothyroxine 88 mcg daily (6) HTN (hypertension): Code(s): I10 - Essential (primary) hypertension Plan: Blood pressure at goal of less than 130/80. Continue with valsartan 20 mg daily. Reinforced importance of following a low sodium diet, getting regular exercise, and lowering stress levels. Orders: Orders Lipid Panel 02/28/24 Yancy Giles MD E79.0 - Hyperuricemia without signs of inflammatory arthritis and tophaceous disease, E78.2 - Mixed hyperlipidemia Uric Acid 02/28/24 Yancy Giles MD E79.0 - Hyperuricemia without signs of inflammatory arthritis and tophaceous disease, E78.2 - Mixed hyperlipidemia Medications: Changed From valsartan 20 mg (1/2 x 40 mg) PO BID 90 tabs 3RF To valsartan 20 mg PO QPM Akira Tran MD Coding Level of Care Code Est Pt Prev Care 40-64y(82034) Diagnoses Annual visit for general adult medical examination with abnormal findings Z00.01 Mixed dyslipidemia E78.2 Hyperuricemia E79.0 JOSE (obstructive sleep apnea) G47.33 Acquired hypothyroidism E03.9 HTN (hypertension) I10
== END 2024-02-02 13:51 | disposition home or self-care (01) ==
PROVIDERS: PCP Internal Medicine; Visit Provider Internal Medicine
DX: Z00.00 Encounter for general adult medical examination without abnormal findings (principal); E78.2 Mixed hyperlipidemia; E79.0 Hyperuricemia without signs of inflammatory arthritis and tophaceous disease; G47.33 Obstructive sleep apnea (adult) (pediatric); E03.9 Hypothyroidism, unspecified; I10 Essential (primary) hypertension
CPT/HCPCS: 99396

== ENCOUNTER 2024-02-09 11:14 | Outpatient (AMB) | payer MEDICARE, MEDICAID, SELFPAY ==
--- NOTE | 2024-02-09 11:29 | A.OFFVIS_ITS ---
Vital Signs 02/09/24 11:30 Height 6 ft 2 in Weight 250 lb 0.067 oz BMI 32.1 BP 90/52 L Blood Pressure Location Lt brachial Position Sitting Pulse 60 Intake Visit Reasons: 6 wk f/up Preventative Maintenance Technician Required: No Accompanied by: Self / Same As Patient Allergies lisinopril [Lisinopril] Allergy (Intermediate, Verified 02/02/24 10:40) RASH prednisone Allergy (Verified 02/02/24 10:40) Unknown sulfamethoxazole [From Bactrim] Adverse Reaction (Verified 02/02/24 10:40) Hallucinations trimethoprim [From Bactrim] Adverse Reaction (Verified 02/02/24 10:40) Hallucinations Environmental Allergy (Intermediate, Uncoded 02/02/24 10:40) Shortness of Breath Medication List - Last Reconciled 02/09/24 by Akira Tran MD albuterol sulfate 90 mcg/actuation 2 puffs PO Q4H PRN apixaban 5 mg PO BID ferrous sulfate 325 mg PO DAILY levothyroxine 88 mcg PO DAILY magnesium oxide 250 mg PO DAILY omeprazole 20 mg PO DAILY rosuvastatin 5 mg PO Q OTHER DAY sotalol 80 mg PO BID@0800,2000 valsartan 20 mg PO QPM HPI Comments Details: 63 male with Afib and cardiomyopathy. s/p cardioversion and ablation. Was on amidoarone and Eliquis. Previously was doing well. It appears she started noticing some palpitations and dyspnea over the last 4 weeks. He discuss this with [facility] electrophysiology and it appears he was advised to increase the amiodarone to 400 mg daily. As for her as I remember he was supposed to get off the amiodarone in 3 months after ablation. In any case he was informed on am iodarone which he decreased to 200 on his own because he was not feeling well and and was getting shortness of breath specially orthopnea at night. He also had this event where he walked out of a restaurant and had syncope falling on his face. He said that he had bruising on the side of his face and this was couple of weeks ago. His EKG showing atrial tachycardia with 2-1 block. He said his heart rate has been in 120s for weeks. Taking Eliquis regularly without any interruption. 06/07/23: He returns for follow-up. In November 2022 he was seen for atrial tachycardia/flutter. He was sent to emergency department and was admitted and underwent cardioversion. Subsequent to that he has been doing well. Lost echocardiography was in December 2022 which showed EF of 40 45%. Clinically has been improving and denying any chest discomfort shortness of breath at this stage. Blood pressure control is good. He is in sinus rhythm. His TSH during admission to hospital was 53. He is on levothyroxine 75 mcg daily. He is saying that he has been gaining weight. 12/13/2023: He returns for follow-up. He has been experiencing some palpitations as well as fatigue over the last 2 weeks. He is noticed to be in atrial flutter with variable block with heart rate of 108 beats per minute. He is denying any significant dyspnea. No orthopnea or PND. No chest discomfort. He has been taking medications regularly and has been on apixaban 5 mg twice a day without any interruption over the last month. Blood pressure is mildly elevated. 01/04/24: He is here for follow-up. He was admitted to hospital after cardioversion and was loaded with sotalol and discharged home with sotalol 80 mg twice a day. His metoprolol succinate dose was decreased to 75 mg daily and eventually was also decreased to 50 mg daily. He is currently taking metoprolol succinate 25 mg daily. He is complaining of right foot swelling and pain with ambulation. This started since he left the hospital. He thought that this is related sotalol and is urgently here to discuss this. The left foot is normal. He has eczema and skin breakdown. Denying any other issues. He is saying that when he walks it hurts significantly in the right foot. 02/09/24: He returns for follow-up. Apparently he received doxycycline and then again went to emergency department and received another course of antibiotics for the foot swelling and redness. Since then he has improved. He has eczema and skin breakdown which is likely cause for cellulitis. He has been ongoing demand to his open areas after discussion with rheumatology. Blood pressure is little low but he is denying any symptoms currently. His valsartan dose is 20 mg only at bedtime which has been cut back significantly. He is on sotalol with stable EKG with bifascicular block as before [facility] Medical History (Updated 02/02/24 @ 11:11 by Yancy Giles MD) Hyperuricemia Hypoxic Thiamine deficiency Erectile dysfunction Eczema of lower extremity History of cardioversion Vitamin D deficiency Alcohol abuse Nonischemic cardiomyopathy Atrial flutter Acute renal insufficiency Anemia Generalized anxiety disorder JOSE (obstructive sleep apnea) Chronic anticoagulation Mixed dyslipidemia Acquired hypothyroidism Nocturnal hypoxemia Obesity Hypothyroid HTN (hypertension) Surgical History History of prostate surgery H/O cardiac radiofrequency ablation History of esophagogastroduodenoscopy (EGD) H/O colonoscopy History of neck surgery Hx of hand surgery Hx of hernia repair Family History Father Atrial fibrillation Mother Heart attack Pacemaker Sister Thyroid disease Brother HTN (hypertension) Sister Colon cancer Social History Household Members: Spouse Housing: House Do you presently have visiting nurse or other home services: No Alcohol intake: current Alcohol intake frequency: holidays/special occasions only Alcohol type: beer and wine Comment: scheduled med Patient Tobacco Use Status: Never used Tobacco e-Cigarette/Vaping Use: Never Used Advance Directives Date on File: 12/26/20 service: No Current occupational status: disabled Cognitive needs: No Hearing needs: No Vision needs: Yes Review of Systems Const Denies chills, Denies fatigue, Denies fever(s), Denies frequent falls, Denies weakness, Denies weight gain and Denies weight loss ENT Denies dizziness Card Denies chest pain, Denies leg edema, Denies lightheadedness, Denies palpitations, Denies dyspnea and Denies dyspnea on exertion Resp Denies cough, Denies dyspnea and Denies dyspnea on exertion GI Denies hematochezia Musc Denies abnormal gait, Denies muscle weakness, Denies numbness, Denies radiating pain into limb and Denies tingling Neuro Denies abnormal gait, Denies dizziness, Denies frequent falls, Denies numbness, Denies tingling and Denies weakness Endo Denies fatigue and Denies palpitations Physical Exam Vital Signs: Last Vital Signs Pulse 60 02/09/24 11:30 BP 90/52 L 02/09/24 11:30 BMI result Body Mass Index 32.1 GENERAL APPEARANCE: in no acute distress, pleasant. NECK: no carotid bruit, no jugular venous distention. HEART: no murmurs, regular rate and rhythm. LUNGS: clear to auscultation bilaterally. ABDOMEN: soft, nontender. PERIPHERAL PULSES: equal. NEUROLOGIC: No gross deficits, AAO X 3 Office Procedures EKG Details: Sinus rhythm 60 beats per minute, first-degree AV block with MD interval 226 milliseconds, left anterior fascicular block, right bundle-branch block, QTC 468 milliseconds. [id number], Complete Assessment & Plan Assessment & Plan (1) Nonischemic cardiomyopathy: Comment: EF 40 45%. Code(s): I42.8 - Other cardiomyopathies Category: Medical (2) Atrial tachycardia: Code(s): I47.1 - Supraventricular tachycardia Category: Medical Plan [age] year gentleman here for follow-up. He has background history paroxysmal atrial fibrillation and cardiomyopathy for which she underwent cardioversion and subsequently had AFib ablation. He subsequently presented with atach/flutter and was symptomatic and was admitted and underwent cardioversion and started on sotalol inpatient. He has tolerated sotalol well on background of bifascicular block. His blood pressure has been low and he got off the beta-barbie as well as valsartan dose has been cut back to 20 mg only at bedtime. He is taking apixaban twice a day. He had foot swelling and erythema which was due to cellulitis and has improved. Clinically stable. Blood pressure is borderline but he has no symptoms and I have advised him to continue same medications for now. Follow-up with us in 4 months. Thank you for allowing me to participate in the care of your patient. Please feel free to contact me if you have any questions. Coding Level of Care Code Est Pt Level 4 (54081) Diagnoses Nonischemic cardiomyopathy I42.8 Atrial tachycardia I47.1 CPT Codes EKG - CPT: 73931-[id number], Complete ([id number])
[2024-02-09 11:30] VITALS: BP 90/52; PULSE 60; BMI 32.1
== END 2024-02-09 11:59 | disposition home or self-care (01) ==
PROVIDERS: PCP Internal Medicine; Visit Provider Internal Medicine Cardiovascular Disease
DX: I42.8 Other cardiomyopathies (principal); I47.10 Supraventricular tachycardia, unspecified
CPT/HCPCS: 93010; 99214

== ENCOUNTER → 2024-02-09 11:14 | Outpatient (BNVA) | payer MEDICARE, MEDICAID, SELFPAY | PROVIDERS: PCP Internal Medicine; Visit Provider Internal Medicine Cardiovascular Disease | DX: I42.8 Other cardiomyopathies (principal); I47.10 Supraventricular tachycardia, unspecified; R94.31 Abnormal electrocardiogram [ECG] [EKG]; I45.10 Unspecified right bundle-branch block; I44.4 Left anterior fascicular block; I44.0 Atrioventricular block, first degree | CPT/HCPCS: 93005; 99212 ==

== ENCOUNTER 2024-04-23 07:04 | Emergency (ER) | payer MEDICARE, MEDICAID, SELFPAY ==
--- NOTE | 2024-04-23 | ECG_ITS ---
Test Reason : CHEST PAIN Blood Pressure : / mmHG Vent. Rate : 118 BPM Atrial Rate : 118 BPM P-R Int : 182 ms QRS Dur : 132 ms QT Int : 364 ms P-R-T Axes : 000 -59 040 degrees QTc Int : 510 ms Sinus tachycardia with occasional Premature ventricular complexes Right bundle branch block Left anterior fascicular block Bifascicular block Abnormal ECG When compared with ECG of 23-DEC-2023 08:11, increase in ventricular rate Referred By: Generic ED Physician Electronically Signed By:FRANC BUNCH
--- NOTE | ~2024-04-23 | XR_ITS ---
EXAMINATION: XR CHEST CLINICAL INFORMATION: Chest pain and shortness of breath COMPARISON: Chest x-ray December 17, 2022 TECHNIQUE: 2 views of the chest were obtained. FINDINGS: Cardiac silhouette is normal in size. Cardiac loop recorder noted. The lungs are well aerated. There is no lobar consolidation. No pleural effusion or pneumothorax. Moderate degenerative changes of the spine. Partially visualized hardware of the cervical spine. XR/XR chest 2V IMPRESSION: No acute pulmonary pathology.
[2024-04-23 07:07] VITALS: BP 107/69; PULSE 110; RESP 22; TEMP 36.6; O2SAT 97; BMI 35.9
[2024-04-23 07:27] VITALS: BP 124/71; PULSE 117; RESP 19; TEMP 36.8; O2SAT 97
[2024-04-23 07:47] LABS: MANUAL DIFF FLAG NO
--- NOTE | 2024-04-23 07:49 | ED_ITS ---
HPI - Chest Pain General Chief Complaint: Chest Pain Stated Complaint: Chest pain/Cough/SOB Time Seen by Provider: 04/23/24 07:29 Source: patient Mode of arrival: ambulatory Limitations: no limitations History of Present Illness ED Provider: AGUS UP narrative: 63 yo male with PMH of atrial flutter/afib hx of ablation and cardioversion on eliquis on sotalol, cardiomyopathy 40-45%, HTN, hypothyroidism, obesity here with c/o URI symptoms, chest congestions, dyspnea and overall not feeling well - took his medications this AM except his omeprazole. He was shaking hands and kissing people at a yesterday and then last night started to feel ill. He tried his INH with little relief. His is not ill. He has some chest pain with cough. No travel. MD complaint: chest pain Onset (ago): day(s) (yesterday) Timing of current episode: constant Prior episodes: Yes Onset: other (cough) Pain location: left chest Pain radiation: none Severity: mild Quality: aching Relieving factors: nothing Exacerbating factors: other (cough) Context: recent illness Associated symptoms: dyspnea Treatment prior to arrival: none Related Data Home Medications ?Medication ?Instructions ?Recorded ?Confirmed magnesium oxide 250 mg PO DAILY 12/29/23 02/09/24 valsartan 40 mg tablet 20 mg PO QPM 02/02/24 02/09/24 Previous Rx's ?Medication ?Instructions ?Recorded ferrous sulfate 325 mg (65 mg 325 mg PO DAILY #90 tabs 03/04/22 iron) tablet omeprazole 20 mg capsule,delayed 20 mg PO DAILY #90 caps 09/02/23 release albuterol sulfate 90 mcg/actuation 2 puff PO Q4H PRN shortness of 12/07/23 aerosol inhaler breath or wheezing #8.5 grams levothyroxine 88 mcg tablet 88 mcg PO DAILY #90 tabs 01/09/24 rosuvastatin 5 mg tablet 5 mg PO Q OTHER DAY #45 tabs 01/17/24 apixaban 5 mg tablet 5 mg PO BID #60 tabs 02/22/24 sotalol 80 mg tablet 80 mg PO BID@0800,2000 #180 tabs 03/24/24 nirmatrelvir 300 mg (150 mg See Rx Instructions PO .COMPLEX 04/23/24 x2)-ritonavir 100 mg tablet,dose #30 ea pack (Paxlovid) Allergies Allergy/AdvReac Type Severity Reaction Status Date / Time lisinopril [Lisinopril] Allergy Intermediate RASH Verified 04/23/24 07:15 prednisone Allergy Unknown Verified 04/23/24 07:15 sulfamethoxazole AdvReac Hallucinati Verified 04/23/24 07:15 [From Bactrim] ons trimethoprim [From Bactrim] AdvReac Hallucinati Verified 04/23/24 07:15 ons Environmental Allergy Intermediate Shortness Uncoded 02/02/24 10:40 of Breath Review of Systems 2 Review of Systems: Constitutional : No Fever, No Chills ENT/Mouth : No Hoarseness, No sore throat, pos Rhinorrhea Eyes: No Redness, No Discharge, No Vision Changes Cardiovascular :pos Chest Pain, positive SOB, positive Dyspnea on Exertion, No Edema Respiratory : positive Cough, pos Sputum, positive Wheezing, Gastrointestinal : No Nausea, No Vomiting, No Diarrhea, No abdominal Pain Genitourinary : No Dysuria, No Hematuria Musculoskeletal : No joint pain, No Myalgias Skin : No rash Neuro : No Weakness, No Numbness, No Headache Psych : No anxiety, depression Heme/Lymph: No Bruising, No Bleeding Endocrine : No Polyuria, No Polydipsia All other systems reviewed and are negative PMFSH Past Medical History Attestation statement: The following information was validated with the patient. Source: old records reviewed Medical History Hyperuricemia Hypoxic Thiamine deficiency Erectile dysfunction Eczema of lower extremity History of cardioversion Vitamin D deficiency Alcohol abuse Nonischemic cardiomyopathy Atrial flutter Acute renal insufficiency Anemia Generalized anxiety disorder JOSE (obstructive sleep apnea) Chronic anticoagulation Mixed dyslipidemia Acquired hypothyroidism Nocturnal hypoxemia Obesity Hypothyroid HTN (hypertension) Surgical History History of prostate surgery H/O cardiac radiofrequency ablation History of esophagogastroduodenoscopy (EGD) H/O colonoscopy History of neck surgery Hx of hand surgery Hx of hernia repair Family History Family History Father Atrial fibrillation Mother Heart attack Pacemaker Sister Thyroid disease Brother HTN (hypertension) Sister Colon cancer Social History Social History Household Members: Spouse Housing: House Do you presently have visiting nurse or other home services: No Alcohol intake: never Comment: scheduled med Patient Tobacco Use Status: Never used Tobacco Smoked in Last 30 Days: No e-Cigarette/Vaping Use: Never Used Use of substances other than those prescribed or required for medical reasons: No Any prior treatment program specific to substance use: No Advance Directives: Yes Advance Directives on File: Yes Advance Directives Date on File: 12/26/20 Do you have a plan to hurt others: No Plan service: No Current occupational status: disabled Cognitive needs: No Hearing needs: No Vision needs: Yes Physical Exam 2 Vital Signs: Vital Signs: Last Vital Signs Temp 98.4 F 04/23/24 09:58 Pulse 119 H 04/23/24 09:58 Resp 14 04/23/24 09:58 BP 117/83 04/23/24 09:58 Pulse Ox 95 04/23/24 09:58 O2 Del Method Room Air 04/23/24 09:58 BMI result Body Mass Index 35.9 Appearance: Alert. Oriented X3. No acute distress. Eyes: Pupils equal, round and reactive to light. ENT: Pharynx normal. Neck: Normal inspection. Neck supple. CVS: tachycardic heart rate and rhythm. Pulses normal. Respiratory: No respiratory distress. Breath sounds diminished with congested cough Abdomen: Soft and nontender. Skin: Skin warm and dry. Normal skin color. Normal skin turgor. Extremities: No lower extremity edema. No calf ttp Neuro: Oriented X 3. No motor deficit. No sensory deficit. Course Course Course Narrative: tachycardia due to nebs and INH at home Medications Administered Discontinued Medications Generic Name Dose Route Start Last Admin Trade Name Audra PRN Reason Stop Dose Admin Acetaminophen 975 mg 04/23/24 08:04 04/23/24 08:40 Acetaminophen 325 Mg Tablet PO 04/23/24 08:05 975 mg ONCE ONE Administration Hydrocodone Bit/Homatropine Methylb 5 ml 04/23/24 08:04 04/23/24 08:40 Hydrocodone/Homat 5/1.5/5 Ml 5 Ml Syrup PO 04/23/24 08:05 5 ml ONCE ONE Administration Magnesium Sulfate 2 gm in 50 mls @ 25 mls/hr 04/23/24 08:05 07/28/24 09:39 Magnesium Sulfate/H2o IV 04/23/24 10:04 Infused ONCE ONE Infusion Levalbuterol HCl 1.25 mg 04/23/24 08:04 04/23/24 08:17 Levalbuterol Hcl 1.25 Mg/3 Ml Vial.Neb INHALE 04/23/24 08:05 1.25 mg ONCE ONE Administration Medical Decision Making Medical Decision Making MDM Narrative: 63 yo male with PMH of atrial flutter/afib hx of ablation and cardioversion on eliquis on sotalol, cardiomyopathy 40-45%, HTN, hypothyroidism, obesity here with c/o 1 day of cough, wheezing, runny nose he was exposed at with shaking hands and kissing people now doesn't feel well. He has some chest pain with cough. Has mucous and tried his INH but still feels he is coughing and wheezing. He took his medicaitons today besides omeprazole. He feels winded and short of breath. Differential Diagnosis Differential Diagnoses: The differential diagnosis associated with the presentation includes viral syndrome, asthma, hypomagnesemia, CHF, atypical ACS, doubt VTE given eliquis use Admission/Observation Consideration of admission/observation: Escalation of care including admission/observation considered not in afib, not in CHF, no hypoxia, already on eliquis has pulse ox at home wants paxlovid hold statin monitor for hypotension witih valsartan allergic to prednisone cannot take it Lab Data [facility] Lab Attestation statement: I reviewed the patient's lab results. 04/23/24 07:40 04/23/24 07:40 Labs: Lab Results 04/23/24 04/23/24 04/23/24 Range/Units 07:40 07:41 07:50 WBC 7.2 (4.8-10.8) X10*3/uL RBC 4.79 (4.60-5.80) X10*6/uL Hgb 15.2 (14.0-18.0) g/dl Hct 42.9 (42.0-52.0) % MCV 89.6 (80.0-98.0) fL MCH 31.7 (27.0-33.0) pg MCHC 35.4 (31.0-36.0) g/dl RDW 12.9 (11.0-16.0) % Plt Count 112 L (160-400) X10*3/uL MPV 9.2 L (9.4-12.4) fL Immature Gran % (Auto) 0.3 (0.0-0.4) % Neut % (Auto) 81.2 H (45-73) % Lymph % (Auto) 10.3 L (20-40) % Hernando % (Auto) 6.1 (2-11) % Eos % (Auto) 1.7 (0-4) % Baso % (Auto) 0.4 (0-2) % Lymph # (Auto) 0.7 L (1.2-4.9) X10*3/uL [place] # (Auto) 0.4 (0.1-1.2) X10*3/uL Eos # (Auto) 0.1 (0.0-0.4) X10*3/uL Baso # (Auto) 0.0 (0.0-0.2) X10*3/uL Abs Immat Gran (auto) 0.02 (0.00-0.03) X10*3/uL Absolute Neuts (auto) 5.8 (2.0-8.3) x10*3/uL Absolute Nucleated RBC 0.000 (0.0-0.012) X10*3/uL Nucleated RBC % (auto) 0.0 (0.0-0.2) /100WBC PT 14.1 H (11.1-13.3) SEC INR 1.2 H (0.9-1.1) Sodium 138 (135-145) mmol/L Potassium 4.2 (3.3-5.1) mmol/L Chloride 103 (96-108) mmol/L Carbon Dioxide 24 (22-29) mmol/L Anion Gap 15 (12-20) BUN 14 (9-16) mg/dL Creatinine 1.20 (0.5-1.4) mg/dL Estim Creat Clear Calc 80.4 Estimated GFR > 60 Random Glucose 120 H (60-115) mg/dL Calcium 10.1 (8.4-10.2) mg/dL Magnesium 1.5 L (1.6-2.6) mg/dL Total Bilirubin 1.1 H (0.0-1.0) mg/dL AST 17 (5-37) U/L ALT 17 (0-40) U/L Alkaline Phosphatase 84 (39-117) U/L Troponin I High Sens 7.3 D (<3.5-35.0) ng/L B-Natriuretic Peptide 54 (<100) pg/mL Total Protein 7.2 (6.5-8.0) g/dL Albumin 4.4 (3.5-5.0) g/dL Influenza Type A (PCR) NEGATIVE (Negative) Influenza Type B (PCR) NEGATIVE (Negative) RSV RNA Qual (PCR) NEGATIVE (Negative) SARS-CoV-2 RNA (RT-PCR) POSITIVE A (Negative) Independent Interpretation I performed an independent interpretation of an: EKG and Plain X-Ray (normal ) Interpretation: Rate: 118 Rhythm: sinus tachy [place]: left Normal P waves. Normal ALOK. RBBB ST T wave : no SITA, V6 and V5 slight ST seg depression has had this before similar findings in I and aVL qTC: 510 prior studies: no sig change from priors The study has been interpreted contemporaneously by me. . Radiology Impression Discussion of test interpretation with radiology: I have reviewed the radiologist's reading. Independent Historian Clinical information obtained from an independent historian. History obtained from or confirmed by: Spouse External Record Review External record reviewed: Inpatient record Prescription Management I considered prescription management with: Antiviral and Other Discharge Plan Discharge Clinical Impression: COVID-19, Hypomagnesemia Patient Disposition: Home, Self-Care Instructions: Hypomagnesemia (ED), COVID-19 (Coronavirus Disease 2019) (ED) Additional Instructions: monitor pulse ox return for saturation less than 92% or if you are so short of breath you cannot walk to your own bathroom return for vomiting, unable to eat or drink, worsening pain or any other concerns HOLD ROSUVASTATIN while on paxlovid and resume 3 days after last dose quarantine for 5 days then wear a mask for 5 more days continue to take all other medications Prescriptions: New Paxlovid 300 mg (150 mg x 2)-100 mg tablets,dose pack See Rx Instructions .ROUTE .COMPLEX Qty: 30 0RF Rx Instructions: take TWO 150 mg tablets of nirmatrelvir with ONE 100 mg tablet of ritonavir twice daily for 5 days No Action ferrous sulfate 325 mg (65 mg iron) tablet 325 mg PO DAILY Qty: 90 1RF omeprazole 20 mg capsule,delayed release(DR/EC) 20 mg PO DAILY Qty: 90 2RF albuterol sulfate 90 mcg/actuation HFA aerosol inhaler 2 puff PO Q4H PRN (Reason: shortness of breath or wheezing) Qty: 8.5 4RF levothyroxine 88 mcg tablet 88 mcg PO DAILY Qty: 90 1RF rosuvastatin 5 mg tablet 5 mg PO Q OTHER DAY Qty: 45 1RF apixaban 5 mg tablet 5 mg PO BID Qty: 60 4RF sotalol 80 mg tablet 80 mg PO BID@0800,2000 Qty: 180 1RF valsartan 40 mg tablet 20 mg PO QPM magnesium oxide 250 mg magnesium tablet 250 mg PO DAILY Interventions: ED Discharge Assessment Last Done: 04/23/24 09:58 Discharge Date/Time: 04/23/24 09:59 Print Language: Chadian
[2024-04-23 07:52] LABS: Basophils Percent Auto 0.4 % (0-2); Eosinophils Absolute Auto 0.1 X10*3/uL (0.0-0.4); Eosinophils Percent Auto 1.7 % (0-4); Hematocrit 42.9 % (42.0-52.0); Hemoglobin 15.2 g/dl (14.0-18.0); Imm Gran Abs Auto 0.02 X10*3/uL (0.00-0.03); Imm Gran Pct Auto 0.3 % (0.0-0.4); Lymphocytes Absolute Auto 0.7 X10*3/uL (1.2-4.9); Lymphocytes Percent Auto 10.3 % (20-40); Mean Corpuscular HGB Conc 35.4 g/dl (31.0-36.0); Mean Corpuscular Hemoglobin 31.7 pg (27.0-33.0); Mean Corpuscular Volume 89.6 fL (80.0-98.0); Mean Platelet Volume 9.2 fL (9.4-12.4); Monocytes Absolute Auto 0.4 X10*3/uL (0.1-1.2); Monocytes Percent Auto 6.1 % (2-11); Neutrophils Absolute Auto 5.8 x10*3/uL (2.0-8.3); Neutrophils Percent Auto 81.2 % (45-73); Platelet Count 112 X10*3/uL (160-400); Red Blood Count 4.79 X10*6/uL (4.60-5.80); Red Cell Distribution Width 12.9 % (11.0-16.0); White Blood Count 7.2 X10*3/uL (4.8-10.8)
[2024-04-23 07:55] LABS: INTERNATIONAL NORM RATIO 1.2 (0.9-1.1); Prothrombin Time 14.1 SEC (11.1-13.3)
--- NOTE | 2024-04-23 08:02 | PC.NURSE ---
first contact with patient. awake and alert. room air, resp even and unlabored. speaking in full clear sentences. abd soft. skin wcd. ambulatory with steady gait. VSS, tachy to 110s.
[2024-04-23 08:04] LABS: Alanine Aminotransferase 17 U/L (0-40); Albumin Level 4.4 g/dL (3.5-5.0); Alkaline Phosphatase 84 U/L (39-117); Anion Gap 15 (12-20); Aspartate Amino Transferase 17 U/L (5-37); Bilirubin Total 1.1 mg/dL (0.0-1.0); Blood Urea Nitrogen 14 mg/dL (9-16); Calcium 10.1 mg/dL (8.4-10.2); Carbon Dioxide 24 mmol/L (22-29); Chloride 103 mmol/L (96-108); Creatinine Clr Calc Pharmacy 80.4; Estimated Glomerular Filt Rate > 60; Glucose Random 120 mg/dL (60-115); Magnesium 1.5 mg/dL (1.6-2.6); Potassium 4.2 mmol/L (3.3-5.1); Sodium 138 mmol/L (135-145); Total Protein 7.2 g/dL (6.5-8.0)
[2024-04-23 08:11] LABS: Troponin-I High Sensitivity 7.3 ng/L (<3.5-35.0)
[2024-04-23] MEDS: levalbuterol HCL 1.25 MG/3 ML VIAL.NEB INHALE (08:17)
[2024-04-23 08:18] VITALS: PULSE 116; RESP 14; O2SAT 98
[2024-04-23 08:27] LABS: Influenza A PCR NEGATIVE (Negative); Influenza B PCR NEGATIVE (Negative); Resp Syncy Virus RNA Qual PCR NEGATIVE (Negative); SARS COV2 PCR INHOUSE POSITIVE (Negative)
[2024-04-23 08:32] LABS: B Type Natriuretic Peptide 54 pg/mL (<100)
[2024-04-23] MEDS: Acetaminophen 325 MG TABLET 975 MG PO (08:40)
[2024-04-23] MEDS: HYDROcodone/Homat 5/1.5/5 ML 5 ML SYRUP PO (08:40)
[2024-04-23] MEDS: Magnesium Sulfate/H2O 2 GM/50 ML PIGGYBACK IV (08:40)
[2024-04-23 08:44] VITALS: BP 117/83; PULSE 119; RESP 14; TEMP 36.9; O2SAT 95
[2024-04-23 09:58] VITALS: BP 117/83; PULSE 119; RESP 14; TEMP 36.9; O2SAT 95
== END 2024-04-23 09:59 | disposition home or self-care (01) ==
PROVIDERS: Emergency Provider Emergency Medicine; PCP Internal Medicine
DX: U07.1 COVID-19 (principal); R07.89 Other chest pain; E83.42 Hypomagnesemia; R06.02 Shortness of breath; R05.9 Cough, unspecified; Z79.899 Other long term (current) drug therapy
CPT/HCPCS: 0241U; 36415; 71046; 80053; 83735; 83880; 84484; 85025; 85610; 93005; 94640; 99285; J3475

== ENCOUNTER → 2024-04-23 07:05 | Outpatient (BNV) | payer MEDICARE, MEDICAID, SELFPAY | PROVIDERS: Emergency Provider Emergency Medicine; PCP Internal Medicine; Visit Provider Internal Medicine | DX: R00.0 Tachycardia, unspecified (principal) | CPT/HCPCS: 93010 ==

== ENCOUNTER 2024-05-31 14:43 | Outpatient (AMB) | payer MEDICARE, MEDICAID, SELFPAY ==
[2024-05-31 14:49] VITALS: BP 118/68; PULSE 66; BMI 36.1
--- NOTE | 2024-05-31 14:49 | A.OFFVIS_ITS ---
Vital Signs 05/31/24 14:49 Height 5 ft 10 in Weight 251 lb 5.231 oz BMI 36.1 BP 118/68 Blood Pressure Location Lt brachial Position Sitting Pulse 66 Pulse Source Monitor Intake Visit Reasons: 4 mnth f/up Allergies lisinopril [Lisinopril] Allergy (Intermediate, Verified 05/04/24 15:19) RASH prednisone Allergy (Verified 05/04/24 15:19) Unknown sulfamethoxazole [From Bactrim] Adverse Reaction (Verified 05/04/24 15:19) Hallucinations trimethoprim [From Bactrim] Adverse Reaction (Verified 05/04/24 15:19) Hallucinations Environmental Allergy (Intermediate, Uncoded 05/04/24 15:19) Shortness of Breath Medication List - Last Reconciled 05/31/24 by Akira Tran MD albuterol sulfate 90 mcg/actuation 2 puffs PO Q4H PRN apixaban 5 mg PO BID ferrous sulfate 325 mg PO DAILY levothyroxine 88 mcg PO DAILY magnesium oxide 250 mg PO DAILY omeprazole 20 mg PO DAILY rosuvastatin 5 mg PO Q OTHER DAY sotalol 80 mg PO BID@0800,2000 valsartan 20 mg (1/2 x 40 mg) PO QPM 90 days HPI Comments Details: 64 male with Afib and cardiomyopathy. s/p cardioversion and ablation. Was on amidoarone and Eliquis. Previously was doing well. It appears she started noticing some palpitations and dyspnea over the last 4 weeks. He discuss this with [facility] electrophysiology and it appears he was advised to increase the amiodarone to 400 mg daily. As for her as I remember he was supposed to get off the amiodarone in 3 months after ablation. In any case he was informed on amiodarone which he decreased to 200 on his own because he was not feeling well and and was getting shortness of breath specially orthopnea at night. He also had this event where he walked out of a restaurant and had syncope falling on his face. He said that he had bruising on the side of his face and this was couple of weeks ago. His EKG showing atrial tachycardia with 2-1 block. He said his heart rate has been in 120s for weeks. Taking Eliquis regularly without any interruption. 06/07/23: He returns for follow-up. In November 2022 he was seen for atrial tachycardia/flutter. He was sent to emergency department and was admitted and underwent cardioversion. Subsequent to that he has been doing well. Lost echocardiography was in December 2022 which showed EF of 40 45%. Clinically has been improving and denying any chest discomfort shortness of breath at this stage. Blood pressure control is good. He is in sinus rhythm. His TSH during admission to hospital was 53. He is on levothyroxine 75 mcg daily. He is saying that he has been gaining weight. 12/13/2023: He returns for follow-up. He has been experiencing some palpitations as well as fatigue over the last 2 weeks. He is noticed to be in atrial flutter with variable block with heart rate of 108 beats per minute. He is denying any significant dyspnea. No orthopnea or PND. No chest discomfort. He has been taking medications regularly and has been on apixaban 5 mg twice a day without any interruption over the last month. Blood pressure is mildly elevated. 01/04/24: He is here for follow-up. He was admitted to hospital after cardioversion and was loaded with sotalol and discharged home with sotalol 80 mg twice a day. His metoprolol succinate dose was decreased to 75 mg daily and eventually was also decreased to 50 mg daily. He is currently taking metoprolol succinate 25 mg daily. He is complaining of right foot swelling and pain with ambulation. This started since he left the hospital. He thought that this is related sotalol and is urgently here to discuss this. The left foot is normal. He has eczema and skin breakdown. Denying any other issues. He is saying that when he walks it hurts significantly in the right foot. 02/09/24: He returns for follow-up. Apparently he received doxycycline and then again went to emergency department and received another course of antibiotics for the foot swelling and redness. Since then he has improved. He has eczema and skin breakdown which is likely cause for cellulitis. He has been ongoing demand to his open areas after discussion with rheumatology. Blood pressure is little low but he is denying any symptoms currently. His valsartan dose is 20 mg only at bedtime which has been cut back significantly. He is on sotalol with stable EKG with bifascicular block as before. 05/31/2024: He is here for follow-up. Denying any significant chest pain or shortness of breath. He has been coughing at night along with wheezing after recent COVID-19 infection. He has known history of asthma. He is using albuterol. Otherwise taking medications regularly without any concerns. [facility] Medical History Hyperuricemia Hypoxic Thiamine deficiency Erectile dysfunction Eczema of lower extremity History of cardioversion Vitamin D deficiency Alcohol abuse Nonischemic cardiomyopathy Atrial flutter Acute renal insufficiency Anemia Generalized anxiety disorder JOSE (obstructive sleep apnea) Chronic anticoagulation Mixed dyslipidemia Acquired hypothyroidism Nocturnal hypoxemia Obesity Hypothyroid HTN (hypertension) Surgical History History of prostate surgery H/O cardiac radiofrequency ablation History of esophagogastroduodenoscopy (EGD) H/O colonoscopy History of neck surgery Hx of hand surgery Hx of hernia repair Family History Father Atrial fibrillation Mother Heart attack Pacemaker Sister Thyroid disease Brother HTN (hypertension) Sister Colon cancer Social History Household Members: Spouse Housing: House Do you presently have visiting nurse or other home services: No Alcohol intake: never Comment: scheduled med Patient Tobacco Use Status: Never used Tobacco e-Cigarette/Vaping Use: Never Used Advance Directives Date on File: 12/26/20 service: No Current occupational status: disabled Cognitive needs: No Hearing needs: No Vision needs: Yes Review of Systems Const Denies weakness ENT Denies dizziness Card Denies chest pain, Denies chest pain with activity, Denies syncope, Denies rapid heart rate, Denies pedal edema, Denies edema, Denies leg edema, Denies lightheadedness, Denies palpitations, Denies dyspnea, Denies dyspnea on exertion and Denies orthopnea Resp Denies cough, Denies dyspnea and Denies dyspnea on exertion GI Denies hematochezia and Denies change in stool character Musc Denies abnormal gait, Denies muscle cramps, Denies muscle weakness, Denies numbness, Denies radiating pain into limb and Denies tingling Neuro Denies abnormal gait, Denies dizziness, Denies syncope, Denies numbness, Denies tingling and Denies weakness Endo Denies palpitations Physical Exam Vital Signs: Last Vital Signs Pulse 66 05/31/24 14:49 BP 118/68 05/31/24 14:49 BMI result Body Mass Index 36.1 GENERAL APPEARANCE: in no acute distress, pleasant. NECK: no carotid bruit, no jugular venous distention. HEART: no murmurs, regular rate and rhythm. LUNGS: clear to auscultation bilaterally. ABDOMEN: soft, nontender. PERIPHERAL PULSES: equal. NEUROLOGIC: No gross deficits, AAO X 3 Office Procedures EKG Details: Sinus rhythm 66 beats per minute, first-degree AV block with DE interval 218 millisecond, right bundle-branch block, left anterior fascicular block, lateral T-wave changes-consider ischemia, QTC 467 milliseconds., [id number], Complete Assessment & Plan Assessment & Plan (1) Nonischemic cardiomyopathy: Comment: EF 40 45%. Code(s): I42.8 - Other cardiomyopathies Category: Medical (2) PAF (paroxysmal atrial fibrillation): Code(s): I48.0 - Paroxysmal atrial fibrillation Category: Medical (3) Atrial tachycardia: Code(s): I47.1 - Supraventricular tachycardia Category: Medical Plan 64-year-old gentleman with nonischemic cardiomyopathy likely secondary to tachycardia due to atrial tachycardia. He also has known history of paroxysmal atrial fibrillation. Currently on sotalol and is in sinus rhythm. He has conduction issues with right bundle-branch block as well as left anterior fascicular block. Heart rate is in 60s mostly. Blood pressure is well controlled. Clinically euvolemic. Symptoms are likely due to asthma. His last ejection fraction was 40 45% in 01/14/2023. We will arrange echocardiography to reassess ejection fraction. Thank you for allowing me to participate in the care of your patient. Please feel free to contact me if you have any questions. Orders: Orders CA echo transthorac w con Today I42.8 - Other cardiomyopathies Coding Level of Care Code Est Pt Level 4 (54934) Diagnoses Nonischemic cardiomyopathy I42.8 PAF (paroxysmal atrial fibrillation) I48.0 Atrial tachycardia I47.1 CPT Codes EKG - CPT: [id number], Complete ([id number])
== END 2024-05-31 15:39 | disposition home or self-care (01) ==
PROVIDERS: PCP Internal Medicine; Visit Provider Internal Medicine Cardiovascular Disease
DX: I42.8 Other cardiomyopathies (principal); I48.0 Paroxysmal atrial fibrillation; I47.10 Supraventricular tachycardia, unspecified
CPT/HCPCS: 93010; 99214

== ENCOUNTER → 2024-05-31 14:43 | Outpatient (BNVA) | payer MEDICARE, MEDICAID, SELFPAY | PROVIDERS: PCP Internal Medicine; Visit Provider Internal Medicine Cardiovascular Disease | DX: I42.8 Other cardiomyopathies (principal); I48.0 Paroxysmal atrial fibrillation; I47.19 Other supraventricular tachycardia; R94.31 Abnormal electrocardiogram [ECG] [EKG]; I45.2 Bifascicular block; I44.0 Atrioventricular block, first degree | CPT/HCPCS: 93005; 99212 ==

== ENCOUNTER → 2024-06-23 07:47 | Outpatient (REF) | payer MEDICARE, MEDICAID, SELFPAY ==
--- NOTE | 2024-06-23 07:50 | CA_ITS ---
Transthoracic Echocardiogram Patient (Last, First, Middle): Gustavo Martinez P Gender: Male Date of : 1960 Age: 64 Procedure Date: 06/23/2024 Procedure Type: Transthoracic Echocardiogram Location: OP Height: 187.96 cm Weight: 108.86 kg BSA: 2.35 m2 Heart Rate: bpm BP: 100 / 60 mmHg Tour Agent: TO Referring MD: Akira Tran MD Symptoms: I42.8 - Other cardiomyopathies Study Quality: Technically Difficult/Contrast ECG Rhythm: Sinus Conclusions: - LVEF and wall motion difficult to assess. In the noncontrast images, LVEF appears hyperdynamic; but with contrast, appears mildly reduced. Cannot exclude wall motion abnormality in inferior/inferolateral wall. Septum appears hypercontractile. - There is mild aortic valve regurgitation. - There is mild dilatation of the sinuses of Valsalva measuring 4.54 cm, mild dilatation of the ascending aorta measuring 4.30 cm, and mild dilatation of the aortic arch measuring 4.00 cm. Findings Procedure Information Contrast agent, definity, is being given per protocol without apparent complications. Left Ventricle Normal left ventricular cavity size. There is mildly increased left ventricular wall thickness. Evidence suggests grade I (mild) diastolic dysfunction. There is mild septal and mild basal asymmetric hypertrophy. LVEF and wall motion difficult to assess. In the noncontrast images, LVEF appears hyperdynamic but with contrast, appears mildly reduced. Cannot exclude wall motion abnormality in inferior/inferolateral wall. Septum appears hypercontractile. Right Ventricle Normal right ventricular cavity size and systolic function. Atria The left atrium is moderately dilated. The right atrium is normal in size. Aortic Valve There is a normal trileaflet aortic valve. There is mild calcification of the aortic valve. There is no aortic valve stenosis. There is mild aortic valve regurgitation. Mitral Valve There is mild anterior and posterior mitral leaflet thickening. There is no mitral valve regurgitation. There is no mitral valve stenosis. Pulmonic Valve The pulmonic valve is likely normal. Tricuspid Valve There is no tricuspid valve regurgitation. Tricuspid regurgitation envelope is inadequate for calculation of right ventricular systolic pressure. Great Vessels There is mild dilatation of the sinuses of Valsalva measuring 4.54 cm, mild dilatation of the ascending aorta measuring 4.30 cm, and mild dilatation of the aortic arch measuring 4.00 cm. Venous The inferior vena cava is normal in size and collapses greater than 50% with inspiration. Pericardium/Pleural There is no evidence of pericardial effusion. Prior Study Comparison No significant change compared to prior study dated: 01/18/2023. Measurements 2D Linear Measurements IVSd: 1.78 0.6-0.9/0.6-1.0 cm LVIDd: 5.57 3.9-5.3/4.2-5.9 cm LVIDd Index: 2.37 2.4-3.2/2.2-3.1 cm/m2 LVIDs: 3.74 2.0-3.6 cm LVPWd: 1.20 0.7-1.1 cm LA Diam: 4.50 2.7-3.8/3.0-4.0 cm LAIDs Index: 1.91 1.5-2.3 cm/m2 LV Mass: 470.31 67-162/88-224 g LV Mass Index: 200.13 43-95/49-115 g/m2 LVOT Diam: 2.40 3.0+(-)1.3 cm 2D Systolic Function EF 4C: 45.10 >55% EF 2C: 50.60 >55% EF BiP: 47.50 >55% Mitral Valve MV Pk E: 0.34 MV PK A: 0.41 MV Decel Time: 266.00 E/A: 0.80 E'Lateral: 3.26 E'Medial: 3.05 E/E' Med: 11.20 E/E' Lat: 10.50 PHT: 78.00 MVA PHT: 2.82 Decel [place]: 1.29 Aortic Valve AoV Pk Oliver: 1.36 AoV Mn Oliver: 0.91 AoV VTI: 0.27 AoV Pk Grad: 7.00 Aov Mn Grad: 4.00 DUNG Cont.VTI: 3.26 LVOT LVOT Pk Oliver: 1.05 LVOT Mn Loiver: 0.61 LVOT VTI: 0.19 LVOT Pk Grad: 4.00 LVOT Mn Grad: 2.00 LVOT Diam: 2.40 LVOT Area: 4.52 Diastolic Function MV Pk E: 0.34 MV Pk A: 0.41 E/A: 0.80 E'Medial: 3.05 E/E' Med: 11.20 E' Laterial: 3.26 E/E' Lat: 10.50 Right Ventricle TAPSE (mm): 20.30 TVS' Oliver: 15.70 Tricuspid Valve RA Press: 3.00 Great Vessels Aorta Sinus of Valsalva: 4.54 2.0-3.5 cm Ao Asc: 4.30 2.1-3.4 cm Ao Arch: 4.00 Updated in Other Vendor System with Status of Final Young Whiteside MD electronically signed on 06/24/2024 1:15:16 PM with status of Final
== END ==
LOC: HO.CARD 07:47
PROVIDERS: PCP Internal Medicine; Visit Provider Internal Medicine Cardiovascular Disease
DX: I42.8 Other cardiomyopathies (principal)
CPT/HCPCS: 93306; Q9957

== ENCOUNTER → 2024-06-23 07:50 | Outpatient (BNV) | payer MEDICARE, MEDICAID, SELFPAY | PROVIDERS: PCP Internal Medicine; Visit Provider Internal Medicine | DX: I35.1 Nonrheumatic aortic (valve) insufficiency (principal); I42.2 Other hypertrophic cardiomyopathy | CPT/HCPCS: 93306 ==

== ENCOUNTER 2024-09-26 02:21 | Emergency (ER) | payer MEDICARE, MEDICAID, SELFPAY ==
--- NOTE | ~2024-09-26 | XR_ITS ---
CLINICAL HISTORY: Dyspnea 2 view chest x-ray. Comparison: CR/SR - XR CHEST 2V - 04/23/24 07:30 EDT Findings: Nipple shadows are incidentally noted. The lungs appear clear. There is no consolidation, effusion, or pneumothorax. Cardiomediastinal silhouette is within normal limits. There is a loop recorder in the left chest wall. IMPRESSION: No acute cardiopulmonary abnormality. This document has been electronically signed by: Boy Rashid MD on 09/26/2024 04:03:27
[2024-09-26 02:22] VITALS: BP 152/80; PULSE 73; RESP 20; O2SAT 97; BMI 33.0
[2024-09-26 03:09] LABS: MANUAL DIFF FLAG NO
[2024-09-26 03:12] LABS: Basophils Absolute Auto 0.1 X10*3/uL (0.0-0.2); Eosinophils Absolute Auto 0.2 X10*3/uL (0.0-0.4); Eosinophils Percent Auto 3.5 % (0-4); Hematocrit 41.4 % (42.0-52.0); Hemoglobin 14.8 g/dl (14.0-18.0); Imm Gran Abs Auto 0.02 X10*3/uL (0.00-0.03); Imm Gran Pct Auto 0.3 % (0.0-0.4); Lymphocytes Absolute Auto 2.1 X10*3/uL (1.2-4.9); Lymphocytes Percent Auto 30.2 % (20-40); Mean Corpuscular HGB Conc 35.7 g/dl (31.0-36.0); Mean Corpuscular Hemoglobin 31.6 pg (27.0-33.0); Mean Corpuscular Volume 88.5 fL (80.0-98.0); Mean Platelet Volume 9.1 fL (9.4-12.4); Monocytes Absolute Auto 0.6 X10*3/uL (0.1-1.2); Monocytes Percent Auto 8.6 % (2-11); Neutrophils Absolute Auto 3.9 x10*3/uL (2.0-8.3); Neutrophils Percent Auto 56.4 % (45-73); Platelet Count 107 X10*3/uL (160-400); Red Blood Count 4.68 X10*6/uL (4.60-5.80); Red Cell Distribution Width 12.8 % (11.0-16.0); White Blood Count 6.8 X10*3/uL (4.8-10.8)
[2024-09-26 03:34] LABS: Alanine Aminotransferase 22 U/L (0-40); Albumin Level 4.3 g/dL (3.5-5.0); Alkaline Phosphatase 88 U/L (39-117); Anion Gap 12 (12-20); Aspartate Amino Transferase 23 U/L (5-37); Bilirubin Total 0.8 mg/dL (0.0-1.0); Blood Urea Nitrogen 11 mg/dL (9-16); Calcium 9.6 mg/dL (8.4-10.2); Carbon Dioxide 26 mmol/L (22-29); Chloride 105 mmol/L (96-108); Creatinine Clr Calc Pharmacy 103.6; Estimated Glomerular Filt Rate > 60; Glucose Random 118 mg/dL (60-115); Lipase 19 U/L (8-78); Potassium 4.5 mmol/L (3.3-5.1); Sodium 138 mmol/L (135-145); Total Protein 7.3 g/dL (6.5-8.0)
[2024-09-26 03:46] LABS: Influenza A PCR NEGATIVE (Negative); Influenza B PCR NEGATIVE (Negative); Resp Syncy Virus RNA Qual PCR NEGATIVE (Negative); SARS COV2 PCR INHOUSE NEGATIVE (Negative)
[2024-09-26 03:59] VITALS: BP 126/70; PULSE 64; RESP 20; TEMP 36.4; O2SAT 95
[2024-09-26 07:22] VITALS: BP 142/84; PULSE 65; RESP 18; TEMP 36.5; O2SAT 94
--- NOTE | 2024-09-26 07:40 | ED.SOB ---
HPI - SOB/Dyspnea General Chief Complaint: Dyspnea Stated Complaint: diff breathing Time Seen by Provider: 09/26/24 07:35 Source: patient Mode of arrival: ambulatory Limitations: no limitations History of Present Illness HPI Narrative: This is a 64 years old male presented to emergency department complaining of shortness of breath runny nose URI symptoms. He has history of asthma he has been using the inhaler but he stated he does not feel any better. Symptoms started 2 days ago worse last night. Denies any chest pain and fever MD elicited complaint: shortness of breath and cough Pertinent past history: asthma Onset (ago): day(s) (2) Timing: constant Severity: moderate Exacerbating factors: nothing Relieving factors: nothing Known history of: asthma Associated symptoms: denies other symptoms Related Data Home oxygen amount: none Home Medications ?Medication ?Instructions ?Recorded ?Confirmed magnesium oxide 250 mg PO DAILY 12/29/23 05/31/24 Previous Rx's ?Medication ?Instructions ?Recorded ferrous sulfate 325 mg (65 mg 325 mg PO DAILY #90 tabs 03/04/22 iron) tablet albuterol sulfate 90 mcg/actuation 2 puff PO Q4H PRN shortness of 12/07/23 aerosol inhaler breath or wheezing #8.5 grams levothyroxine 88 mcg tablet 88 mcg PO DAILY #90 tabs 01/09/24 valsartan 40 mg tablet 20 mg (1/2 x 40 mg) PO QPM 90 days 05/03/24 #45 tabs omeprazole 20 mg capsule,delayed 20 mg PO DAILY #90 caps 05/30/24 release rosuvastatin 5 mg tablet 5 mg PO Q OTHER DAY #45 tabs 07/16/24 apixaban 5 mg tablet 5 mg PO BID #60 tabs 07/18/24 sotalol 80 mg tablet 80 mg PO Q12H #180 tabs 07/31/24 prednisone 10 mg tablet 40 mg (4 x 10 mg) PO DAILY 4 days 09/26/24 #16 tabs Allergies Allergy/AdvReac Type Severity Reaction Status Date / Time lisinopril [Lisinopril] Allergy Intermediate RASH Verified 09/26/24 02:24 prednisone Allergy Unknown Verified 09/26/24 02:24 sulfamethoxazole AdvReac Hallucinati Verified 09/26/24 02:24 [From Bactrim] ons trimethoprim [From Bactrim] AdvReac Hallucinati Verified 09/26/24 02:24 ons Environmental Allergy Intermediate Shortness Uncoded 09/26/24 02:24 of Breath Review of Systems Constitutional: Constitutional: Reports no additional constitutional complaints ENT: Reports system reviewed and no additional complaints, except as documented Cardiovascular: Cardiovascular: Reports no additional cardiovascular complaints and Reports dyspnea Respiratory: Respiratory: Reports cough and Reports dyspnea [facility] Past Medical History [facility] Narrative: Patient has history of asthma, he has history of atrial flutter is anticoagulated with apixaban, he has history of hypertension he has history of coronary artery disease and CVA. Medical History Hyperuricemia Hypoxic Thiamine deficiency Erectile dysfunction Eczema of lower extremity History of cardioversion Vitamin D deficiency Alcohol abuse Nonischemic cardiomyopathy Atrial flutter Acute renal insufficiency Anemia Generalized anxiety disorder JOSE (obstructive sleep apnea) Chronic anticoagulation Mixed dyslipidemia Acquired hypothyroidism Nocturnal hypoxemia Obesity Hypothyroid HTN (hypertension) Surgical History History of prostate surgery H/O cardiac radiofrequency ablation History of esophagogastroduodenoscopy (EGD) H/O colonoscopy History of neck surgery Hx of hand surgery Hx of hernia repair Family History Family History Father Atrial fibrillation Mother Heart attack Pacemaker Sister Thyroid disease Brother HTN (hypertension) Sister Colon cancer Social History Social History Household Members: Spouse Housing: House Do you presently have visiting nurse or other home services: No Alcohol intake: never Comment: scheduled med Patient Tobacco Use Status: Never used Tobacco e-Cigarette/Vaping Use: Never Used Advance Directives: Yes Advance Directives on File: Yes Advance Directives Date on File: 12/26/20 Do you have a plan to hurt others: No Plan service: No Current occupational status: disabled Cognitive needs: No Hearing needs: No Vision needs: Yes Physical Exam Vital Signs: Vital Signs: Last Vital Signs Temp 97 F 09/26/24 09:22 Pulse 71 09/26/24 09:22 Resp 20 09/26/24 09:22 BP 138/80 09/26/24 09:22 Pulse Ox 94 09/26/24 09:22 O2 Del Method Room Air 09/26/24 09:22 BMI result Body Mass Index 33.0 No acute distress Const: General: cooperative Orientation/consciousness: patient oriented x3 Limitations: no limitations HEENT: Head: Yes normal to inspection Ears: hearing grossly normal bilaterally Face and sinus: Yes normal facial exam Neck: Neck: Yes normal visual inspection Chest: Chest palpation & inspection: normal inspection of the chest Resp: Effort & Inspection: normal respiratory effort Auscultation: wheezes Cardio: Jugular venous distension: no JVD Rate: regular rate Rhythm: regular rhythm GI: Inspection: Yes normal to inspection Palpation (GI): Soft to palpation, not firm and nontender Auscultation: normal bowel sounds Skin: General skin exam: no rashes or lesions noted Lesions: no lesions Rashes: no rashes Neuro: General: patient oriented x3 Extrem: General: Yes normal to inspection, Yes full ROM and Yes capillary refill normal Right lower extremity: normal to inspection Course Reevaluation(s) Reevaluation #1: feeling better I am 100% better Time: 09:09 Medications Administered Discontinued Medications Generic Name Dose Route Start Last Admin Trade Name Freq PRN Reason Stop Dose Admin Albuterol Sulfate 2.5 mg/ 0 mg 09/26/24 07:51 09/26/24 08:06 Albuterol/Ipratropium 3 ml INHALE 09/26/24 07:52 1 dose ONCE ONE Administration Medical Decision Making Medical Decision Making [facility] Narrative: Patient presented with a chief complaint of shortness a breath, will do in the chest x-ray administer bronchodilator Differential Diagnosis Differential Diagnoses: The differential diagnosis associated with the presentation includes Asthma exacerbation/unlikely pneumonia he has no fever his white count is normal, unlikely CHF he has a normal chest x-ray/ unlikely PE he is on apixaban Admission/Observation Consideration of admission/observation: Escalation of care including admission/observation considered Lab Data [facility] Lab Attestation statement: I reviewed the patient's lab results. 09/26/24 03:01 09/26/24 03:01 Labs: Lab Results 09/26/24 Range/Units 03:01 WBC 6.8 (4.8-10.8) X10*3/uL RBC 4.68 (4.60-5.80) X10*6/uL Hgb 14.8 (14.0-18.0) g/dl Hct 41.4 L (42.0-52.0) % MCV 88.5 (80.0-98.0) fL MCH 31.6 (27.0-33.0) pg MCHC 35.7 (31.0-36.0) g/dl RDW 12.8 (11.0-16.0) % Plt Count 107 L (160-400) X10*3/uL MPV 9.1 L (9.4-12.4) fL Immature Gran % (Auto) 0.3 (0.0-0.4) % Neut % (Auto) 56.4 (45-73) % Lymph % (Auto) 30.2 (20-40) % [place] % (Auto) 8.6 (2-11) % Eos % (Auto) 3.5 (0-4) % Baso % (Auto) 1.0 (0-2) % Lymph # (Auto) 2.1 (1.2-4.9) X10*3/uL [place] # (Auto) 0.6 (0.1-1.2) X10*3/uL Eos # (Auto) 0.2 (0.0-0.4) X10*3/uL Baso # (Auto) 0.1 (0.0-0.2) X10*3/uL Abs Immat Gran (auto) 0.02 (0.00-0.03) X10*3/uL Absolute Neuts (auto) 3.9 (2.0-8.3) x10*3/uL Absolute Nucleated RBC 0.000 (0.0-0.012) X10*3/uL Nucleated RBC % (auto) 0.0 (0.0-0.2) /100WBC Sodium 138 (135-145) mmol/L Potassium 4.5 (3.3-5.1) mmol/L Chloride 105 (96-108) mmol/L Carbon Dioxide 26 (22-29) mmol/L Anion Gap 12 (12-20) BUN 11 (9-16) mg/dL Creatinine 0.99 (0.5-1.4) mg/dL Estim Creat Clear Calc 103.6 Estimated GFR > 60 Random Glucose 118 H (60-115) mg/dL Calcium 9.6 (8.4-10.2) mg/dL Total Bilirubin 0.8 (0.0-1.0) mg/dL AST 23 (5-37) U/L ALT 22 (0-40) U/L Alkaline Phosphatase 88 (39-117) U/L Total Protein 7.3 (6.5-8.0) g/dL Albumin 4.3 (3.5-5.0) g/dL Lipase 19 (8-78) U/L Influenza Type A (PCR) NEGATIVE (Negative) Influenza Type B (PCR) NEGATIVE (Negative) RSV RNA Qual (PCR) NEGATIVE (Negative) SARS-CoV-2 RNA (RT-PCR) NEGATIVE (Negative) Independent Interpretation I performed an independent interpretation of an: Plain X-Ray Interpretation: X-ray reviewed interpreted by me as not acute disease Radiology Impression Discussion of test interpretation with radiology: I have reviewed the radiologist's reading. Radiologist Impression: CLINICAL HISTORY: Dyspnea 2 view chest x-ray. Comparison: CR/SR - XR CHEST 2V - 04/23/24 07:30 EDT Findings: Nipple shadows are incidentally noted. The lungs appear clear. There is no consolidation, effusion, or pneumothorax. Cardiomediastinal silhouette is within normal limits. There is a loop recorder in the left chest wall. IMPRESSION: No acute cardiopulmonary abnormality. This document has been electronically signed by: Boy Rashid MD on 09/26/2024 04:03:27 Dictated By: Boy Rashid MD Signed By: <Electronically signed by Boy Rashid MD in OV> 09/26/24 0404 External Record Review External record reviewed: Inpatient record Discharge Plan Discharge Clinical Impression: Asthma attack Qualifiers: Asthma severity: moderate Asthma persistence: unspecified Qualified Code(s): J45.901 - Unspecified asthma with (acute) exacerbation Patient Disposition: Home, Self-Care Instructions: Asthma (DC) Additional Instructions: Follow-up with your primary care physician and take prednisone as directed Prescriptions: New prednisone 10 mg tablet 40 mg PO DAILY 4 Days Qty: 16 0RF Rx Instructions: days 11-21 of therapy No Action ferrous sulfate 325 mg (65 mg iron) tablet 325 mg PO DAILY Qty: 90 1RF albuterol sulfate 90 mcg/actuation HFA aerosol inhaler 2 puff PO Q4H PRN (Reason: shortness of breath or wheezing) Qty: 8.5 4RF levothyroxine 88 mcg tablet 88 mcg PO DAILY Qty: 90 1RF valsartan 40 mg tablet 20 mg PO QPM 90 Days Qty: 45 3RF omeprazole 20 mg capsule,delayed release(DR/EC) 20 mg PO DAILY Qty: 90 2RF rosuvastatin 5 mg tablet 5 mg PO Q OTHER DAY Qty: 45 1RF apixaban 5 mg tablet 5 mg PO BID Qty: 60 4RF sotalol 80 mg tablet 80 mg PO Q12H Qty: 180 1RF magnesium oxide 250 mg magnesium tablet 250 mg PO DAILY Referrals: Yancy Giles MD [Primary Care Provider] - 2 days Interventions: ED Discharge Assessment Last Done: 09/26/24 09:22 Discharge Date/Time: 09/26/24 09:28 Print Language: Turkmen
[2024-09-26 08:06] VITALS: PULSE 89; RESP 22; O2SAT 96
[2024-09-26] MEDS: Albuterol Sulfate 2.5 MG, Albuterol/Iprat 2.5/0.5MG 3 ML 3 ML INHALE (08:06)
[2024-09-26 09:22] VITALS: BP 138/80; PULSE 71; RESP 20; TEMP 36.1; O2SAT 94
== END 2024-09-26 09:28 | disposition home or self-care (01) ==
PROVIDERS: Emergency Provider Emergency Medicine; PCP Internal Medicine
DX: J45.901 Unspecified asthma with (acute) exacerbation (principal); R06.02 Shortness of breath; R05.9 Cough, unspecified; Z79.899 Other long term (current) drug therapy; Z03.818 Encounter for observation for suspected exposure to other biological agents ruled out
CPT/HCPCS: 0241U; 71046; 80053; 83690; 85025; 94640; 99284

== ENCOUNTER → 2024-09-26 02:35 | Outpatient (BNV) | payer MEDICARE, MEDICAID, SELFPAY | PROVIDERS: Visit Provider Radiology Diagnostic Radiology | DX: R06.00 Dyspnea, unspecified (principal) | CPT/HCPCS: 71046 ==

== ENCOUNTER 2024-10-02 11:07 | Outpatient (AMB) | payer MEDICARE, MEDICAID, SELFPAY ==
[2024-10-02 11:56] VITALS: BP 112/70; PULSE 65; O2SAT 95; BMI 33.0
--- NOTE | 2024-10-02 11:56 | A.OFFPC_ITS ---
Vital Signs 10/02/24 11:56 Height 6 ft 2 in Weight 257 lb BMI 33.0 BP 112/70 Blood Pressure Location Rt brachial Position Sitting Pulse 65 Pulse Source Pulse Oximeter Pulse Oximetry (%) 95 Oxygen Delivery Method Room Air Intake Visit Reasons: f/u ER wheezing Intake Note: Pt is here today to f/u ER wheezing Allergies lisinopril [Lisinopril] Allergy (Intermediate, Verified 10/02/24 15:50) RASH prednisone Allergy (Verified 10/02/24 15:50) Unknown sulfamethoxazole [From Bactrim] Adverse Reaction (Verified 10/02/24 15:50) Hallucinations trimethoprim [From Bactrim] Adverse Reaction (Verified 10/02/24 15:50) Hallucinations Environmental Allergy (Intermediate, Uncoded 10/02/24 15:50) Shortness of Breath Medication List - Last Reconciled 10/02/24 by Yancy Giles MD albuterol sulfate 90 mcg/actuation 2 puffs PO Q4H PRN albuterol sulfate 2.5 mg (3 mL) inhalation QID PRN apixaban 5 mg PO BID ferrous sulfate 325 mg PO DAILY levothyroxine 88 mcg PO DAILY magnesium oxide 250 mg PO DAILY nebulizers (AeroEclipse II Nebulizer) As directed Use as directed for episodes of bronchospasm and wheeze omeprazole 20 mg PO DAILY rosuvastatin 5 mg PO Q OTHER DAY sotalol 80 mg PO Q12H valsartan 20 mg (1/2 x 40 mg) PO QPM 90 days Tobacco use date assessed: 10/02/24 Dental Screening Dental Screen Date: 10/02/24 Did you have a dental visit in the last 12 months?: Yes Did you have a dental problem in the last 6 months where you did not have access to dental care?: No Was dental information given to patient?: Patient has dentist HPI f/u ER wheezing HPI Details 64-year-old male here today for follow-u p after recent ER visit where he was diagnosed with a acute exacerbation asthma. Patient states that he has been having a runny nose and with postnasal drip 2 days prior to symptoms, and started having severe shortness of breath and wheezing in the middle of the night, unrelieved with using his albuterol inhaler spray, which prompted him to go to the ER. He immediately got relief after receiving nebulizer treatment with albuterol, and was discharged home on 40 mg of prednisone which he took for 4 days. At present he is feeling much better, breathing normally. Would like to see if he can get a prescription for nebulizer machine and albuterol nebulizers to use as needed for acute asthmatic attacks. [facility] Medical History (Updated 10/02/24 @ 15:53 by Yancy Giles MD) History of alcohol use disorder Hyperuricemia Thiamine deficiency Erectile dysfunction Eczema of lower extremity History of cardioversion Vitamin D deficiency Nonischemic cardiomyopathy Atrial flutter Acute renal insufficiency Anemia Generalized anxiety disorder JOSE (obstructive sleep apnea) Chronic anticoagulation Mixed dyslipidemia Acquired hypothyroidism Nocturnal hypoxemia Obesity Hypothyroid HTN (hypertension) Surgical History History of prostate surgery H/O cardiac radiofrequency ablation History of esophagogastroduodenoscopy (EGD) H/O colonoscopy History of neck surgery Hx of hand surgery Hx of hernia repair Family History Father Atrial fibrillation Mother Heart attack Pacemaker Sister Thyroid disease Brother HTN (hypertension) Sister Colon cancer Social History Household Members: Spouse Housing: House Do you presently have visiting nurse or other home services: No Alcohol intake: never Comment: scheduled med Patient Tobacco Use Status: Never used Tobacco e-Cigarette/Vaping Use: Never Used Advance Directives Date on File: 12/26/20 service: No Current occupational status: disabled Cognitive needs: No Hearing needs: No Vision needs: Yes Questionnaire PHQ-9 Over the last 2 weeks, how often have you been bothered by any of the following problems? 1. Little interest or pleasure in doing things: not at all 2. Feeling down, depressed, or hopeless: not at all 3. Trouble falling or staying asleep, or sleeping too much: not at all 4. Feeling tired or having little energy: not at all 5. Poor appetite or overeating: not at all 6. Feeling bad about yourself - or that you are a failure or have let yourself or your family down: not at all 7. Trouble concentrating on things, such as reading the newspaper or watching television: not at all 8. Moving or speaking so slowly that other people could have noticed. Or the opposite - being so fidgety or restless that you have been moving around a lot more than usual: not at all 9. Thoughts that you would be better off or of hurting yourself in some way: not at all Total score: 0 Depression Screening Interpretation: Negative Depression Screening Done: Yes 76025 - PHQ-9 Billing: Yes Source: Developed by Drs. Vincent Diaz, Beth Sung, Yandel Marinelli and colleagues, with an educational celena from [employer]. Thrive Questionnaire Date Thrive assessed: 10/02/24 I am a: Patient What is your living situation today?: I have a steady place to live Within the past 12 months, did the food you bought not last and you didn't have the money to get more?: Never true Within the past 12 months, did you worry whether your food would run out before you got money to buy more?: Never true Do you have trouble paying for medicines?: No Do you have trouble getting transportation to medical appointments?: No Do you have trouble paying your heating and electricity bill?: No Do you have trouble taking care of your child, family member or friend?: No Do you have trouble with day-to-day activities such as bathing, preparing meals, shopping, managing finances, etc.?: No Are you currently unemployed and looking for a job?: No Are you interested in more education?: No THRIVE Score: 0 MARKO-7 AMB Questionnaire MARKO-7 Date MARKO - 7 assessed: 10/02/24 Feeling nervous, anxious, or on edge: 0 = Not at all Not being able to stop or control worryin = Not at all Worrying too much about different things: 0 = Not at all Trouble relaxin = Not at all Being so restless that it is hard to sit still: 0 = Not at all Becoming easily annoyed or irritable: 0 = Not at all Feeling afraid as if something awful might happen: 0 = Not at all Total MARKO-7 score (0-4 normal; 5-9 mild; 10-14 moderate; 15-21 severe): 0 Source: Developed by Drs. Vincent Diaz, aYndel Tamayoke and colleagues, with an educational celena from [employer]. MARKO-7 Assessment Billing MARKO-7 Assessment Tool: MARKO-7 Assessment 34357 Review of Systems Const All systems reviewed & are unremarkable except as noted in HPI and below Physical exam (Primary Care) Vital Signs: Last Vital Signs Pulse 65 10/02/24 11:56 BP 112/70 10/02/24 11:56 Pulse Ox 95 10/02/24 11:56 Oxygen Delivery Method Room Air 10/02/24 11:56 BMI result Body Mass Index 33.0 Tobacco/Smoking Status: Tobacco use Status Tobacco use date assessed 10/02/24 10/02/24 12:02 Patient Tobacco Use Status Never used Tobacco 10/02/24 12:02 e-Cigarette/Vaping Use Never Used 10/02/24 12:02 PHQ-9: PHQ-9 Score PHQ-9: Total score 0 10/02/24 15:50 Depression Screening Interpretation: Negative Thrive Assessment: Date of Thrive Assessment Date Thrive assessed 10/02/24 10/02/24 12:02 Const Other: Alert oriented x3, no acute distress noted ambulatory normal gait HENMT Ears: external ears normal, TM's normal bilaterally and EAC's normal General nose exam: Normal external nose present and No nasal discharge present Face and sinus: Yes face symmetric Mouth: Normal oral and palatal mucosa present and oropharynx normal Neck Neck: Yes full ROM, Yes no lymphadenopathy and Yes supple Resp Effort & Inspection: normal respiratory effort Auscultation: clear to auscultation bilaterally Cardio Other: S1-S2 present regular rate and rhythm Coding Level of Care Code Est Pt Level 3 (67910) Diagnoses Reactive airway disease with acute exacerbation J45.901 Additional Codes MARKO-7 Assessment Billing - MARKO-7 Assessment Tool: MARKO-7 Assessment 53320 ([id number]) PHQ-9 - 24725 - PHQ-9 Billing: Yes ([id number]) Assessment & Plan Assessment & Plan (1) Reactive airway disease with acute exacerbation: Code(s): J45.901 - Unspecified asthma with (acute) exacerbation Category: Medical Plan: Patient already completed taking his prednisone, has albuterol inhaler to use as needed for episodes of wheezing and bronchospasm. Prescription was sent for nebulizer machine and albuterol nebulizer to use only as needed if bronchospasm and wheezing unrelieved with using albuterol inhaler. Patient cautioned on possible side effects of medication which includes tachycardia Medications: New nebulizers (AeroEclipse II Nebulizer) As directed Use as directed for episodes of bronchospasm and wheeze 1 ea 0RF J45.901 - Unspecified asthma with (acute) exacerbation albuterol sulfate 2.5 mg (3 mL) inhalation QID PRN 75 mL 0RF shortness of breath or wheezing J45.901 - Unspecified asthma with (acute) exacerbation nebulizers (AeroEclipse II Nebulizer) As directed Use as directed for episodes of bronchospasm and wheeze 1 ea 0RF J45.901 - Unspecified asthma with (acute) exacerbation albuterol sulfate 2.5 mg (3 mL) inhalation QID PRN 75 mL 0RF shortness of breath or wheezing J45.901 - Unspecified asthma with (acute) exacerbation
== END 2024-10-02 13:51 | disposition home or self-care (01) ==
PROVIDERS: PCP Internal Medicine; Visit Provider Internal Medicine
DX: J45.901 Unspecified asthma with (acute) exacerbation (principal)

== ENCOUNTER → 2024-10-02 11:07 | Outpatient (BNVA) | payer MEDICARE, MEDICAID, SELFPAY | PROVIDERS: PCP Internal Medicine; Visit Provider Internal Medicine | DX: J45.901 Unspecified asthma with (acute) exacerbation (principal) | CPT/HCPCS: 96127; 99212 ==

== ENCOUNTER 2024-12-25 15:19 | Outpatient (AMB) | payer MEDICARE, MEDICAID, SELFPAY ==
--- NOTE | 2024-12-25 15:32 | A.OFFVIS_ITS ---
Vital Signs 12/25/24 15:34 Height 6 ft 2 in Weight 254 lb 13.67 oz BMI 32.7 BP 130/60 Blood Pressure Location Lt brachial Position Sitting Pulse 64 Pulse Source Monitor Intake Visit Reasons: 4mth f/up Intake Note: 4 mth f/up Certified Scrub Tech Required: No Accompanied by: Self / Same As Patient Allergies lisinopril [Lisinopril] Allergy (Intermediate, Verified 10/02/24 15:50) RASH prednisone Allergy (Verified 10/02/24 15:50) Unknown sulfamethoxazole [From Bactrim] Adverse Reaction (Verified 10/02/24 15:50) Hallucinations trimethoprim [From Bactrim] Adverse Reaction (Verified 10/02/24 15:50) Hallucinations Environmental Allergy (Intermediate, Uncoded 10/02/24 15:50) Shortness of Breath Medication List - Last Reconciled 12/25/24 by Akira Tran MD albuterol sulfate 90 mcg/actuation 2 puffs PO Q4H PRN albuterol sulfate 2.5 mg (3 mL) inhalation QID PRN apixaban (Eliquis) 5 mg PO BID ferrous sulfate 325 mg PO DAILY levothyroxine 88 mcg PO DAILY magnesium oxide 250 mg PO DAILY nebulizers (AeroEclipse II Nebulizer) As directed Use as directed for episodes of bronchospasm and wheeze omeprazole 20 mg PO DAILY rosuvastatin 5 mg PO Q OTHER DAY sotalol 80 mg PO Q12H valsartan 20 mg (1/2 x 40 mg) PO QPM 90 days HPI Comments Details: 64 male with Afib and cardiomyopathy. s/p cardioversion and ablation. Was on amidoarone and Eliquis. Previously was doing well. It appears she started noticing some palpitations and dyspnea over the last 4 weeks. He discuss this with [facility] electrophysiology and it appears he was advised to increase the amiodarone to 400 mg daily. As for her as I remember he was supposed to get off the amiodarone in 3 months after ablation. In any case he was informed on amiodarone which he decreased to 200 on his own because he was not feeling well and and was getting shortness of breath specially orthopnea at night. He also had this event where he walked out of a restaurant and had syncope falling on his face. He said that he had bruising on the side of his face and this was couple of weeks ago. His EKG showing atrial tachycardia with 2-1 block. He said his heart rate has been in 120s for weeks. Taking Eliquis regularly without any interruption. 06/07/23: He returns for follow-up. In November 2022 he was seen for atrial tachycardia/flutter. He was sent to emergency department and was admitted and underwent cardioversion. Subsequent to that he has been doing well. Lost echocardiography was in December 2022 which showed EF of 40 45%. Clinically has been improving and denying any chest discomfort shortness of breath at this stage. Blood pressure control is good. He is in sinus rhythm. His TSH during admission to hospital was 53. He is on levothyroxine 75 mcg daily. He is saying that he has been gaining weight. 12/13/2023: He returns for follow-up. He has been experiencing some palpitations as well as fatigue over the last 2 weeks. He is noticed to be in atrial flutter with variable block with heart rate of 108 beats per minute. He is denying any significant dyspnea. No orthopnea or PND. No chest discomfort. He has been taking medications regularly and has been on apixaban 5 mg twice a day without any interruption over the last month. Blood pressure is mildly elevated. 01/04/24: He is here for follow-up. He was admitted to hospital after cardioversion and was loaded with sotalol and discharged home with sotalol 80 mg twice a day. His metoprolol succinate dose was decreased to 75 mg daily and eventually was also decreased to 50 mg daily. He is currently taking metoprolol succinate 25 mg daily. He is complaining of right foot swelling and pain with ambulation. This started since he left the hospital. He thought that this is related sotalol and is urgently here to discuss this. The left foot is normal. He has eczema and skin breakdown. Denying any other issues. He is saying that when he walks it hurts significantly in the right foot. 02/09/24: He returns for follow-up. Apparently he received doxycycline and then again went to emergency department and received another course of antibiotics for the foot swelling and redness. Since then he has improved. He has eczema and skin breakdown which is likely cause for cellulitis. He has been ongoing demand to his open areas after discussion with rheumatology. Blood pressure is little low but he is denying any symptoms currently. His valsartan dose is 20 mg only at bedtime which has been cut back significantly. He is on sotalol with stable EKG with bifascicular block as before. 05/31/2024: He is here for follow-up. Denying any significant chest pain or shortness of breath. He has been coughing at night along with wheezing after recent COVID-19 infection. He has known history of asthma. He is using albuterol. Otherwise taking medications regularly without any concerns. 12/25/2024: He is here for follow-up. He had 1 episode of heart rate in 120s and palpitations few weeks back. He said he took an extra sotalol. He message me and I advised him not to use sotalol like that because that can be dangerous and can affect QT interval and can lead to arrhythmia. He has not used any further extra sotalol in view using 80 mg twice a day without any frequent symptoms. [facility] Medical History (Updated 12/25/24 @ 15:52 by Akira Tran MD) Atrial flutter History of alcohol use disorder Hyperuricemia Thiamine deficiency Erectile dysfunction Eczema of lower extremity History of cardioversion Vitamin D deficiency Nonischemic cardiomyopathy Acute renal insufficiency Anemia Generalized anxiety disorder JOSE (obstructive sleep apnea) Chronic anticoagulation Mixed dyslipidemia Acquired hypothyroidism Nocturnal hypoxemia Obesity Hypothyroid HTN (hypertension) Surgical History (Reviewed 12/25/24 @ 15:35 by Katia Chaudhari [facility]) History of prostate surgery H/O cardiac radiofrequency ablation History of esophagogastroduodenoscopy (EGD) H/O colonoscopy History of neck surgery Hx of hand surgery Hx of hernia repair Family History Father Atrial fibrillation Mother Heart attack Pacemaker Sister Thyroid disease Brother HTN (hypertension) Sister Colon cancer Social History Household Members: Spouse Housing: House Do you presently have visiting nurse or other home services: No Alcohol intake: never Comment: scheduled med Patient Tobacco Use Status: Never used Tobacco e-Cigarette/Vaping Use: Never Used Advance Directives Date on File: 12/26/20 service: No Current occupational status: disabled Cognitive needs: No Hearing needs: No Vision needs: Yes Review of Systems Const Denies chills, Denies fatigue, Denies fever(s), Denies frequent falls, Denies weakness, Denies weight gain and Denies weight loss ENT Denies dizziness Card Denies chest pain, Denies leg edema, Denies lightheadedness, Denies palpitations, Denies dyspnea and Denies dyspnea on exertion Resp Denies cough, Denies dyspnea and Denies dyspnea on exertion GI Denies hematochezia Musc Denies abnormal gait, Denies muscle weakness, Denies numbness, Denies radiating pain into limb and Denies tingling Neuro Denies abnormal gait, Denies dizziness, Denies frequent falls, Denies numbness, Denies tingling and Denies weakness Endo Denies fatigue and Denies palpitations Physical Exam Vital Signs: Last Vital Signs Pulse 64 12/25/24 15:34 BP 130/60 12/25/24 15:34 BMI result Body Mass Index 32.7 GENERAL APPEARANCE: in no acute distress, pleasant. NECK: no carotid bruit, no jugular venous distention. HEART: no murmurs, regular rate and rhythm. LUNGS: clear to auscultation bilaterally. ABDOMEN: soft, nontender. PERIPHERAL PULSES: equal. NEUROLOGIC: No gross deficits, AAO X 3 Office Procedures EKG Details: Sinus rhythm 64 beats per minute, right bundle-branch block, left anterior fascicular block, bifascicular block, QTC 458 milliseconds. [id number], Complete Assessment & Plan Assessment & Plan (1) PAF (paroxysmal atrial fibrillation): Code(s): I48.0 - Paroxysmal atrial fibrillation Category: Medical (2) Atrial flutter: Code(s): I48.92 - Unspecified atrial flutter Category: Medical (3) Atrial tachycardia: Code(s): I47.1 - Supraventricular tachycardia Category: Medical Plan 64-year-old gentleman with history of nonischemic cardiomyopathy likely secondary to tachycardia due to atrial tachycardia. He also has known history of paroxysmal atrial fibrillation. Currently on sotalol and is in sinus rhythm. He has conduction issues with right bundle-branch block as well as left anterior fascicular block. Repeat echocardiography has shown normal ejection fraction. He is doing well and had just 1 episode of arrhythmia. I think this is likely atrial flutter. Otherwise has been stable on sotalol and taking Eliquis 5 mg twice a day for anticoagulation. No changes in medications required currently. He will see us back in 6 months. Thank you for allowing me to participate in the care of your patient. Please feel free to contact me if you have any questions. Coding Level of Care Code Est Pt Level 4 (75701) Complex EM visit Add On G2211 Diagnoses PAF (paroxysmal atrial fibrillation) I48.0 Atrial flutter I48.92 Atrial tachycardia I47.1 CPT Codes EKG - CPT: 72746-[id number], Complete ([id number])
[2024-12-25 15:34] VITALS: BP 130/60; PULSE 64; BMI 32.7
--- OUTSIDE RECORDS SUMMARY | 2024-12-25 17:18 | XMS_ITS ---
Author Name [facility] Organization Unknown Care Team Organization Name Specialty Phone Email Start Date End Da te [facility], [facility] Janey Jackson MD Primary Care 06/19/2021 05/15/2024 [facility], [facility] Janey Jackson MD Primary Care 06/19/2021 05/15/2024
--- OUTSIDE RECORDS SUMMARY | 2024-12-25 17:18 | XMS_ITS | Clinical Summary ---
Author Organization [facility] Facility Address [address] [place] [address], [place] [address] Care Team Providers Care Warranty Clerk Name Role Phone Asia Giles MD Primary Care Provider [phone]- [phone] Allergies Active Allergy Reactions Criticality Noted Date Comments Lisinopril Rash Low 10/21/2021 Medications [facility] Bisacodyl 5 MG EC tablet 07/18/2021 Active busPIRone (BUSPAR) 5 MG tablet 09/21/2021 Active dilTIAZem CD (CARDIZEM CD) 300 MG 24 hr capsule 10/09/2021 Ac tive ferrous sulfate 325 (65 Fe) MG tablet 09/21/2021 Active finasteride (PROSCAR) 5 MG tablet 10/01/2021 Active levothyroxine (SYNTHROID, LEVOTHROID) 50 MCG tablet 10/06/2021 Active [facility] Citrate of Magnesia oral solution 07/31/2021 Active terazosin (HYTRIN) 5 MG capsule 10/01/2021 Active venlafaxine (EFFEXOR) 75 MG tablet 10/06/2021 Active Active Problems Problem Noted Date Diagnosed Date 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 10/21/2021 Acute nontraumatic kidney injury 10/21/2021 Hydronephrosis 10/21/2021 Family History Medical History Relation Comments Hypertension Brother Atrial fibrillation Father Heart attack Mother Thyroid disease Sister Relation Status Comments Brother Father Mother Sister Social History Tobacco Use Types Packs/Day Years Used Date Smoking Tobacco: Never Smokeless Tobacco: Never Alcohol Use Standard Drinks/Week Comments Yes 2 (1 standard drink = 0.6 oz pur e alcohol) Occasionally Sex and Gender Information Value Date Recorded Sex Assigned at Not on file Legal Sex Male 11:23 AM EST Gender Identity Not on file Sexual Orientation Not on file Last Filed Vital Signs Vital Sign Reading Time Taken Comments Blood Pressure 126/62 10/21/2021 3:45 PM EST Pulse 80 10/21/2021 3:45 PM EST Temperature - - Respiratory Rate - - Oxygen Saturation 98% 10/21/2021 3:45 PM EST Inhaled Oxygen Concentration - - Weight 114 kg (251 lb) 10/21/2021 3:45 PM EST Height 188 cm (6' 2 ) 10/21/2021 3:45 PM EST Body Mass Index 32.23 10/21/2021 3:45 PM EST Plan of Treatment Health Maintenance Due Date Last Done Comments Colorectal Cancer Screening: Annual FOBT 2010 Colorectal Cancer Screening: Colonoscopy 2010 Colorectal Cancer Screening: Sigmoidoscopy 2010 Influenza Vaccine (#1) 2024 Hepatitis B Vaccine Aged Out No longe r eligible based on patient's age to complete this topic Pneumococcal Vaccine: Pediat rics (0 to 5 Years) and At-Risk Patients (6 to 64 Years) Aged Out No longer eligible b ased on patient's age to complete this topic Insurance [place] Care Teams Warranty Clerk Relationship Specialty Start Date End Date Asia Giles MD 1960 [place] [address] PCP - General Internal Medicine 10/01/21
== END 2024-12-25 15:55 | disposition home or self-care (01) ==
LOC: HO.HCS 15:20
PROVIDERS: PCP Internal Medicine; Visit Provider Internal Medicine Cardiovascular Disease
DX: I48.0 Paroxysmal atrial fibrillation (principal); I48.92 Unspecified atrial flutter; I47.10 Supraventricular tachycardia, unspecified
CPT/HCPCS: 93010; 99214; G2211

== ENCOUNTER → 2024-12-25 15:19 | Outpatient (BNVA) | payer MEDICARE, MEDICAID, SELFPAY | PROVIDERS: PCP Internal Medicine; Visit Provider Internal Medicine Cardiovascular Disease | DX: I48.0 Paroxysmal atrial fibrillation (principal); I42.9 Cardiomyopathy, unspecified; I48.92 Unspecified atrial flutter; I47.10 Supraventricular tachycardia, unspecified; R00.2 Palpitations | CPT/HCPCS: 93005; 99212 ==

== ENCOUNTER 2024-12-27 08:06 | Outpatient (AMB) | payer MEDICARE, MEDICAID, SELFPAY ==
--- NOTE | 2024-12-27 08:09 | MHC.OFFWIV ---
Intake Vital Signs 12/27/24 08:18 Weight 255 lb BP 120/74 Blood Pressure Location Rt brachial Position Sitting Pulse 74 Pulse Source Pulse Oximeter Temp 98.1 F Temp Source Oral Pulse Oximetry (%) 98 Oxygen Delivery Method Room Air Intake Visit Reasons: EP UTI? Intake Note: Patient here for chills, frequent urination that started yesterday. Patient Tobacco Use Status: Never used Tobacco Allergies lisinopril [Lisinopril] Allergy (Intermediate, Verified 12/27/24 08:17) RASH prednisone Allergy (Verified 12/27/24 08:17) Unknown sulfamethoxazole [From Bactrim] Adverse Reaction (Verified 12/27/24 08:17) Hallucinations trimethoprim [From Bactrim] Adverse Reaction (Verified 12/27/24 08:17) Hallucinations Environmental Allergy (Intermediate, Uncoded 12/27/24 08:17) Shortness of Breath Do you need a note to return to daycare/school/sports/work: No HPI HPI Comments History of Present Illness Details History of Present Illness - The patient is a 64-year-old male presenting with concerns for a urinary tract infection. - He reports episodes of chills and marked fatigue for a day but denies dysuria, hematuria, fever, significant lower abdominal pain, or back pain, though he does detect slight discomfort. - A past history of urinary tract infections is noted, with a previous culture of enterococcus - His bladder was stretched, making him more susceptible to infections, he says his Urologist told him this - Current medications include sotalol and omeprazole. Physical Exam General: Cooperative, healthy appearing, comfortable, no acute distress and well developed Orientation: Patient oriented x3 Limitations: No limitations Head: Normal to inspection Ears: Hearing grossly normal bilaterally Nose: Normal External nose present Face and sinus: Normal facial exam Eyes: Appearance normal, both eyes and all related structures Neck: Normal visual inspection and Yes full ROM Respiratory: Normal respiratory effort and able to speak in complete sentences. Skin: No rashes or lesions noted Neuro: Patient oriented x3 Extremities: Normal to inspection [facility] Medical History (Updated 12/27/24 @ 08:33 by Lillian Voss PA-C) Atrial flutter History of alcohol use disorder Hyperuricemia Thiamine deficiency Erectile dysfunction Eczema of lower extremity History of cardioversion Vitamin D deficiency Nonischemic cardiomyopathy Acute renal insufficiency Anemia Generalized anxiety disorder JOSE (obstructive sleep apnea) Chronic anticoagulation Mixed dyslipidemia Acquired hypothyroidism Nocturnal hypoxemia Obesity Hypothyroid HTN (hypertension) Surgical History History of prostate surgery H/O cardiac radiofrequency ablation History of esophagogastroduodenoscopy (EGD) H/O colonoscopy History of neck surgery Hx of hand surgery Hx of hernia repair Family History Father Atrial fibrillation Mother Heart attack Pacemaker Sister Thyroid disease Brother HTN (hypertension) Sister Colon cancer Social History Household Members: Spouse Housing: House Do you presently have visiting nurse or other home services: No Alcohol intake: never Comment: scheduled med Patient Tobacco Use Status: Never used Tobacco e-Cigarette/Vaping Use: Never Used Advance Directives Date on File: 12/26/20 service: No Current occupational status: disabled Cognitive needs: No Hearing needs: No Vision needs: Yes Review of Systems Const All systems reviewed & are unremarkable except as noted in HPI and below Physical Exam Vital Signs: Last Vital Signs Temp 98.1 F 12/27/24 08:18 Pulse 74 12/27/24 08:18 BP 120/74 12/27/24 08:18 Pulse Ox 98 12/27/24 08:18 Oxygen Delivery Method Room Air 12/27/24 08:18 Assessment & Plan Assessment & Plan (1) UTI (urinary tract infection): Code(s): N39.0 - Urinary tract infection, site not specified Qualifiers: Urinary tract infection type: acute cystitis Hematuria presence: with hematuria Qualified Code(s): N30.01 - Acute cystitis with hematuria Plan: VSS, pt well appearing, PE unremarkable, UA + for blood only. Management of the urinary tract infection involves the prescription of cefuroxime, chosen due to the interaction between Levaquin and sotalol. Cefuroxime will be effective for broad-spectrum coverage while being conscious of the patient's prior infections. The patient needs to cease omeprazole temporarily and can use Pepcid as an alternative during the five-day course. Sending a urine culture will verify the presence of enterococcus or other bacterial strains and allow for therapy adjustments if necessary. Patient was informed and verbally consented to the use of an ambient scribe for clinic note documentation during this visit. Orders: Orders Urine Culture Today N39.0 - Urinary tract infection, site not specified Medications: New cefuroxime axetil 500 mg PO Q12H 10 tabs 0RF Coding Level of Care Code Est Pt Level 3 (52745) Diagnoses Acute cystitis with hematuria N30.01 Urinary tract infection type: acute cystitis Hematuria presence: with hematuria
--- OUTSIDE RECORDS SUMMARY | 2024-12-27 08:13 | XMS_ITS | Clinical Summary ---
Author Organization [facility] Facility Address [address] [place] [address], [place] [address] Care Team Providers Care Buttermaker Helper Name Role Phone Asia Giles MD Primary Care Provider +1- [phone] Allergies Active Allergy Reactions Criticality Noted Date [...] Colorectal Cancer Screening: Sigmoidoscopy 2010 Influenza Vaccine (Season Ended) 2025 Hepatitis B Vaccine Aged Out No longe r eligible based on patient's age to complete this topic Pneumococcal Vaccine: Pediat rics (0 to 5 Years) and At-Risk Patients (6 to 64 Years) Aged Out No longer eligible b ased on patient's age to complete this topic Insurance [place] Care Teams Buttermaker Helper Relationship Specialty Start Date End Date Asia Giles MD [address] [place] [address] PCP - General Internal Medicine 10/01/21
[2024-12-27 08:18] VITALS: BP 120/74; PULSE 74; TEMP 36.7; O2SAT 98
== END 2024-12-27 08:51 | disposition home or self-care (01) ==
PROVIDERS: PCP Internal Medicine; Visit Provider Physician Assistant
DX: N30.01 Acute cystitis with hematuria (principal); Z13.9 Encounter for screening, unspecified

== ENCOUNTER 2024-12-27 08:06 | Outpatient (REF) | payer MEDICARE, MEDICAID, SELFPAY ==
--- OUTSIDE RECORDS SUMMARY | 2024-12-27 08:50 | XMS_ITS | Clinical Summary ---
Author Organization [facility] Facility Address [address] [place] [address], [place] [address] Care Team Providers Care Pari Mutuel Clerk Name Role Phone Asia Giles MD Primary Care Provider +1- [phone] Allergies Active Allergy Reactions Criticality Noted Date [...] [place] Care Teams Pari Mutuel Clerk Relationship Specialty Start Date End Date Asia Giles MD [address] [place] [address] PCP - General Internal Medicine 10/01/21
== END 2024-12-27 08:07 | disposition home or self-care (01) ==
LOC: HO.LAB 08:06
PROVIDERS: PCP Internal Medicine
DX: N30.01 Acute cystitis with hematuria (principal)
CPT/HCPCS: 81003; 87086; 99212

== ENCOUNTER 2024-12-28 05:33 | Emergency (ER) | payer MEDICARE, MEDICAID, SELFPAY ==
[2024-12-28 05:37] VITALS: BP 98/59; PULSE 70; RESP 20; TEMP 36.6; O2SAT 99; BMI 31.3
[2024-12-28 05:58] VITALS: BP 98/59; PULSE 70; RESP 20; TEMP 36.6; O2SAT 99
--- NOTE | 2024-12-28 06:23 | ED_ITS ---
HPI - Male Genitourinary General Chief complaint: Urogenital-Male Stated complaint: UTI ? Time Seen by Provider: 12/28/24 06:23 Source: patient Mode of arrival: ambulatory Limitations: no limitations History of Present Illness ED Provider: HPI Narrative: Patient's history of paroxysmal AFib on Eliquis and sotalol history of hypotension hypothyroidism BPH status post TURP 2021 was seen at urgent care center for chills so fatigued for a day and dribbling of the urine no dysuria or hematuria or fever feels bladder full in the urgent care center urine was negative but even then prescribe cefuroxime for possible cystitis patient comes here as still having discomfort in lower abdomen and unable to void since last night bladder scan done in the ER showed more than 650 cc of urine patient does have a distended bladder and can hold up too late 100 cc and does have history of UTIs in the past but been doing good for last 3 years, no nausea no vomiting Related Data Home Medications ?Medication ?Instructions ?Recorded ?Confirmed magnesium oxide 250 mg PO DAILY 12/29/23 12/25/24 Previous Rx's ?Medication ?Instructions ?Recorded ferrous sulfate 325 mg (65 mg 325 mg PO DAILY #90 tabs 03/04/22 iron) tablet albuterol sulfate 90 mcg/actuation 2 puff PO Q4H PRN shortness of 12/07/23 aerosol inhaler breath or wheezing #8.5 grams levothyroxine 88 mcg tablet 88 mcg PO DAILY #90 tabs 01/09/24 valsartan 40 mg tablet 20 mg (1/2 x 40 mg) PO QPM 90 days 05/03/24 #45 tabs omeprazole 20 mg capsule,delayed 20 mg PO DAILY #90 caps 05/30/24 release rosuvastatin 5 mg tablet 5 mg PO Q OTHER DAY #45 tabs 07/16/24 sotalol 80 mg tablet 80 mg PO Q12H #180 tabs 07/31/24 albuterol sulfate 2.5 mg/3 mL 2.5 mg (3 mL) inhalation QID PRN 10/02/24 (0.083 %) solution for nebulization shortness of breath or wheezing #75 mL nebulizers (AeroEclipse II #1 ea 10/02/24 Nebulizer) apixaban 5 mg tablet (Eliquis) 5 mg PO BID #60 tabs 12/18/24 cefuroxime axetil 500 mg tablet 500 mg PO Q12H #10 tabs 12/27/24 tamsulosin 0.4 mg capsule (Flomax) 0.4 mg PO BEDTIME #30 caps 12/28/24 Allergies Allergy/AdvReac Type Severity Reaction Status Date / Time lisinopril [Lisinopril] Allergy Intermediate RASH Verified 12/28/24 05:39 prednisone Allergy Unknown Verified 12/28/24 05:39 sulfamethoxazole AdvReac Hallucinati Verified 12/28/24 05:39 [From Bactrim] ons trimethoprim [From Bactrim] AdvReac Hallucinati Verified 12/28/24 05:39 ons Environmental Allergy Intermediate Shortness Uncoded 12/28/24 05:39 of Breath Review of Systems Review of Systems: Yes all other systems are reviewed and are negative [facility] Past Medical History Medical History Atrial flutter History of alcohol use disorder Hyperuricemia Thiamine deficiency Erectile dysfunction Eczema of lower extremity History of cardioversion Vitamin D deficiency Nonischemic cardiomyopathy Acute renal insufficiency Anemia Generalized anxiety disorder JOSE (obstructive sleep apnea) Chronic anticoagulation Mixed dyslipidemia Acquired hypothyroidism Nocturnal hypoxemia Obesity Hypothyroid HTN (hypertension) Surgical History History of prostate surgery H/O cardiac radiofrequency ablation History of esophagogastroduodenoscopy (EGD) H/O colonoscopy History of neck surgery Hx of hand surgery Hx of hernia repair Family History Family History Father Atrial fibrillation Mother Heart attack Pacemaker Sister Thyroid disease Brother HTN (hypertension) Sister Colon cancer Social History Social History Household Members: Spouse Housing: House Do you presently have visiting nurse or other home services: No Alcohol intake: never Comment: scheduled med Patient Tobacco Use Status: Never used Tobacco Smoked in Last 30 Days: No e-Cigarette/Vaping Use: Never Used Use of substances other than those prescribed or required for medical reasons: No Advance Directives: Yes Advance Directives on File: Yes Advance Directives Date on File: 04/01/21 service: No Current occupational status: disabled Cognitive needs: No Hearing needs: No Vision needs: Yes Physical Exam Vital Signs: Vital Signs: Last Vital Signs Temp 97.8 F 12/28/24 05:58 Pulse 70 12/28/24 05:58 Resp 20 12/28/24 05:58 BP 98/59 L 12/28/24 05:58 Pulse Ox 99 12/28/24 05:58 O2 Del Method Room Air 12/28/24 05:58 BMI result Body Mass Index 31.3 Appearance: Alert. Oriented X3. No acute distress. Eyes: PERRLA, No Nystagmus ENT: Pharynx normal. Oral Mucosa moist Neck: Normal inspection. Neck supple. CVS: Normal heart rate and rhythm. Pulses normal. Respiratory: No respiratory distress. Equal air entry bilateral, no wheezing/rales/rhonchi Abdomen: Soft and suprapubic fullness with dullness. Bowel sounds are present, no mass palpable, no CVA tenderness Skin: Skin warm and dry. Normal skin color. Normal skin turgor. Extremities: No lower extremity edema. No calf tenderness Neuro: Oriented X 3. No motor deficit. Medical Decision Making Medical Decision Making [facility] Narrative: Patient has acute urinary retention with history of BPH status post TURP straight cath was use and about 700 cc urine was drained patient is feeling much better now will start patient on Flomax advised to follow with urologist UA is negative for UTI Lab Data [facility] Lab Attestation statement: I reviewed the patient's lab results. Labs: Lab Results 12/28/24 Range/Units 06:52 Urine Color Yellow Urine Appearance Clear Urine pH 6.0 (5.0-9.0) Ur Specific [place] 1.010 (1.005-1.025) Urine Protein Negative (Neg-Trace) mg/dL Urine Glucose (UA) Negative (Negative) mg/dL Urine Ketones Negative (Negative) mg/dL Urine Blood Trace (Negative) Urine Nitrite Negative (Negative) Ur Leukocyte Esterase Negative (Negative) Urine RBC 3-5 H (0-2) /HPF Urine WBC 0-5 (0-5) /HPF Ur Squamous Epith Cells 0-2 (0-2) /HPF Urine Bacteria None Seen (None Seen) Hyaline Casts 0-2 (0-2) /LPF Discharge Plan Discharge Clinical Impression: Acute urinary retention Patient Disposition: Home, Self-Care Instructions: Urinary Retention in Men (ED) Additional Instructions: Drink plenty of fluids Continue your medications Follow up with the urologist Start taking Flomax for now Prescriptions: New tamsulosin [Flomax] 0.4 mg capsule 0.4 mg PO BEDTIME Qty: 30 0RF No Action ferrous sulfate 325 mg (65 mg iron) tablet 325 mg PO DAILY Qty: 90 1RF albuterol sulfate 90 mcg/actuation HFA aerosol inhaler 2 puff PO Q4H PRN (Reason: shortness of breath or wheezing) Qty: 8.5 4RF levothyroxine 88 mcg tablet 88 mcg PO DAILY Qty: 90 1RF valsartan 40 mg tablet 20 mg PO QPM 90 Days Qty: 45 3RF omeprazole 20 mg capsule,delayed release(DR/EC) 20 mg PO DAILY Qty: 90 2RF rosuvastatin 5 mg tablet 5 mg PO Q OTHER DAY Qty: 45 1RF sotalol 80 mg tablet 80 mg PO Q12H Qty: 180 1RF Eliquis 5 mg tablet 5 mg PO BID Qty: 60 5RF magnesium oxide 250 mg magnesium tablet 250 mg PO DAILY albuterol sulfate 2.5 mg /3 mL (0.083 %) solution for nebulization 2.5 mg inhalation QID PRN (Reason: shortness of breath or wheezing) Qty: 75 0RF (DME) nebulizers [AeroEclipse II Nebulizer] Misc See Rx Instructions .Route Qty: 1 0RF Rx Instructions: As directed Use as directed for episodes of bronchospasm and wheeze cefuroxime axetil 500 mg tablet 500 mg PO Q12H Qty: 10 0RF Print Language: Citizen Of [place]
[2024-12-28 06:57] LABS: Appearance Urine Clear; Color Urine Yellow; Glucose Urine UA Negative (Negative); Leukocyte Esterase Urine Negative (Negative); Nitrite Urine Negative (Negative); UMIC TRIGGER UACC YES; Urine Blood Trace (Negative); Urine Ketones Negative (Negative); Urine Protein Negative (Neg-Trace)
--- OUTSIDE RECORDS SUMMARY | 2024-12-28 06:57 | XMS_ITS | Clinical Summary ---
Author Organization [facility] Facility Address [address] [place] [address], [place] [address] Care Team Providers Care Vise Hand Name Role Phone Asia Giles MD Primary Care Provider [phone] Allergies Active Allergy Reactions Criticality Noted Date [...] [place] Care Teams Vise Hand Relationship Specialty Start Date End Date Asia Giles MD [address] [place] [address] PCP - General Internal Medicine 10/01/21
[2024-12-28 07:04] LABS: Bacteria Urine None Seen (None Seen); Hyaline Casts Urine 0-2 /LPF (0-2); Squamous Epithelial Cell Urine 0-2 /HPF (0-2); WBC Urine 0-5 /HPF (0-5)
[2024-12-28] MEDS: Tamsulosin HCL 0.4 MG CAPSULE PO (07:28)
[2024-12-28 07:40] VITALS: BP 98/59; PULSE 70; RESP 20; TEMP 36.6; O2SAT 99
== END 2024-12-28 07:40 | disposition home or self-care (01) ==
PROVIDERS: Emergency Provider Internal Medicine; PCP Internal Medicine
DX: R33.9 Retention of urine, unspecified (principal); R10.30 Lower abdominal pain, unspecified; I11.0 Hypertensive heart disease with heart failure; I50.9 Heart failure, unspecified; I48.0 Paroxysmal atrial fibrillation; E78.5 Hyperlipidemia, unspecified; Z79.02 Long term (current) use of antithrombotics/antiplatelets; Z79.899 Other long term (current) drug therapy
CPT/HCPCS: 51701; 81001; 81003; 99283; 99284

== ENCOUNTER 2025-02-14 10:49 | Outpatient (AMB) | payer MEDICARE, MEDICAID, SELFPAY ==
[2025-02-14 11:19] VITALS: BP 110/72; PULSE 56; RESP 14; TEMP 36.4; O2SAT 94; BMI 32.1
--- NOTE | 2025-02-14 11:19 | A.OFFPC_ITS ---
Vital Signs 02/14/25 11:19 Height 6 ft 2 in Weight 250 lb BMI 32.1 BP 110/72 Blood Pressure Location Rt brachial Position Sitting Respiration 14 Pulse 56 Pulse Source Pulse Oximeter Temp 97.5 F Temp Source Oral Pulse Oximetry (%) 94 Oxygen Delivery Method Room Air Intake Visit Reasons: PE Intake Note: Pt is here today for his PE: last colonoscopy 08/01/21 Allergies lisinopril [Lisinopril] Allergy (Intermediate, Verified 02/25/25 00:21) RASH prednisone Allergy (Verified 02/25/25 00:21) Unknown sulfamethoxazole [From Bactrim] Adverse Reaction (Verified 02/25/25 00:21) Hallucinations trimethoprim [From Bactrim] Adverse Reaction (Verified 02/25/25 00:21) Hallucinations Environmental Allergy (Intermediate, Uncoded 02/25/25 00:21) Shortness of Breath Medication List - Last Reconciled 02/14/25 by Yancy Giles MD albuterol sulfate 90 mcg/actuation 2 puffs PO Q4H PRN albuterol sulfate 2.5 mg (3 mL) inhalation QID PRN apixaban (Eliquis) 5 mg PO BID clobetasol 0.05% 1 appl topical BID ferrous sulfate 325 mg PO DAILY levothyroxine 88 mcg PO DAILY magnesium oxide 250 mg PO DAILY nebulizers (AeroEclipse II Nebulizer) As directed Use as directed for episodes of bronchospasm and wheeze omeprazole 20 mg PO DAILY rosuvastatin 5 mg PO Q OTHER DAY sotalol 80 mg PO Q12H tamsulosin (Flomax) 0.4 mg PO BEDTIME valsartan 20 mg (1/2 x 40 mg) PO QPM 90 days Tobacco use date assessed: 02/14/25 Dental Screening Dental Screen Date: 02/14/25 Did you have a dental visit in the last 12 months?: Yes Did you have a dental problem in the last 6 months where you did not have access to dental care?: No Was dental information given to patient?: Patient has dentist HPI PE HPI Details 64 year old male with Afib and cardiomyo melyssa.s/p cardioversion and ablation, has generalized anxiety disorder, obstructive sleep apnea, mixed dyslipidemia acquired hypothyroidism, here today for his physical exam.. He is up-to-date with her screening colonoscopy done by Dr. Lyons in 2020 with removal of hyperplastic polyp due again for recheck in 2025. Has had COVID vaccines and flu shots in the past but has not been getting his boosters her yearly flu vaccine, has not yet had his shingles vaccination. [facility] Medical History (Updated 02/25/25 @ 00:27 by Yancy Giles MD) GERD (gastroesophageal reflux disease) Immunization declined Atrial flutter History of alcohol use disorder Hyperuricemia Thiamine deficiency Erectile dysfunction Eczema of lower extremity History of cardioversion Vitamin D deficiency Nonischemic cardiomyopathy Acute renal insufficiency Anemia Generalized anxiety disorder JOSE (obstructive sleep apnea) Chronic anticoagulation Mixed dyslipidemia Acquired hypothyroidism Nocturnal hypoxemia Obesity Hypothyroid HTN (hypertension) Surgical History History of prostate surgery H/O cardiac radiofrequency ablation History of esophagogastroduodenoscopy (EGD) H/O colonoscopy History of neck surgery Hx of hand surgery Hx of hernia repair Family History Father Atrial fibrillation Mother Heart attack Pacemaker Sister Thyroid disease Brother HTN (hypertension) Sister Colon cancer Social History Household Members: Spouse Housing: House Do you presently have visiting nurse or other home services: No Alcohol intake: never Comment: scheduled med Patient Tobacco Use Status: Never used Tobacco e-Cigarette/Vaping Use: Never Used Advance Directives Date on File: 12/26/20 service: No Current occupational status: disabled Cognitive needs: No Hearing needs: No Vision needs: Yes Questionnaire PHQ-9 Over the last 2 weeks, how often have you been bothered by any of the following problems? 1. Little interest or pleasure in doing things: not at all 2. Feeling down, depressed, or hopeless: not at all 3. Trouble falling or staying asleep, or sleeping too much: not at all 4. Feeling tired or having little energy: not at all 5. Poor appetite or overeating: not at all 6. Feeling bad about yourself - or that you are a failure or have let yourself or your family down: not at all 7. Trouble concentrating on things, such as reading the newspaper or watching television: not at all 8. Moving or speaking so slowly that other people could have noticed. Or the opposite - being so fidgety or restless that you have been moving around a lot more than usual: not at all 9. Thoughts that you would be better off or of hurting yourself in some way: not at all Total score: 0 Depression Screening Interpretation: Negative Depression Screening Done: Yes 64212 - PHQ-9 Billing: Yes Source: Developed by Drs. Vincent Diaz, Beth Sung, Yandel Marinelli and colleagues, with an educational celena from [employer]. Thrive Questionnaire Date Thrive assessed: 02/07/25 I am a: Patient What is your living situation today?: I have a steady place to live Within the past 12 months, did the food you bought not last and you didn't have the money to get more?: Never true Within the past 12 months, did you worry whether your food would run out before you got money to buy more?: Never true Do you have trouble paying for medicines?: No Do you have trouble getting transportation to medical appointments?: No Do you have trouble paying your heating and electricity bill?: No Do you have trouble taking care of your child, family member or friend?: No Do you have trouble with day-to-day activities such as bathing, preparing meals, shopping, managing finances, etc.?: No Are you currently unemployed and looking for a job?: No Are you interested in more education?: No Please select the resources that you would like help with: None Currently or been in a relationship where the following occur: No concerns reported THRIVE Score: 0 AUDIT C Alcohol Use Questionnaire (AUDIT-C) 1. How often do you have a drink containing alcohol?: Never 3. How often do you have six or more drinks on one occasion?: Never Total Score: 0 MARKO-7 AMB Questionnaire MARKO-7 Date MARKO - 7 assessed: 10/02/24 Feeling nervous, anxious, or on edge: 0 = Not at all Not being able to stop or control worryin = Not at all Worrying too much about different things: 0 = Not at all Trouble relaxin = Not at all Being so restless that it is hard to sit still: 0 = Not at all Becoming easily annoyed or irritable: 0 = Not at all Feeling afraid as if something awful might happen: 0 = Not at all Total MARKO-7 score (0-4 normal; 5-9 mild; 10-14 moderate; 15-21 severe): 0 Source: Developed by Drs. Vincent Diaz, Beth Sung, Yandel Marinelli and colleagues, with an educational celena from [employer]. Review of Systems Const Denies fatigue, Denies fever(s), Denies frequent falls, Denies weakness, Denies weight gain and Denies weight loss Eyes Details: [facility] requires corrective lenses ENT Details: Gets dental cleaning every 6 Denies dizziness Card Denies chest pain, Denies leg edema, Denies lightheadedness, Denies palpitations, Denies dyspnea and Denies dyspnea on exertion Resp Denies cough, Denies dyspnea and Denies dyspnea on exertion GI Denies abdominal pain, Denies hematochezia, Denies change in bowel habits and Denies heartburn (Controlled on omeprazole) Reports no additional complaints Musc Denies abnormal gait, Denies muscle weakness, Denies numbness, Denies radiating pain into limb and Denies tingling Skin/Breast Denies rash Neuro Denies abnormal gait, Denies dizziness, Denies frequent falls, Denies numbness, Denies tingling and Denies weakness Psych Reports no additional complaints Endo Denies fatigue and Denies palpitations Mansoor/Lymph Reports no additional complaints Aller/Immun Reports no additional complaints Physical exam (Primary Care) Vital Signs: Last Vital Signs Temp 97.5 F 02/14/25 11:19 Pulse 56 02/14/25 11:19 Resp 14 02/14/25 11:19 BP 110/72 02/14/25 11:19 Pulse Ox 94 02/14/25 11:19 Oxygen Delivery Method Room Air 02/14/25 11:19 BMI result Body Mass Index 32.1 Tobacco/Smoking Status: Tobacco use Status Tobacco use date assessed 02/14/25 02/14/25 11:23 Patient Tobacco Use Status Never used Tobacco 02/14/25 11:23 e-Cigarette/Vaping Use Never Used 02/14/25 11:23 PHQ-9: PHQ-9 Score PHQ-9: Total score 0 02/14/25 11:56 Depression Screening Interpretation: Negative Thrive Assessment: Date of Thrive Assessment Date Thrive assessed 02/07/25 02/14/25 11:23 Currently or been in a relationship where the following occur: No concerns reported Const Other: Alert oriented x3, no acute distress noted ambulatory normal gait HENMT Ears: external ears normal, TM's normal bilaterally and EAC's normal General nose exam: Normal external nose present and No nasal discharge present Face and sinus: Yes face symmetric Mouth: Normal oral and palatal mucosa present and oropharynx normal Eyes General: appearance normal, both eyes and all related structures Neck Neck: Yes full ROM, Yes no lymphadenopathy and Yes supple Resp Effort & Inspection: normal respiratory effort Auscultation: clear to auscultation bilaterally Cardio Other: S1-S2 present regular rate and rhythm GI Inspection: Yes obesity Palpation (GI): Soft to palpation, nontender, no guarding and no masses Auscultation: normal bowel sounds and no bruits General: Yes no CVA tenderness Male General Exam: Yes normal external exam Back/Spine/Pelvis Back: no CVA tenderness and No back tenderness Skin General skin exam: no rashes or lesions noted Extrem General: Yes full ROM, Yes no clubbing, cyanosis or edema, Yes no pedal edema and Yes normal gait Psych Appearance: grossly normal and well kempt Mental Status: mental status grossly normal Speech and movement: Normal speech and movement present Affect: normal affect Coding Level of Care Code Est Pt Prev Care 40-64y(46610) Diagnoses Annual visit for general adult medical examination with abnormal findings Z00.01 Primary hypertension I10 Hypertension type: primary hypertension Class 1 obesity due to excess calories with serious comorbidity and body mass index (BMI) of 32.0 to 32.9 in adult E66.09; Z68.32 Body mass index: BMI 32.0-32.9 Obesity classification: adult class 1 (BMI 30 - 34.9) Obesity type: due to excess calories Serious obesity comorbidity presence: with serious comorbidity Acquired hypothyroidism E03.9 Mixed dyslipidemia E78.2 JOSE (obstructive sleep apnea) G47.33 PAF (paroxysmal atrial fibrillation) I48.0 Hyperuricemia E79.0 Immunization declined Z28.21 GERD (gastroesophageal reflux disease) K21.9 Additional Codes PHQ-9 - 46783 - PHQ-9 Billing: Yes ([id number]) Assessment & Plan Assessment & Plan (1) Annual visit for general adult medical examination with abnormal findings: Code(s): Z00.01 - Encounter for general adult medical examination with abnormal findings Plan: Will check appropriate labs. Continue regular dental visit every 6 months and regular eye exams, at least every 2 years. Take adequate calcium in diet and vitamin-D 3 at 2000 IU per cap once a day, in addition to weight-bearing exercises to help maintain good muscle tone and weight control. Instructed to do self-testicular exam check for any mass patient does not want to get any vacc peña. Reminded that he is due for a repeat screening colonoscopy next year (2) HTN (hypertension): Code(s): I10 - Essential (primary) hypertension Category: Medical Qualifiers: Hypertension type: primary hypertension Qualified Code(s): I10 - Essential (primary) hypertension Plan: Blood pressure at goal of less than 130/80. Continue with losartan 20 mg daily. Reinforced importance of following a low sodium diet, getting regular exercise, and lowering stress levels. (3) Obesity: Comment: BMI 32, MODERATELY OBESE. HE IS ALREADY ON A DIET PROGRAM AND STARTING TO LOSE WEIGHT. Code(s): E66.9 - Obesity, unspecified Category: Medical Qualifiers: Body mass index: BMI 32.0-32.9 Obesity classification: adult class 1 (BMI 30 - 34.9) Obesity type: due to excess calories Serious obesity comorbidity presence: with serious comorbidity Qualified Code(s): E66.09 - Other obesity due to excess calories; Z68.32 - Body mass index [BMI] 32.0-32.9, adult Plan: Reinforced importance of following healthy diet, low in sodium and cholesterol and getting regular exercise (4) Acquired hypothyroidism: Code(s): E03.9 - Hypothyroidism, unspecified Category: Medical Plan: Will check TSH and free T4 levels, currently on levothyroxine 88 mcg daily (5) Mixed dyslipidemia: Code(s): E78.2 - Mixed hyperlipidemia Category: Medical Plan: Fasting lipid panel ordered currently on rosuvastatin 5 mg taken every other day (6) JOSE (obstructive sleep apnea): Comment: no CPAP at this time Code(s): G47.33 - Obstructive sleep apnea (adult) (pediatric) Category: Medical Plan: Compliant with CPAP (7) PAF (paroxysmal atrial fibrillation): Code(s): I48.0 - Paroxysmal atrial fibrillation Category: Medical Plan: Currently on sotalol and apixaban, followed by cardiology (8) Hyperuricemia: Code(s): E79.0 - Hyperuricemia without signs of inflammatory arthritis and tophaceous disease Category: Medical Plan: Check serum uric acid level (9) Immunization declined: Code(s): Z28.21 - Immunization not carried out because of patient refusal Category: Medical Plan: Patient does not want to get any further immunizations (10) GERD (gastroesophageal reflux disease): Code(s): K21.9 - Gastro-esophageal reflux disease without esophagitis Category: Medical Plan: Continue omeprazole Orders: Orders Lipid Panel 02/14/25 E79.0 - Hyperuricemia without signs of inflammatory arthritis and tophaceous disease, I10 - Essential (primary) hypertension, I48.0 - Paroxysmal atrial fibrillation, F41.1 - Generalized anxiety disorder, G47.33 - Obstructive sleep apnea (adult) (pediatric), E78.2 - Mixed hyperlipidemia, E03.9 - Hypothyroidism, unspecified, E66.09 - Other obesity due to excess calories, Z68.32 - Body mass index [BMI] 32.0-32.9, adult Alanine Aminotransferase 02/14/25 E79.0 - Hyperuricemia without signs of inflammatory arthritis and tophaceous disease, I10 - Essential (primary) hypertension, I48.0 - Paroxysmal atrial fibrillation, F41.1 - Generalized anxiety disorder, G47.33 - Obstructive sleep apnea (adult) (pediatric), E78.2 - Mixed hyperlipidemia, E03.9 - Hypothyroidism, unspecified, E66.09 - Other obe sity due to excess calories, Z68.32 - Body mass index [BMI] 32.0-32.9, adult Thyroid Stimulating Hormone 02/14/25 E79.0 - Hyperuricemia without signs of inflammatory arthritis and tophaceous disease, I10 - Essential (primary) hypertension, I48.0 - Paroxysmal atrial fibrillation, F41.1 - Generalized anxiety disorder, G47.33 - Obstructive sleep apnea (adult) (pediatric), E78.2 - Mixed hyperlipidemia, E03.9 - Hypothyroidism, unspecified, E66.09 - Other obesity due to excess calories, Z68.32 - Body mass index [BMI] 32.0-32.9, adult Uric Acid 02/14/25 E79.0 - Hyperuricemia without signs of inflammatory arthritis and tophaceous disease, I10 - Essential (primary) hypertension, I48.0 - Paroxysmal atrial fibrillation, F41.1 - Generalized anxiety disorder, G47.33 - Obstructive sleep apnea (adult) (pediatric), E78.2 - Mixed hyperlipidemia, E03.9 - Hypothyroidism, unspecified, E66.09 - Other obesity due to excess calories, Z68.32 - Body mass index [BMI] 32.0-32.9, adult Hemoglobin A1c 02/14/25 E79.0 - Hyperuricemia without signs of inflammatory arthritis and tophaceous disease, I10 - Essential (primary) hypertension, I48.0 - Paroxysmal atrial fibrillation, F41.1 - Generalized anxiety disorder, G47.33 - Obstructive sleep apnea (adult) (pediatric), E78.2 - Mixed hyperlipidemia, E03.9 - Hypothyroidism, unspecified, E66.09 - Other obesity due to excess calories, Z68.32 - Body mass index [BMI] 32.0-32.9, adult Basic Metabolic Panel Fasting 02/14/25 E79.0 - Hyperuricemia without signs of inflammatory arthritis and tophaceous disease, I10 - Essential (primary) hypertension, I48.0 - Paroxysmal atrial fibrillation, F41.1 - Generalized anxiety disorder, G47.33 - Obstructive sleep apnea (adult) (pediatric), E78.2 - Mixed hyperlipidemia, E03.9 - Hypothyroidism, unspecified, E66.09 - Other obesity due to excess calories, Z68.32 - Body mass index [BMI] 32.0-32.9, adult Aspartate Amino Transferase 02/14/25 E79.0 - Hyperuricemia without signs of inflammatory arthritis and tophaceous disease, I10 - Essential (primary) hypertension, I48.0 - Paroxysmal atrial fibrillation, F41.1 - Generalized anxiety disorder, G47.33 - Obstructive sleep apnea (adult) (pediatric), E78.2 - Mixed hyperlipidemia, E03.9 - Hypothyroidism, unspecified, E66.09 - Other obesity due to excess calories, Z68.32 - Body mass index [BMI] 32.0-32.9, adult Free T4 (Free Thyroxine) 02/14/25 E79.0 - Hyperuricemia without signs of inflammatory arthritis and tophaceous disease, I10 - Essential (primary) hypertension, I48.0 - Paroxysmal atrial fibrillation, F41.1 - Generalized anxiety disorder, G47.33 - Obstructive sleep apnea (adult) (pediatric), E78.2 - Mixed hyperlipidemia, E03.9 - Hypothyroidism, unspecified, E66.09 - Other obesity due to excess calories, Z68.32 - Body mass index [BMI] 32.0-32.9, adult IRON PROFILE 02/14/25 E79.0 - Hyperuricemia without signs of inflammatory arthritis and tophaceous disease, I10 - Essential (primary) hypertension, I48.0 - Paroxysmal atrial fibrillation, F41.1 - Generalized anxiety disorder, G47.33 - Obstructive sleep apnea (adult) (pediatric), E78.2 - Mixed hyperlipidemia, E03.9 - Hypothyroidism, unspecified, E66.09 - Other obesity due to excess calories, Z68.32 - Body mass index [BMI] 32.0-32.9, adult Medications: New clobetasol 0.05% 1 appl topical BID
--- OUTSIDE RECORDS SUMMARY | 2025-02-14 12:18 | XMS_ITS | Clinical Summary ---
Author Organization [facility] Facility Address [address] [place] [address], [place] [address] Care Team Providers Care Tank Welder Name Role Phone Asia Giles MD Primary Care Provider [phone] Allergies Active Allergy Reactions Criticality Noted Date [...] Colonoscopy 2010 Colorectal Cancer Screening: Sigmoidoscopy 2010 Pneumococcal Vaccine: 50+ Ye ars (1 of - PCV) 2011 Influenza Vaccine (Season Ended) 2025 Hepatitis B Vaccine Aged Out No longe r eligible based on patient's age to complete this topic Insurance Medicare Medicaid [place] Care Teams Tank Welder Relationship Specialty Start Date End Date Asia Giles MD [address] [place] [address] PCP - General Internal Medicine 10/01/21
--- OUTSIDE RECORDS SUMMARY | 2025-02-14 12:18 | XMS_ITS | Encounter Summary ---
Author Organization [facility] Address [address] [place] [address] Care Team Providers Care Supervisor Electronics Assembly Name Role Phone Yancy Giles MD Primary Care Provider Encounter Details Date Type Department Care Team (Late st Contact Info) Description 01/11/2025 Lab Requisition [facility] - Main Lab [address] [facility] [place] [address] Zurdo Kaye PA [address] [address] Retention of urine, unspecified Social History Tobacco Use Types Packs/Day Years Used Date Smoking Tobacco: Never Assessed Sex and Gender Information Value Date Recorded Sex Assigned at Not on file Legal Sex Male 12:35 PM EDT Gender Identity Not on file Sexual Orientation Not on file documented as of this encounter Plan of Treatment Not on file documented as of this encounter Procedures Procedure Name Priority Date/Time Associated Diagnosis Comments CBC WITH AUTO DIFFERENTIAL Routine 01/11/2025 10:12 AM EDT Retention of urine, unspecified CBC AND DIFFERENTIAL Routine 01/11/2025 10:12 AM EDT Retention of urine, unspecified documented in this encounter Results * (ABNORMAL) CBC auto differential (01/11/2025 10:12 AM EDT) WBC 4.3(L) 4.8 - 10.8 K/[facility] LAB HEMETOLOGY METHOD 01/11/2025 12:51 PM EDT [facility] ([facility]) [facility] RBC 4.30(L) 4.50 - 5.50 M/[facility] LAB HEMETOLOGY METHOD 01/11/2025 12:51 PM EDT [facility] Hemoglobin 13.7 13.5 - 17.5 g/dL LAB HEMETOLOGY METHOD [facility] Hematocrit 40.0(L) 42.0 - 54.0 % LAB HEMETOLOGY METHOD 01/11/2025 12:[address] [facility] MCV 92.2 79.0 - 98.0 FL LAB HEMETOLOGY METHOD 01/11/2025 12:51 PM EDT [facility] MCH 31.6 27.0 - 32.0 pcg LAB HEMETOLOGY METHOD 01/11/2025 12:[address] [facility] MCHC 34.3 32.0 - 37.0 g/dL LAB HEMETOLOGY METHOD 01/11/2025 12:[address] [facility] RDW 12.7 11.0 - 15.0 % LAB HEMETOLOGY METHOD 01/11/2025 12:[address] [facility] Platelets 109(L) 130 - 400 K/mcL LAB HEMETOLOGY METHOD 01/11/2025 12:[address] [facility] MPV 9.8 7.0 - 11.0 FL LAB HEMETOLOGY METHOD 01/11/2025 12:[address] [facility] NRBC 0.0 <1.0 % LAB HEMETOLOGY METHOD 01/11/2025 12:[address] [facility] NRBC Absolute 0.00 <0.10 K/mcL LAB HEMETOLOGY METHOD [facility]/11[facility]2025 [facility] Neutrophils Relative 48.7 % LAB HEMETOLOGY METHOD 01/11[facility]2025 12[facility] Lymphocytes Relative 35.3 % LAB HEMETOLOGY METHOD 01/11/2025 12:[address] [facility] Monocytes Relative 11.3 % LAB HEMETOLOGY METHOD 01/11/2025 12:51 PM EDT [facility] Eosinophils Relative 3.1 % LAB HEMETOLOGY METHOD 01/11/2025 12:51 PM EDT [facility] Basophils Relative 1.4 % LAB HEMETOLOGY METHOD 01/11/2025 12:51 PM EDT [facility] Immature Granulocytes Relative 0.2 % LAB HEMETOLOGY METHOD 01/11/2025 12:51 PM EDT [facility] Neutrophils Absolute 2.07 1.50 - 7.00 K/mcL LAB HEMETOLOGY METHOD 01/11/2025 12:51 PM EDT [facility] Lymphocytes Absolute 1.50 1.00 - 5.00 K/mcL LAB HEMETOLOGY METHOD 01/11/2025 12:51 PM EDT [facility] Monocytes Absolute 0.48 0.20 - 1.00 K/mcL LAB HEMETOLOGY METHOD 01/11/2025 12:51 PM EDT [facility] Eosinophils Absolute 0.13 0.00 - 0.50 K/mcL LAB HEMETOLOGY METHOD 01/11/2025 12:51 PM EDT [facility] Basophils Absolute 0.06 0.00 - 0.20 K/mcL LAB HEMETOLOGY METHOD 01/11/2025 12:51 PM EDT [facility] Immature Granulocytes Absolute 0.01 0.00 - 0.03 K/mcL LAB HEMETOLOGY METHOD 01/11/2025 12:51 PM EDT [facility] Blood Venous blood specimen / Unknown 01/11/2025 10:12 AM EDT 01/11/2025 12:42 PM EDT us Zurdo MANDUJANO LAB BLOOD ORDERABLES Final Resul t [facility] [address] [place] [address], documented in this encounter Visit Diagnoses Diagnosis Retention of urine, unspecified documented in this encounter Care Teams Supervisor Electronics Assembly Relationship Specialty Start Date End Date Yancy Giles MD [address] [place] [address] PCP - General Internal Medicine 01/11/25 documented as of this encounter
--- OUTSIDE RECORDS SUMMARY | 2025-02-14 12:18 | XMS_ITS | Encounter Summary ---
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 Lab [address] [facility] [place] [address] Zurdo Kaye PA [address] [address] Retention of urine, unspecified; Urinary tract infection, site not specified Social History Tobacco Use Types Packs/Day Years [...] Procedure Name Priority Date/Time Associated Diagnosis Comments CULTURE URINE Routine 01/11/2025 9:00 AM EDT Retention of urine, unspecified Urinary tract infection, site not specified documented in this encounter Results * (ABNORMAL) Culture urine (01/11/2025 9:00 AM EDT) Culture, Urine >100,000 CFU/mL Serratia marcescens(A ) JACOB 01/13/2025 11:40 AM EDT [facility] Comment: This is an edited result. Previous organism was Gram negative bacilli on 01/12/2025 at 1125 EDT. Urine Urine specimen obtained by clean catch procedure / Unknown 01/11/2025 9:00 AM EDT 01/11/2025 1:11 PM EDT Narrative Organism Antibiotic Method Susceptibility Serratia marcescens Amoxicillin/Clavulanate JACOB >=32 ug/ml: Resistant Serratia marcescens Cefoxitin JACOB 8 ug/ml: Resistant Serratia marcescens Ceftazidime JACOB <=0.5 ug/ml: Susceptible Serratia marcescens Ceftriaxone JACOB <=0.25 ug/ml: Susceptible Serratia marcescens Cefepime JACOB <=0.12 ug/ml: Susceptible Serratia marcescens Meropenem JACOB <=0.25 ug/ml: Susceptible Serratia marcescens Amikacin JACOB 2 ug/ml: Susceptible Serratia marcescens Gentamicin JACOB <=1 ug/ml: Susceptible Serratia marcescens Ciprofloxacin JACOB <=0.06 ug/ml: Susceptible Serratia marcescens Levofloxacin JACOB <=0.12 ug/ml: Susceptible Serratia marcescens Nitrofurantoin JACOB 256 ug/ml: Resistant Serratia marcescens Trimethoprim/Sulfamethoxazole JACOB <=20 ug/ml: Susceptible Zurdo MANDUJANO LAB MICROBIOLOGY - GENERAL ORDER ALEXEI Final Result [facility] [address] [place] [address], documented in this encounter Visit Diagnoses Diagnosis Retention of urine, unspecified Urinary tract infection, site not specified documented in this encounter Care Teams Dehydrogenation Converter Operator Relationship Specialty Start Date End Date Yancy Giles MD [address] [place] [address] PCP - General Internal Medicine 01/11/25 documented as of this encounter
--- OUTSIDE RECORDS SUMMARY | 2025-02-14 12:18 | XMS_ITS | Clinical Summary ---
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 Role Phone Yancy Giles MD Primary Care Provider Encounters Date Type Department Care Team Description 01/11/2025 Lab Requisition [facility] [address] [place] [address] Zurdo Kaye PA Retention of urine, unspecified; Urinary tract infection, site not specified 01/11/2025 Lab Requisition [facility] [address] [place] [address] Zurdo Kaye PA Retention of urine, unspecified from Last 3 Months Social History Tobacco Use Types Packs/Day Years Used Date Smoking Tobacco: Never Assessed Sex and Gender Information Value Date Recorded Sex Assigned at Not on file Legal Sex Male 12:35 PM EDT Gender Identity Not on file Sexual Orientation Not on file Plan of Treatment Health Maintenance Due Date Last Done Comments DTaP,Tdap,and Td Vaccines (1 - Tdap) 1980 Pneumococcal Vaccine: 50+ Ye ars (1 of 1 - PCV) 2011 Zoster Vaccines (1 of 2) 2011 COVID-19 Vaccine ( - 2023-2 5 season) 2024 Cholesterol Screening (Lipid Panel) 01/11/2025 Colorectal Cancer Screening: Colonoscopy 01/11/2025 Depression Screening 01/11/2025 HIV Screening 01/11/2025 Hepatitis C Screening 01/11/2025 Medicare Annual Wellness Visit 01/11/2025 Social Influencers of Health Screening 01/11/2025 Influenza Vaccine (Season Ended) 2025 RSV Immunization Adult Patie nts (1 - 1-dose 75+ series) 2036 HIB Vaccines Aged Out No longer eligi ble based on patient's age to complete this topic HPV Vaccines Aged Out No longer eligi ble based on patient's age to complete this topic Hepatitis A Vaccines Aged Out No long er eligible based on patient's age to complete this topic Hepatitis B Vaccines Aged Out No long er eligible based on patient's age to complete this topic IPV Vaccines Aged Out No longer eligi ble based on patient's age to complete this topic MMR Vaccines Aged Out No longer eligi ble based on patient's age to complete this topic Meningococcal ACWY Vaccine Aged Out N o longer eligible based on patient's age to complete this topic Meningococcal B Vaccine Aged Out No l onger eligible based on patient's age to complete this topic Pneumococcal Vaccine: Pediat rics (0 to 5 Years) and At-Risk Patients (6 to 64 Years) Aged Out No longer eligible b ased on patient's age to complete this topic RSV Immunization Patients Un makayla 20 months Aged Out No longer eligible b ased on patient's age to complete this topic Varicella Vaccines Aged Out No longer eligible based on patient's age to complete this topic Procedures Procedure Name Priority Date/Time Associated Diagnosis Comments CBC WITH AUTO DIFFERENTIAL Routine 01/11/2025 10:12 AM EDT Retention of urine, unspecified CBC AND DIFFERENTIAL Routine 01/11/2025 10:12 AM EDT Retention of urine, unspecified CULTURE URINE Routine 01/11/2025 9:00 AM EDT Retention of urine, unspecified Urinary tract infection, site not specified from Last 3 Months Results * (ABNORMAL) CBC auto differential (01/11/2025 10:12 AM EDT) WBC 4.3(L) 4.8 - 10.8 K/[facility] HEMETOLOGY METHOD 01/11/2025 12:51 PM EDT [facility] RBC 4.30(L) 4.50 - 5.50 M/[facility] LAB HEMETOLOGY METHOD 01/11/2025 12:51 PM EDT [facility] Hemoglobin 13.7 13.5 - 17.5 g/dL LAB HEMETOLOGY METHOD 01/11/2025 12:51 PM EDT [facility] Hematocrit 40.0(L) 42.0 - 54.0 % LAB HEMETOLOGY METHOD 01/11/2025 12:51 PM EDT [facility] MCV 92.2 79.0 - 98.0 FL LAB HEMETOLOGY METHOD 01/11/2025 12:51 PM EDT [facility] MCH 31.6 27.0 - 32.0 pcg LAB HEMETOLOGY METHOD 01/11/2025 12:51 PM EDT [facility] MCHC 34.3 32.0 - 37.0 g/dL LAB HEMETOLOGY METHOD 01/11/2025 12:51 PM EDT [facility] RDW 12.7 11.0 - 15.0 % LAB HEMETOLOGY METHOD 01/11/2025 12:51 PM EDT [facility] Platelets 109(L) 130 - 400 K/mcL LAB HEMETOLOGY METHOD 01/11/2025 12:51 PM EDT [facility] MPV 9.8 7.0 - 11.0 FL LAB HEMETOLOGY METHOD 01/11/2025 12:51 PM EDT [facility] NRBC 0.0 <1.0 % LAB HEMETOLOGY METHOD 01/11/2025 12:51 PM EDT [facility] NRBC Absolute 0.00 <0.10 K/mcL LAB HEMETOLOGY METHOD 01/11/2025 12:51 PM EDT [facility] Neutrophils Relative 48.7 % LAB HEMETOLOGY METHOD 01/11/2025 12:51 PM EDT [facility] Lymphocytes Relative 35.3 % LAB HEMETOLOGY METHOD 01/11/2025 12:51 PM EDT [facility] Monocytes Relative 11.3 % LAB HEMETOLOGY METHOD 01/11/2025 12:51 PM EDT [facility] Eosinophils Relative 3.1 % LAB HEMETOLOGY METHOD 01/11/2025 12:51 PM EDT [facility] Basophils Relative 1.4 % LAB HEMETOLOGY METHOD 01/11/2025 12:51 PM EDT [facility] Immature Granulocytes Relative 0.2 % LAB HEMETOLOGY METHOD 01/11/2025 12:51 PM EDT [facility] Neutrophils Absolute 2.07 1.50 - 7.00 K/mcL LAB HEMETOLOGY METHOD 01/11/2025 12:51 PM EDT [facility] Lymphocytes Absolute 1.50 1.00 - 5.00 K/mcL LAB HEMETOLOGY METHOD 01/11/2025 12:51 PM EDT [facility] Monocytes Absolute 0.48 0.20 - 1.00 K/mcL LAB HEMETOLOGY METHOD 01/11/2025 12:51 PM EDT [facility] Eosinophils Absolute 0.13 0.00 - 0.50 K/mcL LAB HEMETOLOGY METHOD 01/11/2025 12:51 PM EDT [facility] Basophils Absolute 0.06 0.00 - 0.20 K/mcL LAB HEMETOLOGY METHOD 01/11/2025 12:51 PM EDT [facility] Immature Granulocytes Absolute 0.01 0.00 - 0.03 K/mcL LAB HEMETOLOGY METHOD 01/11/2025 12:51 PM EDT [facility] Blood Venous blood specimen / Unknown 01/11/2025 10:12 AM EDT 01/11/2025 12:42 PM EDT us Zurdo MANDUJANO LAB BLOOD ORDERABLES Final Resul t [facility] [address] [place] [address], * (ABNORMAL) Culture urine (01/11/2025 9:00 AM EDT) [facility] Signature Culture, Urine >100,000 CFU/mL Serratia marcescens(A ) JACOB 01/13/2025 11:40 AM EDT [facility] Comment: This is an edited result. 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
== END 2025-02-14 12:21 | disposition home or self-care (01) ==
LOC: HO.HMCC 10:50
PROVIDERS: PCP Internal Medicine; Visit Provider Internal Medicine
DX: Z00.01 Encounter for general adult medical examination with abnormal findings (principal); E66.09 Other obesity due to excess calories; Z68.32 Body mass index [BMI] 32.0-32.9, adult; I48.0 Paroxysmal atrial fibrillation; I10 Essential (primary) hypertension; E03.9 Hypothyroidism, unspecified; E78.2 Mixed hyperlipidemia; G47.33 Obstructive sleep apnea (adult) (pediatric); E79.0 Hyperuricemia without signs of inflammatory arthritis and tophaceous disease; Z28.21 Immunization not carried out because of patient refusal; K21.9 Gastro-esophageal reflux disease without esophagitis

== ENCOUNTER → 2025-02-14 10:49 | Outpatient (BNVA) | payer MEDICARE, MEDICAID, SELFPAY | PROVIDERS: PCP Internal Medicine; Visit Provider Internal Medicine | DX: Z00.01 Encounter for general adult medical examination with abnormal findings (principal); I10 Essential (primary) hypertension; E66.09 Other obesity due to excess calories; Z68.32 Body mass index [BMI] 32.0-32.9, adult; E03.9 Hypothyroidism, unspecified; E78.2 Mixed hyperlipidemia; E79.0 Hyperuricemia without signs of inflammatory arthritis and tophaceous disease; G47.33 Obstructive sleep apnea (adult) (pediatric); I48.0 Paroxysmal atrial fibrillation; K21.9 Gastro-esophageal reflux disease without esophagitis; Z71.3 Dietary counseling and surveillance | CPT/HCPCS: 96127; 99396 ==

== ENCOUNTER 2025-02-22 08:07 | Outpatient (AMB) | payer MEDICARE, MEDICAID, SELFPAY ==
[2025-02-22 08:26] VITALS: BP 106/70; PULSE 62; RESP 14; TEMP 36.7; O2SAT 97; BMI 32.1
--- NOTE | 2025-02-22 08:26 | MHC.OFFWIV ---
Intake Vital Signs 02/22/25 08:26 Height 6 ft 2 in Weight 250 lb BMI 32.1 BP 106/70 Blood Pressure Location Rt brachial Position Sitting Respiration 14 Pulse 62 Pulse Source Pulse Oximeter Temp 98.1 F Temp Source Oral Pulse Oximetry (%) 97 Oxygen Delivery Method Room Air Intake Visit Reasons: EP ? UTI Patient Tobacco Use Status: Never used Tobacco Allergies lisinopril [Lisinopril] Allergy (Intermediate, Verified 02/22/25 08:26) RASH prednisone Allergy (Verified 02/22/25 08:26) Unknown sulfamethoxazole [From Bactrim] Adverse Reaction (Verified 02/22/25 08:26) Hallucinations trimethoprim [From Bactrim] Adverse Reaction (Verified 02/22/25 08:26) Hallucinations Environmental Allergy (Intermediate, Uncoded 02/14/25 11:55) Shortness of Breath Do you need a note to return to daycare/school/sports/work: No HPI HPI Comments History of Present Illness Details 64 yo male who presents today with pain with urination that began on Wednesday. He states that he started with pain and burning with urination on Wednesday. He states that he also had blood in the urine. He states that he was having urgency and frequency. He states that he thought it was resolving on Wed. He states that he then started with symptoms at night. He states that he has been having nocturia. He states that he does drink a lot of water during the day. He states that he recently had a UTI last month and was put on an antibiotic that worked well for him. He has had multiple UTIs. He has been on Flomax and had a CT in the past and was negative for stones. He has a urologist at [facility]. He has a f/u in April. He denies fever, chills, abd pain, n/v/d, back pain, or history of kidney stones. [facility] Medical History (Updated 02/14/25 @ 12:16 by Yancy Giles MD) GERD (gastroesophageal reflux disease) Immunization declined Atrial flutter History of alcohol use disorder Hyperuricemia Thiamine deficiency Erectile dysfunction Eczema of lower extremity History of cardioversion Vitamin D deficiency Nonischemic cardiomyopathy Acute renal insufficiency Anemia Generalized anxiety disorder JOSE (obstructive sleep apnea) Chronic anticoagulation Mixed dyslipidemia Acquired hypothyroidism Nocturnal hypoxemia Obesity Hypothyroid HTN (hypertension) Surgical History History of prostate surgery H/O cardiac radiofrequency ablation History of esophagogastroduodenoscopy (EGD) H/O colonoscopy History of neck surgery Hx of hand surgery Hx of hernia repair Family History Father Atrial fibrillation Mother Heart attack Pacemaker Sister Thyroid disease Brother HTN (hypertension) Sister Colon cancer Social History Household Members: Spouse Housing: House Do you presently have visiting nurse or other home services: No Alcohol intake: never Comment: scheduled med Patient Tobacco Use Status: Never used Tobacco e-Cigarette/Vaping Use: Never Used Advance Directives Date on File: 12/26/20 service: No Current occupational status: disabled Cognitive needs: No Hearing needs: No Vision needs: Yes Review of Systems Const Denies chills and Denies fever(s) Card Denies chest pain GI Denies abdominal pain Reports hematuria, Reports dysuria, Reports nocturia, Reports urinary frequency, Reports urinary hesitancy and Reports urinary urgency Physical Exam Vital Signs: Last Vital Signs Temp 98.1 F 02/22/25 08:26 Pulse 62 02/22/25 08:26 Resp 14 02/22/25 08:26 BP 106/70 02/22/25 08:26 Pulse Ox 97 02/22/25 08:26 Oxygen Delivery Method Room Air 02/22/25 08:26 BMI result Body Mass Index 32.1 Resp Auscultation: clear to auscultation bilaterally Cardio Rate: regular rate Rhythm: regular rhythm GI Palpation (GI): Soft to palpation, nontender, no guarding and No Rebound tenderness present Auscultation: normal bowel sounds General: Yes no CVA tenderness Back/Spine/Pelvis Back: no CVA tenderness Assessment & Plan Assessment & Plan (1) UTI (urinary tract infection): Code(s): N39.0 - Urinary tract infection, site not specified Plan: Most likely UTI UA in the office- 2+ leuko, 2+ protein, 3+ blood plan- -drink lots of fluids -tylenol or motrin as needed -cefpodoxime 200 mg BID for 7 days -will send UA -needs to f/u with his urologist -f/u with PCP Orders: Orders Urine Culture Today N39.0 - Urinary tract infection, site not specified AMB Urinalysis Automated Today Z13.9 - Encounter for screening, unspecified Medications: New cefpodoxime must administer with a meal/food 200 mg PO Q12H 14 tabs 0RF Coding Level of Care Code Est Pt Level 3 (56906) Diagnoses UTI (urinary tract infection) N39.0
== END 2025-02-22 08:59 | disposition home or self-care (01) ==
PROVIDERS: PCP Internal Medicine; Visit Provider Physician Assistant Medical
DX: N39.0 Urinary tract infection, site not specified (principal)

== ENCOUNTER 2025-02-22 08:07 | Outpatient (REF) | payer MEDICARE, MEDICAID, SELFPAY | END 2025-02-22 08:08 | disposition home or self-care (01) | LOC: HO.LAB 08:07 | PROVIDERS: PCP Internal Medicine; Visit Provider Physician Assistant Medical | DX: N39.0 Urinary tract infection, site not specified (principal) | CPT/HCPCS: 87086 ==

== ENCOUNTER 2025-03-26 06:44 | Outpatient (REF) | payer MEDICARE, MEDICAID, SELFPAY ==
[2025-03-26 10:29] LABS: Estimated Average Glucose 108 mg/dL; Hemoglobin A1C 125.1184 umol/L; Hemoglobin A1c % 5.4 % (<6.0); Total Hemoglobin (HGBA1C) 3567.8368 umol/L
[2025-03-26 10:41] LABS: Alanine Aminotransferase 12 U/L (0-40); Anion Gap 11 (12-20); Aspartate Amino Transferase 21 U/L (5-37); Blood Urea Nitrogen 14 mg/dL (9-16); Calcium 9.6 mg/dL (8.4-10.2); Carbon Dioxide 28 mmol/L (22-29); Chloride 105 mmol/L (96-108); Cholesterol 150 mg/dL (<200); Estimated Glomerular Filt Rate > 60; Glucose Fasting 92 mg/dL (60-99); HDL Cholesterol 36 mg/dL (>40); Iron 78 mcg/dL (45-160); LDL Cholesterol Calculated 92 mg/dL (<100); Percent Iron Saturation 35 % (15-50); Potassium 4.3 mmol/L (3.3-5.1); Sodium 140 mmol/L (135-145); Total Iron Binding Capacity 226 mcg/dL (228-428); Triglycerides 113 mg/dL (<150); Unsaturated Iron Binding 148 ug/dL
[2025-03-26 11:08] LABS: Free T4 (Free Thyroxine) 1.12 ng/dL (0.71-1.85); Thyroid Stimulating Hormone 3.95 uIU/mL (0.32-4.0); Uric Acid 7.8 mg/dL (3.4-7.0)
== END 2025-03-26 06:45 | disposition home or self-care (01) ==
LOC: HO.HMGCLDS 06:44
PROVIDERS: PCP Internal Medicine; Visit Provider Internal Medicine
DX: E79.0 Hyperuricemia without signs of inflammatory arthritis and tophaceous disease (principal); I10 Essential (primary) hypertension; I48.0 Paroxysmal atrial fibrillation; F41.1 Generalized anxiety disorder; G47.33 Obstructive sleep apnea (adult) (pediatric); E78.2 Mixed hyperlipidemia; E03.9 Hypothyroidism, unspecified; E66.09 Other obesity due to excess calories; Z68.32 Body mass index [BMI] 32.0-32.9, adult
CPT/HCPCS: 36415; 80048; 80061; 83036; 83540; 84439; 84443; 84450; 84460; 84550

== ENCOUNTER 2025-04-15 18:59 | Emergency (ER) | payer MEDICARE, MEDICAID, SELFPAY ==
--- NOTE | 2025-04-15 19:08 | ED_ITS ---
HPI - Skin/Abscess/Foreign Bdy General Chief complaint: Skin/Abscess/Foreign Body Stated complaint: spider bite upper thigh Time Seen by Provider: 04/15/25 19:08 Source: patient Mode of arrival: ambulatory Limitations: no limitations History of Present Illness ED Provider: Indigo Bar APRN HPI narrative: 64 yo male with PMH of afib on eliquis, HTN, HLD, RAD, GERD here with complaints of redness/swelling to right upper thigh x 9 days ago. No fevers, chills. Believes he may have had a spider bite intially. Related Data Home Medications ?Medication ?Instructions ?Recorded ?Confirmed magnesium oxide 250 mg PO DAILY 12/29/23 clobetasol 0.05 % topical cream 1 appl topical BID 02/14/25 Previous Rx's ?Medication ?Instructions ?Recorded ferrous sulfate 325 mg (65 mg 325 mg PO DAILY #90 tabs 03/04/22 iron) tablet albuterol sulfate 90 mcg/actuation 2 puff PO Q4H PRN s hortness of 12/07/23 aerosol inhaler breath or wheezing #8.5 gram s valsartan 40 mg tablet 20 mg (1/2 x 40 mg) PO QPM 9 0 days 05/03/24 #45 tabs rosuvastatin 5 mg tablet 5 mg PO Q OTHER DAY #45 tabs 07/16/24 albuterol sulfate 2.5 mg/3 mL 2.5 mg (3 mL) inhalation QID PRN 10/02/24 (0.083 %) solution for nebulization shortness of breat h or wheezing #75 mL nebulizers (AeroEclipse II #1 ea 10/02/24 Nebulizer) apixaban 5 mg tablet (Eliquis) 5 mg PO BID #60 tabs tamsulosin 0.4 mg capsule (Flomax) 0.4 mg PO BEDTIME # 30 caps 12/28/24 cefpodoxime 200 mg tablet 200 mg PO Q12H #14 tabs 01/26 06/21 omeprazole 40 mg capsule,delayed 40 mg PO DAILY #90 ca ps 02/25/25 release sotalol 80 mg tablet 80 mg PO Q12H #180 tabs 02/26 12/19 levothyroxine 88 mcg tablet 88 mcg PO DAILY #90 tabs 0 04/05/25 cephalexin 500 mg capsule 500 mg PO BID #14 caps 04/15 doxycycline monohydrate 100 mg 100 mg PO BID #14 caps 04/15/25 capsule Allergies Allergy/AdvReac Type Severity Reaction Status Date / Time lisinopril (Lisinopril) Allergy Intermediate RASH Verified 04/15/25 19:14 prednisone Allergy Unknown Verified 04/15/25 19:14 sulfamethoxazole (From AdvReac Hallucinati Verified 04/15/25 19:14 Bactrim) ons trimethoprim (From Bactrim) AdvReac Hallucinati Verified 04/15/25 19:14 ons Environmental Allergy Intermediate Shortness Uncoded 02/25/25 00:21 of Breath Review of Systems 2 Review of Systems: Yes all other systems are reviewed and are negative Constitutional: Constitutional: Reports no additional constitutional complaints, Denies body ache(s), Denies chills, Denies fever(s), Denies headache(s) and Denies weakness Eyes: Eyes: Reports no additional eye complaints and Denies change in vision ENT: Reports system reviewed and no additional complaints, except as documented, Denies dizziness, Denies headache(s), Denies nasal congestion, Denies nasal discharge and Denies neck pain Cardiovascular: Cardiovascular: Reports no additional cardiovascular complaints, Denies chest pain, Denies leg edema and Denies dyspnea Respiratory: Respiratory: Reports no additional respiratory complaints, Denies cough and Denies dyspnea Gastrointestinal: Gastrointestinal: Reports no additional gastrointestinal complaints, Denies abdominal pain, Denies diarrhea, Denies nausea and Denies vomiting Genitourinary: Genitourinary: Denies urinary incontinence Musculoskeletal: Musculoskeletal: Reports no additional musculoskeletal complaints, Denies back pain, Denies arthralgias, Denies joint swelling, Denies neck pain, Denies numbness and Denies tingling Integumentary/Breasts: Skin/Breast: Reports system reviewed and no additional complaints, except as docu, Reports swelling, Reports erythema and Denies rash Neurologic: Reports system reviewed and no additional complaints, except as documented, Denies Abnormal speech present, Denies dizziness, Denies headache(s), Denies numbness, Denies tingling and Denies weakness [facility] Past Medical History Attestation statement: The following information was validated with the patient. Source: old records reviewed and nursing notes reviewed Medical History GERD (gastroesophageal reflux disease) Immunization declined Atrial flutter History of alcohol use disorder Hyperuricemia Thiamine deficiency Erectile dysfunction Eczema of lower extremity History of cardioversion Vitamin D deficiency Nonischemic cardiomyopathy Acute renal insufficiency Anemia Generalized anxiety disorder JOSE (obstructive sleep apnea) Chronic anticoagulation Mixed dyslipidemia Acquired hypothyroidism Nocturnal hypoxemia Obesity Hypothyroid HTN (hypertension) Surgical History History of prostate surgery H/O cardiac radiofrequency ablation History of esophagogastroduodenoscopy (EGD) H/O colonoscopy History of neck surgery Hx of hand surgery Hx of hernia repair Family History Family History Father Atrial fibrillation Mother Heart attack Pacemaker Sister Thyroid disease Brother HTN (hypertension) Sister Colon cancer Social History Social History Household Members: Spouse Housing: House Do you presently have visiting nurse or other home services: No Alcohol intake: never Comment: scheduled med Patient Tobacco Use Status: Never used Tobacco e-Cigarette/Vaping Use: Never Used Advance Directives Date on File: 12/26/20 service: No Current occupational status: disabled Cognitive needs: No Hearing needs: No Vision needs: Yes Physical Exam 2 Vital Signs: Vital Signs: Last Vital Signs Temp 98.1 F 04/15/25 19:09 Pulse 68 04/15/25 19:09 Resp 20 04/15/25 19:09 BP 113/58 L 04/15/25 19:09 Pulse Ox 97 04/15/25 19:09 O2 Del Method Room Air 04/15/25 19:09 BMI result Body Mass Index 30.0 Const: General: cooperative, healthy appearing, comfortable and no acute distress Orientation/consciousness: patient oriented x3 Limitations: no limitations HEENT: Head: Yes normal to inspection Ears: hearing grossly normal bilaterally General nose exam: Normal external nose present Face and sinus: Yes normal facial exam Mouth: Normal oral and palatal mucosa present Throat: Yes posterior oropharynx normal Eyes: General: appearance normal, both eyes and all related structures P upils: Equal, round and reactive pupils present Neck: Neck: Yes normal visual inspection Chest: Chest palpation & inspection: normal inspection of the chest Resp: Effort & Inspection: normal respiratory effort Auscultation: clear to auscultation bilaterally Cardio: Rate: regular rate Rhythm: regular rhythm Peripheral pulses: P eripheral pulses 2+ throughout GI: Inspection: Yes normal to inspection Palpation (GI): Soft to palpation and nontender Auscultation: normal bowel sounds Back/Spine/Pelvis: Thoracic/Lumbar Spine: thoracic and lumbar spine normal to inspection Skin: Other: The area is firm and indurated, There is no central fluctuance. There is some surrounding swelling, The compartments are soft and compressible. Neuro: General: patient oriented x3, no focal motor deficits and normal sensation to monofilament Cranial nerves: Yes Equal, round and reactive pupils present Cognition (Neuro): normal cognition Speech: No Abnormal speech present Gait exam (Neuro): Normal gait present Motor exam (neuro): 5/5 motor strength present throughout Medical Decision Making Medical Decision Making MDM Narrative: 64 yo male with PMH of afib on eliquis, HTN, HLD, RAD, GERD here with complaints of redness/swelling to right upper thigh x 9 days ago. No fevers, chills. Believes he may have had a spider bite intially. There is what appears to be an insect bite to the right thigh with a central puncture site and surrounding swelling. Compartments are soft/compressible. There is no area conducive to I&D. No systemic s/s Will initiate oral antibiotics, review worrisome signs/symptoms with patient and when to seek additional care. Differential Diagnosis Differential Diagnoses: The differential diagnosis associated with the presentation includes insect bite, cellulitis Admission/Observation Consideration of admission/observation: Escalation of care including admission/observation considered no systemic s/s warranting additional w/u and or admission with IV abx Independent Historian Clinical information obtained from an independent historian. History obtained from or confirmed by: Spouse Prescription Management I considered prescription management with: Antibiotic Discharge Plan Discharge Clinical Impression: Cellulitis Patient Disposition: Home, Self-Care Instructions: Cellulitis (ED), Warm Compress or Soak (ED) Additional Instructions: Warm compresses several times a day Tylenol for pain as needed Take the antibiotics as prescribed Continue the topical antibiotic ointment and keep the area clean and covered Return for increasing redness, swelling, fevers, chills or if the area has central fluctuance Prescriptions: New cephalexin 500 mg capsule 500 mg PO BID Qty: 14 0RF doxycycline monohydrate 100 mg capsule 100 mg PO BID Qty: 14 0RF No Action ferrous sulfate 325 mg (65 mg iron) tablet 325 mg PO DAILY Qty: 90 1RF albuterol sulfate 90 mcg/actuation HFA aerosol inhaler 2 puff PO Q4H PRN (Reason: shortness of breath or wheezing) Qty: 8.5 4RF valsartan 40 mg tablet 20 mg PO QPM 90 Days Qty: 45 3RF rosuvastatin 5 mg tablet 5 mg PO Q OTHER DAY Qty: 45 1RF Eliquis 5 mg tablet 5 mg PO BID Qty: 60 5RF omeprazole 40 mg capsule,delayed release(DR/EC) 40 mg PO DAILY Qty: 90 0RF sotalol 80 mg tablet 80 mg PO Q12H Qty: 180 3RF levothyroxine 88 mcg tablet 88 mcg PO DAILY Qty: 90 2RF tamsulosin [Flomax] 0.4 mg capsule 0.4 mg PO BEDTIME Qty: 30 0RF magnesium oxide 250 mg magnesium tablet 250 mg PO DAILY clobetasol 0.05 % cream 1 appl topical BID cefpodoxime 200 mg tablet 200 mg PO Q12H Qty: 14 0RF Rx Instructions: must administer with a meal/food albuterol sulfate 2.5 mg /3 mL (0.083 %) solution for nebulization 2.5 mg inhalation QID PRN (Reason: shortness of breath or wheezing) Qty: 75 0RF (DME) nebulizers [AeroEclipse II Nebulizer] Misc See Rx Instructions .Route Qty: 1 0RF Rx Instructions: As directed Use as directed for episodes of bronchospasm and wheeze Referrals: Physician,Unknown J [Primary Care Provider, Medical] Print Language: Slovenian
[2025-04-15 19:09] VITALS: BP 113/58; PULSE 68; RESP 20; TEMP 36.7; O2SAT 97
[2025-04-15 19:27] VITALS: BP 113/58; PULSE 68; RESP 20; TEMP 36.7; O2SAT 97
== END 2025-04-15 19:28 | disposition home or self-care (01) ==
LOC: HO.ED 19:23
PROVIDERS: Emergency Provider Emergency Medicine; PCP Internal Medicine
DX: L03.115 Cellulitis of right lower limb (principal); I10 Essential (primary) hypertension; I48.91 Unspecified atrial fibrillation; Z79.01 Long term (current) use of anticoagulants; Z79.899 Other long term (current) drug therapy
CPT/HCPCS: 99282; 99283

== ENCOUNTER 2025-06-25 08:51 | Outpatient (AMB) | payer MEDICARE, MEDICAID, SELFPAY ==
--- NOTE | 2025-06-25 08:54 | A.OFFVIS_ITS ---
Vital Signs 06/25/25 08:55 Height 6 ft 2 in Weight 239 lb 6.752 oz BMI 30.7 BP 116/56 L Blood Pressure Location Lt brachial Position Sitting Pulse 58 Pulse Source Monitor Intake Visit Reasons: 6 mth f/up Accompanied by: Self / Same As Patient Allergies lisinopril (Lisinopril) Allergy (Intermediate, Verified 06/25/25 08:58) RASH prednisone Allergy (Verified 06/25/25 08:58) Unknown sulfamethoxazole (From Bactrim) Adverse Reaction (Verified 06/25/25 08:58) Hallucinations trimethoprim (From Bactrim) Adverse Reaction (Verified 06/25/25 08:58) Hallucinations Environmental Allergy (Intermediate, Uncoded 02/25/25 00:21) Shortness of Breath Medication List - Last Reconciled 06/25/25 by Akira Tran MD albuterol sulfate 90 mcg/actuation 2 puffs PO Q4H PRN albuterol sulfate 2.5 mg (3 mL) inhalation QID PRN apixaban (Eliquis) 5 mg PO BID clobetasol 0.05% 1 appl topical BID ferrous sulfate 325 mg PO DAILY levothyroxine 88 mcg PO DAILY magnesium oxide 250 mg PO DAILY nebulizers (AeroEclipse II Nebulizer) As directed Use as directed for episodes of bronchospasm and wheeze omeprazole 40 mg PO DAILY rosuvastatin 5 mg PO Q OTHER DAY sotalol 80 mg PO Q12H valsartan 20 mg (1/2 x 40 mg) PO QPM HPI Comments Details: 65 male with Afib and cardiomyopathy. s/p cardioversion and ablation. Was on amidoarone and Eliquis. Previously was doing well. It appears she started noticing some palpitations and dyspnea over the last 4 weeks. He discuss this with [facility] electrophysiology and it appears he was advised to increase the amiodarone to 400 mg daily. As for her as I remember he was supposed to get off the amiodarone in 3 months after ablation. In any case he was informed on amiodarone which he decreased to 200 on his own because he was not feeling well and and was getting shortness of breath specially orthopnea at night. He also had this event where he walked out of a restaurant and had syncope falling on his face. He said that he had bruising on the side of his face and this was couple of weeks ago. His EKG showing atrial tachycardia with 2-1 block. He said his heart rate has been in 120s for weeks. Taking Eliquis regularly without any interruption. 06/07/23: He returns for follow-up. In November 2022 he was seen for atrial tachycardia/flutter. He was sent to emergency department and was admitted and underwent cardioversion. Subsequent to that he has been doing well. Lost echocardiography was in December 2022 which showed EF of 40 45%. Clinically has been improving and denying any chest discomfort shortness of breath at this stage. Blood pressure control is good. He is in sinus rhythm. His TSH during admission to hospital was 53. He is on levothyroxine 75 mcg daily. He is saying that he has been gaining weight. 12/13/2023: He returns for follow-up. He has been experiencing some palpitations as well as fatigue over the last 2 weeks. He is noticed to be in atrial flutter with variable block with heart rate of 108 beats per minute. He is denying any significant dyspnea. No orthopnea or PND. No chest discomfort. He has been taking medications regularly and has been on apixaban 5 mg twice a day without any interruption over the last month. Blood pressure is mildly elevated. 01/04/24: He is here for follow-up. He was admitted to hospital after cardioversion and was loaded with sotalol and discharged home with sotalol 80 mg twice a day. His metoprolol succinate dose was decreased to 75 mg daily and eventually was also decreased to 50 mg daily. He is currently taking metoprolol succinate 25 mg daily. He is complaining of right foot swelling and pain with ambulation. This started since he left the hospital. He thought that this is related sotalol and is urgently here to discuss this. The left foot is normal. He has eczema and skin breakdown. Denying any other issues. He is saying that when he walks it hurts significantly in the right foot. 02/09/24: He returns for follow-up. Apparently he received doxycycline and then again went to emergency department and received another course of antibiotics for the foot swelling and redness. Since then he has improved. He has eczema and skin breakdown which is likely cause for cellulitis. He has been ongoing demand to his open areas after discussion with rheumatology. Blood pressure is little low but he is denying any symptoms currently. His valsartan dose is 20 mg only at bedtime which has been cut back significantly. He is on sotalol with stable EKG with bifascicular block as before. 05/31/2024: He is here for follow-up. Denying any significant chest pain or shortness of breath. He has been coughing at night along with wheezing after recent COVID-19 infection. He has known history of asthma. He is using albuterol. Otherwise taking medications regularly without any concerns. 12/25/2024: He is here for follow-up. He had 1 episode of heart rate in 120s and palpitations few weeks back. He said he took an extra sotalol. He message me and I advised him not to use sotalol like that because that can be dangerous and can affect QT interval and can lead to arrhythmia. He has not used any further extra sotalol in view using 80 mg twice a day without any frequent symptoms. 06/25/2025: Here for follow-up. He has no exertional complaints. Continues to be in sinus rhythm. He did have some episodes where he noticed in the morning time that he has double vision. This happened approximately 4 times in the last 6 months. Episodes will last for 15 minutes and then improve on their own. No dizziness or lightheadedness with activities. [facility] Medical History GERD (gastroesophageal reflux disease) Immunization declined Atrial flutter History of alcohol use disorder Hyperuricemia Thiamine deficiency Erectile dysfunction Eczema of lower extremity History of cardioversion Vitamin D deficiency Nonischemic cardiomyopathy Acute renal insufficiency Anemia Generalized anxiety disorder JOSE (obstructive sleep apnea) Chronic anticoagulation Mixed dyslipidemia Acquired hypothyroidism Nocturnal hypoxemia Obesity Hypothyroid HTN (hypertension) Surgical History History of prostate surgery H/O cardiac radiofrequency ablation History of esophagogastroduodenoscopy (EGD) H/O colonoscopy History of neck surgery Hx of hand surgery Hx of hernia repair Family History Father Atrial fibrillation Mother Heart attack Pacemaker Sister Thyroid disease Brother HTN (hypertension) Sister Colon cancer Social History Household Members: Spouse Housing: House Do you presently have visiting nurse or other home services: No Alcohol intake: never Comment: scheduled med Patient Tobacco Use Status: Never used Tobacco e-Cigarette/Vaping Use: Never Used Advance Directives Date on File: 12/26/20 service: No Current occupational status: disabled Cognitive needs: No Hearing needs: No Vision needs: Yes Review of Systems Const Denies daytime sleepiness, Denies difficulty sleeping, Denies snoring, Denies stops breathing during sleep and Denies weakness Card Denies chest pain, Denies rapid heart rate, Denies irregular heart rhythm, Denies claudication, Denies leg edema, Denies lightheadedness, Denies palpitations, Denies dyspnea, Denies dyspnea on exertion, Denies orthopnea, Denies paroxysmal nocturnal dyspnea and Denies slow heart rate Resp Denies cough, Denies dyspnea, Denies dyspnea on exertion and Denies snoring GI Reports no additional complaints, Denies hematochezia, Denies change in stool character and Denies dyspepsia Musc Denies abnormal gait, Denies muscle weakness and Denies numbness Neuro Denies abnormal gait, Denies numbness and Denies weakness Endo Denies palpitations Physical Exam Vital Signs: Last Vital Signs Pulse 58 06/25/25 08:55 BP 116/56 L 06/25/25 08:55 BMI result Body Mass Index 30.7 GENERAL APPEARANCE: in no acute distress, pleasant. NECK: no carotid bruit, no jugular venous distention. HEART: no murmurs, regular rate and rhythm. LUNGS: clear to auscultation bilaterally. ABDOMEN: soft, nontender. PERIPHERAL PULSES: equal. NEUROLOGIC: No gross deficits, AAO X 3 Office Procedures EKG Details: Sinus bradycardia 58 beats per minute, right bundle-branch block, left anterior fascicular block, QTC 473 milliseconds [id number], Complete Assessment & Plan Assessment & Plan (1) PAF (paroxysmal atrial fibrillation): Code(s): I48.0 - Paroxysmal atrial fibrillation Category: Medical (2) Atrial flutter: Code(s): I48.92 - Unspecified atrial flutter Category: Medical (3) Atrial tachycardia: Code(s): I47.1 - Supraventricular tachycardia Category: Medical Plan 64-year-old gentleman with history of nonischemic cardiomyopathy likely secondary to tachycardia due to atrial tachycardia. He also has known history of paroxysmal atrial fibrillation. Currently on sotalol and is in sinus rhythm. He has conduction issues with right bundle-branch block as well as left anterior fascicular block. Echocardiography previously has shown normal ejection fraction. Overall stable from cardiovascular point of view. He has been experiencing some visual changes which happen approximately 4 times over the last 6 months. I have advised him to check his blood pressure time this happens. I have also advised him to see his production quality analyst. Thank you for allowing me to participate in the care of your patient. Please feel free to contact me if you have any questions. Coding Level of Care Code Est Pt Level 4 (84453) Diagnoses PAF (paroxysmal atrial fibrillation) I48.0 Atrial flutter I48.92 Atrial tachycardia I47.1 CPT Codes EKG - CPT: [id number], Complete ([id number])
[2025-06-25 08:55] VITALS: BP 116/56; PULSE 58; BMI 30.7
--- OUTSIDE RECORDS SUMMARY | 2025-06-25 09:20 | XMS_ITS | Encounter Summary ---
Author Organization [employer] [facility] Address [address] [place] [address] Care Team Providers Care Pharmacist Assistant Name Role Phone Yancy Giles MD Primary Care Provider [phone] Encounter Details Date Type Department Care Team (Late st Contact Info) Description 01/11/2025 Lab Requisition [facility] - Main Lab [address] [facility] [place] [address] Zurdo Kaye PA [address] [id number] Retention of urine, unspecified; Urinary [...] marcescens(A ) JACOB 01/13/2025 11:40 AM EDT [facility] ([facility] Comment: This is an edited [...] MICROBIOLOGY - GENERAL ORDER ALEXEI Final Result [facility] ([facility] [address] [place] [address], documented in this encounter Visit Diagnoses Diagnosis Retention of urine, unspecified Urinary tract infection, site not specified documented in this encounter Care Teams Pharmacist Assistant Relationship Specialty Start Date End Date Yancy Giles MD PCP - General Internal Medicine 01/11/25 documented as of this encounter
--- OUTSIDE RECORDS SUMMARY | 2025-06-25 09:20 | XMS_ITS | Clinical Summary ---
Author Organization [facility] Facility Address [address] [place] [id number] Care Team Providers Care Noxious Weeds And Pest Inspector Name Role Phone Asia Giles MD Primary Care Provider [phone] Allergies Active Allergy Reactions Criticality Noted Date [...] ars (1 of 1 - PCV) 2011 Influenza Vaccine (#1) 2025 Hepatitis B Vaccine Aged Out No longe r eligible based on patient's age to complete this topic Insurance Medicare Medicaid [place] Medicare [place] Care Teams Noxious Weeds And Pest Inspector Relationship Specialty Start Date End Date Asia Giles MD [address] [place] [address] PCP - General Internal Medicine 10/01/21
--- OUTSIDE RECORDS SUMMARY | 2025-06-25 09:20 | XMS_ITS | Encounter Summary ---
Author Organization [facility] Address [address] [place] [address] Care Team Providers Care Motor Assembly Supervisor Name Role Phone Yancy Giles MD Primary Care Provider Encounter Details Date Type Department Care Team (Late st Contact Info) Description 03/02/[address] [facility] - Main Lab [address] [place] [address] Shabnam Lau PA [address] [place], [place] [id number] Urinary tract infection, site not specified; Gross hematuria Social History Tobacco Use Types Packs/Day Years [...] Date/Time Associated Diagnosis Comments CULTURE URINE Routine 03/02/2025 12:00 AM EDT Urinary tract infection, site not specified Gross hematuria documented in this encounter Results * Culture urine (03/02/2025 12:00 AM EDT) Culture, Urine No growth 03/03/2025 2:06 PM EDT [facility] Urine Urine specimen obtained by clean catch procedure / Unknown 03/02/2025 03/02/2025 5:48 PM EDT us [facility] MICROBIOLOGY - GENERAL ORD ERABLES Final Result [facility] [address] [place] [address], documented in this encounter Visit Diagnoses Diagnosis Urinary tract infection, site not specified Gross hematuria documented in this encounter Care Teams Motor Assembly Supervisor Relationship Specialty Start Date End Date Yancy Giles MD PCP - General Internal Medicine 01/11/25 documented as of this encounter
--- OUTSIDE RECORDS SUMMARY | 2025-06-25 09:20 | XMS_ITS | Encounter Summary ---
Author Organization [facility] Address [address] [place] [address] Care Team Providers Care Pellet Preparation Operator Name Role Phone Yancy Giles MD Primary Care Provider [phone] Encounter Details Date Type Department Care Team (Late st Contact Info) Description 01/11/2025 Lab Requisition [facility] - Main Lab [address] [facility] [place] [address] Zurdo Kaye PA [address] [address] Retention of urine, unspecified Social [...] AM EDT) WBC 4.3(L) 4.8 - 10.8 K/[facility] LAB HEMETOLOGY METHOD 01/11/2025 12:51 PM EDT [facility] RBC 4.30(L) 4.50 - 5.50 M/[facility] LAB HEMETOLOGY METHOD 01/11/2025 12:51 PM EDT [facility] Hemoglobin 13.7 13.5 - 17.5 g/dL LAB HEMETOLOGY METHOD 01/11/2025 12:51 PM [facility] Hematocrit 40.0(L) 42.0 - 54.0 % LAB HEMETOLOGY METHOD 01/11/2025 12:51 PM [facility] MCV 92.2 79.0 - 98.0 FL LAB [facility]OLOGY [facility] MCH 31.6 27.0 - 32.0 pcg LAB HEMETOLOGY METHOD 01/11/2025 12:51 PM [facility] MCHC 34.3 32.0 - 37.0 g/dL LAB HEMETOLOGY METHOD 01/11/2025 12:51 PM [facility] RDW 12.7 11.0 - 15.0 % LAB HEMETOLOGY METHOD 01/11/2025 12:51 PM [facility] Platelets 109(L) 130 - 400 K/mcL LAB HEMETOLOGY METHOD 01/11/2025 12:51 PM [facility] MPV 9.8 7.0 - 11.0 FL LAB HEMETOLOGY METHOD 01/11/2025 12:51 PM [facility] NRBC 0.0 <1.0 % LAB HEMETOLOGY METHOD 01/11/2025 12:51 PM [facility] NRBC Absolute 0.00 <0.10 K/mcL LAB HEMETOLOGY METHOD [facility]2025 12:[facility] Neutrophils Relative 48.7 % LAB HEMETOLOGY METHOD 01/11/2025 12:51 PM [facility] Lymphocytes Relative 35.3 % LAB HEMETOLOGY METHOD 01/11/2025 12:51 PM [facility] Monocytes Relative 11.3 % LAB HEMETOLOGY METHOD 01/11/2025 12:51 PM EDT [facility] Eosinophils Relative 3.1 % LAB HEMETOLOGY METHOD 01/11/2025 12:51 PM EDT [facility] Basophils Relative 1.4 % LAB HEMETOLOGY METHOD 01/11/2025 12:51 PM EDT [facility] Immature Granulocytes Relative 0.2 % LAB HEMETOLOGY METHOD 01/11/2025 12:51 PM EDT [facility] Neutrophils Absolute 2.07 1.50 - 7.00 K/mcL LAB HEMETOLOGY METHOD 01/11/2025 12:51 PM EDT [facility] Lymphocytes Absolute 1.50 1.00 - 5.00 K/mcL LAB HEMETOLOGY METHOD 01/11/2025 12:51 PM EDT [facility] Monocytes Absolute 0.48 0.20 - 1.00 K/mcL LAB HEMETOLOGY METHOD 01/11/2025 12:51 PM EDT [facility] Eosinophils Absolute 0.13 0.00 - 0.50 K/mcL LAB HEMETOLOGY METHOD 01/11/2025 12:51 PM EDT [facility] Basophils Absolute 0.06 0.00 - 0.20 K/mcL LAB HEMETOLOGY METHOD 01/11/2025 12:51 PM EDT [facility] Immature Granulocytes Absolute 0.01 0.00 - 0.03 K/mcL LAB HEMETOLOGY METHOD 01/11/2025 12:51 PM EDT [facility] Blood Venous blood specimen / Unknown 01/11/2025 10:12 AM EDT 01/11/2025 12:42 PM EDT us Zurdo MANDUJANO LAB BLOOD ORDERABLES Final Resul t [facility] [address] [place] [address], documented in this encounter Visit Diagnoses Diagnosis Retention of urine, unspecified documented in this encounter Care Teams Pellet Preparation Operator Relationship Specialty Start Date End Date Yancy Giles MD PCP - General Internal Medicine 01/11/25 documented as of this encounter
--- OUTSIDE RECORDS SUMMARY | 2025-06-25 09:21 | XMS_ITS | Encounter Summary ---
Author Organization [employer] Address [address] [place] [address] Care Team Providers Care Maintenance Electrician Name Role Phone Yancy Giles MD Primary Care Provider Encounter Details Date Type Department Care Team (Late st Contact Info) Description 03/09/2025 Lab Requisition [facility] - Main Lab [address] [facility] [place] [address] Shabnam Lau PA [address] [place] [address] Gross hematuria Social History Tobacco Use Types [...] Procedure Name Priority Date/Time Associated Diagnosis Comments AP OUTSIDE CONSULT Routine 03/02/2025 12 :00 AM EDT Gross hematuria documented in this encounter Results * Anatomic pathology outside consult (03/02/2025 12:00 AM EDT) Final Diagnosis Urine, Voided, [id number]: Negative for high grade urothelial carcinoma. Acute inflammation present. Results of UroVysion fluorescence in situ hybridization (FISH) testing: Although FISH was performed, insufficient non-obscured hybridization signals are present for evaluation and interpretation. 03/22/2025 9:32 AM EDT [facility] Clinical Information Gross hematuria R31.0 Urine Cytology/FISH (now) 03/22/2025 9:32 AM EDT [facility] Gross Description A. Urine, Voided, [id number]: Received one ThinPrep slide for cytology and one ThinPrep slide for UroVysion FISH 03/22/2025 9:32 AM EDT [facility] Disclaimer Unless otherwise specified, all tissue is 10% NB formalin fixed and paraffin embedded. Technical pathology services provided by [facility] [address] [facility] [address] [place] [address] (CLIA #[id number]/Tiffany Bruce MD, Financial Reporting Accountant) 03/22/2025 9:32 AM EDT [facility] Tissue Urine specimen from urethra / Unknown 03/02/2025 03/09/2025 1:15 PM EDT us Shabnam MANDUJANO LAB PATHOLOGY ORDERABLES Final Result [facility] [address] [place] [address], documented in this encounter Visit Diagnoses Diagnosis Gross hematuria documented in this encounter Care Teams Maintenance Electrician Relationship Specialty Start Date End Date Yancy Giles MD PCP - General Internal Medicine 01/11/25 documented as of this encounter
--- OUTSIDE RECORDS SUMMARY | 2025-06-25 09:21 | XMS_ITS ---
Author Name [facility] Organization Unknown Care Team Organization Name Specialty Phone Email Start Date End Da te [facility], [facility] Janey Jackson MD Primary Care 06/19/2021 05/15/2024 [facility], [facility] Janey Jackson MD Primary Care 06/19/2021 05/15/2024
--- OUTSIDE RECORDS SUMMARY | 2025-06-25 09:21 | XMS_ITS | Clinical Summary ---
Author Organization [address] Address [address] [place] [address] Phone Care Team Providers Care Wind Energy Systems Installer Name Role Phone Yancy Giles MD Primary Care Provider Social History Tobacco Use Types Packs/Day Years Used Date Smoking Tobacco: Never Assessed Sex and Gender Information Value Date Recorded Sex Assigned at Not on file Legal Sex Male 12:35 PM EDT Gender Identity Not on file Sexual Orientation Not on file Plan of Treatment Health Maintenance Due Date Last Done Comments Colorectal Cancer Screening: Colonoscopy 1961 DTaP,Tdap,and Td Vaccines (1 - Tdap) 1980 Pneumococcal Vaccine: 50+ Ye ars (1 of 1 - PCV) 2011 Zoster Vaccines (1 of 2) 2011 Depression Screening 09/27/2024 Cholesterol Screening (Lipid Panel) 01/11/2025 HIV Screening 01/11/2025 Hepatitis C Screening 01/11/2025 Medicare Annual Wellness Visit 01/11/2025 Social Influencers of Health Screening 01/11/2025 COVID-19 Vaccine (1 - 2023-2 5 season) 2025 Influenza Vaccine (#1) 2025 RSV Immunization Adult Patie nts (1 [...] to complete this topic Insurance MEDICARE MEDICAID - [place] Care Teams Wind Energy Systems Installer Relationship Specialty Start Date End Date Yancy Giles MD PCP - General Internal Medicine 01/11/25
--- OUTSIDE RECORDS SUMMARY | 2025-06-25 09:21 | XMS_ITS | Patient Health Record ---
Author Organization [facility] Address [address] [place] [address] Care Team Providers Care Sharemilker Name Role Phone Chan FERNANDEZ, Yancy Primary Care Provider Vincent Warren [phone] Allergies Allergen (clinical drug ingredient) Drug/Non Drug Allergy documented on EMR Reaction Allergy Type Onset Date Status lisinopril Lisinopril rash Drug Allergy Activ e Reason For Referral No Information Medications Medication SIG (Take, Route, Frequency, Duration) Notes Start Date End Date Status hydrOXYzine HCl Acti ve Venlafaxine HCl ER A ctive ProAir HFA Active Levothyroxine Sodium Active Zegerid OTC 20-1100 MG 1 capsule on an e mpty stomach Orally Once a day for 30 day(s) For reflux Active Aspirin Adult Low Dose Active Doxycycline Hyclate Active Immunizations Vaccine Route Administration Date Status Comme nts Influenza Unknown 10/28/2018 Administered Social History Tobacco Use: Social History Observation Description Date Details (start date - stop date) Never Smoker NA - NA Tobacco Use/Smoking Question Answer Notes Patient is a nonsmoker Alcohol Screen Question Answer Notes Did you have a drink contain ing alcohol in the past year? Yes How often did you have a dri nk containing alcohol in the past year? 2 to 3 times a week (3 points) How many drinks did you have on a typical day when you were drinking in the past year? 1 or 2 drinks (0 point) How often did you have 6 or more drinks on one occasion in the past year? Never (0 point) Points 3 Interpretation Negative Section Notes: Nonsmoker; no sig alcohol Problems Problem Type SNOMED Code ICD Code Onset Dates Problem Status W/U Status Risk Notes Problem 464617595 Encounter for screening for malignant neoplasm of colon (Z12.11) Active confirmed Problem 384108582330181 Preprocedural examination (Z01.818) Active confirmed Problem 569551611 Family history o f colon cancer (Z80.0) Active confirmed Plan Of Treatment Future Test Test Name Order Date COLONOSCOPY 12/06/2018 Insurance Providers Payer Name Payer Address Payer Phone Subscriber Number Group Number Insured Name Patient Relationship to Insured Coverage Start Date Coverage End Date [facility] [address] [address] [place] [address] [phone] [id number] JOSE ESCALANTE Self - patient is the insured Medical (General) History Medical History History ICD Code Denies CO,DM,CVA,renal disease Neg. colonoscopies x 3--most recent exam was in 10/[address] Gold Anxiety Asthma HTN Hypothyroidism GERD-EGD with Dr. Gold in 2008-hiata l hernia--gastritis, neg. H.pylori Eczema Surgical History Surgery Date(Month/Year) Left and right inguinal hernia repair an d umbilical hernia repair Carpal tunnel release bilateral 3 cervical discs surgery in [place] 09/16
== END 2025-06-25 09:22 | disposition home or self-care (01) ==
LOC: HO.HCS 08:52
PROVIDERS: PCP Internal Medicine; Visit Provider Internal Medicine Cardiovascular Disease
DX: I48.0 Paroxysmal atrial fibrillation (principal); I48.92 Unspecified atrial flutter; I47.10 Supraventricular tachycardia, unspecified
CPT/HCPCS: 93010; 99214

== ENCOUNTER → 2025-06-25 08:51 | Outpatient (BNVA) | payer MEDICARE, MEDICAID, SELFPAY | PROVIDERS: PCP Internal Medicine; Visit Provider Internal Medicine Cardiovascular Disease | DX: I48.0 Paroxysmal atrial fibrillation (principal); I48.92 Unspecified atrial flutter; I47.10 Supraventricular tachycardia, unspecified | CPT/HCPCS: 93005; 99212 ==

== ENCOUNTER 2025-07-30 18:59 | Inpatient (IN) | payer MEDICARE, MEDICAID, SELFPAY ==
--- NOTE | ~2025-07-30 | CT_ITS ---
CLINICAL HISTORY: large left buttock abscess --- Additional Notes or Special Instructions: not captured on CT abd pelvis CT pelvis without contrast Comparison: None provided Findings: Subcutaneous edema and inflammatory changes in the left posterior inferior buttock without subcutaneous gas or rim enhancing abscess. Inflammatory changes do not extend to the perianal region. No acute fracture. Excreted contrast in the urinary bladder from earlier CT. IMPRESSION: Subcutaneous edema and inflammatory changes in the left posterior inferior buttock without abscess or subcutaneous gas. This document has been electronically signed by: Darinel Tomlin MD on 07/31/2025 02:04:23
--- NOTE | ~2025-07-30 | CT_ITS ---
CLINICAL HISTORY: perirecatl abscess, cellulitis extends to perineum CT abdomen and pelvis with contrast Comparison: None provided Findings: No consolidation or effusion. Atrophic pancreas. Liver, gallbladder, spleen, and adrenal glands are within normal limits. Bilateral pelviectasis without hydronephrosis or hydroureter. Symmetric contrast enhancement of the kidneys. Nonspecific bilateral perinephric stranding. 1.5 cm exophytic indeterminate lesion in the lower pole of the right kidney. Moderate stool burden. No bowel obstruction, pneumatosis or pneumoperitoneum. Normal appendix. Aortic atherosclerosis. No aneurysm. Fat containing left inguinal hernia. No abscess seen in the visualized perirectal and perineal region. Inferior perineum is outside the field of view. Status post TURP. Diffuse urinary bladder wall thickening. Degenerative changes of the spine. Avascular necrosis of the bilateral femoral heads without subchondral collapse. No acute fracture. IMPRESSION: 1. No abscess seen in the visualized perirectal and perineal region. Inferior perineum is outside the field of view. 2. Diffuse urinary bladder wall thickening, correlate for cystitis. 3. 1.5 cm exophytic indeterminate lesion in the lower pole of the right kidney. Consider nonemergent renal ultrasound for further evaluation. This document has been electronically signed by: Darinel Tomlin MD on 07/30/2025 23:52:06
[2025-07-30 19:10] VITALS: BP 94/55; PULSE 53; RESP 18; TEMP 36.6; O2SAT 95; BMI 29.5
--- NOTE | 2025-07-30 19:12 | ED_ITS ---
HPI - General Adult General Chief complaint: Skin/Abscess/Foreign Body Stated complaint: spider bite Time Seen by Provider: 07/30/25 21:15 Source: patient Limitations: no limitations History of Present Illness ED Provider: Kellee Hernández PA-C HPI narrative: 65-year-old male with a history of hypertension, hyperlipidemia, paroxysmal AFib on apixaban, nonischemic cardiomyopathy with grade 1 diastolic dysfunction and mildly reduced EF that has not been quantified per ECHO 05/2024, hypothyroidism, prior alcohol use disorder who has been sober for several years, chronic urinary retention who self catheterizes as needed who is followed by by our urology service, who presents with left buttock infection x2 days. Patient thinks he was bitten by a spider, he in turn developed swelling, redness warmth and pain over the left buttock, the redness radiates into perineum and groin. Associated prominent inguinal lymph node. Denies fever. Denies rectal pain, rectal discharge or rectal bleeding. Related Data Home Medications ?Medication ?Instructions ?Recorded ?Confirmed magnesium oxide 250 mg PO DAILY 12/29/23 clobetasol 0.05 % topical cream 1 appl topical BID 06/25/25 Previous Rx's ?Medication ?Instructions ?Recorded ferrous sulfate 325 mg (65 mg 325 mg PO DAILY #90 tabs 03/04/22 iron) tablet albuterol sulfate 90 mcg/actuation 2 puff PO Q4H PRN s hortness of 12/07/23 aerosol inhaler breath or wheezing #8.5 gram s albuterol sulfate 2.5 mg/3 mL 2.5 mg (3 mL) inhalation QID PRN 10/02/24 (0.083 %) solution for nebulization shortness of breat h or wheezing #75 mL nebulizers (AeroEclipse II #1 ea 10/02/24 Nebulizer) sotalol 80 mg tablet 80 mg PO Q12H #180 tabs 02/26 12/19 levothyroxine 88 mcg tablet 88 mcg PO DAILY #90 tabs 0 04/05/25 valsartan 40 mg tablet 20 mg (1/2 x 40 mg) PO QPM # 45 tabs 04/23/25 omeprazole 40 mg capsule,delayed 40 mg PO DAILY #90 ca ps 05/23/25 release rosuvastatin 5 mg tablet 5 mg PO Q OTHER DAY #45 tabs 06/12/25 apixaban 5 mg tablet (Eliquis) 5 mg PO BID #180 tabs 0 06/21/25 Allergies Allergy/AdvReac Type Severity Reaction Status Date / Time lisinopril (Lisinopril) Allergy Intermediate RASH Verified 07/30/25 19:17 prednisone Allergy Unknown Verified 07/30/25 19:17 sulfamethoxazole (From AdvReac Hallucinati Verified 07/30/25 19:17 Bactrim) ons trimethoprim (From Bactrim) AdvReac Hallucinati Verified 07/30/25 19:17 ons Environmental Allergy Intermediate Shortness Uncoded 07/30/25 19:17 of Breath PMFSH Past Medical History Attestation statement: The following information was validated with the patient. Medical History GERD (gastroesophageal reflux disease) Immunization declined Atrial flutter History of alcohol use disorder Hyperuricemia Thiamine deficiency Erectile dysfunction Eczema of lower extremity History of cardioversion Vitamin D deficiency Nonischemic cardiomyopathy Acute renal insufficiency Anemia Generalized anxiety disorder JOSE (obstructive sleep apnea) Chronic anticoagulation Mixed dyslipidemia Acquired hypothyroidism Nocturnal hypoxemia Obesity Hypothyroid HTN (hypertension) Surgical History History of prostate surgery H/O cardiac radiofrequency ablation History of esophagogastroduodenoscopy (EGD) H/O colonoscopy History of neck surgery Hx of hand surgery Hx of hernia repair Family History Family History Father Atrial fibrillation Mother Heart attack Pacemaker Sister Thyroid disease Brother HTN (hypertension) Sister Colon cancer Social History Social History Household Members: Spouse Housing: House Do you presently have visiting nurse or other home services: No Alcohol intake: never Comment: scheduled med Patient Tobacco Use Status: Never used Tobacco e-Cigarette/Vaping Use: Never Used Advance Directives: Yes Advance Directives on File: Yes Advance Directives Date on File: 12/26/20 service: No Current occupational status: disabled Cognitive needs: No Hearing needs: No Vision needs: Yes Physical Exam ED Vital Signs: Vital Signs - 24 hr 07/30/25 19:10 07/30/25 22:25 07/31/25 00:27 Temperature 97.9 F 98.1 F Pulse Rate 53 58 Respiratory Rate 18 16 16 Blood Pressure 94/55 L 119/64 Pulse Oximetry 95 97 Oxygen Delivery Method Room Air Room Air 07/31/25 00:30 07/31/25 02:10 Temperature 97.9 F Pulse Rate 61 54 Respiratory Rate 16 17 Blood Pressure 107/60 117/61 Pulse Oximetry 96 95 Oxygen Delivery Method Room Air Room Air BMI result Body Mass Index 29.5 Const Other: Alert well-appearing Orientation/consciousness: patient oriented x3 Resp Effort & Inspection: normal respiratory effort Cardio Other: Normal peripheral perfusion GI Other: Significant swelling erythema and induration of lower left buttock, the swelling and erythema spans to perineum into the groin, with lymphangitis and a prominent left inguinal node, no crepitus Skin Other: Warm dry no rash Neuro General: patient oriented x3, gait normal, no focal motor deficits and CN's II- XI intact bilaterally Psych Other: Cooperative Course Course Course Narrative: Rapid medical examination performed in triage by Lorna Medina PA-C: Patient is a 65 year old assigned male at presenting to the emergency department with a left buttock abscess. Detailed physical exam and review of systems are deferred to the primary school teacher librarian. Labs ordered. Patient placed back in the waiting room pending room availability and results. Medications Administered Generic Name Dose Route Start Last Admin Trade Name Freq PRN Reason Stop Dose Admin Lactated Ringer's 1,000 mls @ 50 mls/hr 07/31/25 03:00 07/31/25 04:27 Lr IVCONT 50 mls/hr .Q20H JUSTINA Administration Ceftriaxone Sodium 1 gm/ 50 mls @ 100 mls/hr 07/31/25 03:00 07/31/25 04:57 Sodium Chloride IV Infused Q24H JUSTINA Infusion Discontinued Medications Generic Name Dose Route Start Last Admin Trade Name Freq PRN Reason Stop Dose Admin Vancomycin HCl 1,500 mg/ 500 mls @ 333.333 mls/hr 07/31/25 02:16 07/31/25 04:14 Sodium Chloride IV 07/31/25 03:45 Infused ONCE ONE Infusion Iohexol 85 ml 07/30/25 22:38 07/30/25 22:41 Iohexol 350 Mg/Ml 100 Ml Infus..Btl IV 07/30/25 22:39 85 ml ONCE ONE Administration Morphine Sulfate 4 mg 07/30/25 21:56 07/30/25 22:24 Morphine Sulfate 4 Mg/Ml Cartridge IVPUSH 07/30/25 21:57 4 mg ONCE ONE Administration Protocol Morphine Sulfate 4 mg 07/30/25 23:54 07/31/25 00:27 Morphine Sulfate 4 Mg/Ml Cartridge IVPUSH 07/30/25 23:55 4 mg ONCE ONE Administration Protocol Medical Decision Making Medical Decision Making MDM Narrative: 65-year-old male with a history of hypertension, hyperlipidemia, paroxysmal AFib on apixaban, nonischemic cardiomyopathy with grade 1 diastolic dysfunction and mildly reduced EF that has not been quantified per ECHO 05/2024, hypothyroidism, prior alcohol use disorder who has been sober for several years, chronic urinary retention who self catheterizes as needed who is followed by our urology service, who presents with left buttock infection x2 days. Patient thinks he was bitten by a spider, he in turn developed swelling, redness warmth and pain over the left buttock, the redness radiates into perineum and groin. Associated prominent inguinal lymph node. Denies fever. Denies rectal pain, rectal discharge or rectal bleeding. No relevant chronic issues History: Per patient I have considered the following differential diagnoses: Perirectal abscess, Dontrell gangrene, neck fascia, buttock abscess/cellulitis Plan: We will be obtaining a CT scan to be sure this is not a perirectal abscess, it will also determine the size and depth of the likely abscess that he has. I am not concerned for Dontrell gangrene or nec. fascia, there was not rapid onset of symptoms, the patient has no risk factors of being immunocompromised, there was no crepitus. Blood cultures and lactic were already obtained from triage, lactic is normal, the patient is hemodynamically stable and afebrile. We will give IV fluid, morphine for his pain. I have independently reviewed the following tests: Labs: No leukocytosis, not anemic, stable thrombocytopenia, no electrolyte abnormality, lactic of 1, CRP elevated at 3.19, ESR not elevated, urine not infected CT abd pelvis: IMPRESSION: 1. No abscess seen in the visualized perirectal and perineal region. Inferior perineum is outside the field of view. 2. Diffuse urinary bladder wall thickening, correlate for cystitis. 3. 1.5 cm exophytic indeterminate lesion in the lower pole of the right kidney. Consider nonemergent renal ultrasound for further evaluation. The CT abdomen and pelvis did not capture the buttock, I spoke with Radiology, we are having to do a non-con pelvic CT...... Developing an infection CT pelvis:IMPRESSION: Subcutaneous edema and inflammatory changes in the left posterior inferior buttock without abscess or subcutaneous gas. Differential Diagnosis Differential Diagnoses: The differential diagnosis associated with the presentation includes See medical decision-making Admission/Observation Consideration of admission/observation: Escalation of care including admission/observation considered Lab Data MDM Lab Attestation statement: I reviewed the patient's lab results. 07/31/25 03:43 07/31/25 03:43 Labs: Lab Results 07/30/25 07/30/25 Range/Units 19:47 22:28 WBC 7.5 (4.8-10.8) X10*3/uL RBC 4.52 L (4.60-5.80) X10*6/uL Hgb 13.8 L (14.0-18.0) g/dl Hct 40.3 L (42.0-52.0) % MCV 89.2 (80.0-98.0) fL MCH 30.5 (27.0-33.0) pg MCHC 34.2 (31.0-36.0) g/dl RDW 12.9 (11.0-16.0) % Plt Count 99 L (160-400) X10*3/uL MPV 9.8 (9.4-12.4) fL Immature Gran % (Auto) 0.3 (0.0-0.4) % Neut % (Auto) 64.8 (45-73) % Lymph % (Auto) 23.8 (20-40) % Mccormick % (Auto) 8.7 (2-11) % Eos % (Auto) 1.7 (0-4) % Baso % (Auto) 0.7 (0-2) % Lymph # (Auto) 1.8 (1.2-4.9) X10*3/uL Mccormick # (Auto) 0.7 (0.1-1.2) X10*3/uL Eos # (Auto) 0.1 (0.0-0.4) X10*3/uL Baso # (Auto) 0.1 (0.0-0.2) X10*3/uL Abs Immat Gran (auto) 0.02 (0.00-0.03) X10*3/uL Absolute Neuts (auto) 4.9 (2.0-8.3) x10*3/uL Absolute Nucleated RBC 0.000 (0.0-0.012) X10*3/uL Nucleated RBC % (auto) 0.0 (0.0-0.2) /100WBC ESR 14 (0-15) MM/HR Sodium 137 (135-145) mmol/L Potassium 3.8 (3.3-5.1) mmol/L Chloride 105 (96-108) mmol/L Carbon Dioxide 26 (22-29) mmol/L Anion Gap 10 L (12-20) BUN 13 (9-16) mg/dL Creatinine 1.04 (0.5-1.4) mg/dL Estim Creat Clear Calc 92.4 Estimated GFR > 60 Random Glucose 114 (60-115) mg/dL Lactic Acid 1.0 (0.5-2.0) mmol/L Calcium 9.2 (8.4-10.2) mg/dL Total Bilirubin 0.9 (0.0-1.0) mg/dL AST 26 (5-37) U/L ALT 25 (0-40) U/L Alkaline Phosphatase 124 H (39-117) U/L C-Reactive Protein 3.19 H (< or = 0.50) mg/dL Total Protein 6.9 (6.5-8.0) g/dL Albumin 4.3 (3.5-5.0) g/dL Urine Color Yellow Urine Appearance Clear Urine pH 6.5 (5.0-9.0) Ur Specific [place] 1.010 (1.005-1.025) Urine Protein Negative (Neg-Trace) mg/dL Urine Glucose (UA) Negative (Negative) mg/dL Urine Ketones Negative (Negative) mg/dL Urine Blood Negative (Negative) Urine Nitrite Negative (Negative) Ur Leukocyte Esterase Negative (Negative) Radiology Impression Discussion of test interpretation with radiology: I have reviewed the radiologist's reading. Discharge Plan Discharge Clinical Impression: Cellulitis of buttock, left, Lymphangitis of groin, Urinary retention Patient Disposition: Admitted As Inpatient Interventions: Admission Worksheet (ED) Last Done: 07/31/25 04:50
[2025-07-30 19:55] LABS: MANUAL DIFF FLAG NO
[2025-07-30 19:56] LABS: Hematocrit 40.3 % (42.0-52.0); Hemoglobin 13.8 g/dl (14.0-18.0); Imm Gran Abs Auto 0.02 X10*3/uL (0.00-0.03); Imm Gran Pct Auto 0.3 % (0.0-0.4); Lymphocytes Absolute Auto 1.8 X10*3/uL (1.2-4.9); Mean Corpuscular HGB Conc 34.2 g/dl (31.0-36.0); Mean Corpuscular Hemoglobin 30.5 pg (27.0-33.0); Mean Corpuscular Volume 89.2 fL (80.0-98.0); NRBC Abs Auto 0.000 X10*3/uL (0.0-0.012); NRBC Pct Auto 0.0 /100WBC (0.0-0.2); Platelet Count 99 X10*3/uL (160-400); Red Blood Count 4.52 X10*6/uL (4.60-5.80); White Blood Count 7.5 X10*3/uL (4.8-10.8)
--- NOTE | 2025-07-30 19:57 | PC.NURSE ---
18g IV access established in left AC. Labs drawn and sent for analysis, including blood cultures x2. Awaiting ED provider evaluation. Care ongoing by this RN & Verónica RN.
[2025-07-30 20:10] LABS: Alanine Aminotransferase 25 U/L (0-40); Albumin Level 4.3 g/dL (3.5-5.0); Alkaline Phosphatase 124 U/L (39-117); Anion Gap 10 (12-20); Aspartate Amino Transferase 26 U/L (5-37); Blood Urea Nitrogen 13 mg/dL (9-16); Calcium 9.2 mg/dL (8.4-10.2); Carbon Dioxide 26 mmol/L (22-29); Chloride 105 mmol/L (96-108); Creatinine Clr Calc Pharmacy 92.4; Estimated Glomerular Filt Rate > 60; Potassium 3.8 mmol/L (3.3-5.1); Sodium 137 mmol/L (135-145); Total Protein 6.9 g/dL (6.5-8.0)
--- OUTSIDE RECORDS SUMMARY | 2025-07-30 20:51 | XMS_ITS | Patient Health Record ---
Author Organization [facility] Address [address] [place] [address] Care Team Providers Care Curve Cleaner Name Role Phone Chan FERNANDEZ, Yancy Primary Care Provider Vincent Warren [phone] Allergies Allergen (clinical drug ingredient) Drug/Non Drug [...] an e mpty stomach Orally Once a day; Duration: 30 day(s) For reflux Active Aspirin Adult [...] Problem Status W/U Status Risk Notes Problem Screening for malignant neoplasm of colon (183150031) Encounter for screening for malignant neoplasm of colon (Z12.11) Active confirmed Problem Preprocedural examination (559042976599600) Preprocedural examination (Z01.818) Active confirmed Problem Family History of Cancer of Colon (Situation) (671039588) Family history of colon cancer (Z80.0) Active confirmed Plan Of Treatment Future Test Test Name Order Date COLONOSCOPY 12/06/2018 Insurance Providers Payer Name Payer Address Payer Phone Subscriber Number Group Number Insured Name Patient Relationship to Insured Coverage Start Date Coverage End Date [facility] [address] [address] [place] [address] [id number] JOSE ESCALANTE Self - patient is the insured Medical (General) History Medical History History ICD Code Denies VT,DM,CVA,renal disease Neg. colonoscopies x 3--most recent exam was in 10/[address] Gold Anxiety Asthma HTN Hypothyroidism GERD-EGD with Dr. Gold in 2008-hiata l hernia--gastritis, neg. H.pylori Eczema Surgical History Surgery Date(Month/Year) Left and right inguinal hernia repair an d umbilical hernia repair Carpal tunnel release bilateral 3 cervical discs surgery in [place] 09/16
--- OUTSIDE RECORDS SUMMARY | 2025-07-30 20:51 | XMS_ITS | Encounter Summary ---
Author Organization [facility] Address [address] [place] [address] Care Team Providers Care Operative Supervisor Name Role Phone Yancy Giles MD Primary Care Provider Encounter Details Date Type Department Care Team (Late st Contact Info) Description 03/02/2025 Lab Requisition [facility] - Main Lab [address] [place] [address] Shabnam Lau PA [address] [place], [place] [id number] Urinary tract infection, site not specified; Gross [...] Urine No growth 03/03/2025 2:06 PM EDT [facility] Urine Urine specimen obtained by clean catch procedure / Unknown 03/02/2025 03/02/2025 5:48 PM EDT us Shabnam MANDUJANO LAB MICROBIOLOGY - GENERAL ORD ERABLES Final Result [facility] [address] [place] [address], documented in this encounter Visit Diagnoses Diagnosis Urinary tract infection, site not specified Gross hematuria documented in this encounter Care Teams Operative Supervisor Relationship Specialty Start Date End Date Yancy Giles MD PCP - General Internal Medicine 01/11/25 documented as of this encounter
--- OUTSIDE RECORDS SUMMARY | 2025-07-30 20:51 | XMS_ITS | Encounter Summary ---
Author Organization [facility] Address [address] [place] [address] Care Team Providers Care Clinical Study Manager Name Role Phone Yancy Giles MD Primary Care Provider [phone] Encounter Details Date Type Department Care Team (Late st Contact Info) Description 01/11/2025 Lab Requisition [facility] - Main Lab [address] [facility] [place] [address] Zurdo Kaye PA [address] [address] Retention of urine, unspecified Social [...] LAB HEMETOLOGY METHOD 01/11/2025 12:51 PM EDT [facility] ([facility] RBC 4.30(L) 4.50 - 5.50 M/[facility] LAB HEMETOLOGY METHOD 01/11/2025 12:51 PM EDT [facility] Hemoglobin 13.7 13.5 - 17.5 g/dL LAB HEMETOLOGY METHOD 01/11/2025 12:51 PM [facility] Hematocrit 40.0(L) 42.0 - 54.0 % LAB HEMETOLOGY METHOD 01/11/2025 12:51 PM [facility] MCV 92.2 79.0 - 98.0 [place] LAB [facility]EMETOLOGY METHOD [facility] MCH 31.6 27.0 - 32.0 pcg LAB HEMETOLOGY METHOD 01/11/2025 12:51 PM [facility] MCHC 34.3 32.0 - 37.0 g/dL LAB HEMETOLOGY METHOD 01/11/2025 12:51 PM [facility] RDW 12.7 11.0 - 15.0 % LAB HEMETOLOGY METHOD 01/11/2025 12:51 PM [facility] Platelets 109(L) 130 - 400 K/mcL LAB HEMETOLOGY METHOD 01/11/2025 12:51 PM [facility] MPV 9.8 7.0 - 11.0 FL LAB HEMETOLOGY METHOD 01/11/2025 12:51 PM [facility] NRBC 0.0 <1.0 % LAB HEMETOLOGY METHOD 01/11/2025 12:51 PM [facility] NRBC Absolute 0.00 <0.10 K/mcL LAB HEMETOLOGY METHOD [facility]25 [facility] Neutrophils Relative 48.7 % LAB HEMETOLOGY METHOD 01/11/2025 12:51 PM [facility] Lymphocytes Relative 35.3 % LAB HEMETOLOGY METHOD 01/11/2025 12:51 PM [facility] Monocytes Relative 11.3 % LAB HEMETOLOGY METHOD 01/11/2025 12:51 PM EDT [facility] Eosinophils Relative 3.1 % LAB HEMETOLOGY METHOD 01/11/2025 12:51 PM EDT [facility] Basophils Relative 1.4 % LAB HEMETOLOGY METHOD 01/11/2025 12:51 PM EDT [facility] Immature Granulocytes Relative 0.2 % LAB HEMETOLOGY METHOD 01/11/2025 12:51 PM EDT [facility] Neutrophils Absolute 2.07 1.50 - 7.00 K/mcL LAB HEMETOLOGY METHOD 01/11/2025 12:51 PM EDT [facility] Lymphocytes Absolute 1.50 1.00 - 5.00 K/mcL LAB HEMETOLOGY METHOD 01/11/2025 12:51 PM EDT [facility] Monocytes Absolute 0.48 0.20 - 1.00 K/mcL LAB HEMETOLOGY METHOD 01/11/2025 12:51 PM EDT [facility] Eosinophils Absolute 0.13 0.00 - 0.50 K/mcL LAB HEMETOLOGY METHOD 01/11/2025 12:51 PM EDT [facility] Basophils Absolute 0.06 0.00 - 0.20 K/mcL LAB HEMETOLOGY METHOD 01/11/2025 12:51 PM EDT [facility] Immature Granulocytes Absolute 0.01 0.00 - 0.03 K/mcL LAB HEMETOLOGY METHOD 01/11/2025 12:51 PM EDT [facility] Blood Venous blood specimen / Unknown 01/11/2025 10:12 AM EDT 01/11/2025 12:42 PM EDT us Zurdo MANDUJANO LAB BLOOD ORDERABLES Final Resul t [facility] [address] [place] [address], documented in this encounter Visit Diagnoses Diagnosis Retention of urine, unspecified documented in this encounter Care Teams Clinical Study Manager Relationship Specialty Start Date End Date Yancy Giles MD PCP - General Internal Medicine 01/11/25 documented as of this encounter
--- OUTSIDE RECORDS SUMMARY | 2025-07-30 20:51 | XMS_ITS | Clinical Summary ---
Author Organization [facility] Address [address] [place] [address] Phone Care Team Providers Care Customer Solutions Coordinator Name Role Phone Yancy Giles MD Primary [...] Insurance MEDICARE MEDICA[place] - [place] Care Teams Customer Solutions Coordinator Relationship Specialty Start Date End Date Yancy Giles MD PCP - General Internal Medicine 01/11/25
--- OUTSIDE RECORDS SUMMARY | 2025-07-30 20:51 | XMS_ITS | Encounter Summary ---
Author Organization [facility] Address [address] [place] [address] Care Team Providers Care Customer Technical Services Manager Name Role Phone Yancy Giles MD Primary Care Provider Encounter Details Date Type Department Care Team (Late st Contact Info) Description 01/11/2025 Lab Requisition [facility] - Main Lab [address] [facility] [place] [address] Zurdo Kaye PA [address] [address] Retention of urine, unspecified; Urinary [...] marcescens(A ) JACOB 01/13/2025 11:40 AM EDT [facility] ([facility]) [facility] Comment: This is an edited result. [...] MICROBIOLOGY - GENERAL ORDER ALEXEI Final Result [facility] ([facility]) [facility] [address] [place] [address], documented in this encounter Visit Diagnoses Diagnosis Retention of urine, unspecified Urinary tract infection, site not specified documented in this encounter Care Teams Customer Technical Services Manager Relationship Specialty Start Date End Date Yancy Giles MD PCP - General Internal Medicine 01/11/25 documented as of this encounter
--- OUTSIDE RECORDS SUMMARY | 2025-07-30 20:51 | XMS_ITS | Clinical Summary ---
Author Organization [facility] Facility Address [address] [place] [address] Care Team Providers Care Shingler Name Role Phone Asia Giles MD Primary Care Provider [phone] Allergies Active Allergy Reactions Criticality Noted Date [...] Medicaid [place] Care Teams Shingler Relationship Specialty Start Date End Date Asia Giles MD [address] [place] [address] PCP - General Internal Medicine 10/01/21
--- OUTSIDE RECORDS SUMMARY | 2025-07-30 20:51 | XMS_ITS | Encounter Summary ---
Author Organization [facility] Address [address] [place] [address] Care Team Providers Care Electrician Locomotive Name Role Phone Yancy Giles MD Primary Care Provider Encounter Details Date Type Department Care Team (Late st Contact Info) Description 03/09/2025 Lab Requisition [facility] - Main Lab [address] [facility] [place] [address] Shabnam Lau PA [address] [place] [address] Gross hematuria Social History Tobacco Use Types [...] 12:00 AM EDT) Final Diagnosis Urine, Voided, [id number]: Negative for high grade urothelial carcinoma. Acute inflammation present. Results of UroVysion fluorescence in situ hybridization (FISH) testing: Although FISH was performed, insufficient non-obscured hybridization signals are present for evaluation and interpretation. 03/22/2025 9:32 AM EDT [facility] [place] [facility] Clinical Information Gross hematuria R31.0 Urine Cytology/FISH (now) 03/22/2025 9:32 AM EDT [facility] Gross Description A. Urine, Voided, [id number]: Received one ThinPrep slide for cytology and one ThinPrep slide for UroVysion FISH 03/22/2025 9:32 AM EDT [facility] Disclaimer Unless otherwise specified, all tissue is 10% NB formalin fixed and paraffin embedded. Technical pathology services provided by [facility] [address] [address] [place] [address] (CLIA #[id number]/Tiffany Bruce MD, Fur Remodeler) 03/22/2025 9:32 AM EDT [facility] Tissue Urine specimen from urethra / Unknown 03/02/2025 03/09/2025 1:15 PM EDT us Shabnam MANDUJANO LAB PATHOLOGY ORDERABLES Final Result [facility] [address] [place] [address], documented in this encounter Visit Diagnoses Diagnosis Gross hematuria documented in this encounter Care Teams Electrician Locomotive Relationship Specialty Start Date End Date Yancy Giles MD PCP - General Internal Medicine 01/11/25 documented as of this encounter
[2025-07-30 22:25] VITALS: BP 119/64; PULSE 58; RESP 16; TEMP 36.7; O2SAT 97
[2025-07-30 22:35] LABS: Appearance Urine Clear; Glucose Urine UA Negative (Negative); PH 6.5 (5.0-9.0); Specific Gravity - Urine 1.010 (1.005-1.025)
[2025-07-30] MEDS: iohexoL 350 MG/ML 100 ML INFUS..BTL 85 ML IV (22:41)
[2025-07-31] VITALS (8 sets, daily range): BP systolic 99–130; BP diastolic 58–66; PULSE 47–64; RESP 16–18; TEMP 36.2–36.9; O2SAT 95–97; BMI 30.7
--- NOTE | 2025-07-31 02:54 | PM.IMHP ---
History of Present Illness Date of Service: 07/31/25 Chief Complaint: Buttock erythema 65-year-old male with a past medical history of hypertension, a flutter on Eliquis, sotalol, nonischemic cardiomyopathy, JOSE, general anxiety disorder; presented to the hospital today with a chief complaint of left buttock erythema and redness for 2 days. Denies any fevers. Patient mentioned that he probably had a spider bite but has not seen any. Has had spiders at home. Denies any nausea or vomiting. Reports discomfort. Denies any chest pain or palpitations. Denies any urinary symptoms. Review of all other systems is negative except mentioned above ER course: Per ER team, patient noted to have left buttock erythema concerning for cellulitis extending into the perineum and groin. CT abdomen pelvis showed cellulitis. No evidence of gas. No evidence of abscess. Given antibiotics. [facility] Medical History GERD (gastroesophageal reflux disease) Immunization declined Atrial flutter History of alcohol use disorder Hyperuricemia Thiamine deficiency Erectile dysfunction Eczema of lower extremity History of cardioversion Vitamin D deficiency Nonischemic cardiomyopathy Acute renal insufficiency Anemia Generalized anxiety disorder JOSE (obstructive sleep apnea) Chronic anticoagulation Mixed dyslipidemia Acquired hypothyroidism Nocturnal hypoxemia Obesity Hypothyroid HTN (hypertension) Family History Father Atrial fibrillation Mother Heart attack Pacemaker Sister Thyroid disease Brother HTN (hypertension) Sister Colon cancer Surgical History History of prostate surgery H/O cardiac radiofrequency ablation History of esophagogastroduodenoscopy (EGD) H/O colonoscopy History of neck surgery Hx of hand surgery Hx of hernia repair Social History Household Members: Spouse Housing: House Do you presently have visiting nurse or other home services: No Alcohol intake: never Comment: scheduled med Patient Tobacco Use Status: Never used Tobacco e-Cigarette/Vaping Use: Never Used Advance Directives: Yes Advance Directives on File: Yes Advance Directives Date on File: 12/26/20 service: No Current occupational status: disabled Cognitive needs: No Hearing needs: No Vision needs: Yes Meds Allergies Allergy/AdvReac Type Severity Reaction Status Date / Time lisinopril (Lisinopril) Allergy Intermediate RASH Verified 07/30/25 19:17 prednisone Allergy Unknown Verified 07/30/25 19:17 sulfamethoxazole (From AdvReac Hallucinati Verified 07/30/25 19:17 Bactrim) ons trimethoprim (From Bactrim) AdvReac Hallucinati Verified 07/30/25 19:17 ons Environmental Allergy Intermediate Shortness Uncoded 07/30/25 19:17 of Breath Active Medications: Current Medications Acetaminophen (Acetaminophen 325 Mg Tablet) 650 mg PO Q6H PRN PRN Reason: Pain, Mild 1-3,fever,headache Calcium Carbonate (Calcium Carbonate 750 Mg Tab.Chew) 750 mg PO Q4H PRN PRN Reason: Heartburn Enoxaparin Sodium (Enoxaparin Sodium 40 Mg/0.4 Ml Syringe) 40 mg SUBCUT Q24H JUSTINA Vancomycin HCl 1,500 mg/ (Sodium Chloride) 500 mls @ 333.333 mls/hr IV ONCE ONE Stop: 07/31/25 03:45 Last Admin: 07/31/25 02:43 Dose: 333.33 mls/hr Lactated Ringer's (Lr) 1,000 mls @ 50 mls/hr IVCONT .Q20H JUSTINA Ceftriaxone Sodium 1 gm/ (Sodium Chloride) 50 mls @ 100 mls/hr IV Q24H JUSTINA Magnesium Hydroxide (Milk Of Magnesia 30 Ml Oral.Susp) 30 ml PO DAILY PRN PRN Reason: Constipation Melatonin (Melatonin 3 Mg Tablet) 6 mg PO BEDTIME PRN PRN Reason: Insomnia Pharmacy Consult (Consult Rx Vancomycin Dosing) 1 each MISCELLANE DAILY PRN PRN Reason: Consult order Sodium Chloride (0.9 % Sodium Chloride Flush 3 Ml Syringe) 3 ml IVFLUSH QSHIFT [facility] Home Medications ?Medication ?Instructions ?Recorded ?Confirmed ?Last Taken ?Type magnesium oxide 250 mg PO DAILY 12/29/23 06/25/25 Unknown History clobetasol 0.05 % topical cream 1 appl topical BID 02/14/25 06/25/25 Unknown History Physical Exam Vital Signs and Narrative: Vital Signs: Last Vital Signs Temp 97.9 F 07/31/25 02:10 Pulse 54 07/31/25 02:10 Resp 17 07/31/25 02:10 BP 117/61 07/31/25 02:10 Pulse Ox 95 07/31/25 02:10 O2 Del Method Room Air 07/31/25 02:10 BMI result Body Mass Index 29.5 Gen: Appears be in no acute distress HEENT: NCAT, Moist mucosa. Pulmonary: Vesicular breath sounds, fair air entry CVS: Normal S1-S2 Abdomen: BS+, Soft, Nontender Extremities: Warm well perfused Neuro: Alert and awake. Skin: Noted erythema and redness on the left buttock. A posterior central ulcer without any discharge. Erythema slightly extending into the perineum. No crepitus. Results Labs 07/30/25 19:47 07/30/25 19:47 Labs: Laboratory Results - last 24 hr 07/30/25 07/30/25 19:47 22:28 MCV 89.2 MCH 30.5 MCHC 34.2 RDW 12.9 Plt Count 99 L MPV 9.8 Immature Gran % (Auto) 0.3 Neut % (Auto) 64.8 Lymph % (Auto) 23.8 [place] % (Auto) 8.7 Eos % (Auto) 1.7 Baso % (Auto) 0.7 Lymph # (Auto) 1.8 [place] # (Auto) 0.7 Eos # (Auto) 0.1 Baso # (Auto) 0.1 Abs Immat Gran (auto) 0.02 Absolute Neuts (auto) 4.9 Absolute Nucleated RBC 0.000 Nucleated RBC % (auto) 0.0 ESR 14 Anion Gap 10 L Estim Creat Clear Calc 92.4 Estimated GFR > 60 Random Glucose 114 Lactic Acid 1.0 Calcium 9.2 Total Bilirubin 0.9 AST 26 ALT 25 Alkaline Phosphatase 124 H C-Reactive Protein 3.19 H Total Protein 6.9 Albumin 4.3 Urine Color Yellow Urine Appearance Clear Urine pH 6.5 Ur Specific [place] 1.010 Urine Protein Negative Urine Glucose (UA) Negative Urine Ketones Negative Urine Blood Negative Urine Nitrite Negative Ur Leukocyte Esterase Negative Assessment and Plan (1) Cellulitis: Qualifiers: Site of cellulitis: buttock Qualified Code(s): L03.317 - Cellulitis of buttock Status: Acute Plan 65-year-old male with a past medical history of hypertension, a flutter on Eliquis, sotalol, nonischemic cardiomyopathy, JOSE, general anxiety disorder; presented to the hospital today with a chief complaint of left buttock erythema and redness for 2 days. Noted to have cellulitis Left buttock cellulitis: Suspected spider bite: Cellulitis extending into the perineum. CT abdomen pelvis showed no evidence of gas. Less concern for necrotizing fasciitis. Lactic within normal limits. Continue vancomycin and ceftriaxone ID consult Urinary retention: Patient reported difficulty urination. Bladder scan showed 900 cc urine. Hernández catheter placed. Urology consult. Urinalysis sent. A flutter: Continue home Eliquis, sotalol Hypothyroidism: Continue levothyroxine DVT prophylaxis: Patient on Eliquis Code status: Full code Quality Stroke Does the patient have a stroke diagnosis?: No VTE Prior VTE?: No VTE Risk Level:: Medical - moderate - high VTE Device Contraindication: Treatment Not Indicated VTE Drug Contraindication: N/A - Med Ordered
[2025-07-31 04:01] LABS: MANUAL DIFF FLAG NO
[2025-07-31 04:05] LABS: Hematocrit 37.1 % (42.0-52.0); Hemoglobin 12.4 g/dl (14.0-18.0); Imm Gran Abs Auto 0.02 X10*3/uL (0.00-0.03); Imm Gran Pct Auto 0.3 % (0.0-0.4); Lymphocytes Absolute Auto 1.8 X10*3/uL (1.2-4.9); Mean Corpuscular HGB Conc 33.4 g/dl (31.0-36.0); Mean Corpuscular Hemoglobin 30.0 pg (27.0-33.0); Mean Corpuscular Volume 89.6 fL (80.0-98.0); NRBC Abs Auto 0.000 X10*3/uL (0.0-0.012); NRBC Pct Auto 0.0 /100WBC (0.0-0.2); Red Blood Count 4.14 X10*6/uL (4.60-5.80); White Blood Count 6.6 X10*3/uL (4.8-10.8)
[2025-07-31 04:06] LABS: Platelet Count 91 X10*3/uL (160-400)
[2025-07-31 04:16] LABS: Anion Gap 12 (12-20); Blood Urea Nitrogen 13 mg/dL (9-16); Calcium 8.8 mg/dL (8.4-10.2); Carbon Dioxide 24 mmol/L (22-29); Chloride 105 mmol/L (96-108); Creatinine Clr Calc Pharmacy 106.7; Estimated Glomerular Filt Rate > 60; Potassium 4.0 mmol/L (3.3-5.1); Sodium 137 mmol/L (135-145)
[2025-07-31] MEDS: Lactated Ringers 1,000 ML 50 ML IVCONT (04:27)
--- NOTE | 2025-07-31 05:15 | PC.NURSE ---
hancock had approx 1200mL UO, clamped at this time. urine sample obtained.
[2025-07-31 05:31] LABS: Appearance Urine Clear; Glucose Urine UA Negative (Negative); PH 6.5 (5.0-9.0); Specific Gravity - Urine >= 1.030 (1.005-1.025)
--- NOTE | 2025-07-31 07:36 | PHA.PROG ---
Admission Date/Time: July 31, 2025 02:46 Indication: OTHER Weight in k.5 kg Adjusted body weight in Kg: [place] body weight in Kg: Obesity Dosing Indication % IBW: Serum Creatinine - Last 168 Hours 07/30/25 07/31/25 19:47 03:43 Creatinine 1.04 0.90 Estimated CrCl and GFR - Last 168 Hours 07/30/25 07/31/25 19:47 03:43 Estim Creat Clear Calc 92.4 106.7 Estimated GFR > 60 > 60 Vancomycin Loading Dose: 1500 MG Current Vancomycin Dosing Regimen: 1250 MG Q12H Vancomycin Monitoring using AUC goal of 400 - 600 range with trough as surrogate marker: AUC = 527 TROUGH=17.1 Date and Time for next Vancomycin Level to be drawn: 08/01/25 @1300 Pharmacist Comments on Vancomycin Plan: Vancomycin dosing will take advantage of [employer] as a clinical decision support tool that uses Bayesian modeling to calculate individual patient's pharmacokinetic parameters and forecast the patient's drug concentration time course with the target goal AUC 24 range of 400 - 600 mg/L/hr.
--- NOTE | 2025-07-31 07:39 | PM.EVENT ---
Event Note Date of Service: 07/31/25 Event Note: patient already seen /examined by hospitalist team this morning physical exam and A&P per H&P-same . continue antibiotics and nasal mrsa / cellulitis area cultures suggested by ID. Time Spent With Patient Time: Total time managing care of this patient today ____ minutes.
--- NOTE | 2025-07-31 08:01 | PHA.MEDREC ---
Addendum entered by Katerina Berger RPh 07/31/25 08:08: reviewed Original Note: Pharmacy Consult ? Medication Reconciliation Pharmacy has completed the medication reconciliation. Spoke with pt and he confirmed his medications. Pt confirmed he uses his Clobetasol 0.05% cream once at bedtime to his legs and he takes his Rosuvastatin 5mg tab MoWeFr and took it yesterday along with his other medications (Mo 07/30).
[2025-07-31] MEDS: 0.9 % Sodium Chloride Flush 3 ML SYRINGE IVFLUSH (09:02)
[2025-07-31] MEDS: Ferrous Sulfate 324 MG TABLET.DR PO (09:03)
--- NOTE | 2025-07-31 12:05 | P.CNUR_ITS ---
History of Present Illness Consult details Consult date: 07/31/25 Narrative: 65-year-old male with a past medical history of hypertension, a flutter on Eliquis, sotalol, nonischemic cardiomyopathy, JOSE, general anxiety disorder; presented to the hospital today with a chief complaint of left buttock erythema and redness for 2 days. H/o BPH and chronic urinary retention, h/o TURP. Review of Systems 2 Review of Systems: Yes all other systems are reviewed and are negative Constitutional: Constitutional: Reports no additional constitutional complaints Eyes: Eyes: Reports no additional eye complaints ENT: Reports system reviewed and no additional complaints, except as documented Cardiovascular: Cardiovascular: Reports no additional cardiovascular complaints Respiratory: Respiratory: Reports no additional respiratory complaints Gastrointestinal: Gastrointestinal: Reports no additional gastrointestinal complaints Genitourinary: Genitourinary: Reports as per HPI Musculoskeletal: Musculoskeletal: Reports no additional musculoskeletal complaints Integumentary/Breasts: Skin/Breast: Reports system reviewed and no additional complaints, except as docu Neurologic: Reports system reviewed and no additional complaints, except as documented Psychiatric: Psychiatric: Reports no additional psychiatric complaints Endocrine: Endocrine: Reports no additional endocrine complaints Hematologic/Lymphatic: Hematologic/Lymphatic: Reports no additional hematologic/lymphatic complaints Allergic/Immunologic: Allergic/Immunologic: Reports no additional allergic/immunologic complaints PMFSH Past Medical History Medical History GERD (gastroesophageal reflux disease) Immunization declined Atrial flutter History of alcohol use disorder Hyperuricemia Thiamine deficiency Erectile dysfunction Eczema of lower extremity History of cardioversion Vitamin D deficiency Nonischemic cardiomyopathy Acute renal insufficiency Anemia Generalized anxiety disorder JOSE (obstructive sleep apnea) Chronic anticoagulation Mixed dyslipidemia Acquired hypothyroidism Nocturnal hypoxemia Obesity Hypothyroid HTN (hypertension) Family History Family History Father Atrial fibrillation Mother Heart attack Pacemaker Sister Thyroid disease Brother HTN (hypertension) Sister Colon cancer Surgical History Surgical History History of prostate surgery H/O cardiac radiofrequency ablation History of esophagogastroduodenoscopy (EGD) H/O colonoscopy History of neck surgery Hx of hand surgery Hx of hernia repair Social History Social History Household Members: Spouse Housing: House Do you presently have visiting nurse or other home services: No Alcohol intake: never Comment: scheduled med Patient Tobacco Use Status: Never used Tobacco e-Cigarette/Vaping Use: Never Used Currently Displaying Signs/Symptoms of Drug Intoxication Withdrawal: No Have you been hit, kicked, punched, or otherwise hurt by someone within the past year? If so, by whom?: No Do you feel safe in your current relationship?: Yes Is there a partner from a previous relationship who is making you feel unsafe now?: No Are you made to feel afraid or neglected: No Advance Directives: Yes Advance Directives on File: Yes Advance Directives Date on File: 12/26/20 Do you have a plan to hurt others: No Plan Recently lost weight without trying: No How much weight loss: Not applicable Eating poorly because of decreased appetite: No Nutrition screen score: 0 Nutrition Risks: No Nutritional Risk Poor oral hygiene: No service: No Current occupational status: disabled Cognitive needs: No Hearing needs: No Vision needs: Yes Meds Allergies Allergy/AdvReac Type Severity Reaction Status Date / Time lisinopril (Lisinopril) Allergy Intermediate RASH Verified 07/30/25 19:17 prednisone Allergy Unknown Verified 07/30/25 19:17 sulfamethoxazole (From AdvReac Hallucinati Verified 07/30/25 19:17 Bactrim) ons trimethoprim (From Bactrim) AdvReac Hallucinati Verified 07/30/25 19:17 ons Environmental Allergy Intermediate Shortness Uncoded 07/30/25 19:17 of Breath Active Medications: Current Medications Acetaminophen (Acetaminophen 325 Mg Tablet) 650 mg PO Q6H PRN PRN Reason: Pain, Mild 1-3,fever,headache Albuterol/Ipratropium (Albuterol/Iprat 2.5/0.5mg 3 Ml Ampul.Neb) 3 ml INHALE RQ4H WHILE AWAKE PRN PRN Reason: Shortness of Breath Apixaban (Apixaban 5 Mg Tablet) 5 mg PO BID [facility] Last Admin: 07/31/25 09:03 Dose: 5 mg Atorvastatin Calcium (Atorvastatin Calcium 20 Mg Tablet) 20 mg PO MOWEFR [facility] Betamethasone Dipropion Augmented (Betamethasone Dip Aug 0.05% Cr 15 Gm Tube) 1 appl TOPICAL BEDTIME [facility] Calcium Carbonate (Calcium Carbonate 750 Mg Tab.Chew) 750 mg PO Q4H PRN PRN Reason: Heartburn Ferrous Sulfate (Ferrous Sulfate 324 Mg Tablet.) 324 mg PO DAILY [facility] Last Admin: 07/31/25 09:03 Dose: 324 mg Lactated Ringer's (Lr) 1,000 mls @ 50 mls/hr IVCONT .Q20H [facility] Last Admin: 07/31/25 04:27 Dose: 50 mls/hr Ceftriaxone Sodium 1 gm/ (Sodium Chloride) 50 mls @ 100 mls/hr IV Q24H [facility] Last Infusion: 07/31/25 04:57 Dose: Infused Vancomycin HCl 1,250 mg/ (Sodium Chloride) 250 mls @ 166.667 mls/hr IV Q12H [facility] Levothyroxine Sodium (Levothyroxine Sodium 88 Mcg Tablet) 88 mcg PO DAILY@0600 [facility] Last Admin: 07/31/25 06:10 Dose: 88 mcg Magnesium Hydroxide (Milk Of Magnesia 30 Ml Oral.Susp) 30 ml PO DAILY PRN PRN Reason: Constipation Magnesium Oxide (Magnesium Oxide 400 Mg Tablet) 400 mg PO DAILY [facility] Last Admin: 07/31/25 09:02 Dose: 400 mg Melatonin (Melatonin 3 Mg Tablet) 6 mg PO BEDTIME PRN PRN Reason: Insomnia Omeprazole (Omeprazole 40 Mg Capsule.) 40 mg PO DAILY@0630 [facility] Last Admin: 07/31/25 09:02 Dose: 40 mg Pharmacy Consult (Consult Rx Vancomycin Dosing) 1 each MISCELLANE DAILY PRN PRN Reason: Consult order Sodium Chloride (0.9 % Sodium Chloride Flush 3 Ml Syringe) 3 ml IVFLUSH QSHIFT [facility] Last Admin: 07/31/25 09:02 Dose: 3 ml Sotalol HCl (Sotalol Hcl 80 Mg Tablet) 80 mg PO BID [facility] Last Admin: 07/31/25 09:03 Dose: 80 mg Valsartan (Valsartan 40 Mg Tablet) 20 mg PO BEDTIME [facility]; Protocol Home Medications ?Medication ?Instructions ?Recorded ?Confirmed ?Last Taken ?Type magnesium oxide 250 mg PO DAILY 12/29/2301/1907/30/25 History clobetasol 0.05 % topical cream 1 appl topical BEDTIME 02/14/25 07/31/25 07/30/25 History levothyroxine 88 mcg tablet 88 mcg PO DAILY@0600 07/3107/31/25 07/30/25 History omeprazole 40 mg capsule,delayed 40 mg PO DAILY@0630 1 09/30/24 07/31/25 07/30/25 History release rosuvastatin 5 mg tablet 5 mg PO MOWEFR 07/31/2501/1907/30/25 History sotalol 80 mg tablet 80 mg PO BID 07/31/2507/30/25 History valsartan 40 mg tablet 20 mg PO BEDTIME 07/31/2507/30/25 History Physical Exam 2 Vital Signs: Vital Signs: Last Vital Signs Temp 97.1 F 07/31/25 08:25 Pulse 47 L 07/31/25 08:25 Resp 18 07/31/25 08:25 BP 108/61 07/31/25 08:25 Pulse Ox 95 07/31/25 08:25 O2 Del Method Room Air 07/31/25 08:25 BMI result Body Mass Index 30.7 Const: General: healthy appearing, no acute distress and well developed O rientation/consciousness: patient oriented x3 HEENT: Head: Yes normocephalic and Yes atraumatic Eyes: Conjunctivae: conjunctivae normal Neck: Neck: Yes normal visual inspection Chest: Chest palpation & inspection: normal inspection of the chest Resp: Effort & Inspection: normal respiratory effort GI: Inspection: Yes normal to inspection Palpation (GI): Soft to palpation : Penis: normal penis Scrotum: scrotum normal Neuro: General: patient oriented x3 Psych: Appearance: grossly normal Affect: normal affect Results Labs 07/31/25 03:43 07/31/25 03:43 Labs: Abnormal lab results 07/30/25 07/31/25 07/31/25 Range/Units 19:47 03:43 05:16 RBC 4.52 L 4.14 L (4.60-5.80) X10*6/uL Hgb 13.8 L 12.4 L (14.0-18.0) g/dl Hct 40.3 L 37.1 L (42.0-52.0) % Plt Count 99 L 91 L (160-400) X10*3/uL Anion Gap 10 L (12-20) Alkaline Phosphatase 124 H (39-117) U/L C-Reactive Protein 3.19 H (< or = 0.50) mg/dL Ur Specific [place] >= 1.030 H (1.005-1.025) Short CBC 07/30/25 07/31/25 Range/Units 19:47 03:43 WBC 7.5 6.6 (4.8-10.8) X10*3/uL Hgb 13.8 L 12.4 L (14.0-18.0) g/dl Hct 40.3 L 37.1 L (42.0-52.0) % Plt Count 99 L 91 L (160-400) X10*3/uL BMP 07/30/25 07/31/25 19:47 03:43 Sodium 137 137 Potassium 3.8 4.0 Chloride 105 105 Carbon Dioxide 26 24 BUN 13 13 Creatinine 1.04 0.90 Calcium 9.2 8.8 Liver Function 07/30/25 Range/Units 19:47 Total Bilirubin 0.9 (0.0-1.0) mg/dL AST 26 (5-37) U/L ALT 25 (0-40) U/L Alkaline Phosphatase 124 H (39-117) U/L Albumin 4.3 (3.5-5.0) g/dL Urine 07/30/25 07/31/25 Range/Units 22:28 05:16 Urine Color Yellow Yellow Urine Appearance Clear Clear Urine pH 6.5 6.5 (5.0-9.0) Ur Specific [place] 1.010 >= 1.030 H (1.005-1.025) Urine Protein Negative Negative (Neg-Trace) mg/dL Urine Glucose (UA) Negative Negative (Negative) mg/dL Imaging Additional studies: Date of Service: 07/30/25 Reason for Exam: perirecatl abscess, cellulitis extends to perineum CLINICAL HISTORY: perirecatl abscess, cellulitis extends to perineum CT abdomen and pelvis with contrast Comparison: None provided Findings: No consolidation or effusion. Atrophic pancreas. Liver, gallbladder, spleen, and adrenal glands are within normal limits. Bilateral pelviectasis without hydronephrosis or hydroureter. Symmetric contrast enhancement of the kidneys. Nonspecific bilateral perinephric stranding. 1.5 cm exophytic indeterminate lesion in the lower pole of the right kidney. Moderate stool burden. No bowel obstruction, pneumatosis or pneumoperitoneum. Normal appendix. Aortic atherosclerosis. No aneurysm. Fat containing left inguinal hernia. No abscess seen in the visualized perirectal and perineal region. Inferior perineum is outside the field of view. Status post TURP. Diffuse urinary bladder wall thickening. Degenerative changes of the spine. Avascular necrosis of the bilateral femoral heads without subchondral collapse. No acute fracture. IMPRESSION: 1. No abscess seen in the visualized perirectal and perineal region. Inferior perineum is outside the field of view. 2. Diffuse urinary bladder wall thickening, correlate for cystitis. 3. 1.5 cm exophytic indeterminate lesion in the lower pole of the right kidney. Consider nonemergent renal ultrasound for further evaluation. Assessment and Plan (1) Urinary retention: Status: Acute (2) Renal mass of unknown nature: Status: Acute Plan hancock placed for urinary retention. UA - negative Recommend flomax 0.4 mg daily 1.5 cm exophytic indeterminate lesion in the lower pole of the right kidney. RemaL US, may be followed with outpatient Urology voiding trial prior to discharge, fu with his urologist, [facility] Krish Patricio Date of Service Date of Service: 07/31/25
--- NOTE | 2025-07-31 12:08 | HO.WOUND ---
Wound Consult: Initial 65yr old?male admitted to [facility] on 07/31/25 02:46- See progress notes and H&P for detailed history.? Wound consult placed for Left buttock cellulitis .? Patient agreeable to assessment and photo documentation.? Left buttock Etiology: ??Ulceration with Cellulitis Present on Admission Measurements: 1cm x 1cm x 0.2cm Wound Bed: pale pink wound bed Drainage / Odor: scant serosang drainage noted on bed linen Edges: ?well defined Susy wound: ?Red warm erythema firm Induration extending up to the left groin No Fluctuance noted Pain: pain reported Goals of Treatment: ? Moist wound healing and covering for pain control Recommendations: Left Buttock - Defer to provider for systemic treatment. Off Load Pressure - Cleanse with NS moist gauze, Pat dry. Apply Triad to open wound followed by Foam dressing. Change daily and PRN for soiling. Re-consult wound care Nurse for wound deterioration or wound changes.
--- NOTE | 2025-07-31 14:19 | MHC.CM.PN ---
IMM 07/31/25 DX Cellulitis Lives with . Independent with all functional mobility. No DME HCP is on file. PCP Yancy Giles Home care and Home infusion referred. Cellulitis tracks to groin. May need IV ABX at home. DP home self care vs VNA. Patients will provide transportation home.
[2025-07-31 15:58] LABS: MRSA Nasal PCR POSITIVE (Negative); SA Nasal PCR POSITIVE (Negative)
--- NOTE | 2025-07-31 23:59 | W.PM.IDCN ---
History of Present Illness Data of Consult Service Date: 07/31/25 Requesting physician: Hany Reaves Primary Care Provider: Yancy Giles MD HPI Reason for consult: redness,erythema left buttock He presents with pain and redness left buttock area with firmness. He has area about 3 x 5 cm. He mentioned that he had similar swollen red area right hip about eight months ago. He also mentions his had similar lesion on abdomen. He has no travel or MRSA exposure known. Review of Systems Review of Systems: Yes all other systems are reviewed and are negative [facility] Past Medical History Medical History GERD (gastroesophageal reflux disease) Immunization declined Atrial flutter History of alcohol use disorder Hyperuricemia Thiamine deficiency Erectile dysfunction Eczema of lower extremity History of cardioversion Vitamin D deficiency Nonischemic cardiomyopathy Acute renal insufficiency Anemia Generalized anxiety disorder JOSE (obstructive sleep apnea) Chronic anticoagulation Mixed dyslipidemia Acquired hypothyroidism Nocturnal hypoxemia Obesity Hypothyroid HTN (hypertension) Family History Family History Father Atrial fibrillation Mother Heart attack Pacemaker Sister Thyroid disease Brother HTN (hypertension) Sister Colon cancer Surgical History Surgical History History of prostate surgery H/O cardiac radiofrequency ablation History of esophagogastroduodenoscopy (EGD) H/O colonoscopy History of neck surgery Hx of hand surgery Hx of hernia repair Social History Social History Household Members: Spouse Housing: House Do you presently have visiting nurse or other home services: No Alcohol intake: never Comment: scheduled med Patient Tobacco Use Status: Never used Tobacco e-Cigarette/Vaping Use: Never Used Currently Displaying Signs/Symptoms of Drug Intoxication Withdrawal: No Have you been hit, kicked, punched, or otherwise hurt by someone within the past year? If so, by whom?: No Do you feel safe in your current relationship?: Yes Is there a partner from a previous relationship who is making you feel unsafe now?: No Are you made to feel afraid or neglected: No Advance Directives: Yes Advance Directives on File: Yes Advance Directives Date on File: 12/26/20 Do you have a plan to hurt others: No Plan Recently lost weight without trying: No How much weight loss: Not applicable Eating poorly because of decreased appetite: No Nutrition screen score: 0 Nutrition Risks: No Nutritional Risk Poor oral hygiene: No service: No Current occupational status: disabled Cognitive needs: No Hearing needs: No Vision needs: Yes Meds Allergies Allergy/AdvReac Type Severity Reaction Status Date / Time lisinopril (Lisinopril) Allergy Intermediate RASH Verified 07/30/25 19:17 prednisone Allergy Unknown Verified 07/30/25 19:17 sulfamethoxazole (From AdvReac Hallucinati Verified 07/30/25 19:17 Bactrim) ons trimethoprim (From Bactrim) AdvReac Hallucinati Verified 07/30/25 19:17 ons Environmental Allergy Intermediate Shortness Uncoded 07/30/25 19:17 of Breath Active Medications: Current Medications Acetaminophen (Acetaminophen 325 Mg Tablet) 650 mg PO Q6H PRN PRN Reason: Pain, Mild 1-3,fever,headache Albuterol/Ipratropium (Albuterol/Iprat 2.5/0.5mg 3 Ml Ampul.Neb) 3 ml INHALE RQ4H WHILE AWAKE PRN PRN Reason: Shortness of Breath Apixaban (Apixaban 5 Mg Tablet) 5 mg PO BID [facility] Last Admin: 07/31/25 20:22 Dose: 5 mg Atorvastatin Calcium (Atorvastatin Calcium 20 Mg Tablet) 20 mg PO MOWEFR [facility] Betamethasone Dipropion Augmented (Betamethasone Dip Aug 0.05% Cr 15 Gm Tube) 1 appl TOPICAL BEDTIME [facility] Last Admin: 07/31/25 20:23 Dose: Not Given Calcium Carbonate (Calcium Carbonate 750 Mg Tab.Chew) 750 mg PO Q4H PRN PRN Reason: Heartburn Ferrous Sulfate (Ferrous Sulfate 324 Mg Tablet.Dr) 324 mg PO DAILY [facility] Last Admin: 07/31/25 09:03 Dose: 324 mg Lactated Ringer's (Lr) 1,000 mls @ 50 mls/hr IVCONT .Q20H [facility] Last Admin: 07/31/25 04:27 Dose: 50 mls/hr Ceftriaxone Sodium 1 gm/ (Sodium Chloride) 50 mls @ 100 mls/hr IV Q24H [facility] Last Infusion: 07/31/25 04:57 Dose: Infused Vancomycin HCl 1,250 mg/ (Sodium Chloride) 250 mls @ 166.667 mls/hr IV Q12H [facility] Last Infusion: 07/31/25 17:16 Dose: Infused Levothyroxine Sodium (Levothyroxine Sodium 88 Mcg Tablet) 88 mcg PO DAILY@0600 [facility] Last Admin: 07/31/25 06:10 Dose: 88 mcg Magnesium Hydroxide (Milk Of Magnesia 30 Ml Oral.Susp) 30 ml PO DAILY PRN PRN Reason: Constipation Magnesium Oxide (Magnesium Oxide 400 Mg Tablet) 400 mg PO DAILY [facility] Last Admin: 07/31/25 09:02 Dose: 400 mg Melatonin (Melatonin 3 Mg Tablet) 6 mg PO BEDTIME PRN PRN Reason: Insomnia Omeprazole (Omeprazole 40 Mg Capsule.Dr) 40 mg PO DAILY@629 [facility] Last Admin: 07/31/25 09:02 Dose: 40 mg Pharmacy Consult (Consult Rx Vancomycin Dosing) 1 each MISCELLANE DAILY PRN PRN Reason: Consult order Sodium Chloride (0.9 % Sodium Chloride Flush 3 Ml Syringe) [facility] Admin: 07/31/25 20:23 Dose: Not Given Sotalol HCl (Sotalol Hcl 80 Mg Tablet) 80 mg PO BID [facility] Last Admin: 07/31/25 20:22 Dose: 80 mg Valsartan (Valsartan 40 Mg Tablet) 20 mg PO BEDTIME [facility]; Protocol Home Medications ?Medication ?Instructions ?Recorded ?Confirmed ?Last Taken ?Type magnesium oxide 250 mg PO DAILY 12/29/23 07/31/25 07/30/25 History clobetasol 0.05 % topical cream 1 appl topical BEDTIME 02/14/25 07/31/25 07/30/25 History levothyroxine 88 mcg tablet 88 mcg PO DAILY@0600 07/31/25 07/31/25 07/30/25 History omeprazole 40 mg capsule,delayed 40 mg PO DAILY@0630 07/31/25 07/31/25 07/30/25 History release rosuvastatin 5 mg tablet 5 mg PO MOWEFR 07/31/25 07/31/25 07/30/25 History sotalol 80 mg tablet 80 mg PO BID 07/31/25 07/31/25 07/30/25 History valsartan 40 mg tablet 20 mg PO BEDTIME 07/31/25 07/31/25 07/30/25 History Physical Exam Vital Signs: Vital Signs: Last Vital Signs Temp 98.4 F 07/31/25 20:00 Pulse 64 07/31/25 20:00 Resp 18 07/31/25 20:00 BP 130/66 07/31/25 20:00 Pulse Ox 97 07/31/25 20:00 O2 Del Method Room Air 07/31/25 20:00 BMI result Body Mass Index 30.7 : Other: buttock area now pink and flat,healing 3 x 5 cm Results Labs 07/31/25 03:43 07/31/25 03:43 Labs: Short CBC 07/31/25 Range/Units 03:43 WBC 6.6 (4.8-10.8) X10*3/uL Hgb 12.4 L (14.0-18.0) g/dl Hct 37.1 L (42.0-52.0) % Plt Count 91 L (160-400) X10*3/uL BMP 07/31/25 03:43 Sodium 137 Potassium 4.0 Chloride 105 Carbon Dioxide 24 BUN 13 Creatinine 0.90 Calcium 8.8 Urine 07/31/25 Range/Units 05:16 Urine Color Yellow Urine Appearance Clear Urine pH 6.5 (5.0-9.0) Ur Specific [place] >= 1.030 H (1.005-1.025) Urine Protein Negative (Neg-Trace) mg/dL Urine Glucose (UA) Negative (Negative) mg/dL Microbiology Microbiology Results: Microbiology 07/30/25 19:47 Blood - Venous Blood Culture - Preliminary No growth after 24 hours. 07/30/25 19:47 Blood - Venous Blood Culture - Preliminary No growth after 24 hours. Assessment and Plan (1) Cellulitis of buttock, left: Status: Acute (2) Lymphangitis of groin: Status: Acute Plan Concern over cellulitis,staph even MRSA. Await culture and MRSA swab. May continue Vancomycin for now and Doxycycline 100 mg bid for another week.
[2025-08-01] MEDS: Lactated Ringers 1,000 ML 50 ML IVCONT (00:19)
[2025-08-01 03:59] VITALS: BP 119/63; PULSE 51; RESP 20; TEMP 36; O2SAT 97
[2025-08-01 06:47] LABS: Creatinine Clr Calc Pharmacy 116.5; Estimated Glomerular Filt Rate > 60
[2025-08-01 07:16] VITALS: BP 122/74; PULSE 56; RESP 16; TEMP 36.4; O2SAT 95
[2025-08-01] MEDS: Ferrous Sulfate 324 MG TABLET.DR PO (07:36)
--- NOTE | 2025-08-01 10:17 | P.DS_ITS ---
DS: Providers Provider Date of Service: 08/01/25 Date of admission: 07/31/25 02:46 Date of discharge: 08/01/25 Primary care physician: Yancy Giles MD Consults: 07/31/25 02:46 Consult to Infectious Diseases Routine Consulting Provider: [facility] Infectious Disease Center Reason for consultation: cellulitis 07/31/25 04:50 Consult to Urology Routine Consulting Provider: [facility] Urology Services Reason for consultation: urine retension 07/31/25 06:01 Consult to Wound Care Routine Consulting Provider: [facility] Wound Care Management Reason for consultation: abcess to left buttock 08/01/25 02:11 Consult to Wound Care Routine Consulting Provider: [facility] Wound Care Management Reason for consultation: left buttocks abscess DS: Diagnosis Discharge Diagnosis (1) Cellulitis of buttock, left: Status: Acute (2) Lymphangitis of groin: Status: Acute DS: Summary Hospital Course Hospital Course: from initial hpi: 65-year-old male with a past medical history of hypertension, a flutter on Eliquis, sotalol, nonischemic cardiomyopathy, JOSE, general anxiety disorder; presented to the hospital today with a chief complaint of left buttock erythema and redness for 2 days. Denies any fevers. Patient mentioned that he probably had a spider bite but has not seen any. Has had spiders at home. Denies any nausea or vomiting. Reports discomfort. Denies any chest pain or palpitations. Denies any urinary symptoms. Review of all other systems is negative except mentioned above ER course: Per ER team, patient noted to have left buttock erythema concerning for cellulitis extending into the perineum and groin. CT abdomen pelvis showed cellulitis. No evidence of gas. No evidence of abscess. Given antibiotics. hospital course: Patient was admitted for left buttock cellulitis without abscess. Was treated with IV vancomycin ceftriaxone. MRSA nasal swab was positive. Wound swab is still pending. Was seen by infectious disease who recommended doxycycline for 7 days on discharge. Final culture should be followed up and antibiotics adjusted as needed. CT abdomen did show incidental finding of exophytic right kidney lesion recommendations were for a renal ultrasound and outpatient follow up with Urology. Course also complicated by recurrence of urinary retention. Hernández catheter was placed patient was started on Flomax. Was seen by Urology recommended voiding trial. Patient does have equipment for self-catheterization at home as needed and should follow up with Urology for this issue. For paroxys mal atrial flutter was continued on Eliquis and sotalol. For hypothyroid was continued on levothyroxine. For hypertension was continued on valsartan. Patient is feeling better and he will be discharged home. Time Attestation Discharge Coordination Time (in mins): 32 Quality: Safe Use of Opioids Does Pt have an Active Cancer Diagnosis on the Problem List?: No Quality: Stroke Does the patient have a stroke diagnosis?: No Physical Exam Vital Signs: Vital Signs: Last Vital Signs Temp 97.5 F 08/01/25 07:16 Pulse 56 08/01/25 07:16 Resp 16 08/01/25 07:16 BP 122/74 08/01/25 07:16 Pulse Ox 95 08/01/25 07:16 O2 Del Method Room Air 08/01/25 07:16 BMI result Body Mass Index 30.7 : Other: buttock area now pink and flat,healing 3 x 5 cm DS: Data Data Completed and Pending Completed studies during hospitalization [Text1]: Procedures Jehovah'S Witness of Cardiac Rhythm, Single (12/20/23) Labs on day of discharge: Laboratory Results - last 24 hr 07/31/25 08/01/25 14:00 05:42 Creatinine 0.84 Estim Creat Clear Calc 116.5 Estimated GFR > 60 Nasal Screen MRSA (PCR) POSITIVE A Nasal S. aureus Screen POSITIVE A Nasal MRSA/S.aureus Interp SEE NOTE Preliminary micro results at discharge 07/31/25 14:00 MRSA Culture - Preliminary Groin Culture in progress. 07/30/25 19:47 Blood Culture - Preliminary Blood - Venous No growth after 24 hours. 07/30/25 19:47 Blood Culture - Preliminary Blood - Venous No growth after 24 hours. Discharge Plan Discharge Anticipated Discharge Date/Time: 08/01/25 10:13 Patient Disposition: Home, Self-Care Discharge Diagnosis: cellulitis Referrals: Lee Jaquez MD [Physician, Urology] - 1 Week Yancy Giles MD [Primary Care Provider, Internal Medicine] - 1 Week Discharge Medications: New tamsulosin 0.4 mg Capsule 0.4 mg PO DAILY Qty: 90 0RF doxycycline hyclate 100 mg capsule 100 mg PO BID Qty: 14 0RF Continued ferrous sulfate 325 mg (65 mg iron) tablet 325 mg PO DAILY Qty: 90 1RF albuterol sulfate 90 mcg/actuation HFA aerosol inhaler 2 puff PO Q4H PRN (Reason: shortness of breath or wheezing) Qty: 8.5 4RF Eliquis 5 mg tablet 5 mg PO BID Qty: 180 3RF omeprazole 40 mg capsule,delayed release(DR/EC) 40 mg PO DAILY@0630 levothyroxine 88 mcg tablet 88 mcg PO DAILY@0600 sotalol 80 mg tablet 80 mg PO BID valsartan 40 mg tablet 20 mg PO BEDTIME rosuvastatin 5 mg tablet 5 mg PO MOWEFR magnesium oxide 250 mg magnesium tablet 250 mg PO DAILY clobetasol 0.05 % cream 1 appl topical BEDTIME albuterol sulfate 2.5 mg /3 mL (0.083 %) solution for nebulization 2.5 mg inhalation QID PRN (Reason: shortness of breath or wheezing) Qty: 75 0RF (DME) nebulizers [AeroEclipse II Nebulizer] Misc See Rx Instructions .Route Qty: 1 0RF Rx Instructions: As directed Use as directed for episodes of bronchospasm and wheeze Discharge Orders: Discharge Order (Routine); Ordered 08/01/25 Ordered By: Bj Briggs Diet: Advance to usual diet Activity on Discharge: As tolerated Stand Alone Forms: Patient Portal Discharge page Print Language: Kyrgyz Other Ambulatory Orders: US renal RT (Routine) Timeframe: 1 Week Facility: [facility] - Location: Ultrasound Ordered By: Bj Briggs Care Plan Goals: recovery Health Concerns: cellulitis, urinary retention, kidney lesion Plan of Treatment: 7 days doxy, follow up cultures and adjust as needed restart flomax, monitor urine output, use self catheter as needed, follow up with urology renal US to evaluate kidney lesion Assessment: see above
--- NOTE | 2025-08-01 10:37 | MHC.CM.PN ---
pt dcd home self care
--- NOTE | 2025-08-01 12:08 | HO.WOUND ---
Wound Consult: Follow up 65yr old?male admitted [place] [facility] [place] 07[place]31/25 02:46- See progress notes and H&P for detailed history.? Wound consult placed for Left buttock cellulitis .? Patient agreeable to assessment and photo documentation.?Plan for d/c home today. discussed home wound care, patient with help at home for dressing changes. patient reporting overall improvement in pain and induration Left buttock 07/31/25 Left buttock 08/01/25 Etiology: ??Ulceration with Cellulitis Present on Admission Measurements: 0.6cm x 0.6cm x 0.1cm Wound Bed: moist yellow wound bed Drainage / Odor: small creamy yellow noted on old dressing. Edges: ?well defined Susy wound: ?Red warm erythema firm Induration extending up to the left groin No Fluctuance noted - pt reports groin induration is improving Pain: pain reported Goals of Treatment: ? Moist wound healing and covering for pain control Recommendations: Left Buttock - Defer to provider for systemic treatment. Off Load Pressure - Cleanse with NS moist gauze, Pat dry. Apply durafiber to open wound followed by Foam dressing. Change daily and PRN for soiling. Re-consult wound care Nurse for wound deterioration or wound changes.
--- NOTE | 2025-08-01 13:45 | HE.PHANOTE ---
RE: VANCO DOSING Trough came back as 14.7 mg/L, renal function is stable. Continue with 1250 mg q12h, next trough is scheduled for 08/02/25 @1300.
== END 2025-08-01 14:27 | disposition home or self-care (01) | DRG 603 ==
LOC: HO.ED 07-31 02:42 → HO.EDOVER 07-31 02:52 → HO.S3 07-31 04:36
PROVIDERS: Internal Medicine; Physician Assistant Medical; Admitting Provider Hospitalist; Emergency Provider Emergency Medicine; PCP Internal Medicine; Visit Provider Internal Medicine
DX: L03.317 Cellulitis of buttock (principal); I42.8 Other cardiomyopathies; I48.92 Unspecified atrial flutter; L03.314 Cellulitis of groin; I48.0 Paroxysmal atrial fibrillation; N40.1 Benign prostatic hyperplasia with lower urinary tract symptoms; R33.8 Other retention of urine; N28.9 Disorder of kidney and ureter, unspecified; I10 Essential (primary) hypertension; G47.33 Obstructive sleep apnea (adult) (pediatric); F41.1 Generalized anxiety disorder; Z22.322 Carrier or suspected carrier of Methicillin resistant Staphylococcus aureus; Z79.01 Long term (current) use of anticoagulants; Z79.899 Other long term (current) drug therapy
CPT/HCPCS: 36415; 72192; 74177; 80048; 80053; 80202; 81003; 82565; 83605; 85025; 85652; 86140; 87040; 87081; 87640; 87641; 99285; J0696; J2270; J3374; J7120; Q9967

== ENCOUNTER → 2025-07-30 21:56 | Outpatient (BNV) | payer MEDICARE, MEDICAID, SELFPAY | PROVIDERS: Emergency Provider Emergency Medicine; PCP Internal Medicine; Visit Provider Radiology Diagnostic Radiology | DX: K61.1 Rectal abscess (principal); L03.315 Cellulitis of perineum | CPT/HCPCS: 74177 ==

== ENCOUNTER → 2025-07-31 00:21 | Outpatient (BNV) | payer MEDICARE, MEDICAID, SELFPAY | PROVIDERS: Admitting Provider Hospitalist; Emergency Provider Emergency Medicine; PCP Internal Medicine; Visit Provider Radiology Diagnostic Radiology | DX: R60.0 Localized edema (principal) | CPT/HCPCS: 72192 ==

== ENCOUNTER → 2025-07-31 02:46 | Outpatient (BNV) | payer MEDICARE, MEDICAID, SELFPAY | PROVIDERS: Admitting Provider Hospitalist; Emergency Provider Emergency Medicine; PCP Internal Medicine; Visit Provider Internal Medicine | DX: L03.317 Cellulitis of buttock (principal) | CPT/HCPCS: 99222 ==

== ENCOUNTER → 2025-07-31 02:46 | Outpatient (BNV) | payer MEDICARE, MEDICAID, SELFPAY | PROVIDERS: Admitting Provider Hospitalist; Emergency Provider Emergency Medicine; PCP Internal Medicine; Visit Provider Internal Medicine | DX: L03.317 Cellulitis of buttock (principal); I89.1 Lymphangitis | CPT/HCPCS: 99223; 99239; 99499 ==

== ENCOUNTER → 2025-07-31 02:46 | Outpatient (BNV) | payer MEDICARE, MEDICAID, SELFPAY | PROVIDERS: Admitting Provider Hospitalist; Emergency Provider Emergency Medicine; PCP Internal Medicine; Visit Provider Urology | DX: R33.9 Retention of urine, unspecified (principal); N28.89 Other specified disorders of kidney and ureter | CPT/HCPCS: 99222 ==

== ENCOUNTER 2025-08-20 08:06 | Outpatient (AMB) | payer MEDICARE, MEDICAID, SELFPAY ==
--- OUTSIDE RECORDS SUMMARY | 2025-08-20 08:14 | XMS_ITS | Patient Health Record ---
Author Organization [facility] Address [address] [place] [address] Care Team Providers Care Solar Electric Installer Name Role Phone Chan FERNANDEZ, Yancy Primary Care Provider Vincent Warren [phone] Allergies Allergen (clinical drug ingredient) Drug/Non Drug Allergy documented on EMR Reaction Allergy Type Onset Date Status lisinopril Lisinopril rash Drug Allergy Activ e Reason For Referral No Information Medications Medication SIG (Take, Route, Frequency, Duration) Notes Start Date End Date Status hydrOXYzine HCl Acti ve Venlafaxine HCl ER A ctive ProAir HFA Active Levothyroxine Sodium Active Zegerid OTC 20-1100 MG Capsule 1 capsule on an empty stomach Orally Once a day; Duration: 30 day(s) For reflux Active Aspirin Adult Low Dose Active Doxycycline Hyclate Active Immunizations Vaccine Route Administration Date Status Comme nts Influenza Unknown 10/28/2018 Administered Social History Tobacco Use: Social History Observation Description Date Details (start date - stop date) Never Smoker NA - NA Social History Drugs/Alcohol: Social Info Question Answer Notes Alcohol Screen Did you have a drink containing alcohol in the past year? Yes How often did you have a drink containing alcohol in the past year? 2 to 3 times a week (3 points) How many drinks did you have on a typical day when you were drinking in the past year? 1 or 2 drinks (0 point) How often did you have 6 or more drinks on one occasion in the past year? 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 Section Notes: Nonsmoker; no sig alcohol Problems Problem Type SNOMED Code ICD Code Onset Dates Problem Status W/U Status Risk Notes Problem Screening for malignant neoplasm of colon (844151051) Encounter for screening for malignant neoplasm of colon (Z12.11) Active confirmed Problem Preprocedural examination (848816776068295) Preprocedural examination (Z01.818) Active confirmed Problem Family History of Cancer of Colon (Situation) (933099490) Family history of colon cancer (Z80.0) Active confirmed Plan Of Treatment Future Test Test Name Order Date COLONOSCOPY 12/06/2018 Insurance Providers Payer Name Payer Address Payer Phone Subscriber Number Group Number Insured Name Patient Relationship to Insured Coverage Start Date Coverage End Date [facility] [address] [address] [place] [address] [id number] JOSE ESCALANTE Self - patient is the insured Medical (General) History Medical History History ICD Code Denies [place],DM,CVA,renal disease Neg. colonoscopies x 3--most recent exam was in 10/[address] Gold Anxiety Asthma HTN Hypothyroidism GERD-EGD with Dr. Gold in 2008-mildredata l hernia--gastritis, neg. H.pylori Eczema Surgical History Surgery Date(Month/Year) Left and right inguinal hernia repair an d umbilical hernia repair Carpal tunnel release bilateral 3 cervical discs surgery in [place] 09/16
--- OUTSIDE RECORDS SUMMARY | 2025-08-20 08:14 | XMS_ITS | Clinical Summary ---
Author Organization [facility] Address [address] [place] [id number] Care Team Providers Care Director Of Development Name Role Phone Asia Giles MD Primary Care Provider [phone] Allergies Active Allergy Reactions Criticality Noted Date [...] Medicaid [place] Care Teams Director Of Development Relationship Specialty Start Date End Date Asia Giles MD PCP - General Internal Medicine 10/01/21
--- OUTSIDE RECORDS SUMMARY | 2025-08-20 08:14 | XMS_ITS | Clinical Summary ---
Author Organization [address] [facility] Address [address] [place] [address] Phone Care Team Providers Care Physician Ophthalmologist Name Role Phone Yancy Giles MD Primary [...] Health Screening 01/11/2025 COVID-19 Vaccine (1 - 2024-2 6 season) 2025 Influenza Vaccine (#1) 2025 RSV [...] Insurance MEDICARE [place]ICA[place] - [place] Care Teams Physician Ophthalmologist Relationship Specialty Start Date End Date Yancy Giles MD PCP - General Internal Medicine 01/11/25
--- OUTSIDE RECORDS SUMMARY | 2025-08-20 08:14 | XMS_ITS | Encounter Summary ---
Author Organization [employer] [facility] Address [address] [place] [address] Care Team Providers Care Cyberathlete Name Role Phone Yancy Giles MD Primary Care Provider Encounter Details Date Type Department Care Team (Late st Contact Info) Description 01/11/2025 Lab Requisition [facility] - Main Lab [address] [facility] [place] [place] [address] Zurdo Kaye PA [address] [address] Retention of urine, unspecified; Urinary [...] marcescens(A ) JACOB 01/13/2025 11:40 AM EDT [facility] ([facility]) [facility] Comment: This is an edited [...] MICROBIOLOGY - GENERAL ORDER ALEXEI Final Result [facility] ([facility] [address] [place] [address], documented in this encounter Visit Diagnoses Diagnosis Retention of urine, unspecified Urinary tract infection, site not specified documented in this encounter Care Teams Cyberathlete Relationship Specialty Start Date End Date Yancy Giles MD PCP - General Internal Medicine 01/11/25 documented as of this encounter
--- OUTSIDE RECORDS SUMMARY | 2025-08-20 08:14 | XMS_ITS | Encounter Summary ---
Author Organization [facility] Address [address] [place] [address] Care Team Providers Care Prepared Foods Team Leader Name Role Phone Yancy Giles MD Primary Care Provider Encounter Details Date Type Department Care Team (Late st Contact Info) Description 01/11/2025 Lab Requisition [facility] - Main Lab [address] [facility] [place] [address] Zurdo Kaye PA [address] [address] Retention of urine, unspecified Social [...] AM EDT) WBC 4.3(L) 4.8 - 10.8 K/[facility] LAB HEMETOLOGY METHOD 01/11/2025 12:51 PM EDT [facility] RBC 4.30(L) 4.50 - 5.50 M/[facility] LAB HEMETOLOGY METHOD 01/11/2025 12:51 PM EDT [facility] Hemoglobin 13.7 13.5 - 17.5 g/dL LAB HEMETOLOGY METHOD 01/11/2025 12:51 PM [facility] Hematocrit 40.0(L) 42.0 - 54.0 % LAB HEMETOLOGY METHOD 01/11/2025 12:51 PM [facility] MCV 92.2 79.0 - 98.0 FL LAB HEMETOLOGY METHOD [facility] MCH 31.6 27.0 - 32.0 pcg LAB HEMETOLOGY METHOD 01/11/2025 12:51 PM [facility] MCHC 34.3 32.0 - 37.0 g/dL LAB HEMETOLOGY METHOD 01/11/2025 12:51 PM [facility] RDW 12.7 11.0 - 15.0 % LAB HEMETOLOGY METHOD 01/11/2025 12:51 PM [facility] Platelets 109(L) 130 - 400 K/mcL LAB HEMETOLOGY METHOD 01/11/2025 12:51 PM [facility] MPV 9.8 7.0 - 11.0 FL LAB HEMETOLOGY METHOD 01/11/2025 12:51 PM [facility] NRBC 0.0 <1.0 % LAB HEMETOLOGY METHOD 01/11/2025 12:51 PM [facility] NRBC Absolute 0.00 <0.10 K/mcL LAB HEMETOLOGY METHOD [facility]2025 12[facility] Neutrophils Relative 48.7 % LAB HEMETOLOGY METHOD 01/11/2025 12:51 PM [facility] Lymphocytes Relative 35.3 % LAB HEMETOLOGY METHOD 01/11/2025 12:51 PM [facility] Monocytes Relative 11.3 % LAB HEMETOLOGY METHOD 01/11/2025 12:51 PM EDT [facility] Eosinophils Relative 3.1 % LAB HEMETOLOGY METHOD 01/11/2025 12:51 PM EDT [facility] Basophils Relative 1.4 % LAB HEMETOLOGY METHOD 01/11/2025 12:51 PM EDT [facility] Immature Granulocytes Relative 0.2 % LAB HEMETOLOGY METHOD 01/11/2025 12:51 PM EDT [facility] Neutrophils Absolute 2.07 1.50 - 7.00 K/mcL LAB HEMETOLOGY METHOD 01/11/2025 12:51 PM EDT [facility] Lymphocytes Absolute 1.50 1.00 - 5.00 K/mcL LAB HEMETOLOGY METHOD 01/11/2025 12:51 PM EDT [facility] Monocytes Absolute 0.48 0.20 - 1.00 K/mcL LAB HEMETOLOGY METHOD 01/11/2025 12:51 PM EDT [facility] Eosinophils Absolute 0.13 0.00 - 0.50 K/mcL LAB HEMETOLOGY METHOD 01/11/2025 12:51 PM EDT [facility] Basophils Absolute 0.06 0.00 - 0.20 K/mcL LAB HEMETOLOGY METHOD 01/11/2025 12:51 PM EDT [facility] Immature Granulocytes Absolute 0.01 0.00 - 0.03 K/mcL LAB HEMETOLOGY METHOD 01/11/2025 12:51 PM EDT [facility] Blood Venous blood specimen / Unknown 01/11/2025 10:12 AM EDT 01/11/2025 12:42 PM EDT us Zurdo MANDUJANO LAB BLOOD ORDERABLES Final Resul t [facility] [address] [place] [address], documented in this encounter Visit Diagnoses Diagnosis Retention of urine, unspecified documented in this encounter Care Teams Prepared Foods Team Leader Relationship Specialty Start Date End Date Yancy Gilse MD PCP - General Internal Medicine 01/11/25 documented as of this encounter
--- OUTSIDE RECORDS SUMMARY | 2025-08-20 08:14 | XMS_ITS | Encounter Summary ---
Author Organization [employer] Address [address] [place] [address] Care Team Providers Care Director Of Career Resources Name Role Phone Yancy Giles MD Primary Care Provider Encounter Details Date Type Department Care Team (Late st Contact Info) Description 03/09/2025 Lab Requisition [facility] - Main Lab [address] [facility] [place] [place] [address] Shabnam Lau PA [address] [place] [address] Gross hematuria Social History Tobacco Use Types [...] 12:00 AM EDT) Final Diagnosis Urine, Voided, [id number]: Negative for high grade urothelial carcinoma. Acute inflammation present. Results of Uro[employer]ysion fluorescence in situ hybridization (FISH) testing: Although FISH was performed, insufficient non-obscured hybridization signals are present for evaluation and interpretation. 03/22/2025 9:32 AM EDT [facility] [place] [facility] Clinical Information Gross hematuria R31.0 Urine Cytology/FISH (now) 03/22/2025 9:32 AM EDT [facility] Gross Description A. Urine, Voided, [id number]: Received one ThinPrep slide for cytology and one ThinPrep slide for UroVysion FISH 03/22/2025 9:32 AM EDT [facility] Disclaimer Unless otherwise specified, all tissue is 10% NB formalin fixed and paraffin embedded. Technical pathology services provided [facility] [address] [address] [place] [address] (CLIA #[id number]/Tiffany Bruce MD, Loan Review Manager) 03/22/2025 9:32 AM EDT [facility] Tissue Urine specimen from urethra / Unknown 03/02/2025 03/09/2025 1:15 PM EDT us Shabnam MANDUJANO LAB PATHOLOGY ORDERABLES Final Result [facility] [address] [place] [address], documented in this encounter Visit Diagnoses Diagnosis Gross hematuria documented in this encounter Care Teams Director Of Career Resources Relationship Specialty Start Date End Date Yancy Giles MD PCP - General Internal Medicine 01/11/25 documented as of this encounter
--- OUTSIDE RECORDS SUMMARY | 2025-08-20 08:14 | XMS_ITS | Encounter Summary ---
Author Organization [facility] Address [address] [place] [address] Care Team Providers Care Rod Cup Filler Name Role Phone Yancy Giles MD Primary Care Provider Encounter Details Date Type Department Care Team (Late st Contact Info) Description 03/02/2025 Lab Requisition [facility] - Main Lab [address] [place] [address] Shabnam Lau PA [address] [place], [place] [id number] Urinary tract infection, site not specified; Gross [...] Urine No growth 03/03/2025 2:06 PM EDT [facility] Urine Urine specimen obtained by clean catch procedure / Unknown 03/02/2025 03/02/2025 5:48 PM EDT us Shabnam MANDUJANO LAB MICROBIOLOGY - GENERAL ORD ERABLES Final Result [facility] [address] [place] [address], documented in this encounter Visit Diagnoses Diagnosis Urinary tract infection, site not specified Gross hematuria documented in this encounter Care Teams Rod Cup Filler Relationship Specialty Start Date End Date Yancy Giles MD PCP - General Internal Medicine 01/11/25 documented as of this encounter
--- NOTE | 2025-08-20 08:33 | MHC.PC.OV ---
Vital Signs 08/20/25 08:48 Height 6 ft 2 in Weight 238 lb BMI 30.6 BP 98/60 Blood Pressure Location Lt brachial Position Sitting Respiration 16 Pulse 56 Pulse Source Pulse Oximeter Temp 97.8 F Temp Source Oral Pulse Oximetry (%) 98 Oxygen Delivery Method Room Air Intake Visit Reasons: 6m f/u -labs Intake Note: Pt is here today for his 6mo. f/u labs Quality Control Analyst Required: No Allergies lisinopril (Lisinopril) Allergy (Intermediate, Verified 08/20/25 09:06) RASH prednisone Allergy (Verified 08/20/25 09:06) Unknown sulfamethoxazole (From Bactrim) Adverse Reaction (Verified 08/20/25 09:06) Hallucinations trimethoprim (From Bactrim) Adverse Reaction (Verified 08/20/25 09:06) Hallucinations Environmental Allergy (Intermediate, Uncoded 08/20/25 09:06) Shortness of Breath Medication List - Last Reconciled 08/20/25 by Yancy Giles MD albuterol sulfate 90 mcg/actuation 2 puffs PO Q4H PRN albuterol sulfate 2.5 mg (3 mL) inhalation QID PRN apixaban (Eliquis) 5 mg PO BID clobetasol 0.05% 1 appl topical BEDTIME ferrous sulfate 325 mg PO DAILY levothyroxine 88 mcg PO DAILY@0600 magnesium oxide 250 mg PO DAILY nebulizers (AeroEclipse II Nebulizer) As directed Use as directed for episodes of bronchospasm and wheeze omeprazole 40 mg PO DAILY@0630 rosuvastatin 5 mg PO MOWEFR sotalol 80 mg PO BID tamsulosin 0.4 mg PO DAILY valsartan 20 mg PO BEDTIME Tobacco use date assessed: 08/20/25 Dental Screening Dental Screen Date: 08/20/25 Did you have a dental visit in the last 12 months?: Yes Did you have a dental problem in the last 6 months where you did not have access to dental care?: No Was dental information given to patient?: Patient has dentist HPI 6m f/u -labs HPI Details 65 year old male with Afib and cardiomyopathy.s/p cardioversion and ablation, has generalized anxiety disorder, obstructive sleep apnea, mixed dyslipidemia acquired hypothyroidism, here today for follow-up visit. Blood pressure within normal limits at present, patient however has not yet had his fasting labs done to check his lipids and thyroid levels. [place] [facility] [place] cellulitis without abscess. Was treated with IV vancomycin ceftriaxone. MRSA nasal swab was positive. Wound swab was negative for MRSA. Was seen by infectious disease who recommended doxycycline for 7 days on discharge, which she has already completed taking. CT abdomen did show incidental finding of exophytic right kidney lesion recommendations were for a renal ultrasound and outpatient follow up with Urology. Course also complicated by recurrence of urinary retention. Hernández catheter was placed patient was started on Flomax. Was seen by Urology recommended voiding trial. Patient does have equipment for self-catheterization at home as needed and should follow up with Urology for this issue. For paroxysmal atrial flutter was continued on Eliquis and sotalol. For hypothyroid was continued on levothyroxine. For hypertension was continued on valsartan. At present patient states that he is feeling much better, with resolution of infection in his buttock after completion of antibiotics. Denies any further episode of urinary retention. [facility] Medical History GERD (gastroesophageal reflux disease) Immunization declined Atrial flutter History of alcohol use disorder Hyperuricemia Thiamine deficiency Erectile dysfunction Eczema of lower extremity History of cardioversion Vitamin D deficiency Nonischemic cardiomyopathy Acute renal insufficiency Anemia Generalized anxiety disorder JOSE (obstructive sleep apnea) Chronic anticoagulation Mixed dyslipidemia Acquired hypothyroidism Nocturnal hypoxemia Obesity Hypothyroid HTN (hypertension) Surgical History History of prostate surgery H/O cardiac radiofrequency ablation History of esophagogastroduodenoscopy (EGD) H/O colonoscopy History of neck surgery Hx of hand surgery Hx of hernia repair Family History Father Atrial fibrillation Mother Heart attack Pacemaker Sister Thyroid disease Brother HTN (hypertension) Sister Colon cancer Social History Household Members: Spouse Housing: House Do you presently have visiting nurse or other home services: No Alcohol intake: never Comment: scheduled med Patient Tobacco Use Status: Never used Tobacco e-Cigarette/Vaping Use: Never Used Advance Directives Date on File: 12/26/20 service: No Current occupational status: disabled Cognitive needs: No Hearing needs: No Vision needs: Yes Questionnaire PHQ-9 Over the last 2 weeks, how often have you been bothered by any of the following problems? 1. Little interest or pleasure in doing things: not at all 2. Feeling down, depressed, or hopeless: not at all 3. Trouble falling or staying asleep, or sleeping too much: not at all 4. Feeling tired or having little energy: not at all 5. Poor appetite or overeating: not at all 6. Feeling bad about yourself - or that you are a failure or have let yourself or your family down: not at all 7. Trouble concentrating on things, such as reading the newspaper or watching television: not at all 8. Moving or speaking so slowly that other people could have noticed. Or the opposite - being so fidgety or restless that you have been moving around a lot more than usual: not at all 9. Thoughts that you would be better off or of hurting yourself in some way: not at all Total score: 0 Source: Developed by Drs. Vincent Diaz, Beth Sung, Yandel Marinelli and colleagues, with an educational celena from [employer]. Thrive Questionnaire Date Thrive assessed: 02/07/25 I am a: Patient What is your living situation today?: I have a steady place to live Within the past 12 months, did the food you bought not last and you didn't have the money to get more?: Never true Within the past 12 months, did you worry whether your food would run out before you got money to buy more?: Never true Do you have trouble paying for medicines?: No Do you have trouble getting transportation to medical appointments?: No Do you have trouble paying your heating and electricity bill?: No Do you have trouble taking care of your child, family member or friend?: No Do you have trouble with day-to-day activities such as bathing, preparing meals, shopping, managing finances, etc.?: No Are you currently unemployed and looking for a job?: No Are you interested in more education?: No Please select the resources that you would like help with: None Currently or been in a relationship where the following occur: No concerns reported THRIVE Score: 0 AUDIT C Alcohol Use Questionnaire (AUDIT-C) 1. How often do you have a drink containing alcohol?: Never 3. How often do you have six or more drinks on one occasion?: Never Total Score: 0 AMRKO-7 AMB Questionnaire MARKO-7 Date MARKO - 7 assessed: 10/02/24 Feeling nervous, anxious, or on edge: 0 = Not at all Not being able to stop or control worryin = Not at all Worrying too much about different things: 0 = Not at all Trouble relaxin = Not at all Being so restless that it is hard to sit still: 0 = Not at all Becoming easily annoyed or irritable: 0 = Not at all Feeling afraid as if something awful might happen: 0 = Not at all Total MARKO-7 score (0-4 normal; 5-9 mild; 10-14 moderate; 15-21 severe): 0 Source: Developed by Drs. Vincent Diaz, Beth Sung, Yandel Marinelli and colleagues, with an educational celena from [employer]. Review of Systems Const All systems reviewed & are unremarkable except as noted in HPI and below Physical exam (Primary Care) Vital Signs: Last Vital Signs Temp 97.8 F 08/20/25 08:48 Pulse 56 08/20/25 08:48 Resp 16 08/20/25 08:48 BP 98/60 08/20/25 08:48 Pulse Ox 98 08/20/25 08:48 Oxygen Delivery Method Room Air 08/20/25 08:48 BMI result Body Mass Index 30.6 Tobacco/Smoking Status: Tobacco use Status Tobacco use date assessed 08/20/25 08/20/25 08:35 Patient Tobacco Use Status Never used Tobacco 08/20/25 08:35 e-Cigarette/Vaping Use Never Used 08/20/25 08:35 PHQ-9: PHQ-9 Score PHQ-9: Total score 0 08/27/25 04:35 Thrive Assessment: Date of Thrive Assessment Date Thrive assessed 02/07/25 08/20/25 08:35 Currently or been in a relationship where the following occur: No concerns reported Const Other: Alert oriented x3, no acute distress noted ambulatory normal gait HENMT Ears: external ears normal General nose exam: Normal external nose present Face and sinus: Yes face symmetric Mouth: Normal oral and palatal mucosa present Eyes General: appearance normal, both eyes and all related structures Neck Neck: Yes full ROM, Yes no lymphadenopathy and Yes supple Resp Effort & Inspection: normal respiratory effort Auscultation: clear to auscultation bilaterally Cardio Other: S1-S2 present regular rate and rhythm GI Inspection: Yes obesity Palpation (GI): Soft to palpation, nontender, no guarding and no masses Auscultation: normal bowel sounds General: Yes no CVA tenderness Male General Exam: Yes normal external exam Back/Spine/Pelvis Back: no CVA tenderness and No back tenderness Skin General skin exam: no rashes or lesions noted Extrem General: Yes full ROM, Yes no clubbing, cyanosis or edema, Yes no pedal edema and Yes normal gait Psych Appearance: grossly normal and well kempt Mental Status: mental status grossly normal Speech and movement: Normal speech and movement present Affect: normal affect Results Reviewed Results Reviewed: Name: Gustavo Martinez Age/Sex: 65/M : 1960 Unit#: [id number] Attend Dr: Bj Briggs MD Re07/31/25 Status: DIS IN Location: [facility] 362-1 Disch: 08/01/25 SPEC : [id number] ELVIS: 07/31/25 STATUS: COMP REQ : [id number] RECD: 07/31/[address]: Rajeev Ann MD COMP: 07/31/25 ENTERED: 07/31/25 [facility] DR: Yancy Giles MD ORDERED: CBC Auto Diff Test Result Flag Reference WBC 6.6 4.8-10.8 X10*3/uL RBC 4.14 L 4.60-5.80 X10*6/uL HGB 12.4 L 14.0-18.0 g/dl HCT 37.1 L 42.0-52.0 % MCV 89.6 80.0-98.0 fL MCH 30.0 27.0-33.0 pg MCHC 33.4 31.0-36.0 g/dl RDW 12.9 11.0-16.0 % PLT 91 L 160-400 X10*3/uL MPV 9.7 9.4-12.4 fL Neut Pct Auto 59.9 45-73 % ImGran Pct Auto 0.3 0.0-0.4 % Lymp Pct Auto 26.8 20-40 % Taos Pct Auto 9.8 2-11 % Eos Pct Auto 2.4 0-4 % Baso Pct Auto 0.8 0-2 % NRBC Pct Auto 0.0 0.0-0.2 /100WBC ANC Neut Abs # 4.0 2.0-8.3 x10*3/uL ImGran Abs Auto 0.02 0.00-0.03 X10*3/uL Lymph Abs Auto 1.8 1.2-4.9 X10*3/uL Taos Abs Auto 0.7 0.1-1.2 X10*3/uL Eos Abs Auto 0.2 0.0-0.4 X10*3/uL Baso Abs Auto 0.1 0.0-0.2 X10*3/uL NRBC Abs Auto 0.000 0.0-0.012 X10*3/uL Name: Gustavo Martinez Age/Sex: 65/M : 1960 Unit#: [id number] Attend Dr: Bj Briggs MD Re07/31/25 Status: DIS IN Location: [address] Disch: 08/01/25 SPEC : [id number] ELVIS: 07/31/253 STATUS: COMP REQ : [id number] RECD: 07/31/250359 SUBM DR: Rajeev Ann MD COMP: 07/31/25-0416 ENTERED: 07/31/25-[address]: Yancy Giles MD ORDERED: BMP Test Result Flag Reference Sodium 137 135-145 mmol/L Potassium 4.0 3.3-5.1 mmol/L CL 105 96-108 mmol/L CO2 24 22-29 mmol/L Gap 12 12-20 BUN 13 9-16 mg/dL Creat 0.90 0.5-1.4 mg/dL Estimated CrCl 106.7 eGFR (calculated from the MDRD study equation) and eCrCl (calculated from the Cockcroft-Gault equation) are based on different parameters and may not yield comparable results. If eCrCl result is absurd, please check patient's height/weight. eGFR > 60 Chronic Kidney Disease: Estimated GFR < 60 mL/min/1.73m2 Severe Kidney Disease: Estimated GFR < 15 mL/min/1.73m2 Glucose, Random 109 60-115 mg/dL CA 8.8 8.4-10.2 mg/dL Coding Level of Care Code Est Pt Level 4 (60344) Diagnoses Primary hypertension I10 Hypertension type: primary hypertension Mixed dyslipidemia E78.2 Acquired hypothyroidism E03.9 Urinary retention R33.9 Renal mass of unknown nature N28.89 Assessment & Plan Assessment & Plan (1) HTN (hypertension): Code(s): I10 - Essential (primary) hypertension Category: Medical Qualifiers: Hypertension type: primary hypertension Qualified Code(s): I10 - Essential (primary) hypertension (2) Mixed dyslipidemia: Code(s): E78.2 - Mixed hyperlipidemia Category: Medical (3) Acquired hypothyroidism: Code(s): E03.9 - Hypothyroidism, unspecified Category: Medical (4) Urinary retention: Code(s): R33.9 - Retention of urine, unspecified Category: Medical (5) Renal mass of unknown nature: Code(s): N28.89 - Other specified disorders of kidney and ureter Category: Medical Plan Patient reminded to get his fasting labs done to check lipids, thyroid levels and advised to schedule appointment with his urologist for follow-up regarding his urinary retention and incidental finding of an exophytic mass from kidney. Continued on current medication at present time. Reminded patient of his upcoming appoint with cardiology next month
[2025-08-20 08:48] VITALS: BP 98/60; PULSE 56; RESP 16; TEMP 36.6; O2SAT 98; BMI 30.6
== END 2025-08-20 10:34 | disposition home or self-care (01) ==
LOC: HO.HMCC 08:06
PROVIDERS: PCP Internal Medicine; Visit Provider Internal Medicine
DX: I10 Essential (primary) hypertension (principal); E78.2 Mixed hyperlipidemia; E03.9 Hypothyroidism, unspecified; R33.9 Retention of urine, unspecified; N28.89 Other specified disorders of kidney and ureter

== ENCOUNTER → 2025-08-20 08:06 | Outpatient (BNVA) | payer MEDICARE, MEDICAID, SELFPAY | PROVIDERS: PCP Internal Medicine; Visit Provider Internal Medicine | DX: I10 Essential (primary) hypertension (principal); E78.2 Mixed hyperlipidemia; E03.9 Hypothyroidism, unspecified; R33.9 Retention of urine, unspecified; N28.89 Other specified disorders of kidney and ureter | CPT/HCPCS: 99212 ==

== ENCOUNTER 2025-09-24 06:48 | Outpatient (REF) | payer MEDICARE, MEDICAID, SELFPAY ==
--- OUTSIDE RECORDS SUMMARY | 2025-09-24 06:51 | XMS_ITS | Encounter Summary ---
Author Organization [facility] Address [address] [place] [address] Care Team Providers Care Payroll Machine Operator Name Role Phone Yancy Giles MD Primary Care Provider Encounter Details Date Type Department Care Team (Late st Contact Info) Description 01/11/2025 Lab Requisition [facility] - Main Lab [address] [facility] [email or web address] [address] Zurdo Kaye PA [address] [address] Retention of urine, unspecified; Urinary [...] marcescens(A ) JACOB 01/13/2025 11:40 AM EDT [facility] Comment: This is an edited [...] MICROBIOLOGY - GENERAL ORDER ALEXEI Final Result [facility] [address] [place] [address], documented in this encounter Visit Diagnoses Diagnosis Retention of urine, unspecified Urinary tract infection, site not specified documented in this encounter Care Teams Payroll Machine Operator Relationship Specialty Start Date End Date Yancy Giles MD PCP - General Internal Medicine 01/11/25 documented as of this encounter
--- OUTSIDE RECORDS SUMMARY | 2025-09-24 06:51 | XMS_ITS | Encounter Summary ---
Author Organization [facility] Address [address] [place] [address] Care Team Providers Care Wardrobe Manager Name Role Phone Yancy Giles MD Primary Care Provider Encounter Details Date Type Department Care Team (Late st Contact Info) Description 03/02/2025 Lab Requisition [facility] - Main Lab [address] [place] [address] Shabnam Lau PA [address] [place], [place] [id number] Urinary tract infection, site not specified; Gross [...] Urine No growth 03/03/2025 2:[address] [facility] Urine Urine specimen obtained by clean catch procedure / Unknown 03/02/2025 03/02/2025 5:48 PM EDT us Shabnam MANDUJANO LAB MICROBIOLOGY - GENERAL ORD ERABLES Final Result [facility] [address] [place] [address], documented in this encounter Visit Diagnoses Diagnosis Urinary tract infection, site not specified Gross hematuria documented in this encounter Care Teams Wardrobe Manager Relationship Specialty Start Date End Date Yancy Giles MD PCP - General Internal Medicine 01/11/25 documented as of this encounter
--- OUTSIDE RECORDS SUMMARY | 2025-09-24 06:52 | XMS_ITS | Clinical Summary ---
Author Organization [facility] Address [address] [place] [address] Care Team Providers Care Director Of Field Coordination Name Role Phone Asia Giles MD Primary Care Provider [phone] Allergies Active Allergy Reactions Criticality Noted Date [...] Medicare Medicaid [place] Care Teams Director Of Field Coordination Relationship Specialty Start Date End Date Asia Giles MD PCP - General Internal Medicine 10/01/21
--- OUTSIDE RECORDS SUMMARY | 2025-09-24 06:52 | XMS_ITS | Encounter Summary ---
Author Organization [employer] Address [address] [place] [address] Care Team Providers Care Client Development Consultant Name Role Phone Yancy Giles MD Primary Care Provider Encounter Details Date Type Department Care Team (Late st Contact Info) Description 03/09/2025 Lab Requisition [facility] - Main Lab [address] [facility] [place] [address] Shabnam Lau PA [address] [place] [address] Gross hematuria Social History Tobacco Use Types [...] 12:00 AM EDT) Final Diagnosis Urine, Voided, [id number]: Negative for high grade urothelial carcinoma. Acute inflammation present. Results of UroVysion fluorescence in situ hybridization (FISH) testing: Although FISH was performed, insufficient non-obscured hybridization signals are present for evaluation and interpretation. 03/22/2025 9:32 AM EDT [facility] [place] [facility] at 0932 EDT Clinical Information Gross hematuria R31.0 Urine Cytology/FISH (now) 03/22/2025 9:32 AM EDT [facility] Gross Description A. Urine, Voided, [id number]: Received one ThinPrep slide for cytology and one ThinPrep slide for UroVysion FISH 03/22/2025 9:32 AM EDT [facility] Disclaimer Unless otherwise specified, all tissue is 10% NB formalin fixed and paraffin embedded. Technical pathology services provided by [facility] [address] [facility] [facility] [facility] [address] [place] [address] (CLIA #[id number]/Tiffany Bruce MD, Garbage Pick Up Worker) 03/22/2025 9:32 AM EDT [facility] Tissue Urine specimen from urethra / Unknown 03/02/2025 03/09/2025 1:15 PM EDT us Shabnam MANDUJANO LAB PATHOLOGY ORDERABLES Final Result [facility] [address] [place] [address], documented in this encounter Visit Diagnoses Diagnosis Gross hematuria documented in this encounter Care Teams Client Development Consultant Relationship Specialty Start Date End Date Yancy Giles MD PCP - General Internal Medicine 01/11/25 documented as of this encounter
--- OUTSIDE RECORDS SUMMARY | 2025-09-24 06:52 | XMS_ITS | Clinical Summary ---
Author Organization [address] [facility] Address [address] [place] [address] Phone Care Team Providers Care Oncology Nurse Navigator Name Role Phone Yancy Giles MD Primary [...] Insurance MEDICARE [place]ICA[place] - [place] Care Teams Oncology Nurse Navigator Relationship Specialty Start Date End Date Yancy Giles MD PCP - General Internal Medicine 01/11/25
--- OUTSIDE RECORDS SUMMARY | 2025-09-24 06:52 | XMS_ITS | Encounter Summary ---
Author Organization [facility] Address [address] [place] [address] Care Team Providers Care Mapper Name Role Phone Yancy Giles MD Primary Care Provider Encounter Details Date Type Department Care Team (Late st Contact Info) Description 01/11/2025 Lab Requisition [facility] - Main Lab [address] [facility] [employer] [place] [address] Zurdo Kaye PA [address] [address] Retention of urine, unspecified Social [...] AM EDT) WBC 4.3(L) 4.8 - 10.8 [facility] HEMETOLOGY METHOD 01/11/2025 12:51 PM EDT [facility] RBC 4.30(L) 4.50 - 5.50 [facility] HEMETOLOGY METHOD 01/11/2025 12:51 PM EDT [facility] Hemoglobin 13.7 13.5 - 17.5 g/dL LAB HEMETOLOGY METHOD 01/11/2025 12:51 PM [facility] Hematocrit 40.0(L) 42.0 - 54.0 % LAB HEMETOLOGY METHOD 01/11/2025 12:51 PM [facility] MCV 92.2 79.0 - 98.0 FL LAB HEMETOLOGY METHOD [facility] MCH 31.6 27.0 - 32.0 pcg LAB HEMETOLOGY METHOD 01/11/2025 12:51 PM [facility] MCHC 34.3 32.0 - 37.0 g/dL LAB HEMETOLOGY METHOD 01/11/2025 12:51 PM [facility] RDW 12.7 11.0 - 15.0 % LAB HEMETOLOGY METHOD 01/11/2025 12:51 PM [facility] Platelets 109(L) 130 - 400 K/mcL LAB HEMETOLOGY METHOD 01/11/2025 12:51 PM [facility] MPV 9.8 7.0 - 11.0 FL LAB HEMETOLOGY METHOD 01/11/2025 12:51 PM [facility] NRBC 0.0 <1.0 % LAB HEMETOLOGY METHOD 01/11/2025 12:51 PM [facility] NRBC Absolute 0.00 <0.10 K/mcL LAB HEMETOLOGY METHOD [facility] Neutrophils Relative 48.7 % LAB HEMETOLOGY METHOD 01/11/2025 12:51 PM [facility] Lymphocytes Relative 35.3 % LAB HEMETOLOGY METHOD 01/11/2025 12:51 PM [facility] Monocytes Relative 11.3 % LAB [...] Resul t [facility] [address] [place] [address], documented in this encounter Visit Diagnoses Diagnosis Retention of urine, unspecified documented in this encounter Care Teams Mapper Relationship Specialty Start Date End Date Yancy Giles MD PCP - General Internal Medicine 01/11/25 documented as of this encounter
--- OUTSIDE RECORDS SUMMARY | 2025-09-24 06:52 | XMS_ITS | Patient Health Record ---
Author Organization [facility] Address [address] [place] [address] Care Team Providers Care Handkerchief Maker Name Role Phone Chan FERNANDEZ, Yancy Primary Care Provider Vincent Warren [phone] Allergies Allergen (clinical drug ingredient) Drug/Non Drug [...] Problem Screening for malignant neoplasm of colon (283566787) Encounter for screening for malignant neoplasm of colon (Z12.11) Active confirmed Problem Preprocedural examination (750178144523735) Preprocedural examination (Z01.818) Active confirmed Problem Family History of Cancer of Colon (Situation) (485361944) Family history of colon cancer (Z80.0) Active confirmed Plan Of Treatment Future Test Test Name Order Date COLONOSCOPY 12/06/2018 Insurance Providers Payer Name Payer Address Payer Phone Subscriber Number Group Number Insured Name Patient Relationship to Insured Coverage Start Date Coverage End Date [facility] [address] [address] [place] [address] [id number] JOSE ESCALANTE Self - patient is the insured Medical (General) History Medical History History ICD Code Denies HI,DM,CVA,renal disease Neg. colonoscopies x 3--most recent exam was in 10/[address] Gold Anxiety Asthma HTN Hypothyroidism GERD-EGD with Dr. Gold in 2008-mildredata l hernia--gastritis, neg. H.pylori Eczema Surgical History Surgery Date(Month/Year) Left and right inguinal hernia repair an d umbilical hernia repair Carpal tunnel release bilateral 3 cervical discs surgery in [place] 09/16
--- OUTSIDE RECORDS SUMMARY | 2025-09-24 06:52 | XMS_ITS | Clinical Summary ---
Author Organization [facility] Address [address] [place] [address] Care Team Providers Care Practicing Dermatologist Name Role Phone Unavailable Primary Care Provider Unavailabl e Social History Tobacco Use Types Packs/Day Years Used Date Smoking Tobacco: Never Assessed Sex and Gender Information Value Date Recorded Sex Assigned at Not on file Legal Sex Male 11:45 PM EST Gender Identity Not on file Sexual Orientation Not on file Plan of Treatment Health Maintenance Due Date Last Done Comments Blood Pressure 1960 Lipid Panel 1960 PSA 1960 Prostate Cancer Screening 1960 SDM 1960 Depression Screening 1973 Hepatitis C Screening 1979 DTaP,Tdap,and Td Vaccines (1 - Tdap) 1980 CT Colonography 2006 Colonoscopy 2006 Colorectal Cancer Screening 2006 FIT 2006 FOBT 2006 Multitarget Stool DNA (Cologuard) 2006 Sigmoidoscopy 2006 Pneumococcal Vaccine: 50+ Ye ars (1 of 1 - PCV) 2011 Zoster Vaccine (1 of 2) 2011 COVID-19 Vaccine ( - 2024-2 6 season) 2025 Influenza Vaccine (#1) 2025 Meningococcal B Vaccines Aged Out No longer eligible based on patient's age to complete this topic Meningococcal Vaccines Aged Out No lo nger eligible based on patient's age to complete this topic
[2025-09-24 10:26] LABS: MANUAL DIFF FLAG NO
[2025-09-24 10:41] LABS: Hematocrit 42.9 % (42.0-52.0); Hemoglobin 14.5 g/dl (14.0-18.0); Imm Gran Abs Auto 0.01 X10*3/uL (0.00-0.03); Imm Gran Pct Auto 0.2 % (0.0-0.4); Lymphocytes Absolute Auto 1.7 X10*3/uL (1.2-4.9); Mean Corpuscular HGB Conc 33.8 g/dl (31.0-36.0); Mean Corpuscular Hemoglobin 30.8 pg (27.0-33.0); Mean Corpuscular Volume 91.1 fL (80.0-98.0); NRBC Abs Auto 0.000 X10*3/uL (0.0-0.012); NRBC Pct Auto 0.0 /100WBC (0.0-0.2); Platelet Count 91 X10*3/uL (160-400); Red Blood Count 4.71 X10*6/uL (4.60-5.80); White Blood Count 4.1 X10*3/uL (4.8-10.8)
[2025-09-24 11:07] LABS: Alanine Aminotransferase 23 U/L (0-40); Anion Gap 9 (12-20); Aspartate Amino Transferase 26 U/L (5-37); Blood Urea Nitrogen 16 mg/dL (9-16); Calcium 9.4 mg/dL (8.4-10.2); Carbon Dioxide 30 mmol/L (22-29); Chloride 106 mmol/L (96-108); Cholesterol 176 mg/dL (<200); Estimated Glomerular Filt Rate > 60; HDL Cholesterol 45 mg/dL (>40); Iron 85 mcg/dL (45-160); Percent Iron Saturation 39 % (15-50); Potassium 4.5 mmol/L (3.3-5.1); Sodium 140 mmol/L (135-145); Total Iron Binding Capacity 219 mcg/dL (228-428); Triglycerides 92 mg/dL (<150); Unsaturated Iron Binding 134 ug/dL; Uric Acid 8.0 mg/dL (3.4-7.0)
[2025-09-24 11:15] LABS: Free T4 (Free Thyroxine) 1.13 ng/dL (0.71-1.85); Thyroid Stimulating Hormone 4.64 uIU/mL (0.32-4.0)
== END 2025-09-24 06:49 ==
LOC: HO.HMGCLDS 06:48
PROVIDERS: PCP Internal Medicine; Visit Provider Internal Medicine
DX: I10 Essential (primary) hypertension (principal); I42.8 Other cardiomyopathies; I48.0 Paroxysmal atrial fibrillation; E78.2 Mixed hyperlipidemia; E03.9 Hypothyroidism, unspecified; E66.09 Other obesity due to excess calories; Z68.32 Body mass index [BMI] 32.0-32.9, adult; E79.0 Hyperuricemia without signs of inflammatory arthritis and tophaceous disease
CPT/HCPCS: 36415; 80048; 80061; 83540; 84439; 84443; 84450; 84460; 84550; 85025

== ENCOUNTER 2025-09-25 09:07 | Outpatient (AMB) | payer MEDICARE, MEDICAID, SELFPAY ==
--- NOTE | 2025-09-25 09:22 | A.OFFVIS_ITS ---
Vital Signs 09/25/25 09:23 Height 6 ft 2 in Weight 238 lb 15.697 oz BMI 30.7 BP 90/52 L Blood Pressure Location Lt brachial Position Sitting Pulse 60 Pulse Source Monitor Intake Visit Reasons: 3 month f/u Headhunter Required: No Allergies lisinopril (Lisinopril) Allergy (Intermediate, Verified 09/25/25 09:26) RASH prednisone Allergy (Verified 09/25/25 09:26) Unknown sulfamethoxazole (From Bactrim) Adverse Reaction (Verified 09/25/25 09:26) Hallucinations trimethoprim (From Bactrim) Adverse Reaction (Verified 09/25/25 09:26) Hallucinations Environmental Allergy (Intermediate, Uncoded 09/25/25 09:26) Shortness of Breath Medication List - Last Reconciled 09/25/25 by SILVIO Mack albuterol sulfate 90 mcg/actuation 2 puffs PO Q4H PRN albuterol sulfate 2.5 mg (3 mL) inhalation QID PRN apixaban (Eliquis) 5 mg PO BID clobetasol 0.05% 1 appl topical BEDTIME ferrous sulfate 325 mg PO DAILY levothyroxine 88 mcg PO DAILY@0600 magnesium oxide 250 mg PO DAILY nebulizers (AeroEclipse II Nebulizer) As directed Use as directed for episodes of bronchospasm and wheeze omeprazole 40 mg PO DAILY PRN rosuvastatin 5 mg PO MOWEFR sotalol 80 mg PO BID valsartan 20 mg PO BEDTIME HPI Comments Details: History of Present Illness The patient is a 65 year old male presenting for follow-up of atrial fibrillation and cardiomyopathy. His cardiomyopathy was mild and believed to be secondary to tachycardia. His last echocardiogram 05/2024 showed EF was difficult to assess, in some views it appeared hyperdynamic and in other views mildly reduced. Currently, the patient is on sotalol and in sinus rhythm. He reports approximately two episodes of his heart rate dropping to 50 bpm since his last visit, which he monitored with his smart watch, but he has experienced no associated symptoms such as dizziness or faintness. He denies any chest pain, breathing issues, or leg swelling. His medications include Eliquis, rosuvastatin, sotalol, and valsartan. He denies bleeding issues with Eliquis, though he notes a past episode of hematuria after a traumatic catheterization during a recent hospitalization. The patient is currently less active due to cold weather. His past medical history includes hypertension, hyperlipidemia, sleep apnea, reactive airway disease, GERD. Results - EKG (Today): Sinus rhythm with first-degree AV block, right bundle branch block, and left anterior fascicular block, which is unchanged from the EKG in May. - Echocardiogram (06/23/2024): EF was difficult to assess; mild aortic regurgitation; mildly dilated sinus of Valsalva (4.54) and ascending aorta (4.3). [facility] Medical History GERD (gastroesophageal reflux disease) Immunization declined Atrial flutter History of alcohol use disorder Hyperuricemia Thiamine deficiency Erectile dysfunction Eczema of lower extremity History of cardioversion Vitamin D deficiency Nonischemic cardiomyopathy Acute renal insufficiency Anemia Generalized anxiety disorder JOSE (obstructive sleep apnea) Chronic anticoagulation Mixed dyslipidemia Acquired hypothyroidism Nocturnal hypoxemia Obesity Hypothyroid HTN (hypertension) Surgical History History of prostate surgery H/O cardiac radiofrequency ablation History of esophagogastroduodenoscopy (EGD) H/O colonoscopy History of neck surgery Hx of hand surgery Hx of hernia repair Family History Father Atrial fibrillation Mother Heart attack Pacemaker Sister Thyroid disease Brother HTN (hypertension) Sister Colon cancer Social History Household Members: Spouse Housing: House Do you presently have visiting nurse or other home services: No Alcohol intake: never Comment: scheduled med Patient Tobacco Use Status: Never used Tobacco e-Cigarette/Vaping Use: Never Used Advance Directives Date on File: 12/26/20 service: No Current occupational status: disabled Cognitive needs: No Hearing needs: No Vision needs: Yes Review of Systems Const All systems reviewed & are unremarkable except as noted in HPI and below ENT Denies dizziness Card Denies chest pain, Denies chest pain at rest, Denies chest pain with activity, Denies rapid heart rate, Denies pedal edema, Denies edema, Denies leg edema, Denies lightheadedness, Denies palpitations, Denies dyspnea, Denies dyspnea on exertion and Denies orthopnea Resp Denies cough, Denies dyspnea and Denies dyspnea on exertion GI Denies hematochezia and Denies change in stool character Musc Denies abnormal gait, Denies limited range of motion, Denies muscle cramps, Denies muscle weakness, Denies numbness, Denies radiating pain into limb, Denies stiffness and Denies tingling Neuro Denies abnormal gait, Denies dizziness, Denies numbness and Denies tingling Endo Denies palpitations Physical Exam Vital Signs: Last Vital Signs Pulse 60 09/25/25 09:23 BP 90/52 L 09/25/25 09:23 BMI result Body Mass Index 30.7 Const General: cooperative, healthy appearing, comfortable and no acute distress Orientation/consciousness: patient oriented x3 Neck Neck: Yes normal visual inspection Resp Effort & Inspection: normal respiratory effort Auscultation: clear to auscultation bilaterally, no crackles, no rales, no r honchi and no wheezes Cardio Rate: regular rate Rhythm: regular rhythm Heart sounds: S1 normal heart sound present, S2 normal heart sound present, no gallops, no murmurs and no rubs Neuro General: patient oriented x3 Extrem General: Yes normal to inspection, No no pedal edema and No calf tenderness Psych Appearance: grossly normal Mental Status: mental status grossly normal Speech and movement: Normal speech and movement present Office Procedures EKG Details: Today, read by me, sinus rhythm with first-degree AV block, Pac with aberrant conduction, right bundle branch block, left anterior fascicular block, rate 60, QTC 452 milliseconds [id number], Complete Assessment & Plan Assessment & Plan (1) PAF (paroxysmal atrial fibrillation): Code(s): I48.0 - Paroxysmal atrial fibrillation Category: Medical Plan: History of paroxysmal atrial flutter/fibrillation currently suppressed with sotalol. No recent reports of heart palpitations. EKG is showing sinus rhythm with first-degree AV block, right bundle branch block and left anterior fascicular block with normal QT see interval. Overall no significant change from prior. He is on Eliquis for anticoagulation. Labs 09/24/2025 showed hematocrit 42.9, creatinine 1.04. No med changes made. (2) Atrial flutter: Code(s): I48.92 - Unspecified atrial flutter Category: Medical Plan: As above (3) Nonischemic cardiomyopathy: Comment: EF 40 45%. Code(s): I42.8 - Other cardiomyopathies Category: Medical Plan: History of nonischemic cardiomyopathy thought to be rate related. He did have a nuclear stress test at [facility] [place]22 which showed fixed inferior defect suggestive of myocardial scar. Prior echo 11/2022 with EF 30-35%. He has been treated with AF rhythm control. Most recent echo 06/23/2024 showing EF difficult to assess, noncontrast images appear hyperdynamic wall contrast images appear mildly reduced - wall motion abnormality could not be excluded, possible inferior and inferior lateral wall. At this time he has no anginal or heart failure symptoms. Will update an echo prior to his next visit.. (4) HTN (hypertension): Code(s): I10 - Essential (primary) hypertension Category: Medical Qualifiers: Hypertension type: primary hypertension Qualified Code(s): I10 - Essential (primary) hypertension Plan: Blood pressure goal less than 130/80. Blood pressure on low side today, asymptomatic. Reviewed good hydration, no med changes made. (5) Ascending aorta dilation: Code(s): I77.810 - Thoracic aortic ectasia Category: Medical Plan: Last echocardiogram showing sinus of Valsalva 4.54 cm and ascending aorta 4.3 cm. Will update echo for re-evaluation. Plan Discussion Notes I informed the patient that his EKG was unchanged compared to his previous one from May, which is reassuring. I explained that while the existing electrical delays in his heart are currently stable and asymptomatic, we will continue to monitor them with repeat EKGs to ensure no progression. We discussed the finding of mild aortic dilation from his last heart ultrasound in 2023. I recommended scheduling a repeat ultrasound to recheck the aorta and ensure it has not changed in size, explaining that causes can include past high blood pressure or genetic factors. We reviewed his low blood pressure and episodes of a low heart rate; as he is asymptomatic, I advised no immediate changes but to continue monitoring. I recommended he follow up in four months, with the heart ultrasound to be completed prior to that visit. Patient Instructions - Continue to take your current medications, including Eliquis, rosuvastatin, sotalol, and valsartan, as prescribed. - We will arrange for you to have a heart ultrasound (echocardiogram) to recheck the size of your aorta. Please have this test done before your next appointment. - Please schedule a follow-up appointment to see the doctor in four months. - Contact us sooner if you experience any new or worsening symptoms, such as dizziness, feeling faint, chest pain, or shortness of breath. Patient was informed and verbally consented to the use of an ambient scribe for clinic note documentation during this visit. Visit time spent on chart review, interview, assessment, orders, documentation. Orders: Orders CA echo transthoracic complete 3 Months I42.8 - Other cardiomyopathies, I77.810 - Thoracic aortic ectasia Coding Level of Care Code Est Pt Level 4 (44103) Add On Problem Visit Only Diagnoses PAF (paroxysmal atrial fibrillation) I48.0 Atrial flutter I48.92 Nonischemic cardiomyopathy I42.8 Primary hypertension I10 Hypertension type: primary hypertension Ascending aorta dilation I77.810 CPT Codes EKG - CPT: 91187-[id number], Complete ([id number]) Time Spent (min) 32
[2025-09-25 09:23] VITALS: BP 90/52; PULSE 60; BMI 30.7
--- OUTSIDE RECORDS SUMMARY | 2025-09-25 11:25 | XMS_ITS | Clinical Summary ---
Author Organization [address] [facility] Address [address] [place] [address] Phone Care Team Providers Care Fur Blower Operator Name Role Phone Yancy Giles MD [...] Insurance MEDICARE [place] - [place] Care Teams Fur Blower Operator Relationship Specialty Start Date End Date Yancy Giles MD PCP - General Internal Medicine 01/11/25
--- OUTSIDE RECORDS SUMMARY | 2025-09-25 11:25 | XMS_ITS | Encounter Summary ---
Author Organization [facility] Address [address] [place] [address] Care Team Providers Care Manager Unix Name Role Phone Yancy Giles MD Primary Care Provider Encounter Details Date Type Department Care Team (Late st Contact Info) Description 03/02/[address] [facility] - Main Lab [address] [place] [address] Shabnam Lau PA [address] [place], [place] [id number] Urinary tract infection, site not specified; Gross [...] Urine No growth 03/03/2025 2:06 PM EDT [facility] Urine Urine specimen obtained by clean catch procedure / Unknown 03/02/2025 03/02/2025 5:48 PM EDT us Shabnam MANDUJANO LAB MICROBIOLOGY - GENERAL ORD ERABLES Final Result [facility] [address] [place] [address], documented in this encounter Visit Diagnoses Diagnosis Urinary tract infection, site not specified Gross hematuria documented in this encounter Care Teams Manager Unix Relationship Specialty Start Date End Date Yancy Giles MD PCP - General Internal Medicine 01/11/25 documented as of this encounter
--- OUTSIDE RECORDS SUMMARY | 2025-09-25 11:25 | XMS_ITS | Encounter Summary ---
Author Organization [facility] Address [address] [place] [address] Care Team Providers Care Facilities Manager Name Role Phone Yancy Giles MD Primary Care Provider Encounter Details Date Type Department Care Team (Late st Contact Info) Description 01/11/2025 Lab Requisition [facility] - Main Lab [address] [facility] [place] [address] Zurdo Kaye PA [address] [address] Retention of urine, unspecified Social [...] AM EDT) WBC 4.3(L) 4.8 - 10.8 K/Health system LAB HEMETOLOGY METHOD 01/11/2025 12:51 PM EDT [facility] RBC 4.30(L) 4.50 - 5.50 M/Health system LAB HEMETOLOGY METHOD 01/11/2025 12:51 PM EDT [facility] Hemoglobin 13.7 13.5 - 17.5 g/dL LAB HEMETOLOGY METHOD 01/11/2025 12:51 PM [facility] Hematocrit 40.0(L) 42.0 - 54.0 % LAB HEMETOLOGY METHOD 01/11/2025 12:51 PM [facility] MCV 92.2 79.0 - 98.0 FL LAB HEMETOLOGY METHOD [facility] MCH 31.6 27.0 - 32.0 pcg LAB HEMETOLOGY METHOD 01/11/2025 12:51 PM [facility] MCHC 34.3 32.0 - 37.0 g/dL LAB HEMETOLOGY METHOD 01/11/2025 12:51 PM [facility] RDW 12.7 11.0 - 15.0 % LAB HEMETOLOGY METHOD 01/11/2025 12:51 PM [facility] Platelets 109(L) 130 - 400 K/mcL LAB HEMETOLOGY METHOD 01/11/2025 12:51 PM [facility] MPV 9.8 7.0 - 11.0 FL LAB HEMETOLOGY METHOD 01/11/2025 12:51 PM [facility] NRBC 0.0 <1.0 % LAB HEMETOLOGY METHOD 01/11/2025 12:51 PM [facility] NRBC Absolute 0.00 <0.10 K/mcL LAB HEMETOLOGY METHOD [facility] Neutrophils Relative 48.7 % LAB HEMETOLOGY METHOD 01/11/2025 12:51 PM [facility] Lymphocytes Relative 35.3 % LAB HEMETOLOGY METHOD 01/11/2025 12:51 PM [facility] Monocytes Relative 11.3 % LAB HEMETOLOGY METHOD 01/11/2025 12:51 PM EDT [facility] Eosinophils Relative 3.1 % LAB HEMETOLOGY METHOD 01/11/2025 12:51 PM EDT [facility] Basophils Relative 1.4 % LAB HEMETOLOGY METHOD 01/11/2025 12:51 PM EDT [facility] Immature Granulocytes Relative 0.2 % LAB HEMETOLOGY METHOD 01/11/2025 12:51 PM EDT [facility] Neutrophils Absolute 2.07 1.50 - 7.00 K/mcL LAB HEMETOLOGY METHOD 01/11/2025 12:51 PM EDT [facility] Lymphocytes Absolute 1.50 1.00 - 5.00 K/mcL LAB HEMETOLOGY METHOD 01/11/2025 12:51 PM EDT [facility] Monocytes Absolute 0.48 0.20 - 1.00 K/mcL LAB HEMETOLOGY METHOD 01/11/2025 12:51 PM EDT [facility] Eosinophils Absolute 0.13 0.00 - 0.50 K/mcL LAB HEMETOLOGY METHOD 01/11/2025 12:51 PM EDT [facility] Basophils Absolute 0.06 0.00 - 0.20 K/mcL LAB HEMETOLOGY METHOD 01/11/2025 12:51 PM EDT [facility] Immature Granulocytes Absolute 0.01 0.00 - 0.03 K/mcL LAB HEMETOLOGY METHOD 01/11/2025 12:51 PM EDT [facility] Blood Venous blood specimen / Unknown 01/11/2025 10:12 AM EDT 01/11/2025 12:42 PM EDT us Zurdo MANDUJANO LAB BLOOD ORDERABLES Final Resul t [facility] [address] [place] [address], documented in this encounter Visit Diagnoses Diagnosis Retention of urine, unspecified documented in this encounter Care Teams Facilities Manager Relationship Specialty Start Date End Date Yancy Giles MD PCP - General Internal Medicine 01/11/25 documented as of this encounter
--- OUTSIDE RECORDS SUMMARY | 2025-09-25 11:25 | XMS_ITS | Patient Health Record ---
Author Organization [facility] Address [address] [place] [address] Care Team Providers Care Slinger Sequins Name Role Phone Chan FERNANDEZ, Yancy Primary Care Provider Vincent Warren [phone] Allergies Allergen (clinical drug ingredient) Drug/Non Drug [...] Problem Screening for malignant neoplasm of colon (453904801) Encounter for screening for malignant neoplasm of colon (Z12.11) Active confirmed Problem Preprocedural examination ([id number]) Preprocedural examination (Z01.818) Active confirmed Problem Family History of Cancer of Colon (Situation) (169869909) Family history of colon cancer (Z80.0) Active confirmed Plan Of Treatment Future Test Test Name Order Date COLONOSCOPY 12/06/2018 Insurance Providers Payer Name Payer Address Payer Phone Subscriber Number Group Number Insured Name Patient Relationship to Insured Coverage Start Date Coverage End Date [facility] [address] [address] [place] [address] [phone] [id number] JOSE ESCALANTE Self - patient is the insured Medical (General) History Medical History History ICD Code Denies [place],DM,CVA,renal disease Neg. colonoscopies x 3--most recent exam was in 10/[address] Gold Anxiety Asthma HTN Hypothyroidism GERD-EGD with Dr. Gold in 2008-mildredata l hernia--gastritis, neg. H.pylori Eczema Surgical History Surgery Date(Month/Year) Left and right inguinal hernia repair an d umbilical hernia repair Carpal tunnel release bilateral 3 cervical discs surgery in [place] 09/16
--- OUTSIDE RECORDS SUMMARY | 2025-09-25 11:25 | XMS_ITS | Encounter Summary ---
Author Organization [facility] Address [address] [place] [address] Care Team Providers Care Telegraphic Typewriter Mechanic Name Role Phone Yancy Giles MD Primary Care Provider [phone] Encounter Details Date Type Department Care Team (Late st Contact Info) Description 01/11/2025 Lab Requisition [facility] - Main Lab [address] [facility] [place] [address] Zurdo Kaye PA [address] [address] Retention of urine, unspecified; Urinary [...] marcescens(A ) JACOB 01/13/2025 11:40 AM EDT [facility] ([facility]) [facility] Comment: This is an edited [...] MICROBIOLOGY - GENERAL ORDER ALEXEI Final Result [facility] ([facility]) [facility] [address] [place] [address], documented in this encounter Visit Diagnoses Diagnosis Retention of urine, unspecified Urinary tract infection, site not specified documented in this encounter Care Teams Telegraphic Typewriter Mechanic Relationship Specialty Start Date End Date Yancy Giles MD PCP - General Internal Medicine 01/11/25 documented as of this encounter
--- OUTSIDE RECORDS SUMMARY | 2025-09-25 11:26 | XMS_ITS | Clinical Summary ---
Author Organization [facility] Address [address] [place] [address] Care Team Providers Care Eyelet Machine Operator Name Role Phone Asia Giles MD Primary Care Provider [phone] Allergies Active Allergy Reactions Criticality Noted Date [...] Medicaid [place] Care Teams Eyelet Machine Operator Relationship Specialty Start Date End Date Asia Giles MD PCP - General Internal Medicine 10/01/21
--- OUTSIDE RECORDS SUMMARY | 2025-09-25 11:26 | XMS_ITS | Clinical Summary ---
Author Organization [facility] Address [address] [place] [address] Care Team Providers Care Environmental Protection Specialist Name Role Phone Unavailable Primary Care Provider [...]
--- OUTSIDE RECORDS SUMMARY | 2025-09-25 11:26 | XMS_ITS | Encounter Summary ---
Author Organization [facility] Address [address] [place] [address] Care Team Providers Care Ballpoint Pen Assembly Machine Operator Name Role Phone Yancy Giles MD Primary Care Provider Encounter Details Date Type Department Care Team (Late st Contact Info) Description 03/09/[address] [facility] - Main Lab [address] [facility] [id number] [place] [address] Shabnam Lau PA [address] [place] [address] Gross hematuria Social History Tobacco Use Types [...] 12:00 AM EDT) Final Diagnosis Urine, Voided, [id number]: Negative for high grade urothelial carcinoma. Acute inflammation present. Results of UroVysion fluorescence in situ hybridization (FISH) testing: Although FISH was performed, insufficient non-obscured hybridization signals are present for evaluation and interpretation. 03/22/2025 9:32 AM EDT [facility] at 0932 EDT Clinical Information Gross hematuria R31.0 Urine Cytology/FISH (now) 03/22/2025 9:32 AM EDT [facility] Gross Description A. Urine, Voided, [id number]: Received one ThinPrep slide for cytology and one ThinPrep slide for UroVysion FISH 03/22/2025 9:32 AM EDT [facility] Disclaimer Unless otherwise specified, all tissue is 10% NB formalin fixed and paraffin embedded. Technical pathology services provided by [facility] [address] [facility] [address] [place] [address] (CLIA #[id number]/Tiffany Bruce MD, Training Associate) 03/22/2025 9:32 AM EDT [facility] Tissue Urine specimen from urethra / Unknown 03/02/2025 03/09/2025 1:15 PM EDT us Shabnam MANDUJANO LAB PATHOLOGY ORDERABLES Final Result [facility] [address] [place] [address], documented in this encounter Visit Diagnoses Diagnosis Gross hematuria documented in this encounter Care Teams Ballpoint Pen Assembly Machine Operator Relationship Specialty Start Date End Date Yancy Giles MD PCP - General Internal Medicine 01/11/25 documented as of this encounter
== END 2025-09-25 10:08 | disposition home or self-care (01) ==
LOC: HO.HCS 09:07
PROVIDERS: PCP Internal Medicine; Visit Provider Nurse Practitioner Family
DX: I48.0 Paroxysmal atrial fibrillation (principal); I48.92 Unspecified atrial flutter; I42.8 Other cardiomyopathies; I10 Essential (primary) hypertension; I77.810 Thoracic aortic ectasia
CPT/HCPCS: 93010; 99214; G2211

== ENCOUNTER → 2025-09-25 09:07 | Outpatient (BNVA) | payer MEDICARE, MEDICAID, SELFPAY | PROVIDERS: PCP Internal Medicine; Visit Provider Nurse Practitioner Family | DX: I48.92 Unspecified atrial flutter (principal); I42.8 Other cardiomyopathies; I10 Essential (primary) hypertension; I77.810 Thoracic aortic ectasia; I44.0 Atrioventricular block, first degree; I49.3 Ventricular premature depolarization; I45.2 Bifascicular block; I48.0 Paroxysmal atrial fibrillation | CPT/HCPCS: 93005; 99212 ==